=== PATIENT | male | born 1950 | race American Indian/Alaskan Native ===

== ENCOUNTER 2017-05-11 19:46 | Inpatient (IN) | payer MEDICARE ==
[2017-05-11 20:40] LABS: Basophils % (Auto) 0.5 % (0.0-1.8); Eosinophils % (Auto) 6.1 % (0.0-4.3); Hematocrit 29.5 % (35.5-45.6); Hemoglobin 9.5 gm/dl (11.8-15.2); Mean Corpuscular HGB Conc 32 % (32-34); Mean Corpuscular Volume 71 fl (84-94); Platelet Count 335 K/mm3 (140-440); Red Blood Count 4.18 M/mm3 (3.65-5.03); White Blood Count 10.4 K/mm3 (4.5-11.0)
--- NOTE | 2017-05-11 20:40 | Emergency Department Report ---
ED Shortness of Breath HPI - General Chief Complaint: Dyspnea/Respdistress Stated Complaint: NEEL Time Seen by Provider: 05/11/17 20:22 Source: family, EMS Mode of arrival: Stretcher Limitations: No Limitations - History of Present Illness Initial Comments: 66-year-old male with a history of idiopathic pulmonary fibrosis here with complaint of shortness of breath. Patient states around 5 PM in the anymore short of breath and was having this difficulty exhaling. No chest pain or fever. -: Gradual, Sudden Radiation: back Severity: moderate Improves With: oxygen, bronchodilators, medication Worsens With: exertion Known History Of: other (IPF) Associated Symptoms: denies other symptoms, cough - Related Data Allergies Allergy/AdvReac Type Severity Reaction Status Date / Time No Known Allergies Allergy Unverified 05/11/17 20:08 ED Review of Systems ROS: Stated complaint: NEEL Other details as noted in HPI Comment: All other systems reviewed and negative Constitutional: denies: chills, fever Eyes: denies: eye pain, eye discharge, vision change ENT: denies: ear pain, throat pain Respiratory: shortness of breath. denies: cough, wheezing Cardiovascular: denies: chest pain, palpitations Endocrine: no symptoms reported Gastrointestinal: denies: abdominal pain, nausea, diarrhea Genitourinary: denies: urgency, dysuria Musculoskeletal: denies: back pain, joint swelling, arthralgia Skin: denies: rash, lesions Neurological: denies: headache, weakness, paresthesias Psychiatric: denies: anxiety, depression Hematological/Lymphatic: denies: easy bleeding, easy bruising ED Past Medical Hx - Past Medical History Hx Hypertension: Yes Hx COPD: Yes Additional medical history: IPF, elevated cholesterol,afib - Surgical History Past Surgical History?: No - Family History Family history: no significant - Social History Smoking Status: Unknown if ever smoked Substance Use Type: None ED Physical Exam - General Limitations: No Limitations General appearance: alert, in no apparent distress - Head Head exam: Present: atraumatic, normocephalic - Eye Eye exam: Present: normal appearance - ENT ENT exam: Present: mucous membranes moist - Neck Neck exam: Present: normal inspection - Respiratory Respiratory exam: Present: normal lung sounds bilaterally, respiratory distress , rhonchi, prolonged expiratory, other (dry crackles) - Cardiovascular Cardiovascular Exam: Present: regular rate, normal rhythm, tachycardia. Absent : systolic murmur, diastolic murmur, rubs, gallop - GI/Abdominal GI/Abdominal exam: Present: soft, normal bowel sounds - Rectal Rectal exam: Present: deferred - Extremities Exam Extremities exam: Present: normal inspection - Back Exam Back exam: Present: normal inspection - Neurological Exam Neurological exam: Present: alert, oriented X3 - Psychiatric Psychiatric exam: Present: normal affect, normal mood - Skin Skin exam: Present: warm, dry, intact, normal color. Absent: rash ED Course Vital Signs 05/11/17 05/11/17 05/11/17 19:59 20:25 20:39 Temperature 99.2 F Pulse Rate 116 H 116 H Pulse Rate [ Anterior Throughout] Respiratory 20 20 20 Rate Respiratory Rate [Anterior Throughout] Blood Pressure 136/71 Blood Pressure 136/71 [Left] O2 Sat by Pulse 94 94 94 Oximetry 05/11/17 05/11/17 21:26 21:36 Temperature Pulse Rate Pulse Rate [ 104 H 105 H Anterior Throughout] Respiratory Rate Respiratory 37 H 30 H Rate [Anterior Throughout] Blood Pressure Blood Pressure [Left] O2 Sat by Pulse Oximetry ED Medical Decision Making - Lab Data Result diagrams: 05/11/17 20:15 05/11/17 20:15 Laboratory Results - last 24 hr 05/11/17 05/11/17 20:15 20:15 WBC 10.4 RBC 4.18 Hgb 9.5 L Hct 29.5 L MCV 71 L MCH 23 L MCHC 32 RDW 20.9 H Plt Count 335 Lymph % (Auto) 11.6 L [place] % (Auto) 8.0 H Eos % (Auto) 6.1 H Baso % (Auto) 0.5 Lymph # 1.2 [place] # 0.8 Eos # 0.6 H Baso # 0.0 Seg Neutrophils % 73.8 H Seg Neutrophils # 7.7 Sodium 138 Potassium 3.9 Chloride 101.1 Carbon Dioxide 23 Anion Gap 18 BUN 10 Creatinine 0.7 L Estimated GFR > 60 BUN/Creatinine Ratio 14.28 Glucose 153 H Calcium 8.9 Troponin T 0.033 H Triglycerides 90 Cholesterol 106 LDL Cholesterol Direct 49 L HDL Cholesterol 39 L Cholesterol/HDL Ratio 2.71 - EKG Data -: EKG Interpreted by Me - Medical Decision Making 66-year-old male with a history of IPF here with shortness of breath. Patient states he feels significantly better. Was given 2 breathing treatments and 125 mg of Solu-Medrol by EMS. On arrival he is feeling significantly better by time of my evaluation. Plan chest x-ray EKG labs and will observe. Plan to repeat treat with an additional breathing treatment and reassessed. Time 9:26 PM patient returned from the bathroom extremely tachypneic and short of breath. His oxygen saturations were in the 80s. He had some increased crackles at his bases. I suspect that he might have some mild flash pulmonary edema. This could also be related to his IPF. Plan to give him an additional breathing treatment increase his oxygen and a single dose of IV Lasix 20 mg. Given that the patient had this increasing episode of hypoxia I decided to admit the patient to the hospital. Discussed case with the hospitalist and will admit. Patient is stable in the emergency department. Portions of this chart were dictated with dictation software. There may be dictation errors contained within this note. Critical care attestation.: If time is entered above; I have spent that time in minutes in the direct care of this critically ill patient, excluding procedure time. ED Disposition Clinical Impression: Hypoxia, Pulmonary edema Disposition: OP ADMIT IP TO THIS HOSP Is pt being admited?: Yes Condition: Stable Instructions: Pulmonary Edema (ED) Referrals: PRIMARY CARE, [Primary Care Provider] - 3-5 Days
[2017-05-11 20:42] LABS: Mean Corpuscular Hemoglobin 23 pg (28-32); Red Cell Distribution Width 20.9 % (13.2-15.2)
[2017-05-11 20:53] LABS: Anion Gap 18 mmol/L; BUN/Creatinine Ratio 14.28; Blood Urea Nitrogen 10 mg/dL (9-20); Calcium 8.9 mg/dL (8.4-10.2); Carbon Dioxide 23 mmol/L (22-30); Chloride 101.1 mmol/L (98-107); Glucose 153 mg/dL (75-100); Potassium 3.9 mmol/L (3.6-5.0); Sodium 138 mmol/L (137-145)
[2017-05-11 21:21] LABS: Cholesterol 106 mg/dL (50-199); HDL Cholesterol 39 mg/dL (40-59); LDL Cholesterol,Direct 49 mg/dL (50-130); Triglycerides 90 mg/dL (2-149)
[2017-05-11] MEDS ORDERED: DUONEB *Not for PRN Use IH ONE (21:22)
[2017-05-11] MEDS ORDERED: LASIX IV ONE (21:26)
[2017-05-12] MEDS ORDERED: DUONEB *Not for PRN Use IH ONE ×2 (00:04→00:10)
--- NOTE | 2017-05-12 00:05 | History and Physical Report ---
History of Present Illness Date of examination: 05/12/17 Date of admission: 05/11/17 23:18 Chief complaint: Shortness of breath History of present illness: Patient is 66-year-old with history of COPD, idiopathic pulmonary fibrosis, on home oxygen At 2 L/m. He presents with worsening shortness of breath for 1 day. She denies shortness of breath. No fever. He is diagnosed with COPD and idiopathic pulmonary fibrosis exacerbation. We'll admit to telemetry for further management. Past History Past Medical History: atrial fib, COPD, hypertension, hyperlipidemia, other ( idiopathic pulmonary fibrosis) Past Surgical History: No surgical history Social history: , lives with family, smoking (quit smoking) Family history: no significant family history Medications and Allergies Allergies Allergy/AdvReac Type Severity Reaction Status Date / Time No Known Allergies Allergy Verified 05/12/17 00:14 Home Medications Medication Instructions Recorded Confirmed Last Taken Type ALBUTEROL NEB's 2.5 vial Q4HR PRN 05/12/17 05/12/17 Unknown History Acetaminophen [Shake That Ache] 500 mg PO Q8HR PRN 05/12/17 05/12/17 Unknown History AtorvaSTATin 20 mg PO DAILY 05/12/17 05/12/17 Unknown History Esbriet 270 mg PO TID 05/12/17 05/12/17 05/11/17 History 270mg Fluticasone [Flonase] 2 sprays NS QDAY 05/12/17 05/12/17 Unknown History Ipratropium [place] 0.02 vial INHALATION Q4HR PRN 05/12/17 05/12/17 Unknown History Losartan [Cozaar] 25 mg PO QDAY 05/12/17 05/12/17 Unknown History Metoprolol 37.5 mg PO BID 05/12/17 05/12/17 Unknown History Omeprazole 20 mg PO DAILY 05/12/17 05/12/17 Unknown History Omeprazole 20 mg PO QDAY 05/12/17 05/12/17 Unknown History Ventolin HFA 90 mcg INHALATION QDAY PRN MDD 2 05/12/17 05/12/17 Unknown History puffs Warfarin [Coumadin] 2.5 mg PO QDAY 05/12/17 05/12/17 Unknown History amLODIPine [Norvasc] 5 mg PO DAILY 05/12/17 05/12/17 Unknown History metFORMIN 05/12/17 Unknown History metFORMIN 500 mg PO BID 05/12/17 05/12/17 Unknown History Review of Systems All systems: negative (no fever, no headache, no abdominal pain, no urinary symptoms. All other systems reviewed and are negative) Exam - Physical Exam Narrative exam: Gen appearance: Not in acute distress HEENT: normocephalic, atraumatic Neck:supple, no JVD, LEONEL Lungs: Bilateral diffuse rhonchi, rales, wheezes Heart :S1 and S2 regular, no murmurs, rubs or gallop Abdomen: Soft, non-tender, non-distended, normal bowel sounds. Extremities : No edema no clubbing or cyanosis Neuro: Awake, alert oriented 3, normal speech, no focal neurological signs - Constitutional Vitals: Temp Pulse Resp BP Pulse Ox 99.2 F 102 H 37 H 132/78 95 05/11/17 19:59 05/11/17 23:00 05/11/17 23:00 05/11/17 23:00 05/11/17 23:00 Results - Labs CBC & Chem 7: 05/11/17 20:15 05/11/17 20:15 Assessment and Plan Acute on chronic respiratory failure secondary to COPD and pulmonary fibrosis exacerbation. Admit to telemetry. Start Solu-Medrol 80 mg IV every 8 hours. 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 steroids Idiopathic pulmonary fibrosis exacerbation Hypertension. Resume home meds Chronic atrial fibrillation. On Coumadin. Continue Coumadin to target INR 2- 3. INR therapeutic at 2.01 DVT prophylaxis. On Coumadin Full CODE STATUS
[2017-05-12] MEDS ORDERED: MILK OF MAGNESIA PO PRN (00:36)
[2017-05-12] MEDS ORDERED: MORPHINE IV PRN (00:36)
[2017-05-12] MEDS ORDERED: DULCOLAX PR PRN (00:36)
[2017-05-12] MEDS ORDERED: TYLENOL PO PRN (00:36)
[2017-05-12] MEDS ORDERED: ZOFRAN IV PRN (00:36)
[2017-05-12 01:16] LABS: INR 2.01 (0.87-1.13)
[2017-05-12 01:17] LABS: Partial Thromboplastin Time 40.5 Sec. (24.2-36.6)
[2017-05-12] MEDS: DUONEB *Not for PRN Use IH SCH ×4 (01:36→19:47)
[2017-05-12 01:45] LABS: ISTAT Base Excess 1; ISTAT PCO2 37.6 (35-45); ISTAT PO2 84 (80-105); ISTAT SO2 97; ISTAT TCO2 26
[2017-05-12] MEDS ORDERED: PIRFENIDONE PO SCH ×2 (08:00→20:00)
--- NOTE | 2017-05-12 09:33 | Admit Criteria Form ---
Admission Criteria Documentation: COPD Clinical Indications for Admission to Inpatient Care ([place]/ check or initial the applicable condition/criteria) Admission is indicated for ANY ONE of the following (1)(2)(3): [ ]I. Acute exacerbation by high-risk comorbidity(e.g., pneumonia, dysrhythmia, heart failure, pleural effusion, pneumothorax) or severe underlying COPD (eg, baseline FEV1 less than 50% predicted) [X ]II. Inpatient admission required[A] rather than observation care (see Chronic Obstructive Pulmonary Disease: Observation Care) because of ANY ONE of the following: [X ]a) New or pre-existing signs or symptoms of COPD (eg, dyspnea or Tachypnea at rest or with minimal activity) that persist despite outpatient and observation care treatment [ ]b) New-onset hypoxemia (room air SaO2 less than 90%, PO2 less than 60 mm Hg (8.0 kPa)) that persists despite outpatient and observation care treatment [X]c) Worsening of pre-existing hypoxemia (eg, new or increased requirement for supplemental oxygen to maintain oxygenation at baseline level) that persists despite outpatient and observation care treatment, with oxygen treatment needs performable only in acute inpatient setting [ ]d) Hypercarbia (PCO2 greater than 40 mm Hg (5.3 kPa))-induced respiratory acidosis (pH less than 7.35) that persists despite outpatient and observation care treatment [ ]e) Supplemental oxygen or respiratory treatments for over 24 hours that are performable only in acute inpatient setting [ ]f) Chest tube placement with active evacuation (e.g., suction, drainage) (6) [ ]g) Other condition, treatment or monitoring requiring inpatient admission [ ]III. Planned invasive surgical or diagnostic procedures requiring acute- care hospitalization [ ]IV. Acute respiratory failure (e.g., uncompensated hypercarbia, severe hypoxemia) [ ]V. Severe comorbid condition (e.g., severe steroid myopathy, acute vertebral fracture) that has acutely worsened pulmonary function [ ]. Altered mental status that is severe or persistent Extended stay beyond goal length of stay may be needed for (29)(30)(31)(32)(33) : [ ]a ) Respiratory Failure. [ ]b) Severe or persisting hypoxemia or hypercarbia [ ]c) Severe or persistent dyspnea [ ]d) Clinically significant Comorbidities (e.g. chronic heart failure, atrial fibrillation with rapid response, pneumonia)(36) [ ]e) Malnutrition (33) The [facility] content created by [facility] has been revised. The portions of the content which have been revised are identified through the use of italic text or in bold, and [facility] has neither reviewed nor approved the modified material. All other unmodified content is copyright [facility]. Please see references footnoted in the original [facility] edition 2017 Admission Criteria Met: Yes
[2017-05-12] MEDS ORDERED: NON-FORMULARY (Omeprazole 20 MG) PO SCH ×2 (10:00)
[2017-05-12] MEDS ORDERED: NON-FORMULARY (Atorvastatin 20 MG) PO SCH (10:00)
[2017-05-12] MEDS ORDERED: METOPROLOL PO SCH (10:00)
[2017-05-12] MEDS ORDERED: NON-FORMULARY (Metformin 500 MG) PO SCH (10:00)
[2017-05-12] MEDS: LOPRESSOR PO SCH ×2 (10:35→23:39)
[2017-05-12] MEDS: GLUCOPHAGE PO SCH ×2 (10:36→17:51)
[2017-05-12] MEDS: NORVASC PO SCH (10:37)
[2017-05-12] MEDS: COZAAR PO SCH (10:37)
[2017-05-12] MEDS: PROTONIX PO SCH (10:38)
--- NOTE | 2017-05-12 11:18 | Progress Note ---
Assessment and Plan Assessment and plan: Acute on chronic respiratory failure secondary to COPD and pulmonary fibrosis exacerbation. Cont. Solu-Medrol 80 mg IV every 8 hours. DuoNeb every 6 hours scheduled. Await pulmonary consultation. COPD exacerbation. Cont. steroids Idiopathic pulmonary fibrosis exacerbation. Pt. currently on Esbieta Hypertension. Resume home meds Chronic atrial fibrillation. On Coumadin. Continue Coumadin to target INR 2- 3. DVT prophylaxis. On Coumadin Full CODE STATUS History Interval history: no new issues overnight Hospitalist Physical - Constitutional Vitals: Temp Pulse Resp BP Pulse Ox 97.7 F 103 H 20 150/73 98 05/12/17 08:00 05/12/17 10:37 05/12/17 08:00 05/12/17 10:37 05/12/17 08:00 General appearance: Present: no acute distress, well-nourished - EENT Eyes: Present: PERRL, EOM intact ENT: hearing intact, clear oral mucosa, dentition normal - Neck Neck: Present: supple, normal ROM - Respiratory Respiratory effort: normal Respiratory: bilateral: CTA - Cardiovascular Rhythm: regular Heart Sounds: Present: S1 & S2. Absent: gallop, rub - Extremities Extremities: no ischemia, No edema, Full ROM - Abdominal General gastrointestinal: soft, non-tender, non-distended, normal bowel sounds - Integumentary Integumentary: Present: clear, warm, dry - Neurologic Neurologic: CNII-XII intact, moves all extremities Results - Labs CBC & Chem 7: 05/11/17 20:15 05/11/17 20:15 Labs: Laboratory Last Values WBC 10.4 K/mm3 (4.5-11.0) 05/11/17 20:15 RBC 4.18 M/mm3 (3.65-5.03) 05/11/17 20:15 Hgb 9.5 gm/dl (11.8-15.2) L 05/11/17 20:15 Hct 29.5 % (35.5-45.6) L 05/11/17 20:15 MCV 71 fl (84-94) L 05/11/17 20:15 MCH 23 pg (28-32) L 05/11/17 20:15 MCHC 32 % (32-34) 05/11/17 20:15 RDW 20.9 % (13.2-15.2) H 05/11/17 20:15 Plt Count 335 K/mm3 (140-440) 05/11/17 20:15 Lymph % (Auto) 11.6 % (13.4-35.0) L 05/11/17 20:15 [place] % (Auto) 8.0 % (0.0-7.3) H 05/11/17 20:15 Eos % (Auto) 6.1 % (0.0-4.3) H 05/11/17 20:15 Baso % (Auto) 0.5 % (0.0-1.8) 05/11/17 20:15 Lymph # 1.2 K/mm3 (1.2-5.4) 05/11/17 20:15 [place] # 0.8 K/mm3 (0.0-0.8) 05/11/17 20:15 Eos # 0.6 K/mm3 (0.0-0.4) H 05/11/17 20:15 Baso # 0.0 K/mm3 (0.0-0.1) 05/11/17 20:15 Seg Neutrophils % 73.8 % (40.0-70.0) H 05/11/17 20:15 Seg Neutrophils # 7.7 K/mm3 (1.8-7.7) 05/11/17 20:15 PT 22.8 Sec. (12.2-14.9) H 05/12/17 00:53 INR 2.01 (0.87-1.13) H 05/12/17 00:53 APTT 40.5 Sec. (24.2-36.6) H 05/12/17 00:53 POC ABG pH 7.430 (7.35-7.45) 05/12/17 01:35 POC ABG pCO2 37.6 (35-45) 05/12/17 01:35 POC ABG pO2 84 (80-105) 05/12/17 01:35 POC ABG HCO3 25.0 05/12/17 01:35 POC ABG Total CO2 26 05/12/17 01:35 POC ABG O2 Sat 97 05/12/17 01:35 POC ABG Base Excess 1 05/12/17 01:35 FiO2 32 % 05/12/17 01:35 Sodium 138 mmol/L (137-145) 05/11/17 20:15 Potassium 3.9 mmol/L (3.6-5.0) 05/11/17 20:15 Chloride 101.1 mmol/L (98-107) 05/11/17 20:15 Carbon Dioxide 23 mmol/L (22-30) 05/11/17 20:15 Anion Gap 18 mmol/L 05/11/17 20:15 BUN 10 mg/dL (9-20) 05/11/17 20:15 Creatinine 0.7 mg/dL (0.8-1.5) L 05/11/17 20:15 Estimated GFR > 60 ml/min 05/11/17 20:15 BUN/Creatinine Ratio 14.28 % 05/11/17 20:15 Glucose 153 mg/dL (75-100) H 05/11/17 20:15 POC Glucose 277 (70-105) H 05/12/17 11:05 Calcium 8.9 mg/dL (8.4-10.2) 05/11/17 20:15 Troponin T 0.028 ng/mL (0.00-0.029) 05/12/17 00:53 NT-Pro-B Natriuret Pep 427.1 pg/mL (0-900) 05/12/17 00:53 Triglycerides 90 mg/dL (2-149) 05/11/17 20:15 Cholesterol 106 mg/dL (50-199) 05/11/17 20:15 LDL Cholesterol Direct 49 mg/dL (50-130) L 05/11/17 20:15 HDL Cholesterol 39 mg/dL (40-59) L 05/11/17 20:15 Cholesterol/HDL Ratio 2.71 % 05/11/17 20:15
--- NOTE | 2017-05-12 12:42 | Consultation ---
History of Present Illness Consult date: 05/12/17 Requesting physician: TRIPP LONDON Reason for consult: other (Pulmonary Fibrosis) History of present illness: PULMONARY / CCM CONSULT NOTE (Full dictation # [id number]) Please see dictated notes full details Past History Past Medical History: atrial fib, COPD, hypertension, hyperlipidemia, other ( idiopathic pulmonary fibrosis) Past Surgical History: No surgical history Social history: , lives with family, smoking (quit smoking) Family history: no significant family history Medications and Allergies Allergies Allergy/AdvReac Type Severity Reaction Status Date / Time No Known Allergies Allergy Verified 05/12/17 00:14 Home Medications Medication Instructions Recorded Confirmed Last Taken Type ALBUTEROL NEB's 2.5 vial Q4HR PRN 05/12/17 05/12/17 Unknown History Acetaminophen [Shake That Ache] 500 mg PO Q8HR PRN 05/12/17 05/12/17 Unknown History AtorvaSTATin 20 mg PO DAILY 05/12/17 05/12/17 Unknown History Esbriet 270 mg PO TID 05/12/17 05/12/17 05/11/17 History 270mg Fluticasone [Flonase] 2 sprays NS QDAY 05/12/17 05/12/17 Unknown History Ipratropium [place] 0.02 vial INHALATION Q4HR PRN 05/12/17 05/12/17 Unknown History Losartan [Cozaar] 25 mg PO QDAY 05/12/17 05/12/17 Unknown History Metoprolol 37.5 mg PO BID 05/12/17 05/12/17 Unknown History Omeprazole 20 mg PO DAILY 05/12/17 05/12/17 Unknown History Omeprazole 20 mg PO QDAY 05/12/17 05/12/17 Unknown History Ventolin HFA 90 mcg INHALATION QDAY PRN MDD 2 05/12/17 05/12/17 Unknown History puffs Warfarin [Coumadin] 2.5 mg PO QDAY 05/12/17 05/12/17 Unknown History amLODIPine [Norvasc] 5 mg PO DAILY 05/12/17 05/12/17 Unknown History metFORMIN 05/12/17 Unknown History metFORMIN 500 mg PO BID 05/12/17 05/12/17 Unknown History Active Meds: Active Medications Acetaminophen (Tylenol) 650 mg PO Q4H PRN PRN Reason: Pain MILD(1-3)/Fever >100.5/[place] Albuterol (Proventil) 2.5 mg IH Q4HRT PRN PRN Reason: Shortness Of Breath Albuterol/Ipratropium (Duoneb *Not For Prn Use*) 1 ampul IH Q6HRT [facility] Last Admin: 05/12/17 07:05 Dose: 1 ampul Amlodipine Besylate (Norvasc) 5 mg PO DAILY [facility] Last Admin: 05/12/17 10:37 Dose: 5 mg Atorvastatin Calcium (Lipitor) 20 mg PO QHS [facility] Bisacodyl (Dulcolax) 10 mg RI QDAY PRN PRN Reason: Constipation unrelieved by MOM Fluticasone Propionate (Flonase) 100 mcg NS QDAY [facility] Insulin Human Regular (Novolin R) 0 units SUB-Q ACHS [facility] PRN Reason: Protocol Losartan Potassium (Cozaar) 25 mg PO QDAY [facility] Last Admin: 05/12/17 10:37 Dose: 25 mg Magnesium Hydroxide (Milk Of Magnesia) 30 ml PO Q4H PRN PRN Reason: Constipation Metformin HCl (Glucophage) 500 mg PO BIDDIAB [facility] Last Admin: 05/12/17 10:36 Dose: 500 mg Methylprednisolone Sodium Succinate (Solu-Medrol) 80 mg IV Q8H [facility] Last Admin: 05/12/17 10:38 Dose: 80 mg Metoprolol Tartrate (Lopressor) 37.5 mg PO BID [facility] Last Admin: 05/12/17 10:35 Dose: 37.5 mg Miscellaneous Medication (Esbriet) 270 mg PO TID [facility] Morphine Sulfate (Morphine) 2 mg IV Q4H PRN PRN Reason: Pain, Moderate (4-6) Ondansetron HCl (Zofran) 4 mg IV Q6H PRN PRN Reason: nausea or vomiting Pantoprazole Sodium (Protonix) 20 mg PO QDAY [facility] Last Admin: 05/12/17 10:38 Dose: 20 mg Warfarin Sodium (Coumadin) 2.5 mg PO QDAY@1700 [facility] PRN Reason: Protocol Physical Examination Vital signs: Vital Signs Pulse Resp Pulse Ox 116 H 33 H 99 05/11/17 19:44 05/11/17 19:44 05/11/17 19:44 Results - Laboratory Findings CBC and BMP: 05/11/17 20:15 05/11/17 20:15 ABG POC ABG pH 7.430 (7.35-7.45) 05/12/17 01:35 POC ABG pCO2 37.6 (35-45) 05/12/17 01:35 POC ABG pO2 84 (80-105) 05/12/17 01:35 POC ABG HCO3 25.0 05/12/17 01:35 POC ABG Total CO2 26 05/12/17 01:35 POC ABG O2 Sat 97 05/12/17 01:35 PT/INR, D-dimer PT 22.8 Sec. (12.2-14.9) H 05/12/17 00:53 INR 2.01 (0.87-1.13) H 05/12/17 00:53 Abnormal lab findings: Abnormal Labs 05/12/17 05/12/17 05/12/17 00:53 06:50 11:05 PT 22.8 H INR 2.01 H APTT 40.5 H POC Glucose 213 H 277 H
[2017-05-12] MEDS: FLONASE NS SCH (12:55)
--- NOTE | 2017-05-12 15:32 | XRay Report ---
Chest 2 views: History: Shortness of breath. Findings: Cardiomegaly. Trachea is midline. Pulmonary venous congestion bilaterally with bilateral pleural thickening and minimal pleural effusion. Interstitial infiltrates lower lobes bilaterally probably related to congestive failure and less likely chronic interstitial lung changes or interstitial pneumonia. Impression: Probable CHF. Less likely bilateral lower lobe pneumonia.
[2017-05-12] MEDS: LEVAQUIN PO SCH (17:51)
[2017-05-12] MEDS: COUMADIN PO SCH (17:51)
[2017-05-12] MEDS: ESBRIET 267 MG PO SCH (18:24)
[2017-05-12] MEDS: PROVENTIL IH PRN ×2 (18:33→23:03)
--- NOTE | 2017-05-13 00:49 | Consultation ---
CONSULTING PHYSICIAN: Chepe Mcdaniel M.D. REASON FOR CONSULTATION: COPD/fibrosis exacerbation. CHIEF COMPLAINT AND HISTORY OF PRESENT ILLNESS: The patient is a 66-year-old -[place] male with past medical history indeed significant for a diagnosis of idiopathic pulmonary fibrosis. He states in about 2007 he had been diagnosed with COPD. He never really saw a bolt labeler up until about a couple of months ago. He is on 2 liters nasal cannula at home. He was diagnosed with idiopathic pulmonary fibrosis and started essentially on Esbriet or pirfenidone. He stated that he had been doing about the same at home yesterday complaining of about increasing shortness of breath. On the day of presentation, according to his caregiver, I think his in the room, he walked outside to try and get more air and as soon as he opened the door, he got even more short of breath. He came to the Emergency Room. After evaluation, he was admitted for an exacerbation of his COPD with IPF. When I stopped by to see him, he was resting in bed, feeling a little bit better. He had oxygen about 2-1/2 liters per minute. He denied any fevers or chills. He denied any change in his chronic cough or expectoration. He denied any gross or streaky hemoptysis. He currently stated that this has happened once or twice in the past couple of months. With regards to tobacco use, he has a 10 plus pack year tobacco smoking history, but quit smoking when he could no longer inhale according to I think his in the room. This really is as much of the history of presentation. He denies any new onset acute leg pain or swelling either unilaterally or bilaterally. Denies any prior history of venous thromboembolic phenomenon. PAST MEDICAL HISTORY: History of atrial fibrillation, history of COPD, hypertension, hyperlipidemia, and idiopathic pulmonary fibrosis. PAST SURGICAL HISTORY: Denies. MEDICATIONS: He was on at the time I stopped by to see him, according to the medication administration record included the following: Tylenol 650 mg p.o. q.4h. p.r.n. mild pain, DuoNeb treatments nebulized q.6h., Norvasc 5 mg p.o. daily, Lipitor 20 mg p.o. at bedtime, Flonase 100 mcg each nostril daily, insulin via sliding scale, Cozaar 25 mg p.o. daily, milk of magnesia 30 mL p.o. q.4h. p.r.n. constipation, metformin 500 mg p.o. b.i.d., Solu-Medrol 80 mg IV q.8h., and Lopressor 37.5 mg p.o. b.i.d. He is taking the Esbriet 267 mg p.o. t.i.d., Zofran 4 mg IV q.6h. p.r.n. nausea and vomiting, morphine sulfate 2 mg IV q.4h. p.r.n. moderate pain, Protonix 20 mg p.o. daily and Coumadin 2.5 mg p.o. daily. ALLERGIES: No known drug allergies. DIET: Well-built gentleman. Denies significant weight loss or gain in the preceding few weeks to months. FAMILY AND SOCIAL HISTORY: Lives in the community, I believe he is . His was in the room. He has a 10 plus pack year tobacco smoking history. No current alcohol, tobacco, or illicit drug use or abuse. REVIEW OF SYSTEMS: No loss of consciousness. No new onset seizures. No new onset focal weakness. No gross hematochezia or melena. No gross hematuria or dysuria. No hematemesis. No hemoptysis. He has had some streaky hemoptysis in the preceding few weeks. Complete 13-system review of systems obtained. Pertinent positives and/or negatives are as in the body of the history above. Otherwise, they are noncontributory. PHYSICAL EXAMINATION: VITAL SIGNS: At presentation, he had low-grade fever of 99.2 degrees Fahrenheit with a pulse of 116, respiratory rate of 33, blood pressure 136/71, oxygen sats were 99%, inspired oxygen concentration at that time was not recorded. HEAD, EYES, EARS, NOSE, AND THROAT: Pupils are equal, round, about 3-4 mm, reactive to light. Extraocular muscle movements are intact. Grossly, there are no palpable lymph nodes in the supraclavicular or submandibular lymph node chains. No submandibular tenderness. LUNGS: Auscultation of both lung davey consistent with inspiratory rales in the bases in particular. No active wheezing. HEART: Heart sounds 1 and 2 are heard, regular rate and rhythm at time of my evaluation. ABDOMEN: Soft, full, bowel sounds are positive, nontender. EXTREMITIES: Without overt digital clubbing, cyanosis, or pedal edema. NEUROLOGIC: The exam was grossly nonfocal. LABORATORY DATA: From my review are as follows: White cell count 10,400; hemoglobin 9.5; hematocrit 29.5; and platelets 335. No manual differential. No band forms. INR 2.01. ABG showed a pH of 7.43, pCO2 of 38, and pO2 of 84, that was on 3 liters nasal cannula. Serum sodium 138, potassium 3.9, chloride 101, bicarbonate 23, BUN 10, creatinine 0.7, and glucose 153. BNP was within normal limits. Troponin slightly elevated at 0.033. LDL cholesterol 49. Microbiology studies none. RADIOLOGIC STUDIES: Radiographic studies have been reviewed. I have reviewed the radiologist's interpretation and pulling up the films now. He describes probable CHF, essentially interstitial changes, particularly in the lower lobes consistent with IPF. ASSESSMENT AND PLAN: We have an elderly gentleman in with the idiopathic pulmonary fibrosis type symptoms and he brings a diagnosis from the outside. He never got an open lung biopsy or perhaps procedure, but that is not necessary for the diagnosis of this day and probably based on the history he tells me, I do feel like he has been evaluated to the point where I doubt that diagnosis is really in doubt. However, I should mention he denies any history consistent with connective tissue disorders. He denies any history of skin changes. He denies any history of arthritis. He denies any history of Raynaud's type phenomena. He denies any history consistent with features, he has none of those. I think that acutely he needs to be placed on antibiotic therapy. I will treat him with 5 days of Levaquin monotherapy for possible community-acquired pneumonia in the setting of idiopathic pulmonary fibrosis. I should mention that medication he is on Esbriet does have some immunosuppressive properties and high adverse reaction case. Adverse reaction reportedly related with upper respiratory tract type infections. Whatever the case, we will need to cover him with antibiotics. I will begin to taper his systemic steroids. I doubt that that is going to have much effect. In terms of improving his disease processes, he does have the history of chronic obstructive pulmonary disease, but I do not know if he has obstructive or restrictive defects at this time. Sputum will be sent for Gram stain cultures and sensitivities. I will get his CRP level to help guide antibiotic therapy. Oxygen should be supplemented to keep sats greater than or equal to about 92-94% and aspiration precautions will be maintained. I have candidly discussed with him that he might want to get some evaluation in [facility] set up and dedicated pulmonary fibrosis clinic. I am not sure if that is what is currently attending, but that would certainly be of benefit certainly. The prognosis is guarded in his case, especially if the diagnosis is correct, but we certainly can improve quality of life. It might seem that lung transplantation is probably his best chance of significant cure or to say and again in a teaching center particularly one with lung transplant capabilities may ultimately serve him down the line. Certainly early listing on the lung transplant list will improve his chances of him receiving one if he gets to that point. I would just go ahead and do an LINDA test to screen for connective tissue disorder. I also do an CECILIA level as a kind of evaluation for sarcoidosis. We will treat him with antibiotics. We will continue supplemental oxygen. We will taper the systemic steroids. A trial of diuretics may be in order. The BUN and creatinine suggest that he will definitely benefit from, he will be able to tolerate diuresis. I will do gentle diuresis. I am just going to give him 2 doses of Lasix 20 mg IV q.12h. and see if there is any significant clinical response. He is fully anticoagulated and he is appropriately on gastrointestinal prophylaxis. Thank you very much for the consult Dr. Mcdaniel. We will follow along. We will make further recommendations as picture progresses/becomes clearer. JOB# [id number] AMY/HARRISON
[2017-05-13] MEDS: DUONEB *Not for PRN Use IH SCH ×4 (02:47→20:01)
[2017-05-13] MEDS ORDERED: ALUM-MAG HYDROX-SIMETH 200-200-20MG/5ML PO PRN (04:57)
[2017-05-13] MEDS: ROBITUSSIN AC PO PRN ×2 (05:08→21:18)
[2017-05-13 06:58] LABS: INR 1.98 (0.87-1.13)
[2017-05-13 07:12] LABS: Anion Gap 16 mmol/L; BUN/Creatinine Ratio 21.66; Blood Urea Nitrogen 13 mg/dL (9-20); Calcium 9.3 mg/dL (8.4-10.2); Carbon Dioxide 26 mmol/L (22-30); Chloride 102.5 mmol/L (98-107); Glucose 127 mg/dL (75-100); Potassium 5.1 mmol/L (3.6-5.0); Sodium 139 mmol/L (137-145)
[2017-05-13] MEDS: ESBRIET 267 MG PO SCH ×3 (08:00→20:35)
[2017-05-13 08:03] LABS: Basophils % (Auto) 0.1 % (0.0-1.8); Eosinophils % (Auto) 0.1 % (0.0-4.3); Hematocrit 29.1 % (35.5-45.6); Hemoglobin 9.2 gm/dl (11.8-15.2); Mean Corpuscular HGB Conc 32 % (32-34); Mean Corpuscular Volume 71 fl (84-94); Platelet Count 350 K/mm3 (140-440); Red Blood Count 4.08 M/mm3 (3.65-5.03); White Blood Count 10.9 K/mm3 (4.5-11.0)
[2017-05-13 08:09] LABS: Mean Corpuscular Hemoglobin 23 pg (28-32); Red Cell Distribution Width 21.1 % (13.2-15.2)
[2017-05-13] MEDS: GLUCOPHAGE PO SCH ×2 (08:14→17:26)
[2017-05-13] MEDS: PROTONIX PO SCH (09:04)
[2017-05-13] MEDS: NORVASC PO SCH (09:43)
[2017-05-13] MEDS: LOPRESSOR PO SCH ×2 (09:43→21:17)
[2017-05-13] MEDS: FLONASE NS SCH (09:44)
[2017-05-13] MEDS: COZAAR PO SCH (09:44)
[2017-05-13] MEDS: PROVENTIL IH PRN (10:43)
--- NOTE | 2017-05-13 11:17 | Discharge Summary ---
Providers - Providers Date of Admission: 05/11/17 23:18 Date of discharge: 05/14/17 Attending physician: SHUN LEON 05/12/17 00:36 Consult to Physician [CONS] Routine Consulting Provider: MARY ROLDAN Reason For Exam: COPD /fibrosis [facility] Place consult to:: dr. roldan Notified:: answering service Phone number called:: [phone] Was contact made?: Yes If yes, spoke with:: darren Time called:: 08:41 Primary care physician: [facility] Hospitalization Reason for admission: sob Condition: Stable Hospital course: Patient is 66-year-old with history of COPD, idiopathic pulmonary fibrosis, on home oxygen At 2 L/m. He presented with worsening shortness of breath for 1 day prior to admission. No fever. The patient was admitted with diagnosis of COPD and idiopathic pulmonary fibrosis exacerbation. The patient received treatment with IV steroids and breathing treatments. Patient reports that he is back to his baseline respiratory status. Patient denies any chest pain or shortness of breath. Patient is felt to have received maximal hospital benefit. Therefore, patient will be discharged home. Dedicated discharge time 32 minutes. Disposition: DC-01 TO HOME OR SELFCARE Time spent for discharge: 32 - Discharge Diagnoses (1) IPF (idiopathic pulmonary fibrosis) Status: Acute (2) COPD (chronic obstructive pulmonary disease) Status: Acute Qualifiers: COPD type: C Chronic bronchitis type: C Emphysema type: E (3) Hypoxia Status: Acute Core Measure Documentation - Palliative Care Palliative Care/ Comfort Measures: Not Applicable - Core Measures Any of the following diagnoses?: none Exam - Constitutional Vitals: Temp Pulse Resp BP Pulse Ox 98.0 F 84 18 130/80 96 05/13/17 09:43 05/13/17 10:45 05/13/17 10:45 05/13/17 09:43 05/13/17 10:00 General appearance: Present: no acute distress, well-nourished - EENT Eyes: Present: PERRL ENT: hearing intact, clear oral mucosa - Neck Neck: Present: supple, normal ROM - Respiratory Respiratory effort: normal Respiratory: bilateral: CTA - Cardiovascular Heart Sounds: Present: S1 & S2. Absent: rub, click - Extremities Extremities: pulses symmetrical, No edema Peripheral Pulses: within normal limits - Abdominal General gastrointestinal: Present: soft, non-tender, non-distended, normal bowel sounds Male genitourinary: Present: normal - Integumentary Integumentary: Present: clear, warm, dry - Musculoskeletal Musculoskeletal: gait normal, strength equal bilaterally - Psychiatric Psychiatric: appropriate mood/affect, intact judgment & insight - Neurologic Neurologic: CNII-XII intact, moves all extremities Plan Activity: no restrictions Weight Bearing Status: Full Weight Bearing Diet: regular Follow up with: PRIMARY CARE, [Primary Care Provider] - 3-5 Days MARY ROLDAN MD [Staff Physician] - 7 Days Forms: Warfarin Discharge Instruction Prescriptions: methylPREDNISolone [Medrol Dose [place]] 4 mg PO QAM #1 pack
[2017-05-13] MEDS: LEVAQUIN PO SCH (17:26)
[2017-05-13] MEDS: COUMADIN PO SCH (17:27)
--- NOTE | 2017-05-13 20:54 | Progress Note ---
Assessment and Plan Patient still complaining severe shortness of breath. Patient is on 3 litres O2. O2 saturation 98%.Still complaining cough. - Patient Problems (1) COPD (chronic obstructive pulmonary disease) Current Visit: Yes Status: Acute Qualifiers: COPD type: C Chronic bronchitis type: C Emphysema type: E Plan to address problem: O2 2 litres via nasal canula. Albuterol/atrovent aerosol treatments q 6 hours. Continue I/V solumedral Continue Levaquine. Continue warfarin. (2) Hypoxia Current Visit: Yes Status: Acute Plan to address problem: Recommend continuous O2 2 litres via nasal canula. (3) IPF (idiopathic pulmonary fibrosis) Current Visit: Yes Status: Acute Plan to address problem: Recommend LINDA, rheumatoid factor, CECILIA level, CAnca. Recommend CAT scan of chest PFTs as out patient. (4) Pulmonary edema Current Visit: Yes Status: Acute Qualifiers: Chronicity: C Plan to address problem: Recommend lasix. Recommend to consult cardiology. Subjective Date of service: 05/13/17 Interval history: Patient still complaining severe shortness of breath. Patient is on 3 litres O2. O2 saturation 98%.Still complaining cough. Objective Vital Signs - 12hr 05/13/17 05/13/17 05/13/17 09:43 09:44 10:00 Temperature 98.0 F Pulse Rate 82 82 Pulse Rate [ Anterior Bilateral Throughout] Respiratory 20 Rate Respiratory Rate [Anterior Bilateral Throughout] Blood Pressure 130/80 O2 Sat by Pulse 96 96 Oximetry 05/13/17 05/13/17 05/13/17 10:35 10:45 12:00 Temperature 98.0 F Pulse Rate 79 Pulse Rate [ 85 84 Anterior Bilateral Throughout] Respiratory 20 Rate Respiratory 18 18 Rate [Anterior Bilateral Throughout] Blood Pressure 137/69 O2 Sat by Pulse 96 Oximetry 05/13/17 05/13/17 05/13/17 14:00 14:10 15:00 Temperature 98 F Pulse Rate 89 Pulse Rate [ 84 85 Anterior Bilateral Throughout] Respiratory 18 Rate Respiratory 18 18 Rate [Anterior Bilateral Throughout] Blood Pressure 141/75 O2 Sat by Pulse Oximetry 05/13/17 05/13/17 05/13/17 19:51 19:55 20:02 Temperature Pulse Rate Pulse Rate [ 85 87 Anterior Bilateral Throughout] Respiratory Rate Respiratory 20 20 Rate [Anterior Bilateral Throughout] Blood Pressure O2 Sat by Pulse 100 Oximetry Constitutional: alert, appears uncomfortable (Mild to moderate shortness of breath.) Eyes: non-icteric ENT: oropharynx moist Neck: supple, no lymphadenopathy Ascultation: Bilateral: diminished breath sounds Cardiovascular: irregular rhythm Gastrointestinal: normoactive bowel sounds, soft, non-tender Integumentary: normal Extremities: no cyanosis, no edema Neurologic: normal mental status, non-focal exam, pupils equal and round, CN II- XII normal Psychiatric: anxious CBC and BMP: 05/13/17 06:13 05/13/17 06:13 ABG, PT/INR, D-dimer: ABG POC ABG pH 7.430 (7.35-7.45) 05/12/17 01:35 POC ABG pCO2 37.6 (35-45) 05/12/17 01:35 POC ABG pO2 84 (80-105) 05/12/17 01:35 POC ABG HCO3 25.0 05/12/17 01:35 POC ABG Total CO2 26 05/12/17 01:35 POC ABG O2 Sat 97 05/12/17 01:35 PT/INR, D-dimer PT 22.5 Sec. (12.2-14.9) H 05/13/17 06:13 INR 1.98 (0.87-1.13) H 05/13/17 06:13 Abnormal lab findings: Abnormal Labs 05/12/17 05/12/17 05/12/17 00:53 06:50 11:05 Hgb Hct MCV MCH RDW Lymph % (Auto) [place] % (Auto) [place] # Seg Neutrophils % Seg Neutrophils # PT 22.8 H INR 2.01 H APTT 40.5 H Potassium Creatinine Glucose POC Glucose 213 H 277 H C-Reactive Protein 05/12/17 05/12/17 05/12/17 16:43 17:09 22:04 Hgb Hct MCV MCH RDW Lymph % (Auto) [place] % (Auto) [place] # Seg Neutrophils % Seg Neutrophils # PT INR APTT Potassium Creatinine Glucose POC Glucose 150 H 199 H C-Reactive Protein 7.50 H 05/13/17 05/13/17 05/13/17 06:13 06:13 06:13 Hgb 9.2 L Hct 29.1 L MCV 71 L MCH 23 L RDW 21.1 H Lymph % (Auto) 12.3 L [place] % (Auto) 8.2 H [place] # 0.9 H Seg Neutrophils % 79.3 H Seg Neutrophils # 8.7 H PT 22.5 H INR 1.98 H APTT Potassium 5.1 H D Creatinine 0.6 L Glucose 127 H POC Glucose C-Reactive Protein 05/13/17 05/13/17 12:10 16:15 Hgb Hct MCV MCH RDW Lymph % (Auto) [place] % (Auto) [place] # Seg Neutrophils % Seg Neutrophils # PT INR APTT Potassium Creatinine Glucose POC Glucose 123 H 147 H C-Reactive Protein Chest x-ray: report reviewed (Cardiomegaly, pulmonary vascular congestion.)
[2017-05-14] MEDS: DUONEB *Not for PRN Use IH SCH ×3 (01:51→13:00)
--- NOTE | 2017-05-14 07:25 | Progress Note ---
Assessment and Plan Acute on chronic respiratory failure secondary to COPD and pulmonary fibrosis exacerbation. Cont. Solu-Medrol 80 mg IV every 8 hours. Taper solumedrol. DuoNeb every 6 hours scheduled. Pulmonary following. Check CT chest. COPD exacerbation. Cont. steroids Idiopathic pulmonary fibrosis exacerbation. Pt. currently on Esbieta Hypertension. Resume home meds Chronic atrial fibrillation. On Coumadin. Continue Coumadin to target INR 2- 3. DVT prophylaxis. On Coumadin Full CODE STATUS - Patient Problems (1) IPF (idiopathic pulmonary fibrosis) Current Visit: Yes Status: Acute (2) COPD (chronic obstructive pulmonary disease) Current Visit: Yes Status: Acute Qualifiers: COPD type: C Chronic bronchitis type: C Emphysema type: E (3) Hypoxia Current Visit: Yes Status: Acute Subjective Date of service: 05/13/17 Interval history: no new issues overnight Objective - Constitutional Vitals: Vital Signs - 12hr 05/13/17 05/13/17 05/13/17 19:51 19:55 20:00 Temperature 98.6 F Pulse Rate 95 H Pulse Rate [ 85 Anterior Bilateral Throughout] Respiratory 20 Rate Respiratory 20 Rate [Anterior Bilateral Throughout] Blood Pressure 138/70 O2 Sat by Pulse 100 100 Oximetry 05/13/17 05/13/17 05/14/17 20:02 21:17 00:00 Temperature 98.4 F Pulse Rate 94 H 90 Pulse Rate [ 87 Anterior Bilateral Throughout] Respiratory 20 Rate Respiratory 20 Rate [Anterior Bilateral Throughout] Blood Pressure 144/74 142/74 O2 Sat by Pulse 100 Oximetry 05/14/17 05/14/17 05/14/17 01:45 01:56 03:48 Temperature 97.9 F Pulse Rate 74 Pulse Rate [ 69 70 Anterior Bilateral Throughout] Respiratory 20 Rate Respiratory 16 18 Rate [Anterior Bilateral Throughout] Blood Pressure 150/70 O2 Sat by Pulse 100 Oximetry General appearance: Present: no acute distress, well-nourished - EENT Eyes: PERRL, EOM intact ENT: hearing intact, clear oral mucosa Ears: bilateral: normal - Neck Neck: supple, normal ROM - Respiratory Respiratory effort: normal Respiratory: bilateral: diminished, wheezing - Breasts Breasts: normal - Cardiovascular Rhythm: regular Heart Sounds: Present: S1 & S2. Absent: gallop, rub Extremities: pulses intact, No edema, normal color, Full ROM - Gastrointestinal General gastrointestinal: Present: soft, non-tender, non-distended, normal bowel sounds - Genitourinary Male genitourinary: normal - Integumentary Integumentary: clear, warm, dry - Musculoskeletal Musculoskeletal: 1, strength equal bilaterally - Neurologic Neurologic: moves all extremities - Psychiatric Psychiatric: memory intact, appropriate mood/affect, intact judgment & insight - Labs CBC & Chem 7: 05/13/17 06:13 05/13/17 06:13 Labs: Abnormal lab results 05/13/17 05/13/17 05/13/17 Range/Units 06:13 12:10 16:15 Hgb 9.2 L (11.8-15.2) gm/dl Hct 29.1 L (35.5-45.6) % MCV 71 L (84-94) fl MCH 23 L (28-32) pg RDW 21.1 H (13.2-15.2) % Lymph % (Auto) 12.3 L (13.4-35.0) % Kay % (Auto) 8.2 H (0.0-7.3) % Kay # 0.9 H (0.0-0.8) K/mm3 Seg Neutrophils % 79.3 H (40.0-70.0) % Seg Neutrophils # 8.7 H (1.8-7.7) K/mm3 POC Glucose 123 H 147 H (70-105) 05/13/17 05/14/17 Range/Units 22:03 05:45 Hgb (11.8-15.2) gm/dl Hct (35.5-45.6) % MCV (84-94) fl MCH (28-32) pg RDW (13.2-15.2) % Lymph % (Auto) (13.4-35.0) % Kay % (Auto) (0.0-7.3) % Kay # (0.0-0.8) K/mm3 Seg Neutrophils % (40.0-70.0) % Seg Neutrophils # (1.8-7.7) K/mm3 POC Glucose 150 H 112 H (70-105)
[2017-05-14 07:31] LABS: INR 2.02 (0.87-1.13)
[2017-05-14] MEDS: ESBRIET 267 MG PO SCH ×2 (08:14→13:49)
[2017-05-14] MEDS: GLUCOPHAGE PO SCH (08:15)
[2017-05-14 08:28] VITALS: BP 135/63
[2017-05-14] MEDS: PROVENTIL IH PRN (09:49)
[2017-05-14] MEDS: NORVASC PO SCH (10:51)
[2017-05-14] MEDS: COZAAR PO SCH (10:52)
[2017-05-14] MEDS: PROTONIX PO SCH (10:52)
[2017-05-14] MEDS: LOPRESSOR PO SCH (10:52)
[2017-05-14] MEDS: FLONASE NS SCH (10:53)
[2017-05-14] MEDS ORDERED: NACL ONE (11:02)
--- NOTE | 2017-05-14 12:00 | Cat Scan Report ---
CT scan of chest and without and with IV contrast: Findings: No endobronchial lesion. Mediastinal adenopathy. No pericardial effusion. No evidence of aneurysm. Enlarged pulmonary arteries suggestive of pulmonary arterial hypertension. Extensive pulmonary fibrosis bilaterally predominantly lower lobes. Scattered centrilobular emphysematous changes with scattered subpleural bulla. No definite acute consolidation or mass. Bilateral pleural thickening lower lobes. Impression: Extensive pulmonary fibrosis with pleural thickening and pulmonary arterial hypertension. No acute consolidation. Additional findings as detailed above.
== END 2017-05-14 16:35 | disposition home or self-care (01) | DRG 189 ==
LOC: ED 19:46 → 3A 23:18
PROVIDERS: ADMIT Internal Medicine; ATTEND Hospitalist
PROC: 4A033R1 Measurement of Arterial Saturation, Peripheral, Percutaneous Approach (ICD-10-PCS; principal; 2017-05-12)
DX: J96.21 Acute and chronic respiratory failure with hypoxia (principal); J44.1 Chronic obstructive pulmonary disease with (acute) exacerbation; J84.112 Idiopathic pulmonary fibrosis; I10 Essential (primary) hypertension; E78.00 Pure hypercholesterolemia, unspecified; E78.5 Hyperlipidemia, unspecified; I48.2 Chronic atrial fibrillation; Z99.81 Dependence on supplemental oxygen; Z79.899 Other long term (current) drug therapy
CPT/HCPCS: 36415; 36600; 71020; 71270; 80048; 80061; 82164; 82803; 82962; 83880; 84484; 85025; 85610; 85730; 86021; 86038; 86140; 86618; 87205; 93005; 93010; 94640; 94760; 96374; A9270-GY; J1815; J1940; J2930; Q9967

== ENCOUNTER 2017-06-18 11:26 | Emergency (ER) | payer MEDICARE ==
[2017-06-18] MEDS ORDERED: PROVENTIL IH ONE (11:28)
[2017-06-18] MEDS ORDERED: ATROVENT IH ONE (11:28)
--- NOTE | 2017-06-18 11:45 | Emergency Department Report ---
HPI - General Time Seen by Provider: 06/18/17 11:27 - HPI HPI: This is a 66 year-old male presents to the emergency department by EMS from home with complaint of shortness of breath and some respiratory distress. The patient was found using a face mask at 10 L oxygen and still had a pulse ox of about 60%. He was also starting albuterol treatment at that time. He then went into EMS and was given Solu-Medrol and magnesium and his pulse ox came up into the mid to high 90s. He denies any chest pain but does say that it feels like there is a "lump in my chest." He has a history of atrial fibrillation, pulmonary fibrosis and non-insulin- dependent diabetes. He has a primary care physician through [facility] and a authorization specialist in [place]. He is a former smoker. No recent travel or sick contacts at home. He denies any history of CT, CVA, PE/DVT. ED Past Medical Hx - Past Medical History Hx Hypertension: Yes Hx Diabetes: Yes Hx COPD: Yes Hx HIV: No Additional medical history: IPF, elevated cholesterol,afib - Social History Smoking Status: Former Smoker - Medications Home Medications: Home Medications Medication Instructions Recorded Confirmed Last Taken Type ALBUTEROL NEB's 2.5 vial Q4HR PRN 05/12/17 05/12/17 Unknown History Acetaminophen [Shake That Ache] 500 mg PO Q8HR PRN 05/12/17 05/12/17 Unknown History AtorvaSTATin 20 mg PO DAILY 05/12/17 05/12/17 Unknown History Esbriet 270 mg PO TID 05/12/17 05/12/17 05/11/17 History 270mg Fluticasone [Flonase] 2 sprays NS QDAY 05/12/17 05/12/17 Unknown History Ipratropium [place] 0.02 vial INHALATION Q4HR PRN 05/12/17 05/12/17 Unknown History Losartan [Cozaar] 25 mg PO QDAY 05/12/17 05/12/17 Unknown History Metoprolol 37.5 mg PO BID 05/12/17 05/12/17 Unknown History Omeprazole 20 mg PO DAILY 05/12/17 05/12/17 Unknown History Omeprazole 20 mg PO QDAY 05/12/17 05/12/17 Unknown History Ventolin HFA 90 mcg INHALATION QDAY PRN MDD 2 05/12/17 05/12/17 Unknown History puffs Warfarin [Coumadin] 2.5 mg PO QDAY 05/12/17 05/12/17 Unknown History amLODIPine [Norvasc] 5 mg PO DAILY 05/12/17 05/12/17 Unknown History metFORMIN 05/12/17 Unknown History metFORMIN 500 mg PO BID 05/12/17 05/12/17 Unknown History Esbriet 267 mg PO TID 05/13/17 Unknown Rx Insulin Regular, Human [HumuLIN R] 0 units SUB-Q ACHS units 05/13/17 Unknown Rx Ipratropium/Albuterol Sulfate 1 ampul IH Q6HRT ampul.neb 05/13/17 Unknown Rx [DUONEB *Not for PRN Use*] Levofloxacin [Levaquin TAB] 750 mg PO Q24H tablet 05/13/17 Unknown Rx methylPREDNISolone Sod Suc 60 mg IV Q12H vial 05/13/17 Unknown Rx [Solu-MEDROL] methylPREDNISolone [Medrol Dose 4 mg PO QAM #1 pack 05/13/17 Unknown Rx [place]] ED Review of Systems ROS: Stated complaint: respiratory distress Other details as noted in HPI Comment: All other systems reviewed and negative Constitutional: denies: chills, fever Eyes: denies: eye pain, eye discharge, vision change ENT: denies: ear pain, throat pain Respiratory: cough, shortness of breath Cardiovascular: denies: chest pain, palpitations Gastrointestinal: denies: abdominal pain, nausea, diarrhea Genitourinary: denies: urgency, dysuria Musculoskeletal: denies: back pain, joint swelling, arthralgia Skin: denies: rash, lesions Neurological: denies: headache, weakness, paresthesias Physical Exam - Physical Exam Physical Exam: GENERAL: The patient is well-developed well-nourished. HENT: Normocephalic. Atraumatic. Patient has moist mucous membranes. EYES: Extraocular motions are intact. Pupils equal reactive to light bilaterally. NECK: Supple. Trachea is midline. CHEST/LUNGS: Mild expiratory wheezing but the chest. There is some tachypnea and a small amount of conversational dyspnea. There is a dry sounding cough heard during examination.. There is some respiratory distress noted. HEART/CARDIOVASCULAR: Regular. There is no tachycardia. There is no gallop rub or murmur. ABDOMEN: Abdomen is soft, nontender. Patient has normal bowel sounds. There is no abdominal distention. SKIN: Skin is warm and dry. NEURO: The patient is awake, alert, and oriented. The patient is cooperative. The patient has no focal neurologic deficits. The patient has normal speech. MUSCULOSKELETAL: There is no tenderness or deformity. There is no limitation range of motion. There is no evidence of acute injury. ED Medical Decision Making - Lab Data Result diagrams: 06/18/17 11:57 06/18/17 11:54 - EKG Data -: EKG Interpreted by Me EKG shows normal: sinus rhythm, axis (Left [place] Deviation), intervals, QRS complexes (Q waves to the septal leads), ST-T waves Rate: normal - EKG Data When compared to previous EKG there are: no significant change Interpretation: unchanged when compared t (05/19/17) - Radiology Data Radiology results: image reviewed interpreted by me: Chest x-ray does not show any acute process. There are no pleural effusions, obvious pneumonia and there is no pneumothorax. Chest x-ray appears consistent with interstitial lung disease - Medical Decision Making 66-year-old male with a history of pulmonary fibrosis presents with some shortness of breath. He was in some mild respiratory distress at first with some tachypnea, conversational dyspnea and some accessory muscle use. He was placed on a nonrebreather and given albuterol, Atrovent, Solu-Medrol. Chest x- ray does not show any pneumonia or CHF or any other acute process. Labs are mostly unremarkable except for a supratherapeutic INR of 4.4. For this reason there is low suspicion of a pulmonary embolism as the source of his dyspnea. The rest of labs are mostly unremarkable. EKG does not show any signs of ST elevation CT. The patient was reevaluated multiple times for multiple hours and says he is feeling much better. He certainly appears improved. There is no further signs of any respiratory distress. Wheezing has resolved. The patient is resting comfortably, talking to family and ate some food. There is a mild amount of tachypnea prior to discharge but the patient denies any complaints of shortness of breath. He has 2 L oxygen dependent at home. He did not need any refill of any medications. He has been encouraged to follow up with his primary care physician and authorization specialist in the next 2 days and return to the ER with any worsening of symptoms or any acute distress. - Differential Diagnosis pulmonary fibrosis, PE, CHF, pneumonia Critical Care Time: No Critical care attestation.: If time is entered above; I have spent that time in minutes in the direct care of this critically ill patient, excluding procedure time. ED Disposition Clinical Impression: IPF (idiopathic pulmonary fibrosis) COPD (chronic obstructive pulmonary disease) Qualifiers: COPD type: unspecified COPD Qualified Code(s): J44.9 - Chronic obstructive pulmonary disease, unspecified Disposition: DC-01 TO HOME OR SELFCARE Is pt being admited?: No Condition: Stable Instructions: Chronic Obstructive Pulmonary Disease (ED) Additional Instructions: Please follow-up with your primary care physician and/or authorization specialist. Return to the emergency Department with any worsening of your symptoms or any acute distress. Referrals: PRIMARY CARE, [Primary Care Provider] - [facility] Time of Disposition: 14:16
--- NOTE | 2017-06-18 12:12 | XRay Report ---
AP CHEST: HISTORY: chest pain Decreased pulmonary venous congestion and small right pleural effusion since 05/11/17. Moderate fibrotic changes in the lung bases are identified which appear stable. No consolidation or pneumothorax. The heart size is within normal limits. IMPRESSION: Underlying pulmonary fibrosis is suspected. Improvement in volume overload since 05/11/17.
[2017-06-18 12:13] LABS: Basophils % (Auto) 0.3 % (0.0-1.8); Eosinophils % (Auto) 1.1 % (0.0-4.3); Hematocrit 34.5 % (35.5-45.6); Mean Corpuscular HGB Conc 32 % (32-34); Mean Corpuscular Volume 73 fl (84-94); Platelet Count 278 K/mm3 (140-440); Red Blood Count 4.74 M/mm3 (3.65-5.03); White Blood Count 8.6 K/mm3 (4.5-11.0)
[2017-06-18 12:14] LABS: Mean Corpuscular Hemoglobin 23 pg (28-32); Red Cell Distribution Width 22.8 % (13.2-15.2)
[2017-06-18 12:24] LABS: INR 4.2 (0.87-1.13)
[2017-06-18 12:29] LABS: Partial Thromboplastin Time 61.5 Sec. (24.2-36.6)
[2017-06-18 12:30] LABS: Alanine Aminotransferase 12 units/L (7-56); Albumin 2.9 g/dL (3.9-5); Albumin/Globulin Ratio 0.8 %; Alkaline Phosphatase 68 units/L (35-129); Anion Gap 17 mmol/L; BUN/Creatinine Ratio 14.28; Blood Urea Nitrogen 10 mg/dL (9-20); Calcium 8.4 mg/dL (8.4-10.2); Carbon Dioxide 25 mmol/L (22-30); Chloride 99.1 mmol/L (98-107); Glucose 187 mg/dL (75-100); Potassium 3.6 mmol/L (3.6-5.0); Sodium 137 mmol/L (137-145); Total Protein 6.7 g/dL (6.3-8.2)
[2017-06-18 15:06] VITALS: BP 130/74
== END 2017-06-18 14:55 | disposition home or self-care (01) ==
LOC: ED 11:26
DX: J84.112 Idiopathic pulmonary fibrosis (principal); J44.9 Chronic obstructive pulmonary disease, unspecified; I10 Essential (primary) hypertension; E11.9 Type 2 diabetes mellitus without complications; Z87.891 Personal history of nicotine dependence
CPT/HCPCS: 36415; 71010; 80053; 83880; 84484; 85025; 85610; 85730; 93005; 93010; 94644

== ENCOUNTER 2017-06-24 11:10 | Inpatient (IN) | payer MEDICARE ==
[2017-06-24] MEDS ORDERED: NACL 0.9% 500 ML 500 ML IV ONE (11:16)
[2017-06-24] MEDS ORDERED: DUONEB *Not for PRN Use IH ONE (11:27)
[2017-06-24] MEDS ORDERED: NACL 0.9% 1000 ML 1,000 ML IV ONE ×2 (11:27→12:42)
[2017-06-24] MEDS ORDERED: MAGNESIUM SULFATE 2GM/50ML 2 GM/50 ML BAG IV ONE (11:27)
[2017-06-24] MEDS ORDERED: ATROVENT IH ONE ×2 (11:28→11:40)
[2017-06-24] MEDS ORDERED: PROVENTIL IH ONE ×2 (11:29→11:40)
--- NOTE | 2017-06-24 11:58 | XRay Report ---
Single view chest: Compared to 06/18/17. History: Possible sepsis. Findings: One Cardiomegaly. Trachea is midline. Evidence of diffuse pulmonary fibrosis predominantly lower lobes. Associated interstitial active infiltrates, if present, cannot be excluded. No definite consolidation or pleural effusion. Pleural thickening bilaterally. No significant interval change. Impression: No significant interval change.
[2017-06-24 12:00] LABS: Basophils % (Auto) 0.4 % (0.0-1.8); Hematocrit 34.7 % (35.5-45.6); Mean Corpuscular HGB Conc 32 % (32-34); Mean Corpuscular Volume 73 fl (84-94); Platelet Count 355 K/mm3 (140-440); Red Blood Count 4.77 M/mm3 (3.65-5.03); White Blood Count 12.7 K/mm3 (4.5-11.0)
[2017-06-24 12:12] LABS: INR 4.06 (0.87-1.13)
[2017-06-24 12:13] LABS: Partial Thromboplastin Time 53.3 Sec. (24.2-36.6)
[2017-06-24 12:15] LABS: Creatine Kinase MB 9.3 ng/mL (0.0-4.0)
[2017-06-24 12:16] LABS: Alanine Aminotransferase 13 units/L (7-56); Albumin/Globulin Ratio 0.8 %; Alkaline Phosphatase 67 units/L (35-129); Anion Gap 17 mmol/L; BUN/Creatinine Ratio 16.25; Blood Urea Nitrogen 13 mg/dL (9-20); Calcium 8.9 mg/dL (8.4-10.2); Carbon Dioxide 26 mmol/L (22-30); Chloride 98.5 mmol/L (98-107); Glucose 103 mg/dL (75-100); Potassium 3.6 mmol/L (3.6-5.0); Sodium 138 mmol/L (137-145)
[2017-06-24 12:29] LABS: Mean Corpuscular Hemoglobin 23 pg (28-32); Red Cell Distribution Width 22.5 % (13.2-15.2)
--- NOTE | 2017-06-24 12:39 | Emergency Department Report ---
ED Shortness of Breath HPI - General Chief Complaint: Dyspnea/Respdistress Stated Complaint: DIFFICULTY BREATHING Time Seen by Provider: 06/24/17 11:20 Source: patient Mode of arrival: Wheelchair Limitations: No Limitations - History of Present Illness Initial Comments: Patient has history of idiopathic pulmonary fibrosis. He is on home O2 at 2 L. Last night he was short of breath. He increased his oxygen flow O2 3 L. Despite that his pulse oximetry was rated the 70s. He did not complain of chest pain. He is short of breath. There is placed on a Ventimask and that resulted in sats in the mid 90s on 50%. He was wheezing on arrival. He was given DuoNeb and magnesium as well as Solu-Medrol. Arterial blood gas showed no evidence of hypercapnia. MD Complaint: shortness of breath, cough (nonproductive cough) Improves With: oxygen Worsens With: lying flat Known History Of: COPD (pulmonary fibrosis) Associated Symptoms: denies other symptoms, cough Treatments Prior to Arrival: oxygen, bronchodilator - Related Data Home Medications Medication Instructions Recorded Confirmed Last Taken ALBUTEROL NEB's 2.5 vial Q4HR PRN 05/12/17 05/12/17 Unknown Acetaminophen [Shake That Ache] 500 mg PO Q8HR PRN 05/12/17 05/12/17 Unknown AtorvaSTATin 20 mg PO DAILY 05/12/17 05/12/17 Unknown Esbriet 270 mg PO TID 05/12/17 05/12/17 05/11/17 270mg Fluticasone [Flonase] 2 sprays NS QDAY 05/12/17 05/12/17 Unknown Ipratropium [place] 0.02 vial INHALATION Q4HR PRN 05/12/17 05/12/17 Unknown Losartan [Cozaar] 25 mg PO QDAY 05/12/17 05/12/17 Unknown Metoprolol 37.5 mg PO BID 05/12/17 05/12/17 Unknown Omeprazole 20 mg PO DAILY 05/12/17 05/12/17 Unknown Omeprazole 20 mg PO QDAY 05/12/17 05/12/17 Unknown Ventolin HFA 90 mcg INHALATION QDAY PRN MDD 2 05/12/17 05/12/17 Unknown puffs Warfarin [Coumadin] 2.5 mg PO QDAY 05/12/17 05/12/17 Unknown amLODIPine [Norvasc] 5 mg PO DAILY 05/12/17 05/12/17 Unknown metFORMIN 05/12/17 Unknown metFORMIN 500 mg PO BID 05/12/17 05/12/17 Unknown Previous Rx's Medication Instructions Recorded Last Taken Type Esbriet 267 mg PO TID 05/13/17 Unknown Rx Insulin Regular, Human [HumuLIN R] 0 units SUB-Q ACHS units 05/13/17 Unknown Rx Ipratropium/Albuterol Sulfate 1 ampul IH Q6HRT ampul.neb 05/13/17 Unknown Rx [DUONEB *Not for PRN Use*] Levofloxacin [Levaquin TAB] 750 mg PO Q24H tablet 05/13/17 Unknown Rx methylPREDNISolone Sod Suc 60 mg IV Q12H vial 05/13/17 Unknown Rx [Solu-MEDROL] methylPREDNISolone [Medrol Dose 4 mg PO QAM #1 pack 05/13/17 Unknown Rx [place]] Allergies Allergy/AdvReac Type Severity Reaction Status Date / Time No Known Allergies Allergy Verified 06/24/17 11:13 ED Review of Systems ROS: Stated complaint: DIFFICULTY BREATHING Other details as noted in HPI Constitutional: denies: chills, fever Eyes: denies: eye pain, eye discharge, vision change ENT: denies: ear pain, throat pain Respiratory: cough, shortness of breath, wheezing Cardiovascular: denies: chest pain, palpitations Endocrine: no symptoms reported Gastrointestinal: denies: abdominal pain, nausea, diarrhea Genitourinary: denies: urgency, dysuria Musculoskeletal: denies: back pain, joint swelling, arthralgia Skin: denies: rash, lesions Neurological: denies: headache, weakness, paresthesias Psychiatric: denies: anxiety, depression Hematological/Lymphatic: denies: easy bleeding, easy bruising ED Past Medical Hx - Past Medical History Hx Hypertension: Yes Hx Diabetes: Yes Hx COPD: Yes Hx HIV: No Additional medical history: IPF, elevated cholesterol,afib - Surgical History Additional Surgical History: hand - Social History Smoking Status: Former Smoker Substance Use Type: None - Medications Home Medications: Home Medications Medication Instructions Recorded Confirmed Last Taken Type ALBUTEROL NEB's 2.5 vial Q4HR PRN 05/12/17 05/12/17 Unknown History Acetaminophen [Shake That Ache] 500 mg PO Q8HR PRN 05/12/17 05/12/17 Unknown History AtorvaSTATin 20 mg PO DAILY 05/12/17 05/12/17 Unknown History Esbriet 270 mg PO TID 05/12/17 05/12/17 05/11/17 History 270mg Fluticasone [Flonase] 2 sprays NS QDAY 05/12/17 05/12/17 Unknown History Ipratropium [place] 0.02 vial INHALATION Q4HR PRN 05/12/17 05/12/17 Unknown History Losartan [Cozaar] 25 mg PO QDAY 05/12/17 05/12/17 Unknown History Metoprolol 37.5 mg PO BID 05/12/17 05/12/17 Unknown History Omeprazole 20 mg PO DAILY 05/12/17 05/12/17 Unknown History Omeprazole 20 mg PO QDAY 05/12/17 05/12/17 Unknown History Ventolin HFA 90 mcg INHALATION QDAY PRN MDD 2 05/12/17 05/12/17 Unknown History puffs Warfarin [Coumadin] 2.5 mg PO QDAY 05/12/17 05/12/17 Unknown History amLODIPine [Norvasc] 5 mg PO DAILY 05/12/17 05/12/17 Unknown History metFORMIN 05/12/17 Unknown History metFORMIN 500 mg PO BID 05/12/17 05/12/17 Unknown History Esbriet 267 mg PO TID 05/13/17 Unknown Rx Insulin Regular, Human [HumuLIN R] 0 units SUB-Q ACHS units 05/13/17 Unknown Rx Ipratropium/Albuterol Sulfate 1 ampul IH Q6HRT ampul.neb 05/13/17 Unknown Rx [DUONEB *Not for PRN Use*] Levofloxacin [Levaquin TAB] 750 mg PO Q24H tablet 05/13/17 Unknown Rx methylPREDNISolone Sod Suc 60 mg IV Q12H vial 05/13/17 Unknown Rx [Solu-MEDROL] methylPREDNISolone [Medrol Dose 4 mg PO QAM #1 pack 05/13/17 Unknown Rx [place]] ED Physical Exam - General Limitations: No Limitations General appearance: alert, in no apparent distress - Head Head exam: Present: atraumatic, normocephalic - Eye Eye exam: Present: normal appearance. Absent: scleral icterus - ENT ENT exam: Present: mucous membranes moist - Neck Neck exam: Present: normal inspection - Respiratory Respiratory exam: Present: wheezes, accessory muscle use, decreased breath sounds. Absent: respiratory distress - Cardiovascular Cardiovascular Exam: Present: regular rate, normal rhythm. Absent: systolic murmur, diastolic murmur, rubs, gallop - GI/Abdominal GI/Abdominal exam: Present: soft, normal bowel sounds. Absent: distended, tenderness, guarding, rebound, rigid - Rectal Rectal exam: Present: deferred - Extremities Exam Extremities exam: Present: normal inspection - Back Exam Back exam: Present: normal inspection - Neurological Exam Neurological exam: Present: alert, oriented X3, CN II-XII intact. Absent: motor sensory deficit - Psychiatric Psychiatric exam: Present: normal affect, normal mood - Skin Skin exam: Present: warm, dry, intact, normal color. Absent: rash ED Course Vital Signs 06/24/17 06/24/17 11:13 11:44 Temperature 100.3 F H Pulse Rate 124 H Pulse Rate [ 109 H Anterior Bilateral Throughout] Respiratory 24 Rate Respiratory 40 H Rate [Anterior Bilateral Throughout] Blood Pressure 124/72 O2 Sat by Pulse 78 L Oximetry - Reevaluation(s) Reevaluation #1: Filomena with above interventions. Arterial blood gas with significant AA gradient but PO2 in the 70s. Decreased work of breathing. Patient referred to Dr. Ismael Calvo, hospitalist further care and evaluation. He was placed on triple antibiotic therapy due to her recent hospitalization. I believe pneumonia is likely. To further delineate his process a CT angiogram of the chest was ordered. His d-dimer was greater than 10,000. Dr. Calvo is aware. 06/24/17 13:07 ED Medical Decision Making - Lab Data Result diagrams: 06/24/17 11:21 06/24/17 11:21 Laboratory Results - last 24 hr 06/24/17 06/24/17 06/24/17 11:21 11:21 11:21 WBC 12.7 H RBC 4.77 Hgb 11.0 L Hct 34.7 L MCV 73 L MCH 23 L MCHC 32 RDW 22.5 H Plt Count 355 Lymph % (Auto) 9.1 L [place] % (Auto) 10.2 H Eos % (Auto) 1.0 Baso % (Auto) 0.4 Lymph # 1.2 [place] # 1.3 H Eos # 0.1 Baso # 0.1 Seg Neutrophils % 79.3 H Seg Neutrophils # 10.1 H PT 39.8 H INR 4.06 H APTT 53.3 H D-Dimer > 40389 H VBG pH Sodium 138 Potassium 3.6 Chloride 98.5 Carbon Dioxide 26 Anion Gap 17 BUN 13 Creatinine 0.8 Estimated GFR > 60 BUN/Creatinine Ratio 16.25 Glucose 103 H Lactic Acid Calcium 8.9 Total Bilirubin 0.30 AST 12 ALT 13 Alkaline Phosphatase 67 Total Creatine Kinase CK-MB (CK-2) CK-MB (CK-2) Rel Index Troponin T NT-Pro-B Natriuret Pep Total Protein 7.0 Albumin 3.0 L Albumin/Globulin Ratio 0.8 06/24/17 06/24/17 06/24/17 11:21 11:21 11:21 WBC RBC Hgb Hct MCV MCH MCHC RDW Plt Count Lymph % (Auto) [place] % (Auto) Eos % (Auto) Baso % (Auto) Lymph # [place] # Eos # Baso # Seg Neutrophils % Seg Neutrophils # PT INR APTT D-Dimer VBG pH 7.435 H Sodium Potassium Chloride Carbon Dioxide Anion Gap BUN Creatinine Estimated GFR BUN/Creatinine Ratio Glucose Lactic Acid 2.70 H* Calcium Total Bilirubin AST ALT Alkaline Phosphatase Total Creatine Kinase 178 H CK-MB (CK-2) 9.3 H CK-MB (CK-2) Rel Index 5.2 H Troponin T 0.028 NT-Pro-B Natriuret Pep 305.1 Total Protein Albumin Albumin/Globulin Ratio Critical Care Time: Yes Critical care time in (mins) excluding proc time.: 60 Critical care attestation.: If time is entered above; I have spent that time in minutes in the direct care of this critically ill patient, excluding procedure time. ED Disposition Clinical Impression: Respiratory distress, Hypoxia, Pulmonary interstitial fibrosis Bilateral pneumonia Qualifiers: Pneumonia type: due to unspecified organism Lung location: lower lobe of lung Qualified Code(s): J18.9 - Pneumonia, unspecified organism Disposition: OP ADMIT IP TO THIS HOSP Is pt being admited?: Yes Does the pt Need Aspirin: Yes Condition: Stable Instructions: Bacterial Pneumonia (ED) Time of Disposition: 13:09
[2017-06-24] MEDS ORDERED: ZOSYN/NS 4.5GM/100ML 4.5 GM/100 ML VIAL IV ONE (12:41)
[2017-06-24] MEDS ORDERED: ROCEPHIN/NS 1 GM/50 ML 1 GM/50 ML BAG IV ONE (12:41)
[2017-06-24] MEDS ORDERED: NACL ONE (12:50)
[2017-06-24] MEDS ORDERED: VANCOMYCIN PHARMACY TO DOSE IV SCH (13:00)
[2017-06-24] MEDS ORDERED: BABY ASPIRIN PO ONE (13:10)
--- NOTE | 2017-06-24 14:29 | History and Physical Report ---
History of Present Illness Date of examination: 06/24/17 Date of admission: 06/24/17 Chief complaint: sob History of present illness: Patient is 66-year-old with history of atrial fibrillation, hypertension, hyperlipidemia, COPD and idiopathic pulmonary fibrosis, on home oxygen At 2 L/m who presents with worsening shortness of breath for 1 day prior to admission. Patient was recently hospitalized May of this year for similar complaints. Patient states that his symptoms began last evening. Therefore, he increase his oxygen to 3 L. Upon arrival to the emergency room, patient was noted to have O2 saturations at 78%. Patient denies any fever chills. Patient does report cough but no real sputum production. No headache or visual disturbances. No abdominal pain or diarrhea. Past History Past Medical History: atrial fib, COPD, hypertension, hyperlipidemia, other ( pulmonary fibrosis) Past Surgical History: No surgical history Social history: no significant social history Family history: no significant family history Medications and Allergies Allergies Allergy/AdvReac Type Severity Reaction Status Date / Time No Known Allergies Allergy Verified 06/24/17 11:13 Home Medications Medication Instructions Recorded Confirmed Last Taken Type ALBUTEROL NEB's 2.5 vial Q4HR PRN 05/12/17 05/12/17 Unknown History Acetaminophen [Shake That Ache] 500 mg PO Q8HR PRN 05/12/17 05/12/17 Unknown History AtorvaSTATin 20 mg PO DAILY 05/12/17 05/12/17 Unknown History Esbriet 270 mg PO TID 05/12/17 05/12/17 05/11/17 History 270mg Fluticasone [Flonase] 2 sprays NS QDAY 05/12/17 05/12/17 Unknown History Ipratropium [place] 0.02 vial INHALATION Q4HR PRN 05/12/17 05/12/17 Unknown History Losartan [Cozaar] 25 mg PO QDAY 05/12/17 05/12/17 Unknown History Metoprolol 37.5 mg PO BID 05/12/17 05/12/17 Unknown History Omeprazole 20 mg PO DAILY 05/12/17 05/12/17 Unknown History Omeprazole 20 mg PO QDAY 05/12/17 05/12/17 Unknown History Ventolin HFA 90 mcg INHALATION QDAY PRN MDD 2 05/12/17 05/12/17 Unknown History puffs Warfarin [Coumadin] 2.5 mg PO QDAY 05/12/17 05/12/17 Unknown History amLODIPine [Norvasc] 5 mg PO DAILY 05/12/17 05/12/17 Unknown History metFORMIN 05/12/17 Unknown History metFORMIN 500 mg PO BID 05/12/17 05/12/17 Unknown History Esbriet 267 mg PO TID 05/13/17 Unknown Rx Insulin Regular, Human [HumuLIN R] 0 units SUB-Q ACHS units 05/13/17 Unknown Rx Ipratropium/Albuterol Sulfate 1 ampul IH Q6HRT ampul.neb 05/13/17 Unknown Rx [DUONEB *Not for PRN Use*] Levofloxacin [Levaquin TAB] 750 mg PO Q24H tablet 05/13/17 Unknown Rx methylPREDNISolone Sod Suc 60 mg IV Q12H vial 05/13/17 Unknown Rx [Solu-MEDROL] methylPREDNISolone [Medrol Dose 4 mg PO QAM #1 pack 05/13/17 Unknown Rx [place]] Active Meds: Active Medications Sodium Chloride (Nacl 0.9% 1000 Ml) 1,000 mls @ 250 mls/hr IV ONCE ONE Stop: 06/24/17 16:41 Vancomycin HCl (Vancomycin/Ns 1 Gm/250 Ml) 1 gm in 250 mls @ 166.667 mls/hr IV Q8H FABIOLA Vancomycin HCl (Vancomycin Pharmacy To Dose) 1 each IV PKCONSULT FABIOLA PRN Reason: Protocol Review of Systems All systems: negative Exam - Constitutional Vitals: Temp Pulse Resp BP Pulse Ox 100.3 F H 100 H 22 124/72 78 L 06/24/17 11:13 06/24/17 13:13 06/24/17 13:13 06/24/17 11:13 06/24/17 11:13 General appearance: Present: no acute distress, well-nourished - EENT Eyes: Present: PERRL ENT: hearing intact, clear oral mucosa - Neck Neck: Present: supple, normal ROM - Respiratory Respiratory effort: normal Respiratory: bilateral: diminished, rhonchi, wheezing - Cardiovascular Heart Sounds: Present: S1 & S2. Absent: rub, click - Extremities Extremities: pulses symmetrical, No edema Peripheral Pulses: within normal limits - Abdominal General gastrointestinal: Present: soft, non-tender, non-distended, normal bowel sounds Male genitourinary: Present: normal - Integumentary Integumentary: Present: clear, warm, dry - Musculoskeletal Musculoskeletal: gait normal, strength equal bilaterally - Psychiatric Psychiatric: appropriate mood/affect, intact judgment & insight - Neurologic Neurologic: CNII-XII intact, moves all extremities Results - Labs CBC & Chem 7: 06/24/17 11:21 06/24/17 11:21 Labs: Laboratory Last Values WBC 12.7 K/mm3 (4.5-11.0) H 06/24/17 11:21 RBC 4.77 M/mm3 (3.65-5.03) 06/24/17 11:21 Hgb 11.0 gm/dl (11.8-15.2) L 06/24/17 11:21 Hct 34.7 % (35.5-45.6) L 06/24/17 11:21 MCV 73 fl (84-94) L 06/24/17 11:21 MCH 23 pg (28-32) L 06/24/17 11:21 MCHC 32 % (32-34) 06/24/17 11:21 RDW 22.5 % (13.2-15.2) H 06/24/17 11:21 Plt Count 355 K/mm3 (140-440) 06/24/17 11:21 Lymph % (Auto) 9.1 % (13.4-35.0) L 06/24/17 11:21 [place] % (Auto) 10.2 % (0.0-7.3) H 06/24/17 11:21 Eos % (Auto) 1.0 % (0.0-4.3) 06/24/17 11:21 Baso % (Auto) 0.4 % (0.0-1.8) 06/24/17 11:21 Lymph # 1.2 K/mm3 (1.2-5.4) 06/24/17 11:21 [place] # 1.3 K/mm3 (0.0-0.8) H 06/24/17 11:21 Eos # 0.1 K/mm3 (0.0-0.4) 06/24/17 11:21 Baso # 0.1 K/mm3 (0.0-0.1) 06/24/17 11:21 Seg Neutrophils % 79.3 % (40.0-70.0) H 06/24/17 11:21 Seg Neutrophils # 10.1 K/mm3 (1.8-7.7) H 06/24/17 11:21 PT 39.8 Sec. (12.2-14.9) H 06/24/17 11:21 INR 4.06 (0.87-1.13) H 06/24/17 11:21 APTT 53.3 Sec. (24.2-36.6) H 06/24/17 11:21 D-Dimer > 89710 ng/mlDDU (0-234) H 06/24/17 11:21 VBG pH 7.435 (7.320-7.420) H 06/24/17 11:21 Sodium 138 mmol/L (137-145) 06/24/17 11:21 Potassium 3.6 mmol/L (3.6-5.0) 06/24/17 11:21 Chloride 98.5 mmol/L (98-107) 06/24/17 11:21 Carbon Dioxide 26 mmol/L (22-30) 06/24/17 11:21 Anion Gap 17 mmol/L 06/24/17 11:21 BUN 13 mg/dL (9-20) 06/24/17 11:21 Creatinine 0.8 mg/dL (0.8-1.5) 06/24/17 11:21 Estimated GFR > 60 ml/min 06/24/17 11:21 BUN/Creatinine Ratio 16.25 % 06/24/17 11:21 Glucose 103 mg/dL (75-100) H 06/24/17 11:21 Lactic Acid 2.70 mmol/L (0.7-2.0) H* 06/24/17 11:21 Calcium 8.9 mg/dL (8.4-10.2) 06/24/17 11:21 Total Bilirubin 0.30 mg/dL (0.1-1.2) 06/24/17 11:21 AST 12 units/L (5-40) 06/24/17 11:21 ALT 13 units/L (7-56) 06/24/17 11:21 Alkaline Phosphatase 67 units/L (35-129) 06/24/17 11:21 Total Creatine Kinase 178 units/L (55-170) H 06/24/17 11:21 CK-MB (CK-2) 9.3 ng/mL (0.0-4.0) H 06/24/17 11:21 CK-MB (CK-2) Rel Index 5.2 (0-4) H 06/24/17 11:21 Troponin T 0.028 ng/mL (0.00-0.029) 06/24/17 11:21 NT-Pro-B Natriuret Pep 305.1 pg/mL (0-900) 06/24/17 11:21 Total Protein 7.0 g/dL (6.3-8.2) 06/24/17 11:21 Albumin 3.0 g/dL (3.9-5) L 06/24/17 11:21 Albumin/Globulin Ratio 0.8 % 06/24/17 11:21 Assessment and Plan Assessment and plan: Sepsis. Patient meets criteria given the leukocytosis, tachycardia and fever and diagnosis of acute bronchitis. Patient will be placed on a sepsis pathway. Follow-up blood cultures and lactic acid levels. Acute bronchitis. IV antibiotics. Acute on chronic respiratory failure secondary to COPD and pulmonary fibrosis exacerbation. Admit to telemetry. Start Solu-Medrol 80 mg IV every 8 hours. DuoNeb every 6 hours scheduled. Acute COPD exacerbation. Continue IV steroids, bronchodilators and nebulizer treatments. Idiopathic pulmonary fibrosis exacerbation Hypertension. Resume home meds Chronic atrial fibrillation. On Coumadin. Hold Coumadin to target INR 2-3. INR supratherapeutic at 4.06 Coagulopathy. Hold Coumadin as noted above. DVT prophylaxis. On Coumadin
[2017-06-24] MEDS ORDERED: ZOFRAN IV PRN (14:34)
[2017-06-24] MEDS ORDERED: TYLENOL PO PRN (14:34)
[2017-06-24] MEDS ORDERED: DULCOLAX PR PRN (14:34)
[2017-06-24] MEDS ORDERED: MILK OF MAGNESIA PO PRN (14:34)
[2017-06-24] MEDS ORDERED: IPRATROPIUM BROMIDE INHALATION PRN (14:41)
[2017-06-24] MEDS ORDERED: ATROVENT IH PRN (15:00)
--- NOTE | 2017-06-24 15:14 | Cat Scan Report ---
FINAL REPORT PROCEDURE: CT ANGIO CHEST TECHNIQUE: Computerized tomographic angiography of the chest was performed during the IV injection of iodinated nonionic contrast including image processing. The image data was postprocessed using 2-dimensional multiplanar reformatted (MPR) and 3-dimensional (MIP and/or volume rendered) techniques. HISTORY: pneumonia vs PE COMPARISON: No prior studies are available for comparison. FINDINGS: Pulmonary outflow tract, right and left main pulmonary arteries and their proximal branches: Clear, no filling defects seen to suggest pulmonary embolus. Pericardium: No evidence of pericardial effusion. Thoracic aorta: Atherosclerotic changes are visualized. 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 No leakage is visualized. Coronary arteries: Are unremarkable. Mediastinum and hilar regions: There is a mildly enlarged lymph node in the right hilum measuring 1.6 x 2.3 centimeter. Several nonspecific subcentimeter lymph nodes are seen in the right paratracheal space and extending superiorly towards the great vessels. There also multiple subsegmental lymph nodes lateral to the aortic arch. There are 2 mildly enlarged lymph nodes lateral to the aortic arch, 1 measures 1.8 x 2.1 centimeter, the other measures 2.6 x 1.1 centimeter. There is a mildly enlarged lymph node in the infra carinal space measuring 1.8 x 1.6 centimeters. Lung [place]: Severe emphysematous changes and fibrosis visualized bilaterally. No discrete masses are identified. There are some patchy density seen in the lower half of both lungs without dense consolidation. This may represent additional fibrosis or scarring. I cannot exclude scattered areas of atelectasis or subsegmental infiltrates. No dense focal consolidations are seen. Minimal right pleural effusion is present. Upper abdomen: Nodular density is seen in the left adrenal gland measuring 1.4 x 1.2 centimeter. This is only partially included on this study. The entire renal gland is not included. Other: None IMPRESSION: No evidence of pulmonary embolus. Severe emphysematous changes and fibrosis visualized. Patchy densities are present bilaterally as described which may represent additional fibrosis versus some superimposed atelectasis or subsegmental infiltrates. No dense consolidations or masses are identified. Small right pleural effusion is present. There is mild nonspecific mediastinal and hilar adenopathy as described. Consider follow-up exam in 3-4 months to ensure the adenopathy is stable. Indeterminate nodular density left adrenal gland. This could represent an adrenal adenoma although not confirmed. Other masses of the adrenal gland are not excluded. If clinically indicated follow-up dynamic contrast-enhanced CT scan or MRI could be performed for further evaluation. Small saccular aneurysm visualized proximal descending colon at the distal end of the aortic arch. No leakage is visualized..
[2017-06-24] MEDS ORDERED: NACL 0.9% 1000 ML 1,000 ML ONE (16:32)
[2017-06-24] MEDS ORDERED: VANCOMYCIN/NS 1 GM/250 ML 1 GM/250 ML BAG IV ONE (16:32)
[2017-06-24] MEDS: VANCOMYCIN/NS 1 GM/250 ML 1 GM/250 ML BAG IV SCH ×2 (17:05→20:58)
[2017-06-24 19:25] LABS: Bilirubin,Urine NEG (Negative); Blood,Urine NEG (Negative); Ketones,Urine NEG (Negative); Leukocyte Esterase,Urine NEG (Negative); Mucus,Urine FEW /HPF; Nitrite,Urine NEG (Negative); Protein,Urine <15 mg/dL mg/dL (Negative); Urobilinogen,Urine < 2.0 mg/dL (<2.0)
[2017-06-24] MEDS ORDERED: PIRFENIDONE PO SCH (20:00)
[2017-06-24] MEDS: DUONEB *Not for PRN Use IH SCH (20:50)
[2017-06-24] MEDS: LOPRESSOR PO SCH (21:08)
[2017-06-24] MEDS: ZOSYN/NS 4.5GM/100ML 4.5 GM/100 ML VIAL IV SCH (21:54)
[2017-06-24] MEDS ORDERED: METOPROLOL PO SCH (22:00)
[2017-06-25] MEDS: DUONEB *Not for PRN Use IH SCH ×5 (02:17→20:37)
[2017-06-25] MEDS: VANCOMYCIN/NS 1 GM/250 ML 1 GM/250 ML BAG IV SCH ×3 (04:13→20:56)
[2017-06-25] MEDS: ZOSYN/NS 4.5GM/100ML 4.5 GM/100 ML VIAL IV SCH ×3 (05:45→21:40)
[2017-06-25 08:21] LABS: ISTAT Base Excess -2; ISTAT HCO3 23.5; ISTAT PCO2 38.9 (35-45); ISTAT PH 7.388 (7.35-7.45); ISTAT PO2 59 (80-105); ISTAT SO2 90; ISTAT TCO2 25
[2017-06-25] MEDS: PROVENTIL IH PRN ×2 (09:06→20:33)
[2017-06-25] MEDS: NORVASC PO SCH (09:20)
[2017-06-25] MEDS: LOVENOX SUB-Q SCH (09:20)
[2017-06-25] MEDS: COZAAR PO SCH (09:21)
[2017-06-25] MEDS: LOPRESSOR PO SCH ×2 (09:22→21:25)
[2017-06-25] MEDS ORDERED: ROCEPHIN/NS 2 GM/100 ML 2 GM/100 ML BAG IV SCH (10:00)
[2017-06-25] MEDS ORDERED: NON-FORMULARY (Atorvastatin 20 MG) PO SCH (10:00)
--- NOTE | 2017-06-25 11:39 | Progress Note ---
Assessment and Plan Assessment and plan: Patient is 66-year-old with history of atrial fibrillation, hypertension, hyperlipidemia, COPD and idiopathic pulmonary fibrosis, on home oxygen At 2 L/m who presents with worsening shortness of breath for 1 day prior to admission. Patient was recently hospitalized May of this year for similar complaints. Patient states that his symptoms began last evening. Therefore, he increase his oxygen to 3 L. Upon arrival to the emergency room, patient was noted to have O2 saturations at 78%. Patient denies any fever chills. Patient does report cough but no real sputum production. No headache or visual disturbances. No abdominal pain or diarrhea. Sepsis. Patient meets criteria given the leukocytosis, tachycardia and fever and diagnosis of acute bronchitis. Patient will be placed on a sepsis pathway. Follow-up blood cultures. lactic acid levels improving. Acute bronchitis. IV antibiotics. Acute on chronic respiratory failure secondary to COPD and pulmonary fibrosis exacerbation. Pulmonary consult. Start Solu-Medrol 80 mg IV every 8 hours. DuoNeb every 6 hours scheduled. Acute COPD exacerbation. Continue IV steroids, bronchodilators and nebulizer treatments. Idiopathic pulmonary fibrosis exacerbation Hypertension. Resume home meds Chronic atrial fibrillation. On Coumadin. Hold Coumadin to target INR 2-3. INR supratherapeutic at 4.06 Coagulopathy. Hold Coumadin as noted above. DVT prophylaxis. On Coumadin History Interval history: Patient seen and examined reports some improvement in symptoms but not quite at baseline. still with cough. He reports shortness of breath exacerbation with change in weather. Hospitalist Physical - Physical exam Narrative exam: General appearance: Present: no acute distress, well-nourished - EENT Eyes: Present: PERRL ENT: hearing intact, clear oral mucosa - Neck Neck: Present: supple, normal ROM - Respiratory Respiratory effort: normal Respiratory: bilateral, rhonchi, wheezing - Cardiovascular Heart Sounds: Present: S1 & S2. Absent: rub, click - Extremities Extremities: pulses symmetrical, No edema Peripheral Pulses: within normal limits - Abdominal General gastrointestinal: Present: soft, non-tender, non-distended, normal bowel sounds Male genitourinary: Present: normal - Integumentary Integumentary: Present: clear, warm, dry - Musculoskeletal Musculoskeletal: gait normal, strength equal bilaterally - Psychiatric Psychiatric: appropriate mood/affect, intact judgment & insight - Neurologic Neurologic: CNII-XII intact, moves all extremities - Constitutional Vitals: Temp Pulse Resp BP Pulse Ox 97.8 F 99 H 17 154/76 64 L 06/25/17 07:50 06/25/17 09:07 06/25/17 09:07 06/25/17 07:50 06/25/17 07:50 General appearance: Present: no acute distress, well-nourished Results - Labs CBC & Chem 7: 06/24/17 11:21 06/24/17 11:21 Labs: Laboratory Last Values WBC 12.7 K/mm3 (4.5-11.0) H 06/24/17 11:21 RBC 4.77 M/mm3 (3.65-5.03) 06/24/17 11:21 Hgb 11.0 gm/dl (11.8-15.2) L 06/24/17 11:21 Hct 34.7 % (35.5-45.6) L 06/24/17 11:21 MCV 73 fl (84-94) L 06/24/17 11:21 MCH 23 pg (28-32) L 06/24/17 11:21 MCHC 32 % (32-34) 06/24/17 11:21 RDW 22.5 % (13.2-15.2) H 06/24/17 11:21 Plt Count 355 K/mm3 (140-440) 06/24/17 11:21 Lymph % (Auto) 9.1 % (13.4-35.0) L 06/24/17 11:21 [place] % (Auto) 10.2 % (0.0-7.3) H 06/24/17 11:21 Eos % (Auto) 1.0 % (0.0-4.3) 06/24/17 11:21 Baso % (Auto) 0.4 % (0.0-1.8) 06/24/17 11:21 Lymph # 1.2 K/mm3 (1.2-5.4) 06/24/17 11:21 [place] # 1.3 K/mm3 (0.0-0.8) H 06/24/17 11:21 Eos # 0.1 K/mm3 (0.0-0.4) 06/24/17 11:21 Baso # 0.1 K/mm3 (0.0-0.1) 06/24/17 11:21 Seg Neutrophils % 79.3 % (40.0-70.0) H 06/24/17 11:21 Seg Neutrophils # 10.1 K/mm3 (1.8-7.7) H 06/24/17 11:21 PT 39.8 Sec. (12.2-14.9) H 06/24/17 11:21 INR 4.06 (0.87-1.13) H 06/24/17 11:21 APTT 53.3 Sec. (24.2-36.6) H 06/24/17 11:21 D-Dimer > 52439 ng/mlDDU (0-234) H 06/24/17 11:21 POC ABG pH 7.388 (7.35-7.45) 06/24/17 15:31 POC ABG pCO2 38.9 (35-45) 06/24/17 15:31 POC ABG pO2 59 (80-105) L 06/24/17 15:31 POC ABG HCO3 23.5 06/24/17 15:31 POC ABG Total CO2 25 06/24/17 15:31 POC ABG O2 Sat 90 06/24/17 15:31 POC ABG Base Excess -2 06/24/17 15:31 VBG pH 7.435 (7.320-7.420) H 06/24/17 11:21 FiO2 28 % 06/24/17 15:31 Sodium 138 mmol/L (137-145) 06/24/17 11:21 Potassium 3.6 mmol/L (3.6-5.0) 06/24/17 11:21 Chloride 98.5 mmol/L (98-107) 06/24/17 11:21 Carbon Dioxide 26 mmol/L (22-30) 06/24/17 11:21 Anion Gap 17 mmol/L 06/24/17 11:21 BUN 13 mg/dL (9-20) 06/24/17 11:21 Creatinine 0.8 mg/dL (0.8-1.5) 06/24/17 11:21 Estimated GFR > 60 ml/min 06/24/17 11:21 BUN/Creatinine Ratio 16.25 % 06/24/17 11:21 Glucose 103 mg/dL (75-100) H 06/24/17 11:21 Lactic Acid 2.00 mmol/L (0.7-2.0) 06/25/17 04:40 Calcium 8.9 mg/dL (8.4-10.2) 06/24/17 11:21 Total Bilirubin 0.30 mg/dL (0.1-1.2) 06/24/17 11:21 AST 12 units/L (5-40) 06/24/17 11:21 ALT 13 units/L (7-56) 06/24/17 11:21 Alkaline Phosphatase 67 units/L (35-129) 06/24/17 11:21 Total Creatine Kinase 178 units/L (55-170) H 06/24/17 11:21 CK-MB (CK-2) 9.3 ng/mL (0.0-4.0) H 06/24/17 11:21 CK-MB (CK-2) Rel Index 5.2 (0-4) H 06/24/17 11:21 Troponin T 0.028 ng/mL (0.00-0.029) 06/24/17 11:21 NT-Pro-B Natriuret Pep 305.1 pg/mL (0-900) 06/24/17 11:21 Total Protein 7.0 g/dL (6.3-8.2) 06/24/17 11:21 Albumin 3.0 g/dL (3.9-5) L 06/24/17 11:21 Albumin/Globulin Ratio 0.8 % 06/24/17 11:21 Urine Color Straw (Yellow) 06/24/17 19:04 Urine Turbidity Clear (Clear) 06/24/17 19:04 Urine pH 5.0 (5.0-7.0) 06/24/17 19:04 Ur Specific [place] 1.029 (1.003-1.030) 06/24/17 19:04 Urine Protein <15 mg/dl mg/dL (Negative) 06/24/17 19:04 Urine Glucose (UA) Neg mg/dL (Negative) 06/24/17 19:04 Urine Ketones Neg mg/dL (Negative) 06/24/17 19:04 Urine Blood Neg (Negative) 06/24/17 19:04 Urine Nitrite Neg (Negative) 06/24/17 19:04 Urine Bilirubin Neg (Negative) 06/24/17 19:04 Urine Urobilinogen < 2.0 mg/dL (<2.0) 06/24/17 19:04 Ur Leukocyte Esterase Neg (Negative) 06/24/17 19:04 Urine WBC (Auto) 1.0 /HPF (0.0-6.0) 06/24/17 19:04 Urine RBC (Auto) 1.0 /HPF (0.0-6.0) 06/24/17 19:04 U Epithel Cells (Auto) < 1.0 /HPF (0-13.0) 06/24/17 19:04 Urine Mucus Few /HPF 06/24/17 19:04 Blood Type O POSITIVE 06/24/17 15:00 Antibody Screen Negative 06/24/17 15:00
[2017-06-25] MEDS: FLONASE NS SCH (13:20)
--- NOTE | 2017-06-25 16:14 | Event Note ---
Date: 06/25/17 Dr. Smith Thank you for asking us to participate in the care of this patient. Full consultation Dictated. Dictation consultation number:[id number] IMPRESSION: 1. COPD EXACERBATION. 2. IDIOPATHIC PULMONARY FIBROSIS. 3. ATRIAL FIBRILLATION 4. HYPERTENSION 5. HYPERLIPIDEMIA 6. POSSIBLE UNDERLYING BILATERAL PULMONARY INFILTRATES. 7. HISTORY OF ASBESTOSIS EXPOSURE. PLAN; 1. O2 SUPPLEMENTATION. 2. ALBUTEROL/ATROVENT AEROSOL TREATMENTS Q 6 HOURS 3. CONTINUE SOLUMEDRAL. 4. CONTINUE S/C LOVENOX. 5. CONTINUE ANTIBIOTICS ZOSYN AND VANCOMYCIN.
[2017-06-25] MEDS: ROBITUSSIN AC PO PRN (21:03)
[2017-06-26] MEDS: DUONEB *Not for PRN Use IH SCH ×4 (02:39→20:11)
[2017-06-26] MEDS: ZOSYN/NS 4.5GM/100ML 4.5 GM/100 ML VIAL IV SCH ×3 (05:20→21:36)
[2017-06-26] MEDS: VANCOMYCIN/NS 1 GM/250 ML 1 GM/250 ML BAG IV SCH ×3 (05:20→21:35)
[2017-06-26] MEDS: PROVENTIL IH PRN (06:04)
[2017-06-26] MEDS: ROBITUSSIN AC PO PRN ×5 (06:24→22:42)
[2017-06-26 06:57] LABS: Hemoglobin 10.3 gm/dl (11.8-15.2); Mean Corpuscular HGB Conc 31 % (32-34); Mean Corpuscular Volume 73 fl (84-94); Platelet Count 411 K/mm3 (140-440); Red Blood Count 4.51 M/mm3 (3.65-5.03)
[2017-06-26 07:13] LABS: INR 4.16 (0.87-1.13)
[2017-06-26 07:18] LABS: Mean Corpuscular Hemoglobin 23 pg (28-32); Red Cell Distribution Width 22.5 % (13.2-15.2)
[2017-06-26 07:19] LABS: Anion Gap 21 mmol/L; Blood Urea Nitrogen 21 mg/dL (9-20); Calcium 9.1 mg/dL (8.4-10.2); Carbon Dioxide 22 mmol/L (22-30); Glucose 172 mg/dL (75-100); Potassium 4.5 mmol/L (3.6-5.0); Sodium 144 mmol/L (137-145)
--- NOTE | 2017-06-26 08:30 | Progress Note ---
Assessment and Plan Assessment and plan: Patient is 66-year-old with history of atrial fibrillation, hypertension, hyperlipidemia, COPD and idiopathic pulmonary fibrosis, on home oxygen At 2 L/m who presents with worsening shortness of breath for 1 day prior to admission. Patient was recently hospitalized May of this year for similar complaints. Patient states that his symptoms began last evening. Therefore, he increase his oxygen to 3 L. Upon arrival to the emergency room, patient was noted to have O2 saturations at 78%. Patient denies any fever chills. Patient does report cough but no real sputum production. No headache or visual disturbances. No abdominal pain or diarrhea. Sepsis. Patient meets criteria given the leukocytosis, tachycardia and fever and diagnosis of acute bronchitis. continue sepsis pathway. lactic acid levels resolved. cultures remain negative. Acute bronchitis. IV antibiotics. Acute on chronic respiratory failure secondary to COPD and pulmonary fibrosis exacerbation. Pulmonary consult. Taper Solu-Medrol 40 mg IV every 8 hours. DuoNeb every 6 hours scheduled. Acute COPD exacerbation. Continue IV steroids, bronchodilators and nebulizer treatments. Idiopathic pulmonary fibrosis exacerbation- Pulmonary Following Hypertension. Resume home meds Chronic atrial fibrillation. On Coumadin. Hold Coumadin to target INR 2-3. INR supratherapeutic at 4.16 Coagulopathy. Hold Coumadin as noted above. DVT prophylaxis. On Coumadin Discussed with family Anticipate discharge in AM. History Interval history: Patient seen and examined reports some improvement in symptoms but not quite at baseline. still with cough. reports that patient is anxious Hospitalist Physical - Physical exam Narrative exam: General appearance: Present: no acute distress, well-nourished - EENT Eyes: Present: PERRL ENT: hearing intact, clear oral mucosa - Neck Neck: Present: supple, normal ROM - Respiratory Respiratory effort: normal Respiratory: bilateral, rhonchi, wheezing - Cardiovascular Heart Sounds: Present: S1 & S2. Absent: rub, click - Extremities Extremities: pulses symmetrical, No edema Peripheral Pulses: within normal limits - Abdominal General gastrointestinal: Present: soft, non-tender, non-distended, normal bowel sounds Male genitourinary: Present: normal - Integumentary Integumentary: Present: clear, warm, dry - Musculoskeletal Musculoskeletal: gait normal, strength equal bilaterally - Psychiatric Psychiatric: appropriate mood/affect, intact judgment & insight - Neurologic Neurologic: CNII-XII intact, moves all extremities - Constitutional Vitals: Temp Pulse Resp BP Pulse Ox 98.0 F 98 H 20 136/97 98 06/26/17 04:41 06/26/17 06:15 06/26/17 06:15 06/26/17 04:41 06/26/17 04:41 General appearance: Present: no acute distress, well-nourished Results - Labs CBC & Chem 7: 06/26/17 06:18 06/26/17 06:18 Labs: Laboratory Last Values WBC 15.0 K/mm3 (4.5-11.0) H 06/26/17 06:18 RBC 4.51 M/mm3 (3.65-5.03) 06/26/17 06:18 Hgb 10.3 gm/dl (11.8-15.2) L 06/26/17 06:18 Hct 33.0 % (35.5-45.6) L 06/26/17 06:18 MCV 73 fl (84-94) L 06/26/17 06:18 MCH 23 pg (28-32) L 06/26/17 06:18 MCHC 31 % (32-34) L 06/26/17 06:18 RDW 22.5 % (13.2-15.2) H 06/26/17 06:18 Plt Count 411 K/mm3 (140-440) 06/26/17 06:18 Lymph % (Auto) 9.1 % (13.4-35.0) L 06/24/17 11:21 [place] % (Auto) 10.2 % (0.0-7.3) H 06/24/17 11:21 Eos % (Auto) 1.0 % (0.0-4.3) 06/24/17 11:21 Baso % (Auto) 0.4 % (0.0-1.8) 06/24/17 11:21 Lymph # 1.2 K/mm3 (1.2-5.4) 06/24/17 11:21 [place] # 1.3 K/mm3 (0.0-0.8) H 06/24/17 11:21 Eos # 0.1 K/mm3 (0.0-0.4) 06/24/17 11:21 Baso # 0.1 K/mm3 (0.0-0.1) 06/24/17 11:21 Seg Neutrophils % 79.3 % (40.0-70.0) H 06/24/17 11:21 Seg Neutrophils # 10.1 K/mm3 (1.8-7.7) H 06/24/17 11:21 PT 40.6 Sec. (12.2-14.9) H 06/26/17 06:18 INR 4.16 (0.87-1.13) H 06/26/17 06:18 APTT 53.3 Sec. (24.2-36.6) H 06/24/17 11:21 D-Dimer > 28971 ng/mlDDU (0-234) H 06/24/17 11:21 POC ABG pH 7.388 (7.35-7.45) 06/24/17 15:31 POC ABG pCO2 38.9 (35-45) 06/24/17 15:31 POC ABG pO2 59 (80-105) L 06/24/17 15:31 POC ABG HCO3 23.5 06/24/17 15:31 POC ABG Total CO2 25 06/24/17 15:31 POC ABG O2 Sat 90 06/24/17 15:31 POC ABG Base Excess -2 06/24/17 15:31 VBG pH 7.435 (7.320-7.420) H 06/24/17 11:21 FiO2 28 % 06/24/17 15:31 Sodium 144 mmol/L (137-145) 06/26/17 06:18 Potassium 4.5 mmol/L (3.6-5.0) D 06/26/17 06:18 Chloride 106.0 mmol/L (98-107) 06/26/17 06:18 Carbon Dioxide 22 mmol/L (22-30) 06/26/17 06:18 Anion Gap 21 mmol/L 06/26/17 06:18 BUN 21 mg/dL (9-20) H 06/26/17 06:18 Creatinine 1.0 mg/dL (0.8-1.5) 06/26/17 06:18 Estimated GFR > 60 ml/min 06/26/17 06:18 BUN/Creatinine Ratio 21.00 % 06/26/17 06:18 Glucose 172 mg/dL (75-100) H 06/26/17 06:18 Lactic Acid 2.00 mmol/L (0.7-2.0) 06/25/17 04:40 Calcium 9.1 mg/dL (8.4-10.2) 06/26/17 06:18 Total Bilirubin 0.30 mg/dL (0.1-1.2) 06/24/17 11:21 AST 12 units/L (5-40) 06/24/17 11:21 ALT 13 units/L (7-56) 06/24/17 11:21 Alkaline Phosphatase 67 units/L (35-129) 06/24/17 11:21 Total Creatine Kinase 178 units/L (55-170) H 06/24/17 11:21 CK-MB (CK-2) 9.3 ng/mL (0.0-4.0) H 06/24/17 11:21 CK-MB (CK-2) Rel Index 5.2 (0-4) H 06/24/17 11:21 Troponin T 0.028 ng/mL (0.00-0.029) 06/24/17 11:21 NT-Pro-B Natriuret Pep 305.1 pg/mL (0-900) 06/24/17 11:21 Total Protein 7.0 g/dL (6.3-8.2) 06/24/17 11:21 Albumin 3.0 g/dL (3.9-5) L 06/24/17 11:21 Albumin/Globulin Ratio 0.8 % 06/24/17 11:21 Urine Color Straw (Yellow) 06/24/17 19:04 Urine Turbidity Clear (Clear) 06/24/17 19:04 Urine pH 5.0 (5.0-7.0) 06/24/17 19:04 Ur Specific [place] 1.029 (1.003-1.030) 06/24/17 19:04 Urine Protein <15 mg/dl mg/dL (Negative) 06/24/17 19:04 Urine Glucose (UA) Neg mg/dL (Negative) 06/24/17 19:04 Urine Ketones Neg mg/dL (Negative) 06/24/17 19:04 Urine Blood Neg (Negative) 06/24/17 19:04 Urine Nitrite Neg (Negative) 06/24/17 19:04 Urine Bilirubin Neg (Negative) 06/24/17 19:04 Urine Urobilinogen < 2.0 mg/dL (<2.0) 06/24/17 19:04 Ur Leukocyte Esterase Neg (Negative) 06/24/17 19:04 Urine WBC (Auto) 1.0 /HPF (0.0-6.0) 06/24/17 19:04 Urine RBC (Auto) 1.0 /HPF (0.0-6.0) 06/24/17 19:04 U Epithel Cells (Auto) < 1.0 /HPF (0-13.0) 06/24/17 19:04 Urine Mucus Few /HPF 06/24/17 19:04 Blood Type O POSITIVE 06/24/17 15:00 Antibody Screen Negative 06/24/17 15:00
[2017-06-26] MEDS: LOVENOX SUB-Q SCH (10:03)
[2017-06-26] MEDS: FLONASE NS SCH (10:03)
[2017-06-26] MEDS: COZAAR PO SCH (10:04)
[2017-06-26] MEDS: NORVASC PO SCH (10:04)
[2017-06-26] MEDS: LOPRESSOR PO SCH ×2 (10:04→21:36)
[2017-06-26 11:21] LABS: ISTAT Base Excess 1; ISTAT HCO3 25.3; ISTAT PCO2 39.2 (35-45); ISTAT PH 7.417 (7.35-7.45); ISTAT PO2 72 (80-105); ISTAT SO2 95; ISTAT TCO2 26
--- NOTE | 2017-06-26 19:19 | Progress Note ---
Assessment and Plan Patient still complaining shortness of breath and cough.Patient is on high flow O2. O2 saturation 92% on 5 litres O2. - Patient Problems (1) Pulmonary interstitial fibrosis Current Visit: Yes Status: Acute Plan to address problem: Patient has history of asbestosis exposure. Obtaining, LINDA,Rhematoid factor,CANCA and CECILIA levels. Patient currently on I/V solumedral. Continue high flow O2. Patient is on zosyn and vancomycin. (2) COPD (chronic obstructive pulmonary disease) Current Visit: No Status: Acute Qualifiers: COPD type: unspecified COPD Chronic bronchitis type: C Emphysema type: E Qualified Code(s): J44.9 - Chronic obstructive pulmonary disease, unspecified Plan to address problem: Continue O2 supplementation. albuterol/atrovent aerosol treatments q 6 hours. continue I/V solumedral Continue s/c lovenox. (3) Hypoxia Current Visit: Yes Status: Acute Plan to address problem: Continue High flow O2. (4) Coumadin toxicity Current Visit: Yes Status: Acute Qualifiers: Encounter type: E Injury intent: I Plan to address problem: Hold coumadin and Monitor INR (5) Atrial fibrillation Current Visit: Yes Status: Acute Qualifiers: Atrial fibrillation type: A Plan to address problem: Patients INR supra therapeutic. Hold coumadin and monitor INR. management as per cardiology. Subjective Date of service: 06/26/17 Interval history: Patient still complaining shortness of breath and cough.Patient is on high flow O2. O2 saturation 92% on 5 litres O2. Objective Vital Signs - 12hr 06/26/17 06/26/17 06/26/17 08:00 08:25 09:39 Temperature 98.2 F Pulse Rate 103 H 103 H Pulse Rate [ 108 H Anterior Bilateral Throughout] Respiratory 18 Rate Respiratory 20 Rate [Anterior Bilateral Throughout] Blood Pressure 125/79 O2 Sat by Pulse 98 97 Oximetry 06/26/17 06/26/17 06/26/17 09:50 10:04 12:31 Temperature 98.5 F Pulse Rate 103 H 92 H Pulse Rate [ 72 Anterior Bilateral Throughout] Respiratory 18 Rate Respiratory 20 Rate [Anterior Bilateral Throughout] Blood Pressure 125/79 124/88 O2 Sat by Pulse 97 Oximetry 06/26/17 06/26/17 06/26/17 14:32 14:42 17:00 Temperature 97.8 F Pulse Rate 100 H Pulse Rate [ 95 H 116 H Anterior Bilateral Throughout] Respiratory 20 Rate Respiratory 20 20 Rate [Anterior Bilateral Throughout] Blood Pressure 125/82 O2 Sat by Pulse 96 Oximetry Constitutional: no acute distress, alert, other (Mild shortness of breath.) Eyes: non-icteric Neck: supple, no lymphadenopathy Ascultation: Bilateral: diminished breath sounds, rales (few rales at the bases. ) Cardiovascular: regular rate and rhythm Gastrointestinal: normoactive bowel sounds, soft, non-tender Integumentary: normal Extremities: no cyanosis, no edema Neurologic: normal mental status, non-focal exam, pupils equal and round, CN II- XII normal Psychiatric: mood appropriate CBC and BMP: 06/26/17 06:18 06/26/17 06:18 ABG, PT/INR, D-dimer: ABG POC ABG pH 7.388 (7.35-7.45) 06/24/17 15:31 POC ABG pCO2 38.9 (35-45) 06/24/17 15:31 POC ABG pO2 59 (80-105) L 06/24/17 15:31 POC ABG HCO3 23.5 06/24/17 15:31 POC ABG Total CO2 25 06/24/17 15:31 POC ABG O2 Sat 90 06/24/17 15:31 PT/INR, D-dimer PT 40.6 Sec. (12.2-14.9) H 06/26/17 06:18 INR 4.16 (0.87-1.13) H 06/26/17 06:18 D-Dimer > 88459 ng/mlDDU (0-234) H 06/24/17 11:21 Abnormal lab findings: Abnormal Labs 06/24/17 06/26/17 06/26/17 15:31 06:18 06:18 WBC 15.0 H Hgb 10.3 L Hct 33.0 L MCV 73 L MCH 23 L MCHC 31 L RDW 22.5 H PT INR POC ABG pO2 59 L BUN 21 H Glucose 172 H 06/26/17 06:18 WBC Hgb Hct MCV MCH MCHC RDW PT 40.6 H INR 4.16 H POC ABG pO2 BUN Glucose Chest x-ray: report reviewed (Diffuse interstitial fibrosis, on top acute interstitial infiltrates.), image reviewed CT scan - chest: report reviewed (Severe emphysematous changes and pulmonary fibrosis.No evidence of PE.), image reviewed
[2017-06-27] MEDS: DUONEB *Not for PRN Use IH SCH ×4 (03:05→20:19)
[2017-06-27] MEDS: VANCOMYCIN/NS 1 GM/250 ML 1 GM/250 ML BAG IV SCH (05:34)
[2017-06-27] MEDS: ZOSYN/NS 4.5GM/100ML 4.5 GM/100 ML VIAL IV SCH (05:41)
[2017-06-27] MEDS: LOPRESSOR PO SCH ×2 (10:17→21:49)
[2017-06-27] MEDS: COZAAR PO SCH (10:18)
[2017-06-27] MEDS: NORVASC PO SCH (10:18)
[2017-06-27] MEDS: LOVENOX SUB-Q SCH (10:18)
[2017-06-27] MEDS: FLONASE NS SCH (10:19)
--- NOTE | 2017-06-27 10:19 | Progress Note ---
Assessment and Plan Assessment and plan: Patient is 66-year-old with history of atrial fibrillation, hypertension, hyperlipidemia, COPD and idiopathic pulmonary fibrosis, on home oxygen At 2 L/m who presents with worsening shortness of breath for 1 day prior to admission. Patient was recently hospitalized May of this year for similar complaints. Patient states that his symptoms began last evening. Therefore, he increase his oxygen to 3 L. Upon arrival to the emergency room, patient was noted to have O2 saturations at 78%. Patient denies any fever chills. Patient does report cough but no real sputum production. No headache or visual disturbances. No abdominal pain or diarrhea. Sepsis. * Patient meets criteria given the leukocytosis, tachycardia and fever and diagnosis of acute bronchitis. continue sepsis pathway. lactic acid levels resolved. cultures remain negative. * Continue Abx. IV zosyn. Acute bronchitis. * IV antibiotics. can switch to PO in am if no recurrent fever. Acute on chronic respiratory failure secondary to COPD and pulmonary fibrosis exacerbation. With Hypoxia * Pulmonary consult. * CPAP at night * Taper Solu-Medrol 40 mg IV every 8 hours. DuoNeb every 6 hours scheduled. FOLLOW immunology work up Idiopathic pulmonary fibrosis exacerbation- Pulmonary Following Hypertension. Resume home meds Chronic atrial fibrillation. On Coumadin. Hold Coumadin to target INR 2-3. INR supratherapeutic at 4.16 Coagulopathy. Hold Coumadin as noted above. DVT prophylaxis. On Coumadin Discussed with family Anticipate discharge in AM. History Interval history: Patient seen and examined reports some improvement in symptoms but not quite at baseline. still with cough. Reports a rough night yesterday. Will monitor. Hospitalist Physical - Physical exam Narrative exam: General appearance: Present: no acute distress, well-nourished - EENT Eyes: Present: PERRL ENT: hearing intact, clear oral mucosa - Neck Neck: Present: supple, normal ROM - Respiratory Respiratory effort: normal Respiratory: bilateral, rhonchi, wheezing - Cardiovascular Heart Sounds: Present: S1 & S2. Absent: rub, click - Extremities Extremities: pulses symmetrical, No edema Peripheral Pulses: within normal limits - Abdominal General gastrointestinal: Present: soft, non-tender, non-distended, normal bowel sounds Male genitourinary: Present: normal - Integumentary Integumentary: Present: clear, warm, dry - Musculoskeletal Musculoskeletal: gait normal, strength equal bilaterally - Psychiatric Psychiatric: appropriate mood/affect, intact judgment & insight - Neurologic Neurologic: CNII-XII intact, moves all extremities - Constitutional Vitals: Temp Pulse Resp BP Pulse Ox 97.8 F 62 20 159/97 96 06/27/17 07:57 06/27/17 09:00 06/27/17 09:00 06/27/17 07:57 06/27/17 08:54 General appearance: Present: no acute distress, well-nourished Results - Labs CBC & Chem 7: 06/26/17 06:18 06/26/17 06:18 Labs: Laboratory Last Values WBC 15.0 K/mm3 (4.5-11.0) H 06/26/17 06:18 RBC 4.51 M/mm3 (3.65-5.03) 06/26/17 06:18 Hgb 10.3 gm/dl (11.8-15.2) L 06/26/17 06:18 Hct 33.0 % (35.5-45.6) L 06/26/17 06:18 MCV 73 fl (84-94) L 06/26/17 06:18 MCH 23 pg (28-32) L 06/26/17 06:18 MCHC 31 % (32-34) L 06/26/17 06:18 RDW 22.5 % (13.2-15.2) H 06/26/17 06:18 Plt Count 411 K/mm3 (140-440) 06/26/17 06:18 Lymph % (Auto) 9.1 % (13.4-35.0) L 06/24/17 11:21 [place] % (Auto) 10.2 % (0.0-7.3) H 06/24/17 11:21 Eos % (Auto) 1.0 % (0.0-4.3) 06/24/17 11:21 Baso % (Auto) 0.4 % (0.0-1.8) 06/24/17 11:21 Lymph # 1.2 K/mm3 (1.2-5.4) 06/24/17 11:21 [place] # 1.3 K/mm3 (0.0-0.8) H 06/24/17 11:21 Eos # 0.1 K/mm3 (0.0-0.4) 06/24/17 11:21 Baso # 0.1 K/mm3 (0.0-0.1) 06/24/17 11:21 Seg Neutrophils % 79.3 % (40.0-70.0) H 06/24/17 11:21 Seg Neutrophils # 10.1 K/mm3 (1.8-7.7) H 06/24/17 11:21 PT 40.6 Sec. (12.2-14.9) H 06/26/17 06:18 INR 4.16 (0.87-1.13) H 06/26/17 06:18 APTT 53.3 Sec. (24.2-36.6) H 06/24/17 11:21 D-Dimer > 89200 ng/mlDDU (0-234) H 06/24/17 11:21 POC ABG pH 7.388 (7.35-7.45) 06/24/17 15:31 POC ABG pCO2 38.9 (35-45) 06/24/17 15:31 POC ABG pO2 59 (80-105) L 06/24/17 15:31 POC ABG HCO3 23.5 06/24/17 15:31 POC ABG Total CO2 25 06/24/17 15:31 POC ABG O2 Sat 90 06/24/17 15:31 POC ABG Base Excess -2 06/24/17 15:31 VBG pH 7.435 (7.320-7.420) H 06/24/17 11:21 FiO2 28 % 06/24/17 15:31 Sodium 144 mmol/L (137-145) 06/26/17 06:18 Potassium 4.5 mmol/L (3.6-5.0) D 06/26/17 06:18 Chloride 106.0 mmol/L (98-107) 06/26/17 06:18 Carbon Dioxide 22 mmol/L (22-30) 06/26/17 06:18 Anion Gap 21 mmol/L 06/26/17 06:18 BUN 21 mg/dL (9-20) H 06/26/17 06:18 Creatinine 1.0 mg/dL (0.8-1.5) 06/26/17 06:18 Estimated GFR > 60 ml/min 06/26/17 06:18 BUN/Creatinine Ratio 21.00 % 06/26/17 06:18 Glucose 172 mg/dL (75-100) H 06/26/17 06:18 Lactic Acid 2.00 mmol/L (0.7-2.0) 06/25/17 04:40 Calcium 9.1 mg/dL (8.4-10.2) 06/26/17 06:18 Total Bilirubin 0.30 mg/dL (0.1-1.2) 06/24/17 11:21 AST 12 units/L (5-40) 06/24/17 11:21 ALT 13 units/L (7-56) 06/24/17 11:21 Alkaline Phosphatase 67 units/L (35-129) 06/24/17 11:21 Total Creatine Kinase 178 units/L (55-170) H 06/24/17 11:21 CK-MB (CK-2) 9.3 ng/mL (0.0-4.0) H 06/24/17 11:21 CK-MB (CK-2) Rel Index 5.2 (0-4) H 06/24/17 11:21 Troponin T 0.028 ng/mL (0.00-0.029) 06/24/17 11:21 NT-Pro-B Natriuret Pep 305.1 pg/mL (0-900) 06/24/17 11:21 Total Protein 7.0 g/dL (6.3-8.2) 06/24/17 11:21 Albumin 3.0 g/dL (3.9-5) L 06/24/17 11:21 Albumin/Globulin Ratio 0.8 % 06/24/17 11:21 Urine Color Straw (Yellow) 06/24/17 19:04 Urine Turbidity Clear (Clear) 06/24/17 19:04 Urine pH 5.0 (5.0-7.0) 06/24/17 19:04 Ur Specific [place] 1.029 (1.003-1.030) 06/24/17 19:04 Urine Protein <15 mg/dl mg/dL (Negative) 06/24/17 19:04 Urine Glucose (UA) Neg mg/dL (Negative) 06/24/17 19:04 Urine Ketones Neg mg/dL (Negative) 06/24/17 19:04 Urine Blood Neg (Negative) 06/24/17 19:04 Urine Nitrite Neg (Negative) 06/24/17 19:04 Urine Bilirubin Neg (Negative) 06/24/17 19:04 Urine Urobilinogen < 2.0 mg/dL (<2.0) 06/24/17 19:04 Ur Leukocyte Esterase Neg (Negative) 06/24/17 19:04 Urine WBC (Auto) 1.0 /HPF (0.0-6.0) 06/24/17 19:04 Urine RBC (Auto) 1.0 /HPF (0.0-6.0) 06/24/17 19:04 U Epithel Cells (Auto) < 1.0 /HPF (0-13.0) 06/24/17 19:04 Urine Mucus Few /HPF 06/24/17 19:04 Rheumatoid Factor 191 IU/ml (0-13) H 06/27/17 05:34 Blood Type O POSITIVE 06/24/17 15:00 Antibody Screen Negative 06/24/17 15:00
[2017-06-27 10:58] LABS: INR 3.13 (0.87-1.13)
[2017-06-27] MEDS: LEVAQUIN PO SCH (13:26)
--- NOTE | 2017-06-27 19:37 | Progress Note ---
Assessment and Plan Patient says breathing somewhat better today..Patient is still on high flow O2. O2 saturation 97% on 5 litres O2. - Patient Problems (1) Pulmonary interstitial fibrosis Current Visit: Yes Status: Acute Plan to address problem: Patient has history of asbestosis exposure. Obtaining, LINDA,Rhematoid factor,CANCA and CECILIA levels. Results still pending. Patient currently on I/V solumedral. Continue high flow O2. Patient is on zosyn and vancomycin. (2) COPD (chronic obstructive pulmonary disease) Current Visit: No Status: Acute Qualifiers: COPD type: unspecified COPD Chronic bronchitis type: C Emphysema type: E Qualified Code(s): J44.9 - Chronic obstructive pulmonary disease, unspecified Plan to address problem: Continue O2 supplementation. albuterol/atrovent aerosol treatments q 6 hours. continue I/V solumedral Continue s/c lovenox. (3) Hypoxia Current Visit: Yes Status: Acute Plan to address problem: Continue High flow O2. (4) Coumadin toxicity Current Visit: Yes Status: Acute Qualifiers: Encounter type: E Injury intent: I Plan to address problem: Hold coumadin and Monitor INR (5) Atrial fibrillation Current Visit: Yes Status: Acute Qualifiers: Atrial fibrillation type: A Plan to address problem: Patients INR supra therapeutic. Hold coumadin and monitor INR. management as per cardiology. Subjective Date of service: 06/27/17 Interval history: Patient says breathing somewhat better today..Patient is still on high flow O2. O2 saturation 97% on 5 litres O2. Objective Vital Signs - 12hr 06/27/17 06/27/17 06/27/17 07:57 08:40 08:54 Temperature 97.8 F Pulse Rate 89 Pulse Rate [ 78 Anterior Bilateral Throughout] Respiratory 24 Rate Respiratory 20 Rate [Anterior Bilateral Throughout] Blood Pressure 159/97 O2 Sat by Pulse 99 96 Oximetry 06/27/17 06/27/17 06/27/17 09:00 11:19 14:54 Temperature 98.9 F Pulse Rate 82 Pulse Rate [ 62 108 H Anterior Bilateral Throughout] Respiratory 28 H Rate Respiratory 20 20 Rate [Anterior Bilateral Throughout] Blood Pressure 121/81 O2 Sat by Pulse 98 Oximetry 06/27/17 06/27/17 15:03 16:35 Temperature 97.9 F Pulse Rate 85 Pulse Rate [ 99 H Anterior Bilateral Throughout] Respiratory 26 H Rate Respiratory 20 Rate [Anterior Bilateral Throughout] Blood Pressure 134/81 O2 Sat by Pulse 97 Oximetry Constitutional: no acute distress, alert Eyes: non-icteric Neck: supple, no lymphadenopathy Ascultation: Bilateral: diminished breath sounds, rales (few rales at the bases. ) Cardiovascular: regular rate and rhythm Gastrointestinal: normoactive bowel sounds, soft, non-tender Integumentary: normal Extremities: no cyanosis, no edema Neurologic: normal mental status, non-focal exam, pupils equal and round, CN II- XII normal Psychiatric: mood appropriate CBC and BMP: 06/26/17 06:18 06/26/17 06:18 ABG, PT/INR, D-dimer: ABG POC ABG pH 7.388 (7.35-7.45) 06/24/17 15:31 POC ABG pCO2 38.9 (35-45) 06/24/17 15:31 POC ABG pO2 59 (80-105) L 06/24/17 15:31 POC ABG HCO3 23.5 06/24/17 15:31 POC ABG Total CO2 25 06/24/17 15:31 POC ABG O2 Sat 90 06/24/17 15:31 PT/INR, D-dimer PT 32.4 Sec. (12.2-14.9) H 06/27/17 10:18 INR 3.13 (0.87-1.13) H 06/27/17 10:18 D-Dimer > 69502 ng/mlDDU (0-234) H 06/24/17 11:21 Abnormal lab findings: Abnormal Labs 06/24/17 06/26/17 06/26/17 15:31 06:18 06:18 WBC 15.0 H Hgb 10.3 L Hct 33.0 L MCV 73 L MCH 23 L MCHC 31 L RDW 22.5 H PT INR POC ABG pO2 59 L BUN 21 H Glucose 172 H Rheumatoid Factor 06/26/17 06/27/17 06/27/17 06:18 05:34 10:18 WBC Hgb Hct MCV MCH MCHC RDW PT 40.6 H 32.4 H INR 4.16 H 3.13 H POC ABG pO2 BUN Glucose Rheumatoid Factor 191 H
[2017-06-27] MEDS: ROBITUSSIN AC PO PRN (21:53)
--- NOTE | 2017-06-28 00:46 | Consultation ---
CONSULTED BY: Dr. Calvo. ENGINE ASSEMBLER: Dr. Gonzales Alcaraz. REASON FOR CONSULTATION: Exacerbation of chronic obstructive pulmonary disease and idiopathic pulmonary fibrosis. Dr. Calvo, thank you for asking me to participate in the care of this patient. HISTORY OF PRESENT ILLNESS: This is a 66-year-old -[place] male. He is admitted with shortness of breath and cough and productive sputum. The patient has a history of COPD and idiopathic pulmonary fibrosis. He is on home O2 and so he came in with worsening shortness of breath. PAST MEDICAL HISTORY: The patient also has a history of atrial fibrillation, hypertension, and hyperlipidemia. SOCIAL HISTORY: The patient said he was exposed to asbestosis and he worked in [employer] and [employer] before he retired and disabled. He is and has three children. ALLERGIES: He denies any allergies to the medications. REVIEW OF SYSTEMS: He denies any loss of weight or loss of appetite. The patient's O2 saturation has dropped to 78% and he came to the Emergency Room. He denies any fever or chills. He has a history of smoking 1 pack a day for 52 years. He said he is not smoking now. Denies alcohol or drug abuse. PHYSICAL EXAMINATION: GENERAL: The patient is in mild to moderate respiratory distress. VITAL SIGNS: Temperature is 97.2, pulse 71, respirations 22, blood pressure 131/76. EYES: Pupils are equal and reactive. Extraocular muscles are intact. Throat, slight inflammation. HEART: Irregularly irregular, rate of 70. LUNGS: Bilateral fine rales and rhonchi. ABDOMEN: Soft, bowel sounds present. No CVA tenderness. MUSCULOSKELETAL: No edema, no clubbing, no cyanosis. NEUROLOGIC: DTR equal and reactive. Babinski negative. No focal neurological deficits. IMAGING DATA: The patient's chest x-ray reported evidence of diffuse pulmonary fibrosis and cardiomegaly and associated interstitial active infiltrates cannot be ruled out. No definite consolidation or pleural effusion noted and pleural thickening bilaterally. The patient also had an angio CT of the chest, which has reported severe emphysematous changes and fibrosis, visualized bilaterally, no discrete masses were identified. There are some patchy densities seen in the lower half of both lungs. LABORATORY DATA: Blood work showed CBC: WBC 12.7, hemoglobin 11, hematocrit 34.7, and platelet count is 355,000. The patient's PT is 39.8, INR is 4.06. D-dimer is greater than 10,000. PTT is 53. The patient's ABGs: pH 7.41, pCO2 of 39, pO2 of 72, bicarbonate 25 and O2 saturation is 95% on 50% FiO2. The patient's CMP showed sodium 138, potassium 3.6, chloride 98.5, BUN 13, creatinine 0.8. CPK is 178 and albumin is 3. IMPRESSION: 1. Chronic obstructive pulmonary disease exacerbation. 2. Idiopathic pulmonary fibrosis. 3. Atrial fibrillation. 4. Hypertension. 5. Hyperlipidemia. 6. Interstitial infiltrates cannot be ruled out. PLAN: 1. O2 supplementation high flow and 50% FiO2. 2. Albuterol and Atrovent aerosol treatments q.6 hours. 3. Continue Solu-Medrol. 4. Continue subcutaneous Lovenox. 5. Continue antibiotics, Zosyn and vancomycin. I want to thank Dr. Calvo for this consultation. I will follow the patient with him. JOB# [id number] RSM/NTS
[2017-06-28] MEDS: DUONEB *Not for PRN Use IH SCH ×4 (02:00→20:05)
[2017-06-28 06:47] LABS: Mean Corpuscular HGB Conc 30 % (32-34); Mean Corpuscular Volume 74 fl (84-94); Platelet Count 448 K/mm3 (140-440); Red Blood Count 5.09 M/mm3 (3.65-5.03); White Blood Count 16.5 K/mm3 (4.5-11.0)
[2017-06-28 06:50] LABS: Hematocrit 37.7 % (35.5-45.6); Hemoglobin 11.2 gm/dl (11.8-15.2); Mean Corpuscular Hemoglobin 22 pg (28-32); Red Cell Distribution Width 22.8 % (13.2-15.2)
[2017-06-28 07:00] LABS: INR 2.57 (0.87-1.13)
[2017-06-28 07:07] LABS: Anion Gap 17 mmol/L; BUN/Creatinine Ratio 26.25; Blood Urea Nitrogen 21 mg/dL (9-20); Calcium 8.8 mg/dL (8.4-10.2); Carbon Dioxide 27 mmol/L (22-30); Chloride 102.6 mmol/L (98-107); Glucose 156 mg/dL (75-100); Potassium 4.5 mmol/L (3.6-5.0); Sodium 142 mmol/L (137-145)
[2017-06-28] MEDS: NORVASC PO SCH (10:59)
[2017-06-28] MEDS: LEVAQUIN PO SCH (10:59)
[2017-06-28] MEDS: LOPRESSOR PO SCH ×2 (11:00→22:04)
[2017-06-28] MEDS: FLONASE NS SCH (11:00)
[2017-06-28] MEDS: LOVENOX SUB-Q SCH (11:00)
[2017-06-28] MEDS: COZAAR PO SCH (11:00)
--- NOTE | 2017-06-28 18:00 | Progress Note ---
Assessment and Plan Assessment and plan: Patient is a 66-year-old man with a history of IPF with chronic hypoxic respiratory failure on 2 L oxygen during the day and 3 L oxygen at night, followed up by Dr. Nolan Meier, cryolite recovery operator at [place], on max dose of Esbriet. His pcp is Dr. Kumar from [facility] [place], whom I spoke with who was admitted for worsening respiratory failure, Upon arrival to the emergency room, patient was noted to have O2 saturations at 78%. Patient denies any fever chills. Sepsis bronchitis, poa. * Patient meets criteria given the leukocytosis, tachycardia and fever and diagnosis of acute bronchitis. continue sepsis pathway. lactic acid levels resolved. cultures remain negative. * Continue Abx. IV zosyn. Acute bronchitis. * IV antibiotics. can switch to PO in am if no recurrent fever. Acute on chronic respiratory failure secondary to COPD and pulmonary fibrosis exacerbation. With Hypoxia * Pulmonary consult. * CPAP at night * Taper Solu-Medrol 40 mg IV every 8 hours. DuoNeb every 6 hours scheduled. FOLLOW immunology work up Idiopathic pulmonary fibrosis exacerbation- Pulmonary Following Hypertension. Resume home meds Chronic atrial fibrillation. On Coumadin. Resume Coagulopathy. Hold Coumadin as noted above. DVT prophylaxis. On Coumadin Discussed with family/ Discussed code status and inquired Advance directive. I also asked if Hospice was ever discuss due to the worsening IPF, and max dose of Esbriet. He became anxious, will give prn Valium Anticipate discharge, higher need oxygen need another DME form. Will consult He has appt with Dr. Meier on He needs chronic steroid above 20mg/day per pcp, because recurrent increased frequency exacerbation of IPF with steroid weaning Patient can walk in to pcp in 4 days after discharge. History Interval history: Patient was seen and examined. Follow-up on current diagnosis/shortness of breath improved he still on 5 L oxygen. Overnight uneventful. Patient denies any chest pain, shortness breath, nausea/vomiting or severe headaches. Imaging , nursing note, chart, labs and old chart reviewed. Discussed with patient. Hospitalist Physical - Physical exam Narrative exam: GEN: WDWN, NAD, AWAKE, ALERT, ORIENTATED x 3 HEENT: NCAT, EOMI, PERRL, OP Clear NECK: supple, no adenopathy, no thyromegaly, no JVD CVS/HEART: irr RR, NORMAL S1S2, NO JVD, pulses present bilaterally CHEST/LUNGS: Inspiratory crackles, Symmetrical chest expansion, adequately reduced air entry bilaterally GI/Abdomen: soft, NTND, good bowel sounds, no guarding or rebound /Bladder: no suprapubic tenderness, no CVA or paraspinal tenderness EXT/Skin: no c/c/e, no significant edema or obvious rash MSK: FROM x 4 Neuro: CN 2-12 grossly intact, no new focal deficits Psych: anxious - Constitutional Vitals: Temp Pulse Resp BP Pulse Ox 97.2 F L 76 16 159/90 97 06/28/17 08:10 06/28/17 14:21 06/28/17 14:21 06/28/17 11:00 06/28/17 09:10 General appearance: Present: no acute distress, well-nourished Results - Labs CBC & Chem 7: 06/28/17 05:57 06/28/17 05:57 Labs: Laboratory Last Values WBC 16.5 K/mm3 (4.5-11.0) H 06/28/17 05:57 RBC 5.09 M/mm3 (3.65-5.03) H 06/28/17 05:57 Hgb 11.2 gm/dl (11.8-15.2) L 06/28/17 05:57 Hct 37.7 % (35.5-45.6) 06/28/17 05:57 MCV 74 fl (84-94) L 06/28/17 05:57 MCH 22 pg (28-32) L 06/28/17 05:57 MCHC 30 % (32-34) L 06/28/17 05:57 RDW 22.8 % (13.2-15.2) H 06/28/17 05:57 Plt Count 448 K/mm3 (140-440) H 06/28/17 05:57 Lymph % (Auto) 9.1 % (13.4-35.0) L 06/24/17 11:21 [place] % (Auto) 10.2 % (0.0-7.3) H 06/24/17 11:21 Eos % (Auto) 1.0 % (0.0-4.3) 06/24/17 11:21 Baso % (Auto) 0.4 % (0.0-1.8) 06/24/17 11:21 Lymph # 1.2 K/mm3 (1.2-5.4) 06/24/17 11:21 [place] # 1.3 K/mm3 (0.0-0.8) H 06/24/17 11:21 Eos # 0.1 K/mm3 (0.0-0.4) 06/24/17 11:21 Baso # 0.1 K/mm3 (0.0-0.1) 06/24/17 11:21 Seg Neutrophils % 79.3 % (40.0-70.0) H 06/24/17 11:21 Seg Neutrophils # 10.1 K/mm3 (1.8-7.7) H 06/24/17 11:21 PT 27.7 Sec. (12.2-14.9) H 06/28/17 05:57 INR 2.57 (0.87-1.13) H 06/28/17 05:57 APTT 53.3 Sec. (24.2-36.6) H 06/24/17 11:21 D-Dimer > 33002 ng/mlDDU (0-234) H 06/24/17 11:21 POC ABG pH 7.388 (7.35-7.45) 06/24/17 15:31 POC ABG pCO2 38.9 (35-45) 06/24/17 15:31 POC ABG pO2 59 (80-105) L 06/24/17 15:31 POC ABG HCO3 23.5 06/24/17 15:31 POC ABG Total CO2 25 06/24/17 15:31 POC ABG O2 Sat 90 06/24/17 15:31 POC ABG Base Excess -2 06/24/17 15:31 VBG pH 7.435 (7.320-7.420) H 06/24/17 11:21 FiO2 28 % 06/24/17 15:31 Sodium 142 mmol/L (137-145) 06/28/17 05:57 Potassium 4.5 mmol/L (3.6-5.0) 06/28/17 05:57 Chloride 102.6 mmol/L (98-107) 06/28/17 05:57 Carbon Dioxide 27 mmol/L (22-30) 06/28/17 05:57 Anion Gap 17 mmol/L 06/28/17 05:57 BUN 21 mg/dL (9-20) H 06/28/17 05:57 Creatinine 0.8 mg/dL (0.8-1.5) 06/28/17 05:57 Estimated GFR > 60 ml/min 06/28/17 05:57 BUN/Creatinine Ratio 26.25 % 06/28/17 05:57 Glucose 156 mg/dL (75-100) H 06/28/17 05:57 Lactic Acid 2.00 mmol/L (0.7-2.0) 06/25/17 04:40 Calcium 8.8 mg/dL (8.4-10.2) 06/28/17 05:57 Total Bilirubin 0.30 mg/dL (0.1-1.2) 06/24/17 11:21 AST 12 units/L (5-40) 06/24/17 11:21 ALT 13 units/L (7-56) 06/24/17 11:21 Alkaline Phosphatase 67 units/L (35-129) 06/24/17 11:21 Total Creatine Kinase 178 units/L (55-170) H 06/24/17 11:21 CK-MB (CK-2) 9.3 ng/mL (0.0-4.0) H 06/24/17 11:21 CK-MB (CK-2) Rel Index 5.2 (0-4) H 06/24/17 11:21 Troponin T 0.028 ng/mL (0.00-0.029) 06/24/17 11:21 NT-Pro-B Natriuret Pep 305.1 pg/mL (0-900) 06/24/17 11:21 Total Protein 7.0 g/dL (6.3-8.2) 06/24/17 11:21 Albumin 3.0 g/dL (3.9-5) L 06/24/17 11:21 Albumin/Globulin Ratio 0.8 % 06/24/17 11:21 Urine Color Straw (Yellow) 06/24/17 19:04 Urine Turbidity Clear (Clear) 06/24/17 19:04 Urine pH 5.0 (5.0-7.0) 06/24/17 19:04 Ur Specific [place] 1.029 (1.003-1.030) 06/24/17 19:04 Urine Protein <15 mg/dl mg/dL (Negative) 06/24/17 19:04 Urine Glucose (UA) Neg mg/dL (Negative) 06/24/17 19:04 Urine Ketones Neg mg/dL (Negative) 06/24/17 19:04 Urine Blood Neg (Negative) 06/24/17 19:04 Urine Nitrite Neg (Negative) 06/24/17 19:04 Urine Bilirubin Neg (Negative) 06/24/17 19:04 Urine Urobilinogen < 2.0 mg/dL (<2.0) 06/24/17 19:04 Ur Leukocyte Esterase Neg (Negative) 06/24/17 19:04 Urine WBC (Auto) 1.0 /HPF (0.0-6.0) 06/24/17 19:04 Urine RBC (Auto) 1.0 /HPF (0.0-6.0) 06/24/17 19:04 U Epithel Cells (Auto) < 1.0 /HPF (0-13.0) 06/24/17 19:04 Urine Mucus Few /HPF 06/24/17 19:04 Rheumatoid Factor 191 IU/ml (0-13) H 06/27/17 05:34 Blood Type O POSITIVE 06/24/17 15:00 Antibody Screen Negative 06/24/17 15:00
--- NOTE | 2017-06-28 18:47 | Progress Note ---
Assessment and Plan Patient is alert, awake.Patient says breathing somewhat better today..Patient is still on high flow O2. O2 saturation 97% on 4 litres O2. - Patient Problems (1) Pulmonary interstitial fibrosis Current Visit: Yes Status: Acute Plan to address problem: Patient has history of asbestosis exposure. Results still pending. Patient currently on I/V solumedral. Continue high flow O2. Patient is on zosyn and vancomycin. LINDA negative. Rheumatoid factor 191 elevated. CECILIA level and CANCA pending. (2) COPD (chronic obstructive pulmonary disease) Current Visit: No Status: Acute Qualifiers: COPD type: unspecified COPD Chronic bronchitis type: C Emphysema type: E Qualified Code(s): J44.9 - Chronic obstructive pulmonary disease, unspecified Plan to address problem: Continue O2 supplementation. albuterol/atrovent aerosol treatments q 6 hours. continue I/V solumedral Continue s/c lovenox. (3) Hypoxia Current Visit: Yes Status: Acute Plan to address problem: Continue High flow O2. (4) Coumadin toxicity Current Visit: Yes Status: Acute Qualifiers: Encounter type: E Injury intent: I Plan to address problem: Hold coumadin and Monitor INR (5) Atrial fibrillation Current Visit: Yes Status: Acute Qualifiers: Atrial fibrillation type: A Plan to address problem: Patients INR supra therapeutic. Hold coumadin and monitor INR. management as per cardiology. Subjective Date of service: 06/28/17 Interval history: Patient alert, awake.Patient says breathing somewhat better today..Patient is still on high flow O2. O2 saturation 97% on 4 litres O2. Objective Vital Signs - 12hr 06/28/17 06/28/17 06/28/17 08:00 08:10 09:09 Temperature 97.2 F L Pulse Rate 60 Pulse Rate [ 72 Anterior Bilateral Throughout] Respiratory 20 Rate Respiratory 18 Rate [Anterior Bilateral Throughout] Blood Pressure 159/90 O2 Sat by Pulse Oximetry 06/28/17 06/28/17 06/28/17 09:10 09:25 10:59 Temperature Pulse Rate 78 Pulse Rate [ 78 Anterior Bilateral Throughout] Respiratory Rate Respiratory 18 Rate [Anterior Bilateral Throughout] Blood Pressure 159/90 O2 Sat by Pulse 97 Oximetry 06/28/17 06/28/17 06/28/17 11:00 14:06 14:21 Temperature Pulse Rate 78 Pulse Rate [ 82 76 Anterior Bilateral Throughout] Respiratory Rate Respiratory 16 16 Rate [Anterior Bilateral Throughout] Blood Pressure 159/90 O2 Sat by Pulse Oximetry Constitutional: no acute distress, alert Eyes: non-icteric Neck: supple, no lymphadenopathy Ascultation: Bilateral: diminished breath sounds, rales (few rales at the bases. ) Cardiovascular: regular rate and rhythm Gastrointestinal: normoactive bowel sounds, soft, non-tender Integumentary: normal Extremities: no cyanosis, no edema Neurologic: normal mental status, non-focal exam, pupils equal and round, CN II- XII normal Psychiatric: mood appropriate CBC and BMP: 06/28/17 05:57 06/28/17 05:57 ABG, PT/INR, D-dimer: ABG POC ABG pH 7.388 (7.35-7.45) 06/24/17 15:31 POC ABG pCO2 38.9 (35-45) 06/24/17 15:31 POC ABG pO2 59 (80-105) L 06/24/17 15:31 POC ABG HCO3 23.5 06/24/17 15:31 POC ABG Total CO2 25 06/24/17 15:31 POC ABG O2 Sat 90 06/24/17 15:31 PT/INR, D-dimer PT 27.7 Sec. (12.2-14.9) H 06/28/17 05:57 INR 2.57 (0.87-1.13) H 06/28/17 05:57 D-Dimer > 71193 ng/mlDDU (0-234) H 06/24/17 11:21 Abnormal lab findings: Abnormal Labs 06/24/17 06/26/17 06/26/17 15:31 06:18 06:18 WBC 15.0 H RBC Hgb 10.3 L Hct 33.0 L MCV 73 L MCH 23 L MCHC 31 L RDW 22.5 H Plt Count PT INR POC ABG pO2 59 L BUN 21 H Glucose 172 H Rheumatoid Factor 06/26/17 06/27/17 06/27/17 06:18 05:34 10:18 WBC RBC Hgb Hct MCV MCH MCHC RDW Plt Count PT 40.6 H 32.4 H INR 4.16 H 3.13 H POC ABG pO2 BUN Glucose Rheumatoid Factor 191 H 06/28/17 06/28/17 06/28/17 05:57 05:57 05:57 WBC 16.5 H RBC 5.09 H Hgb 11.2 L Hct MCV 74 L MCH 22 L MCHC 30 L RDW 22.8 H Plt Count 448 H PT 27.7 H INR 2.57 H POC ABG pO2 BUN 21 H Glucose 156 H Rheumatoid Factor
[2017-06-28] MEDS: ROBITUSSIN AC PO PRN (22:03)
[2017-06-29] MEDS: DUONEB *Not for PRN Use IH SCH ×4 (02:05→20:33)
[2017-06-29 06:20] LABS: Hematocrit 35.8 % (35.5-45.6); Hemoglobin 11.3 gm/dl (11.8-15.2); Mean Corpuscular HGB Conc 32 % (32-34); Mean Corpuscular Volume 73 fl (84-94); Platelet Count 382 K/mm3 (140-440); Red Blood Count 4.93 M/mm3 (3.65-5.03); White Blood Count 13.1 K/mm3 (4.5-11.0)
[2017-06-29 06:29] LABS: Mean Corpuscular Hemoglobin 23 pg (28-32)
[2017-06-29 06:30] LABS: Red Cell Distribution Width 23.2 % (13.2-15.2)
[2017-06-29 06:31] LABS: INR 1.9 (0.87-1.13)
[2017-06-29 06:50] LABS: Anion Gap 15 mmol/L; BUN/Creatinine Ratio 24.28; Blood Urea Nitrogen 17 mg/dL (9-20); Calcium 8.9 mg/dL (8.4-10.2); Carbon Dioxide 28 mmol/L (22-30); Chloride 95.8 mmol/L (98-107); Glucose 167 mg/dL (75-100); Potassium 4.7 mmol/L (3.6-5.0); Sodium 134 mmol/L (137-145)
[2017-06-29] MEDS: VALIUM PO PRN ×2 (10:21→21:36)
[2017-06-29] MEDS: FLONASE NS SCH (10:21)
[2017-06-29] MEDS: LEVAQUIN PO SCH (10:21)
[2017-06-29] MEDS: NORVASC PO SCH (10:21)
[2017-06-29] MEDS: LOPRESSOR PO SCH ×2 (10:22→21:36)
[2017-06-29] MEDS: COZAAR PO SCH (10:23)
--- NOTE | 2017-06-29 12:24 | Progress Note ---
Assessment and Plan (1) Pulmonary interstitial fibrosis Current Visit: Yes Status: Acute Plan to address problem: - Patient has history of asbestosis exposure. - continue systemic steroids re: COPD also - continue supplemental oxygen - LINDA negative. - follow CECILIA level and ANCA serologies (2) COPD (chronic obstructive pulmonary disease) Current Visit: No Status: Acute Qualifiers: COPD type: unspecified COPD Chronic bronchitis type: C Emphysema type: E Qualified Code(s): J44.9 - Chronic obstructive pulmonary disease, unspecified Plan to address problem: - Continue O2 supplementation (baseline 2.5L/min) - continue albuterol/atrovent aerosol treatments q 6 hours. - continue systemic steroids (4) Coumadin toxicity Current Visit: Yes Status: Acute Qualifiers: Encounter type: E Injury intent: I Plan to address problem: - INR now subtherapeutic - resume coumadin and Monitor INR (5) Atrial fibrillation Current Visit: Yes Status: Acute Qualifiers: Atrial fibrillation type: A Plan to address problem: - resume coumadin - management as per cardiology otherwise Subjective Date of service: 06/29/17 Principal diagnosis: Acute on Chronic hypoxemic Respiratory Failure; Pulmonary Fibrosis Interval history: Seen and examined at bedside; 24 hour events reviewed; nursing and respiratory care staff consulted; no adverse overnight events reported to me; resting in bed ; in good spirits; remains on 3L NC oxygen; denies acute chest pains or increased SOB; No N/V/F/C Objective Vital Signs - 12hr 06/29/17 06/29/17 06/29/17 00:57 02:03 02:12 Temperature 97.7 F Pulse Rate 66 Pulse Rate [ 63 62 Anterior Bilateral Throughout] Respiratory 21 Rate Respiratory 18 16 Rate [Anterior Bilateral Throughout] Blood Pressure 140/83 O2 Sat by Pulse 98 Oximetry 06/29/17 06/29/17 06/29/17 04:22 08:07 08:17 Temperature 97.3 F L Pulse Rate 67 Pulse Rate [ 77 68 Anterior Bilateral Throughout] Respiratory 18 Rate Respiratory 20 20 Rate [Anterior Bilateral Throughout] Blood Pressure 143/81 O2 Sat by Pulse 97 100 Oximetry 06/29/17 06/29/17 06/29/17 10:21 10:22 10:23 Temperature Pulse Rate 93 H 93 H 93 H Pulse Rate [ Anterior Bilateral Throughout] Respiratory Rate Respiratory Rate [Anterior Bilateral Throughout] Blood Pressure 138/83 138/83 138/83 O2 Sat by Pulse Oximetry Constitutional: no acute distress, alert Eyes: non-icteric Neck: supple, no lymphadenopathy Effort: mildly labored Ascultation: Bilateral: diminished breath sounds, rales (few inspiratory rales at the bases.) Cardiovascular: regular rate and rhythm Gastrointestinal: normoactive bowel sounds, soft, non-tender, non-distended Integumentary: normal Extremities: no cyanosis, no edema, pulses normal, no ischemia or petechiae Neurologic: normal mental status, non-focal exam, pupils equal and round, motor strength normal and Psychiatric: mood appropriate, affect normal CBC and BMP: 06/29/17 06:05 06/29/17 06:05 ABG, PT/INR, D-dimer: ABG POC ABG pH 7.388 (7.35-7.45) 06/24/17 15:31 POC ABG pCO2 38.9 (35-45) 06/24/17 15:31 POC ABG pO2 59 (80-105) L 06/24/17 15:31 POC ABG HCO3 23.5 06/24/17 15:31 POC ABG Total CO2 25 06/24/17 15:31 POC ABG O2 Sat 90 06/24/17 15:31 PT/INR, D-dimer PT 21.8 Sec. (12.2-14.9) H 06/29/17 06:05 INR 1.90 (0.87-1.13) H 06/29/17 06:05 D-Dimer > 74385 ng/mlDDU (0-234) H 06/24/17 11:21 Abnormal lab findings: Abnormal Labs 06/24/17 06/26/17 06/26/17 15:31 06:18 06:18 WBC 15.0 H RBC Hgb 10.3 L Hct 33.0 L MCV 73 L MCH 23 L MCHC 31 L RDW 22.5 H Plt Count PT INR POC ABG pO2 59 L Sodium Chloride BUN 21 H Creatinine Glucose 172 H Rheumatoid Factor 06/26/17 06/27/17 06/27/17 06:18 05:34 10:18 WBC RBC Hgb Hct MCV MCH MCHC RDW Plt Count PT 40.6 H 32.4 H INR 4.16 H 3.13 H POC ABG pO2 Sodium Chloride BUN Creatinine Glucose Rheumatoid Factor 191 H 06/28/17 06/28/17 06/28/17 05:57 05:57 05:57 WBC 16.5 H RBC 5.09 H Hgb 11.2 L Hct MCV 74 L MCH 22 L MCHC 30 L RDW 22.8 H Plt Count 448 H PT 27.7 H INR 2.57 H POC ABG pO2 Sodium Chloride BUN 21 H Creatinine Glucose 156 H Rheumatoid Factor 06/29/17 06/29/17 06/29/17 06:05 06:05 06:05 WBC 13.1 H RBC Hgb 11.3 L Hct MCV 73 L MCH 23 L MCHC RDW 23.2 H Plt Count PT 21.8 H INR 1.90 H POC ABG pO2 Sodium 134 L D Chloride 95.8 L BUN Creatinine 0.7 L Glucose 167 H Rheumatoid Factor Chest x-ray: image reviewed
--- NOTE | 2017-06-29 15:46 | Progress Note ---
Assessment and Plan Assessment and plan: Patient is a 66-year-old man with a history of IPF with chronic hypoxic respiratory failure on 2 L oxygen during the day and 3 L oxygen at night, followed up by Dr. 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 His pcp is Dr. Kumar from [facility], whom I spoke with who was admitted for worsening respiratory failure, Upon arrival to the emergency room, patient was noted to have O2 saturations at 78%. Patient denies any fever chills. Sepsis bronchitis, poa. * Patient meets criteria given the leukocytosis, tachycardia and fever and diagnosis of acute bronchitis. continue sepsis pathway. lactic acid levels resolved. cultures remain negative. * Continue Abx. IV zosyn. Acute bronchitis. * IV antibiotics. can switch to PO in am if no recurrent fever. Acute on chronic respiratory failure secondary to COPD and pulmonary fibrosis exacerbation. With Hypoxia * Pulmonary consult. * CPAP at night * Taper Solu-Medrol 40 mg IV every 8 hours. DuoNeb every 6 hours scheduled. FOLLOW immunology work up Idiopathic pulmonary fibrosis exacerbation- Pulmonary Following Hypertension. Resume home meds Chronic atrial fibrillation. On Coumadin. Resume Coagulopathy. Hold Coumadin as noted above. DVT prophylaxis. On Coumadin Discussed with family/ Discussed code status and inquired Advance directive. I also asked if Hospice was ever discuss due to the worsening IPF, and max dose of Esbriet. He became anxious, will give prn Valium Anticipate discharge, higher need oxygen need another DME form. Will consult He has appt with Dr. Meier on He needs chronic steroid above 20mg/day per pcp, because recurrent increased frequency exacerbation of IPF with steroid weaning. pt was taking 40mg/d of prednisone, needs 60mg/d at discharge Patient can walk in to pcp after discharge. New issue, +FOBT, acute on chronic blood loss anemia suspected, will consult GI and hold discharge. History Interval history: Patient was seen and examined. Follow-up on current diagnosis/shortness of breath improved he still on 5 L oxygen. Overnight uneventful. Patient denies any chest pain, shortness breath, nausea/vomiting or severe headaches. Imaging , nursing note, chart, labs and old chart reviewed. Discussed with patient. at bedside Hospitalist Physical - Physical exam Narrative exam: GEN: WDWN, NAD, AWAKE, ALERT, ORIENTATED x 3 HEENT: NCAT, EOMI, PERRL, OP Clear NECK: supple, no adenopathy, no thyromegaly, no JVD CVS/HEART: irr RR, NORMAL S1S2, NO JVD, pulses present bilaterally CHEST/LUNGS: Inspiratory crackles, Symmetrical chest expansion, adequately reduced air entry bilaterally GI/Abdomen: soft, NTND, good bowel sounds, no guarding or rebound /Bladder: no suprapubic tenderness, no CVA or paraspinal tenderness EXT/Skin: no c/c/e, no significant edema or obvious rash MSK: FROM x 4 Neuro: CN 2-12 grossly intact, no new focal deficits Psych: anxious - Constitutional Vitals: Temp Pulse Resp BP Pulse Ox 97.3 F L 93 H 20 138/83 100 06/29/17 04:22 06/29/17 10:23 06/29/17 08:17 06/29/17 10:23 06/29/17 08:07 General appearance: Present: no acute distress, well-nourished Results - Labs CBC & Chem 7: 06/29/17 06:05 06/29/17 06:05 Labs: Laboratory Last Values WBC 13.1 K/mm3 (4.5-11.0) H 06/29/17 06:05 RBC 4.93 M/mm3 (3.65-5.03) 06/29/17 06:05 Hgb 11.3 gm/dl (11.8-15.2) L 06/29/17 06:05 Hct 35.8 % (35.5-45.6) 06/29/17 06:05 MCV 73 fl (84-94) L 06/29/17 06:05 MCH 23 pg (28-32) L 06/29/17 06:05 MCHC 32 % (32-34) 06/29/17 06:05 RDW 23.2 % (13.2-15.2) H 06/29/17 06:05 Plt Count 382 K/mm3 (140-440) 06/29/17 06:05 Lymph % (Auto) 9.1 % (13.4-35.0) L 06/24/17 11:21 [place] % (Auto) 10.2 % (0.0-7.3) H 06/24/17 11:21 Eos % (Auto) 1.0 % (0.0-4.3) 06/24/17 11:21 Baso % (Auto) 0.4 % (0.0-1.8) 06/24/17 11:21 Lymph # 1.2 K/mm3 (1.2-5.4) 06/24/17 11:21 [place] # 1.3 K/mm3 (0.0-0.8) H 06/24/17 11:21 Eos # 0.1 K/mm3 (0.0-0.4) 06/24/17 11:21 Baso # 0.1 K/mm3 (0.0-0.1) 06/24/17 11:21 Seg Neutrophils % 79.3 % (40.0-70.0) H 06/24/17 11:21 Seg Neutrophils # 10.1 K/mm3 (1.8-7.7) H 06/24/17 11:21 PT 21.8 Sec. (12.2-14.9) H 06/29/17 06:05 INR 1.90 (0.87-1.13) H 06/29/17 06:05 APTT 53.3 Sec. (24.2-36.6) H 06/24/17 11:21 D-Dimer > 95009 ng/mlDDU (0-234) H 06/24/17 11:21 POC ABG pH 7.388 (7.35-7.45) 06/24/17 15:31 POC ABG pCO2 38.9 (35-45) 06/24/17 15:31 POC ABG pO2 59 (80-105) L 06/24/17 15:31 POC ABG HCO3 23.5 06/24/17 15:31 POC ABG Total CO2 25 06/24/17 15:31 POC ABG O2 Sat 90 06/24/17 15:31 POC ABG Base Excess -2 06/24/17 15:31 VBG pH 7.435 (7.320-7.420) H 06/24/17 11:21 FiO2 28 % 06/24/17 15:31 Sodium 134 mmol/L (137-145) L D 06/29/17 06:05 Potassium 4.7 mmol/L (3.6-5.0) 06/29/17 06:05 Chloride 95.8 mmol/L (98-107) L 06/29/17 06:05 Carbon Dioxide 28 mmol/L (22-30) 06/29/17 06:05 Anion Gap 15 mmol/L 06/29/17 06:05 BUN 17 mg/dL (9-20) 06/29/17 06:05 Creatinine 0.7 mg/dL (0.8-1.5) L 06/29/17 06:05 Estimated GFR > 60 ml/min 06/29/17 06:05 BUN/Creatinine Ratio 24.28 % 06/29/17 06:05 Glucose 167 mg/dL (75-100) H 06/29/17 06:05 Lactic Acid 2.00 mmol/L (0.7-2.0) 06/25/17 04:40 Calcium 8.9 mg/dL (8.4-10.2) 06/29/17 06:05 Total Bilirubin 0.30 mg/dL (0.1-1.2) 06/24/17 11:21 AST 12 units/L (5-40) 06/24/17 11:21 ALT 13 units/L (7-56) 06/24/17 11:21 Alkaline Phosphatase 67 units/L (35-129) 06/24/17 11:21 Total Creatine Kinase 178 units/L (55-170) H 06/24/17 11:21 CK-MB (CK-2) 9.3 ng/mL (0.0-4.0) H 06/24/17 11:21 CK-MB (CK-2) Rel Index 5.2 (0-4) H 06/24/17 11:21 Troponin T 0.028 ng/mL (0.00-0.029) 06/24/17 11:21 NT-Pro-B Natriuret Pep 305.1 pg/mL (0-900) 06/24/17 11:21 Total Protein 7.0 g/dL (6.3-8.2) 06/24/17 11:21 Albumin 3.0 g/dL (3.9-5) L 06/24/17 11:21 Albumin/Globulin Ratio 0.8 % 06/24/17 11:21 Urine Color Straw (Yellow) 06/24/17 19:04 Urine Turbidity Clear (Clear) 06/24/17 19:04 Urine pH 5.0 (5.0-7.0) 06/24/17 19:04 Ur Specific [place] 1.029 (1.003-1.030) 06/24/17 19:04 Urine Protein <15 mg/dl mg/dL (Negative) 06/24/17 19:04 Urine Glucose (UA) Neg mg/dL (Negative) 06/24/17 19:04 Urine Ketones Neg mg/dL (Negative) 06/24/17 19:04 Urine Blood Neg (Negative) 06/24/17 19:04 Urine Nitrite Neg (Negative) 06/24/17 19:04 Urine Bilirubin Neg (Negative) 06/24/17 19:04 Urine Urobilinogen < 2.0 mg/dL (<2.0) 06/24/17 19:04 Ur Leukocyte Esterase Neg (Negative) 06/24/17 19:04 Urine WBC (Auto) 1.0 /HPF (0.0-6.0) 06/24/17 19:04 Urine RBC (Auto) 1.0 /HPF (0.0-6.0) 06/24/17 19:04 U Epithel Cells (Auto) < 1.0 /HPF (0-13.0) 06/24/17 19:04 Urine Mucus Few /HPF 06/24/17 19:04 Rheumatoid Factor 191 IU/ml (0-13) H 06/27/17 05:34 Blood Type O POSITIVE 06/24/17 15:00 Antibody Screen Negative 06/24/17 15:00
[2017-06-29] MEDS ORDERED: COUMADIN PO SCH (17:00)
[2017-06-29] MEDS: ROBITUSSIN AC PO PRN (21:35)
[2017-06-29] MEDS ORDERED: NORCO 5/325 PO PRN (22:53)
[2017-06-30] MEDS: DUONEB *Not for PRN Use IH SCH ×3 (02:40→17:04)
[2017-06-30 06:37] LABS: Hematocrit 36.4 % (35.5-45.6); Hemoglobin 11.6 gm/dl (11.8-15.2); Mean Corpuscular HGB Conc 32 % (32-34); Mean Corpuscular Volume 73 fl (84-94); Platelet Count 371 K/mm3 (140-440); Red Blood Count 4.99 M/mm3 (3.65-5.03); White Blood Count 13.2 K/mm3 (4.5-11.0)
[2017-06-30 06:56] LABS: Mean Corpuscular Hemoglobin 23 pg (28-32)
[2017-06-30 07:00] LABS: Anion Gap 14 mmol/L; BUN/Creatinine Ratio 23.75; Blood Urea Nitrogen 19 mg/dL (9-20); Calcium 8.6 mg/dL (8.4-10.2); Carbon Dioxide 29 mmol/L (22-30); Chloride 100.1 mmol/L (98-107); Glucose 176 mg/dL (75-100); Potassium 4.8 mmol/L (3.6-5.0); Sodium 138 mmol/L (137-145)
[2017-06-30 07:29] LABS: INR 1.36 (0.87-1.13)
[2017-06-30] MEDS: FLONASE NS SCH (10:15)
[2017-06-30] MEDS: LEVAQUIN PO SCH (10:16)
[2017-06-30] MEDS: NORVASC PO SCH (10:16)
[2017-06-30] MEDS: LOPRESSOR PO SCH (10:16)
--- NOTE | 2017-06-30 10:16 | Gastroenterology Consultation ---
History of Present Illness - Reason for Consult Consult date: 06/30/17 anemia, +FOBT Requesting physician: LEORA BENOIT - History of Present Illness Patient is a 66 y/o male with a h/o chronic A-fib (on Coumadin), HTN, HLD, COPD , and idiopathic pulmonary fibrosis (on home O2) who was admitted for acute on chronic respiratory failure. GI has been consulted for anemia and +FOBT. INR on admission was noted to be supratherapeutic at 4.16. Today INR is 1.36. Pt resting in bed this morning on O2 with no acute distress and family at bedside. He reports dark black stools x 2 days. Denies CP, dizziness, fever, wt loss, abd pain, N/V, hematemesis, diarrhea, constipation, or hematochezia. No active signs of bleeding today. No hx of liver disease. No NSAID use. No previous EGD. Last colonoscopy was within the last 5 years at [facility] with normal results. No Fhx of GI cancers. Past History Past Medical History: atrial fib, COPD, hypertension, hyperlipidemia, other ( pulmonary fibrosis) Past Surgical History: No surgical history Social history: no significant social history Family history: no significant family history Medications and Allergies Allergies Allergy/AdvReac Type Severity Reaction Status Date / Time No Known Allergies Allergy Verified 06/24/17 11:13 Home Medications Medication Instructions Recorded Confirmed Last Taken Type ALBUTEROL NEB's [Proventil] 2.5 mg IH TID PRN #0 05/12/17 06/26/17 1 Day Ago History Acetaminophen [Shake That Ache] 500 mg PO Q8HR PRN 05/12/17 06/26/17 1 Day Ago History Albuterol Sulfate [Ventolin HFA] 2 puff IH Q4H PRN #0 MDD 2 puffs 05/12/17 2 Days Ago History AtorvaSTATin [Lipitor] 20 mg PO QHS #0 05/12/17 06/26/17 1 Day Ago History Fluticasone [Flonase] 2 sprays NS QDAY 05/12/17 06/26/17 1 Day Ago History Losartan [Cozaar] 25 mg PO QDAY 05/12/17 06/26/17 1 Day Ago History Metoprolol Tartrate 37.5 mg PO DAILY #0 05/12/17 06/26/17 1 Day Ago History Omeprazole 10 mg PO DAILY #0 05/12/17 06/26/17 1 Day Ago History Warfarin [Coumadin] 2.5 mg PO QDAY 05/12/17 06/26/17 1 Day Ago History amLODIPine [Norvasc] 5 mg PO DAILY 05/12/17 06/26/17 2 Days Ago History metFORMIN [Glucophage] 500 mg PO BID #0 05/12/17 06/26/17 1 Day Ago History Insulin Regular, Human [HumuLIN R] 0 units SUB-Q ACHS units 05/13/17 06/26/17 1 Day Ago Rx Ipratropium/Albuterol Sulfate 1 ampul IH Q6HRT ampul.neb 05/13/17 06/26/17 1 Day Ago Rx [DUONEB *Not for PRN Use*] Active Meds: Active Medications Acetaminophen (Tylenol) 650 mg PO Q4H PRN PRN Reason: Pain MILD(1-3)/Fever >100.5/[place] Acetaminophen/Hydrocodone Bitart ([place] 5/325) 1 each PO Q6H PRN PRN Reason: Pain, Moderate (4-6) Albuterol (Proventil) 2.5 mg IH Q6HRT PRN PRN Reason: Shortness Of Breath Last Admin: 06/26/17 06:04 Dose: 2.5 mg Albuterol/Ipratropium (Duoneb *Not For Prn Use*) 1 ampul IH Q6HRT [facility] Last Admin: 06/30/17 07:45 Dose: 1 ampul Amlodipine Besylate (Norvasc) 5 mg PO DAILY [facility] Last Admin: 06/29/17 10:21 Dose: 5 mg Atorvastatin Calcium (Lipitor) 20 mg PO QHS [facility] Last Admin: 06/29/17 21:36 Dose: 20 mg Bisacodyl (Dulcolax) 10 mg CO QDAY PRN PRN Reason: Constipation unrelieved by MOM Diazepam (Valium) 5 mg PO Q12H PRN PRN Reason: Anxiety Last Admin: 06/29/17 21:36 Dose: 5 mg Fluticasone Propionate (Flonase) 100 mcg NS QDAY [facility] Last Admin: 06/29/17 10:21 Dose: 100 mcg Levofloxacin (Levaquin) 750 mg PO Q24HR [facility] Last Admin: 06/29/17 10:21 Dose: 750 mg Losartan Potassium (Cozaar) 25 mg PO QDAY [facility] Last Admin: 06/29/17 10:23 Dose: 25 mg Magnesium Hydroxide (Milk Of Magnesia) 30 ml PO Q4H PRN PRN Reason: Constipation Methylprednisolone Sodium Succinate (Solu-Medrol) 40 mg IV Q8H [facility] Last Admin: 06/30/17 05:14 Dose: 40 mg Metoprolol Tartrate (Lopressor) 37.5 mg PO BID [facility] Last Admin: 06/29/17 21:36 Dose: 37.5 mg Miscellaneous Medication (Esbriet) 270 mg PO TID [facility] Ondansetron HCl (Zofran) 4 mg IV Q8H PRN PRN Reason: N/V unrelieved by Bonnie Last Admin: 06/29/17 19:28 Dose: 4 mg Pseudoephedrine/Acetam/Chlorphenir (Robitussin Ac) 10 ml PO Q4H PRN PRN Reason: Cough Last Admin: 06/29/17 21:35 Dose: 10 ml Warfarin Sodium (Coumadin Pharmacy [facility] Dose) [facility] PR[facility] Reason: Protocol Warfarin Sodium (Coumadin) 1 mg PO DAILY@1700 [facility] Last Admin: 06/29/17 18:53 Dose: Not Given Review of Systems - Review of Systems All systems: negative Gastrointestinal: melena Exam - Constitutional Vital Signs: Temp Pulse Resp BP Pulse Ox 98.3 F 60 22 126/83 97 06/30/17 04:45 06/30/17 06:00 06/30/17 04:45 06/30/17 04:45 06/30/17 04:45 General appearance: no acute distress, well-nourished - EENT Eyes: PERRL, EOM intact ENT: hearing intact - Neck Neck: supple, normal ROM - Respiratory Respiratory: bilateral: diminished - Cardiovascular Rhythm: other (irregular) Heart Sounds: Present: S1 & S2 Extremities: No edema - Gastrointestinal General gastrointestinal: Present: soft, non-tender, non-distended, normal bowel sounds - Integumentary Integumentary: Present: warm, dry - Neurologic Neurological: alert and oriented x3 - Labs CBC & Chem 7: 06/30/17 06:11 06/30/17 06:11 Lab Results: Laboratory Results - last 24 hr 06/30/17 06/30/17 06/30/17 06:11 06:11 06:11 WBC 13.2 H RBC 4.99 Hgb 11.6 L Hct 36.4 MCV 73 L MCH 23 L MCHC 32 RDW 23.0 H Plt Count 371 PT 17.5 H INR 1.36 H Sodium 138 Potassium 4.8 Chloride 100.1 Carbon Dioxide 29 Anion Gap 14 BUN 19 Creatinine 0.8 Estimated GFR > 60 BUN/Creatinine Ratio 23.75 Glucose 176 H Calcium 8.6 Assessment and Plan 1.anemia 2.+FOBT 3.melena 4.sepsis/bronchitis 5.acute on chronic respiratory failure 6.IPF 7.chronic A-fib 8.coagulopathy -HGB 11.6-stable -continue to monitor H/H and transfuse as needed -hold blood thinning medications -no active signs of bleeding today-hemodynamically stable -will start on PPI -Keep NPO -will schedule for EGD today -will follow
[2017-06-30] MEDS: COZAAR PO SCH (10:17)
[2017-06-30 10:33] LABS: Myeloperoxidase Antibody <1.0 AI (<1.0)
[2017-06-30] MEDS ORDERED: PROTONIX PO SCH (11:00)
--- NOTE | 2017-06-30 11:16 | Progress Note ---
Subjective Date of service: 06/30/17 Principal diagnosis: Acute on Chronic hypoxemic Respiratory Failure; Pulmonary Fibrosis Interval history: Seen and examined at bedside; 24 hour events reviewed; nursing and respiratory care staff consulted; no adverse overnight events reported to me; Objective Vital Signs - 12hr 06/30/17 06/30/17 06/30/17 00:21 02:38 02:48 Temperature Pulse Rate 98 H Pulse Rate [ 89 93 H Anterior Bilateral Throughout] Respiratory 29 H Rate Respiratory 16 18 Rate [Anterior Bilateral Throughout] Blood Pressure [Right] O2 Sat by Pulse 95 Oximetry 06/30/17 06/30/17 06/30/17 04:45 06:00 07:45 Temperature 98.3 F Pulse Rate 69 60 Pulse Rate [ 62 Anterior Bilateral Throughout] Respiratory 22 Rate Respiratory 20 Rate [Anterior Bilateral Throughout] Blood Pressure 126/83 [Right] O2 Sat by Pulse 97 98 Oximetry 06/30/17 07:55 Temperature Pulse Rate Pulse Rate [ 80 Anterior Bilateral Throughout] Respiratory Rate Respiratory 20 Rate [Anterior Bilateral Throughout] Blood Pressure [Right] O2 Sat by Pulse Oximetry Constitutional: no acute distress, alert Eyes: non-icteric Neck: supple, no lymphadenopathy Effort: mildly labored Ascultation: Bilateral: diminished breath sounds, rales (few inspiratory rales at the bases.) Cardiovascular: regular rate and rhythm Gastrointestinal: normoactive bowel sounds, soft, non-tender, non-distended Integumentary: normal Extremities: no cyanosis, no edema, pulses normal, no ischemia or petechiae Neurologic: normal mental status, non-focal exam, pupils equal and round, motor strength normal and Psychiatric: mood appropriate, affect normal CBC and BMP: 06/30/17 06:11 06/30/17 06:11 ABG, PT/INR, D-dimer: ABG POC ABG pH 7.388 (7.35-7.45) 06/24/17 15:31 POC ABG pCO2 38.9 (35-45) 06/24/17 15:31 POC ABG pO2 59 (80-105) L 06/24/17 15:31 POC ABG HCO3 23.5 06/24/17 15:31 POC ABG Total CO2 25 06/24/17 15:31 POC ABG O2 Sat 90 06/24/17 15:31 PT/INR, D-dimer PT 17.5 Sec. (12.2-14.9) H 06/30/17 06:11 INR 1.36 (0.87-1.13) H 06/30/17 06:11 D-Dimer > 36476 ng/mlDDU (0-234) H 06/24/17 11:21 Abnormal lab findings: Abnormal Labs 06/24/17 06/26/17 06/26/17 15:31 06:18 06:18 WBC 15.0 H RBC Hgb 10.3 L Hct 33.0 L MCV 73 L MCH 23 L MCHC 31 L RDW 22.5 H Plt Count PT INR POC ABG pO2 59 L Sodium Chloride BUN 21 H Creatinine Glucose 172 H Rheumatoid Factor 06/26/17 06/27/17 06/27/17 06:18 05:34 10:18 WBC RBC Hgb Hct MCV MCH MCHC RDW Plt Count PT 40.6 H 32.4 H INR 4.16 H 3.13 H POC ABG pO2 Sodium Chloride BUN Creatinine Glucose Rheumatoid Factor 191 H 06/28/17 06/28/17 06/28/17 05:57 05:57 05:57 WBC 16.5 H RBC 5.09 H Hgb 11.2 L Hct MCV 74 L MCH 22 L MCHC 30 L RDW 22.8 H Plt Count 448 H PT 27.7 H INR 2.57 H POC ABG pO2 Sodium Chloride BUN 21 H Creatinine Glucose 156 H Rheumatoid Factor 06/29/17 06/29/17 06/29/17 06:05 06:05 06:05 WBC 13.1 H RBC Hgb 11.3 L Hct MCV 73 L MCH 23 L MCHC RDW 23.2 H Plt Count PT 21.8 H INR 1.90 H POC ABG pO2 Sodium 134 L D Chloride 95.8 L BUN Creatinine 0.7 L Glucose 167 H Rheumatoid Factor 06/30/17 06/30/17 06/30/17 06:11 06:11 06:11 WBC 13.2 H RBC Hgb 11.6 L Hct MCV 73 L MCH 23 L MCHC RDW 23.0 H Plt Count PT 17.5 H INR 1.36 H POC ABG pO2 Sodium Chloride BUN Creatinine Glucose 176 H Rheumatoid Factor
[2017-06-30] MEDS: VALIUM PO PRN (11:23)
[2017-06-30] MEDS ORDERED: NACL 0.9% 1000 ML 1,000 ML IV SCH (13:00)
--- NOTE | 2017-06-30 14:22 | Anesthesia Day of Surgery ---
Anesthesia Day of Surgery - Day of Surgery Patient Examined: Yes Patient H&P Reviewed: Yes Patient is NPO: Yes Beta Blockers: Yes Pulmonary Clearance: Yes
--- NOTE | 2017-06-30 14:24 | Anesthesia Consultation ---
Anesthesia Consult and Med Hx Date of service: 06/30/17 - Airway Anesthetic Teeth Evaluation: Caps, Crowns ROM Head & Neck: Adequate Mental/Hyoid Distance: Adequate Mallampati Class: Class II Intubation Access Assessment: Probably Good - Pulmonary Exam CTA: Yes - Cardiac Exam Cardiac Exam: RRR - Pre-Operative Health Status ASA Pre-Surgery Classification: ASA4 - Pulmonary Hx Smoking: Yes Hx Respiratory Symptoms: Yes (Pulmonary Fibrosis) COPD: Yes Home Oxygen Therapy: Yes Hx Sleep Apnea: Yes - Cardiovascular System Hx Hypertension: Yes Hx Cardia Arrhythmia: Yes (Chronic AFib) - Central Nervous System Hx Psychiatric Problems: No - Other Systems Hx Cancer: No
--- NOTE | 2017-06-30 15:28 | Progress Note ---
Assessment and Plan Assessment and plan: Patient is a 66-year-old man with a history of IPF with chronic hypoxic respiratory failure on 2 L oxygen during the day and 3 L oxygen at night, followed up by Dr. Nolan Meier, labor contract analyst at [facility], on max dose of Esbriet. His pcp is Dr. Kumar from [facility], whom I spoke with who was admitted for worsening respiratory failure, Upon arrival to the emergency room, patient was noted to have O2 saturations at 78%. Patient denies any fever chills. Sepsis bronchitis, poa. * Patient meets criteria given the leukocytosis, tachycardia and fever and diagnosis of acute bronchitis. continue sepsis pathway. lactic acid levels resolved. cultures remain negative. * Continue Abx. IV zosyn. Acute bronchitis. * IV antibiotics. can switch to PO in am if no recurrent fever. Acute on chronic respiratory failure secondary to COPD and pulmonary fibrosis exacerbation. With Hypoxia * Pulmonary consult. * CPAP at night * Taper Solu-Medrol 40 mg IV every 8 hours. DuoNeb every 6 hours scheduled. FOLLOW immunology work up Idiopathic pulmonary fibrosis exacerbation- Pulmonary Following Hypertension. Resume home meds Chronic atrial fibrillation. On Coumadin. Resume Coagulopathy. Hold Coumadin as noted above. DVT prophylaxis. On Coumadin Discussed with family/ Discussed code status and inquired Advance directive. I also asked if Hospice was ever discuss due to the worsening IPF, and max dose of Esbriet. He became anxious, will give prn Valium Anticipate discharge, higher need oxygen need another DME form. Will consult He has appt with Dr. Meier on He needs chronic steroid above 20mg/day per pcp, because recurrent increased frequency exacerbation of IPF with steroid weaning. pt was taking 40mg/d of prednisone, needs 60mg/d at discharge Patient can walk in to pcp after discharge. New issue, +FOBT, acute on chronic blood loss anemia suspected, will consult GI and hold discharge. Going for EGD, will d/c home if ok with GI History Interval history: Patient was seen and examined. Follow-up on current diagnosis/shortness of breath improved he still on 5 L oxygen. Overnight uneventful. Patient denies any chest pain, shortness breath, nausea/vomiting or severe headaches. Imaging , nursing note, chart, labs and old chart reviewed. Discussed with patient. at bedside Hospitalist Physical - Physical exam Narrative exam: GEN: WDWN, NAD, AWAKE, ALERT, ORIENTATED x 3 HEENT: NCAT, EOMI, PERRL, OP Clear NECK: supple, no adenopathy, no thyromegaly, no JVD CVS/HEART: irr RR, NORMAL S1S2, NO JVD, pulses present bilaterally CHEST/LUNGS: Inspiratory crackles, Symmetrical chest expansion, adequately reduced air entry bilaterally GI/Abdomen: soft, NTND, good bowel sounds, no guarding or rebound /Bladder: no suprapubic tenderness, no CVA or paraspinal tenderness EXT/Skin: no c/c/e, no significant edema or obvious rash MSK: FROM x 4 Neuro: CN 2-12 grossly intact, no new focal deficits Psych: anxious - Constitutional Vitals: Temp Pulse Resp BP Pulse Ox 98.4 F 54 L 19 128/72 99 06/30/17 14:34 06/30/17 14:34 06/30/17 14:34 06/30/17 14:34 06/30/17 14:34 General appearance: Present: no acute distress, well-nourished Results - Labs CBC & Chem 7: 06/30/17 06:11 06/30/17 06:11 Labs: Laboratory Last Values WBC 13.2 K/mm3 (4.5-11.0) H 06/30/17 06:11 RBC 4.99 M/mm3 (3.65-5.03) 06/30/17 06:11 Hgb 11.6 gm/dl (11.8-15.2) L 06/30/17 06:11 Hct 36.4 % (35.5-45.6) 06/30/17 06:11 MCV 73 fl (84-94) L 06/30/17 06:11 MCH 23 pg (28-32) L 06/30/17 06:11 MCHC 32 % (32-34) 06/30/17 06:11 RDW 23.0 % (13.2-15.2) H 06/30/17 06:11 Plt Count 371 K/mm3 (140-440) 06/30/17 06:11 Lymph % (Auto) 9.1 % (13.4-35.0) L 06/24/17 11:21 Lanier % (Auto) 10.2 % (0.0-7.3) H 06/24/17 11:21 Eos % (Auto) 1.0 % (0.0-4.3) 06/24/17 11:21 Baso % (Auto) 0.4 % (0.0-1.8) 06/24/17 11:21 Lymph # 1.2 K/mm3 (1.2-5.4) 06/24/17 11:21 Lanier # 1.3 K/mm3 (0.0-0.8) H 06/24/17 11:21 Eos # 0.1 K/mm3 (0.0-0.4) 06/24/17 11:21 Baso # 0.1 K/mm3 (0.0-0.1) 06/24/17 11:21 Seg Neutrophils % 79.3 % (40.0-70.0) H 06/24/17 11:21 Seg Neutrophils # 10.1 K/mm3 (1.8-7.7) H 06/24/17 11:21 PT 17.5 Sec. (12.2-14.9) H 06/30/17 06:11 INR 1.36 (0.87-1.13) H 06/30/17 06:11 APTT 53.3 Sec. (24.2-36.6) H 06/24/17 11:21 D-Dimer > 13158 ng/mlDDU (0-234) H 06/24/17 11:21 POC ABG pH 7.388 (7.35-7.45) 06/24/17 15:31 POC ABG pCO2 38.9 (35-45) 06/24/17 15:31 POC ABG pO2 59 (80-105) L 06/24/17 15:31 POC ABG HCO3 23.5 06/24/17 15:31 POC ABG Total CO2 25 06/24/17 15:31 POC ABG O2 Sat 90 06/24/17 15:31 POC ABG Base Excess -2 06/24/17 15:31 VBG pH 7.435 (7.320-7.420) H 06/24/17 11:21 FiO2 28 % 06/24/17 15:31 Sodium 138 mmol/L (137-145) 06/30/17 06:11 Potassium 4.8 mmol/L (3.6-5.0) 06/30/17 06:11 Chloride 100.1 mmol/L (98-107) 06/30/17 06:11 Carbon Dioxide 29 mmol/L (22-30) 06/30/17 06:11 Anion Gap 14 mmol/L 06/30/17 06:11 BUN 19 mg/dL (9-20) 06/30/17 06:11 Creatinine 0.8 mg/dL (0.8-1.5) 06/30/17 06:11 Estimated GFR > 60 ml/min 06/30/17 06:11 BUN/Creatinine Ratio 23.75 % 06/30/17 06:11 Glucose 176 mg/dL (75-100) H 06/30/17 06:11 Lactic Acid 2.00 mmol/L (0.7-2.0) 06/25/17 04:40 Calcium 8.6 mg/dL (8.4-10.2) 06/30/17 06:11 Total Bilirubin 0.30 mg/dL (0.1-1.2) 06/24/17 11:21 AST 12 units/L (5-40) 06/24/17 11:21 ALT 13 units/L (7-56) 06/24/17 11:21 Alkaline Phosphatase 67 units/L (35-129) 06/24/17 11:21 Total Creatine Kinase 178 units/L (55-170) H 06/24/17 11:21 CK-MB (CK-2) 9.3 ng/mL (0.0-4.0) H 06/24/17 11:21 CK-MB (CK-2) Rel Index 5.2 (0-4) H 06/24/17 11:21 Troponin T 0.028 ng/mL (0.00-0.029) 06/24/17 11:21 NT-Pro-B Natriuret Pep 305.1 pg/mL (0-900) 06/24/17 11:21 Total Protein 7.0 g/dL (6.3-8.2) 06/24/17 11:21 Albumin 3.0 g/dL (3.9-5) L 06/24/17 11:21 Albumin/Globulin Ratio 0.8 % 06/24/17 11:21 Urine Color Straw (Yellow) 06/24/17 19:04 Urine Turbidity Clear (Clear) 06/24/17 19:04 Urine pH 5.0 (5.0-7.0) 06/24/17 19:04 Ur Specific Nichols 1.029 (1.003-1.030) 06/24/17 19:04 Urine Protein <15 mg/dl mg/dL (Negative) 06/24/17 19:04 Urine Glucose (UA) Neg mg/dL (Negative) 06/24/17 19:04 Urine Ketones Neg mg/dL (Negative) 06/24/17 19:04 Urine Blood Neg (Negative) 06/24/17 19:04 Urine Nitrite Neg (Negative) 06/24/17 19:04 Urine Bilirubin Neg (Negative) 06/24/17 19:04 Urine Urobilinogen < 2.0 mg/dL (<2.0) 06/24/17 19:04 Ur Leukocyte Esterase Neg (Negative) 06/24/17 19:04 Urine WBC (Auto) 1.0 /HPF (0.0-6.0) 06/24/17 19:04 Urine RBC (Auto) 1.0 /HPF (0.0-6.0) 06/24/17 19:04 U Epithel Cells (Auto) < 1.0 /HPF (0-13.0) 06/24/17 19:04 Urine Mucus Few /HPF 06/24/17 19:04 Rheumatoid Factor 191 IU/ml (0-13) H 06/27/17 05:34 Proteinase 3 (PR3) Ab <1.0 AI (<1.0) 06/27/17 05:34 Myeloperoxidase Ab <1.0 AI (<1.0) 06/27/17 05:34 Blood Type O POSITIVE 06/24/17 15:00 Antibody Screen Negative 06/24/17 15:00
[2017-06-30] MEDS ORDERED: WATER FOR IRRIG STERILE IR ONE (15:33)
--- NOTE | 2017-06-30 15:37 | Discharge Summary ---
Providers - Providers Date of Admission: 06/24/17 13:59 Date of discharge: 06/30/17 Attending physician: LEORA BENOIT 06/25/17 11:25 Consult to Physician [CONS] Routine Consulting Provider: MARY BELLE Reason For Exam: HYPOXIC RESPIRATORY FAILURE Place consult to:: Dr. 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 Nolan Meier, emergency dispatch operator at [facility], on max dose of Esbriet. His pcp is Dr. Kumar from [facility], whom I spoke with. Patient was admitted for worsening respiratory failure, Upon arrival to the emergency room, patient was noted to have O2 saturations at 78%. Patient denies any fever chills. Sepsis bronchitis with aspiration pneumonitis, poa. * Patient meets criteria given the leukocytosis, tachycardia and fever and diagnosis of acute bronchitis. continue sepsis pathway. lactic acid levels resolved. cultures remain negative. * Continue Abx. IV zosyn. Acute bronchitis. * IV antibiotics. can switch to PO in am if no recurrent fever. Acute on chronic respiratory failure secondary to COPD and pulmonary fibrosis exacerbation. With Hypoxia * Pulmonary consult. * CPAP at night * Taper Solu-Medrol 40 mg IV every 8 hours. DuoNeb every 6 hours scheduled. FOLLOW immunology work up Idiopathic pulmonary fibrosis exacerbation- Pulmonary Following Hypertension. Resume home meds Chronic atrial fibrillation. On Coumadin. Coagulopathy. Hold Coumadin as noted above. DVT prophylaxis. On Coumadin Discussed with family/ Discussed code status and inquired Advance directive. I also asked if Hospice was ever discuss due to the worsening IPF, and max dose of Esbriet. He became anxious, will give prn Valium Anticipate discharge, higher need oxygen need another DME form. Will consult He has appt with Dr. Meier on Jul. He needs chronic steroid above 20mg/day per pcp, because recurrent increased frequency exacerbation of IPF with steroid weaning. pt was taking 40mg/d of prednisone, needs 60mg/d at discharge Patient can walk in to pcp after discharge. New issue, +FOBT, acute on chronic blood loss anemia suspected, will consult GI and hold discharge. Going for EGD, will d/c home if ok with GI Disposition: DC-01 TO HOME OR SELFCARE Time spent for discharge: 36 minutes Core Measure Documentation - Palliative Care Palliative Care/ Comfort Measures: Not Applicable - Core Measures Any of the following diagnoses?: none - VTE Discharge Requirements Deep Vein Thrombosis/Pulmonary Embolism Present on Admission: No Has pt received <5 days of overlap therapy or INR<2.0: No Anticoagulant overlap therapy prescribed at discharge: No Contraindication No Overlap Therapy order at DC: Not Indicated Exam - Physical Exam Narrative exam: GEN: WDWN, NAD, AWAKE, ALERT, ORIENTATED x 3 HEENT: NCAT, EOMI, PERRL, OP Clear NECK: supple, no adenopathy, no thyromegaly, no JVD CVS/HEART: irr RR, NORMAL S1S2, NO JVD, pulses present bilaterally CHEST/LUNGS: Inspiratory crackles, Symmetrical chest expansion, adequately reduced air entry bilaterally GI/Abdomen: soft, NTND, good bowel sounds, no guarding or rebound /Bladder: no suprapubic tenderness, no CVA or paraspinal tenderness EXT/Skin: no c/c/e, no significant edema or obvious rash MSK: FROM x 4 Neuro: CN 2-12 grossly intact, no new focal deficits Psych: anxious - Constitutional Vitals: Temp Pulse Resp BP Pulse Ox 98.4 F 54 L 19 128/72 99 06/30/17 14:34 06/30/17 14:34 06/30/17 14:34 06/30/17 14:34 06/30/17 14:34 Plan Activity: other (no strenous activity until cleared by pcp) Diet: low salt Durable Medical Equipment Needed Upon Discharge: Oxygen Follow up with: PRIMARY CARE, [Primary Care Provider] - 7 Days Forms: Warfarin Discharge Instruction Prescriptions: AtorvaSTATin [Lipitor] 20 mg PO QHS #30 day ALBUTEROL NEB's [Proventil 0.083% NEBS] 2.5 mg IH Q6HRT PRN #30 day PRN Reason: Shortness Of Breath amLODIPine [Norvasc] 5 mg PO DAILY #30 day Diazepam Tab [Valium] 5 mg PO Q12H PRN #15 tablet PRN Reason: Anxiety Fluticasone [Flonase] 2 sprays NS QDAY PRN #1 bottle PRN Reason: Allergy Symptoms guaiFENesin/CODEINE [Robitussin AC] 10 ml PO Q4H PRN #7 day PRN Reason: Cough Ipratropium/Albuterol Sulfate [DUONEB *Not for PRN Use*] 1 ampul IH Q6HRT #30 day Levofloxacin [Levaquin TAB] 750 mg PO Q24HR #5 day Pantoprazole [Protonix TAB] 40 mg PO QDAY #30 tablet predniSONE [Deltasone] 60 mg PO QDAY #30 day
[2017-06-30] MEDS ORDERED: AMIDATE IV ONE (15:47)
--- NOTE | 2017-06-30 16:08 | Post Operative Note ---
Pre-op diagnosis: Melena Post-op diagnosis: other (Hiatal Hernia, no acute bleeding) Findings: 1. Small Hiatal Hernia 2. No blood/signs of active bleeding Procedure: EGD Anesthesia: MAC Surgeon: JET RAMACHANDRAN Estimated blood loss: none Pathology: none Specimen disposition: other (N/A) Condition: stable Disposition: floor (Recs: 1. OK to d/c home and resume coumadin. 2. Suspect dark stools from elevated INR (beyond usual baseline) and not clinically significant. 3. Will sign off; please call if needed.)
[2017-06-30 16:34] VITALS: BP 141/83
--- NOTE | 2017-06-30 22:28 | Operative Report ---
PROCEDURE PERFORMED: Esophagogastroduodenoscopy. PREOPERATIVE DIAGNOSIS: Melena. POSTOPERATIVE DIAGNOSES: Hiatal hernia, but no evidence of active bleeding. ENDOSCOPIST: Noah Kapoor MD INSTRUMENT: LayerBoom video endoscope. MEDICATIONS: MAC anesthesia by [facility]. COMPLICATIONS: No apparent complications. ESTIMATED BLOOD LOSS: Minimal. SPECIMENS: None. IMPLANTS: None. ASSISTANTS: None. CONDITION AT COMPLETION: Stable. TECHNIQUE: The patient was informed of the risks and benefits of the procedure. He signed the informed consent to proceed. He was placed in left lateral decubitus position. The above sedative medications were given. His vital signs remained stable throughout the procedure. The instrument was advanced from the mouth to the second portion of the duodenum under direct visualization. At that point, the bowel was insufflated and the endoscope was slowly withdrawn. FINDINGS: 1. No evidence of blood, blood clots or active bleeding. 2. Small hiatal hernia. RECOMMENDATIONS: 1. I suspect the bleeding was due to the patient's recent elevated INR level and he should follow with his primary care doctor and/or grading supervisor for routine Coumadin monitoring. 2. Okay to discharge the patient home and resume Coumadin. 3. We will sign off. Please call if needed. JOB# [id number] TED/HARRISON
== END 2017-06-30 18:05 | disposition home health service (06) | DRG 871 ==
LOC: ED 11:10 → 4A 13:59
PROVIDERS: ADMIT Hospitalist; ATTEND Internal Medicine
PROC: 4A033R1 Measurement of Arterial Saturation, Peripheral, Percutaneous Approach (ICD-10-PCS; principal; 2017-06-24)
PROC: 0DJ08ZZ Inspection of Upper Intestinal Tract, Via Natural or Artificial Opening Endoscopic (ICD-10-PCS; 2017-06-24)
PROC: 5A09457 Assistance with Respiratory Ventilation, 24-96 Consecutive Hours, Continuous Positive Airway Pressure (ICD-10-PCS; 2017-06-24)
DX: A41.9 Sepsis, unspecified organism (principal); J96.21 Acute and chronic respiratory failure with hypoxia; J69.0 Pneumonitis due to inhalation of food and vomit; J44.1 Chronic obstructive pulmonary disease with (acute) exacerbation; D68.9 Coagulation defect, unspecified; J44.0 Chronic obstructive pulmonary disease with (acute) lower respiratory infection; J20.9 Acute bronchitis, unspecified; J84.112 Idiopathic pulmonary fibrosis; I10 Essential (primary) hypertension; I48.2 Chronic atrial fibrillation; K44.9 Diaphragmatic hernia without obstruction or gangrene; E11.9 Type 2 diabetes mellitus without complications; E78.00 Pure hypercholesterolemia, unspecified; T45.515A Adverse effect of anticoagulants, initial encounter; Z79.01 Long term (current) use of anticoagulants; Z79.4 Long term (current) use of insulin; Z87.891 Personal history of nicotine dependence; Y92.89 Other specified places as the place of occurrence of the external cause; Z79.899 Other long term (current) drug therapy
CPT/HCPCS: 36415; 36600; 71010; 71275; 80048; 80053; 81001; 82140; 82164; 82270; 82550; 82553; 82803; 82805; 82962; 83880; 84484; 85025; 85027; 85379; 85610; 85730; 86021; 86038; 86618; 86850; 86900; 86901; 87040; 87086; 93005; 93010; 94640; 94660; 94760; 96361; 96365; 96367; 96375; 99291; A9270-GY; J0696; J1650; J2405; J2543; J2920; J2930; J3370; J3475; J7030; J7040; Q9967

== ENCOUNTER 2018-10-25 09:44 | Inpatient (IN) | payer MEDICARE ==
[2018-10-25] MEDS ORDERED: SOLU-Medrol IV ONE (10:34)
[2018-10-25] MEDS ORDERED: DUONEB *Not for PRN Use IH ONE ×2 (10:34→11:42)
[2018-10-25 10:42] LABS: Basophils # (Auto) 0.1 K/mm3 (0.0-0.1); Basophils % (Auto) 0.7 % (0.0-1.8); Eosinophils # (Auto) 0.1 K/mm3 (0.0-0.4); Eosinophils % (Auto) 1.5 % (0.0-4.3); Hematocrit 40.1 % (35.5-45.6); Hemoglobin 12.5 gm/dl (11.8-15.2); Lymphocytes # (Auto) 0.8 K/mm3 (1.2-5.4); Lymphocytes % (Auto) 9.3 % (13.4-35.0); Mean Corpuscular HGB Conc 31 % (32-34); Mean Corpuscular Volume 76 fl (84-94); Monocytes # (Auto) 0.5 K/mm3 (0.0-0.8); Monocytes % (Auto) 5.9 % (0.0-7.3); Platelet Count 238 K/mm3 (140-440); Red Blood Count 5.25 M/mm3 (3.65-5.03); Red Cell Distribution Width 19.9 % (13.2-15.2)
[2018-10-25 10:53] LABS: INR 3.13 (0.87-1.13)
[2018-10-25 10:54] LABS: Partial Thromboplastin Time 52.5 Sec. (24.2-36.6)
--- NOTE | 2018-10-25 11:02 | XRay Report ---
AP CHEST: HISTORY: Short of breath Compared to 05/14/18. There is good inspiration on today's exam. The interstitium is prominent throughout both lungs consistent with moderate to severe fibrotic changes. There is no evidence for consolidation, mass, pleural effusion or pneumothorax. Heart size is at the upper limits of normal. The bony structures are grossly intact. IMPRESSION: Moderate to severe pulmonary fibrosis. No acute process identified.
[2018-10-25 11:04] LABS: BUN/Creatinine Ratio 14; Blood Urea Nitrogen 11 mg/dL (9-20); Calcium 8.7 mg/dL (8.4-10.2); Hemolysis Index 11
--- NOTE | 2018-10-25 11:14 | Emergency Department Report ---
ED Shortness of Breath HPI - General Chief Complaint: Dyspnea/Respdistress Stated Complaint: SOB Time Seen by Provider: 10/25/18 10:21 Source: patient, family, old records reviewed (echo 05/2018) Mode of arrival: Stretcher Limitations: No Limitations - History of Present Illness Initial Comments: 68-year-old male with a past medical history idiopathic pulmonary fibrosis, diastolic heart failure, COPD with 4-5 L oxygen dependent, diabetes, elevated cholesterol, and atrial fibrillation presents to the hospital complaining shortness of breath worsening this a.m. Patient's oxygen saturation dropped to 47-50% despite being on 4-5 L of home oxygen via nasal cannula. Patient tried his inhaler and nebulizer treatments without improvement. EMS noted his sats 50% upon their arrival. He received Solu-Medrol and additional supplemental oxygen in route. He is currently in the mid to low 90s on nonrebreather. For the past week patient has had a cough and cold symptoms. He states he's been coughing up blood tinged sputum with "scabs". He denies fever, night sweats, or pain. Patient does take Coumadin for A. fib. His drafter castings is Dr. Meier ([place]) Affiliated with [place] and [facility] not affiliated - Related Data Home Medications Medication Instructions Recorded Confirmed Last Taken RX: Ergocalciferol [Vitamin D2] 50,000 units PO 1XW 05/15/18 10/25/18 Unknown RX: FLUoxetine [PROzac] 40 mg PO QDAY 05/15/18 10/25/18 Unknown RX: Losartan [Cozaar] 25 mg PO DAILY 05/15/18 10/25/18 05/14/18 RX: Omeprazole 40 mg PO DAILY 05/15/18 10/25/18 Unknown Acetaminophen [Tylenol] 500 mg PO Q8H PRN 10/25/18 10/25/18 Unknown Albuterol Sulfate [Ventolin Hfa] 2 puff IH Q4-6H 10/25/18 10/25/18 Unknown Furosemide [Lasix] 20 mg PO BID 10/25/18 10/25/18 Unknown Ipratropium [Atrovent] 0.5 mg IH Q6H 10/25/18 10/25/18 Unknown Pirfenidone [Esbriet] 801 mg PO TIDWM 10/25/18 10/25/18 Unknown RX: ALBUTEROL NEB's [Proventil 2.5 mg IH Q6H PRN 10/25/18 10/25/18 Unknown 0.083% NEBS] RX: predniSONE [Deltasone] 10 mg PO QDAY 10/25/18 10/25/18 Unknown Previous Rx's Medication Instructions Recorded Last Taken Type RX: AtorvaSTATin [Lipitor] 20 mg PO QHS #30 day 06/30/17 Unknown Rx RX: Metoprolol [Lopressor TAB] 37.5 mg PO BID #30 tablet 06/30/17 Unknown Rx RX: Warfarin [Coumadin] 2.5 mg PO QDAY #30 day 06/30/17 1 Day Ago Rx ~06/25/17 RX: amLODIPine [Norvasc] 5 mg PO DAILY #30 day 06/30/17 Unknown Rx Allergies Allergy/AdvReac Type Severity Reaction Status Date / Time No Known Allergies Allergy Verified 06/24/17 11:13 ED Review of Systems ROS: Stated complaint: SOB Other details as noted in HPI Comment: All other systems reviewed and negative ED Past Medical Hx - Past Medical History Hx Hypertension: Yes Hx Congestive Heart Failure: Yes Hx Diabetes: Yes Hx COPD: Yes Hx HIV: No Additional medical history: Idiopathic pulmonary fibrosis, elevated choles terol,afib - Surgical History Past Surgical History?: Yes Additional Surgical History: hand - Social History Smoking Status: Former Smoker Substance Use Type: None - Medications Home Medications: Home Medications Medication Instructions Recorded Confirmed Last Taken Type RX: AtorvaSTATin [Lipitor] 20 mg PO QHS #30 day 06/30/17 10/25/18 Unknown Rx RX: Metoprolol [Lopressor TAB] 37.5 mg PO BID #30 tablet 06/30/17 10/25/18 Unknown Rx RX: Warfarin [Coumadin] 2.5 mg PO QDAY #30 day 06/30/17 10/25/18 1 Day Ago Rx ~06/25/17 RX: amLODIPine [Norvasc] 5 mg PO DAILY #30 day 06/30/17 10/25/18 Unknown Rx RX: Ergocalciferol [Vitamin D2] 50,000 units PO 1XW 05/15/18 10/25/18 Unknown History RX: FLUoxetine [PROzac] 40 mg PO QDAY 05/15/18 10/25/18 Unknown History RX: Losartan [Cozaar] 25 mg PO DAILY 05/15/18 10/25/18 05/14/18 History RX: Omeprazole 40 mg PO DAILY 05/15/18 10/25/18 Unknown History Acetaminophen [Tylenol] 500 mg PO Q8H PRN 10/25/18 10/25/18 Unknown History Albuterol Sulfate [Ventolin Hfa] 2 puff IH Q4-6H 10/25/18 10/25/18 Unknown History Furosemide [Lasix] 20 mg PO BID 10/25/18 10/25/18 Unknown History Ipratropium [Atrovent] 0.5 mg IH Q6H 10/25/18 10/25/18 Unknown History Pirfenidone [Esbriet] 801 mg PO TIDWM 10/25/18 10/25/18 Unknown History RX: ALBUTEROL NEB's [Proventil 2.5 mg IH Q6H PRN 10/25/18 10/25/18 Unknown History 0.083% NEBS] RX: predniSONE [Deltasone] 10 mg PO QDAY 10/25/18 10/25/18 Unknown History ED Physical Exam - General Limitations: No Limitations - Other Other exam information: General: No limitations, patient is alert in no acute distress Head exam: Atraumatic, normocephalic Eyes exam: Normal appearance, pupils equal reactive to light, extraocular movements intact ENT: Moist mucous membrane, normal oropharynx Neck exam: Normal inspection, full range of motion, no meningismus nontender Respiratory exam: Bilateral coarse breath sounds and crackles, mild tachypnea Cardiovascular: Normal rate and rhythm, normal heart sounds Abdomen: Soft, nondistended, and nontender, with normal bowel sounds, no rebound, or guarding Extremity: Full range of motion normal inspection no deformity tenderness or edema Back: Normal Inspection, full range of motion, no tenderness Neurologic: Alert, oriented x3, cranial nerves intact, no motor or sensory deficit Psychiatric: normal affect, normal mood Skin: Warm, dry, intact ED Course Vital Signs 10/25/18 10/25/18 10/25/18 10:01 10:04 10:12 Temperature 98.4 F Pulse Rate 84 83 Respiratory 30 H 24 Rate Blood Pressure 114/82 Blood Pressure [Left] O2 Sat by Pulse 96 96 Oximetry 10/25/18 10/25/18 10/25/18 10:16 10:30 10:38 Temperature Pulse Rate 82 84 Respiratory 21 26 H Rate Blood Pressure 141/82 141/82 Blood Pressure [Left] O2 Sat by Pulse 95 Oximetry 10/25/18 10/25/18 10/25/18 12:00 13:16 13:58 Temperature Pulse Rate 80 85 91 H Respiratory 22 25 H Rate Blood Pressure Blood Pressure 152/98 158/95 [Left] O2 Sat by Pulse 96 99 95 Oximetry ED Medical Decision Making - Lab Data Result diagrams: 10/25/18 10:35 10/25/18 10:35 Lab Results 10/25/18 10/25/18 10/25/18 Range/Units 10:35 10:35 10:35 WBC 8.8 (4.5-11.0) K/mm3 RBC 5.25 H (3.65-5.03) M/mm3 Hgb 12.5 (11.8-15.2) gm/dl Hct 40.1 (35.5-45.6) % MCV 76 L (84-94) fl MCH 24 L (28-32) pg MCHC 31 L (32-34) % RDW 19.9 H (13.2-15.2) % Plt Count 238 (140-440) K/mm3 Lymph % (Auto) 9.3 L (13.4-35.0) % Island % (Auto) 5.9 (0.0-7.3) % Eos % (Auto) 1.5 (0.0-4.3) % Baso % (Auto) 0.7 (0.0-1.8) % Lymph # 0.8 L (1.2-5.4) K/mm3 Island # 0.5 (0.0-0.8) K/mm3 Eos # 0.1 (0.0-0.4) K/mm3 Baso # 0.1 (0.0-0.1) K/mm3 Seg Neutrophils % 82.6 H (40.0-70.0) % Seg Neutrophils # 7.3 (1.8-7.7) K/mm3 PT 32.5 H (12.2-14.9) Sec. INR 3.13 H (0.87-1.13) APTT 52.5 H (24.2-36.6) Sec. POC ABG pH (7.35-7.45) POC ABG pCO2 (35-45) POC ABG pO2 (80-105) POC ABG HCO3 POC ABG Total CO2 POC ABG O2 Sat POC ABG Base Excess FiO2 % Sodium 139 (137-145) mmol/L Potassium 4.1 (3.6-5.0) mmol/L Chloride 101.2 (98-107) mmol/L Carbon Dioxide 26 (22-30) mmol/L Anion Gap 16 mmol/L BUN 11 (9-20) mg/dL Creatinine 0.8 (0.8-1.5) mg/dL Estimated GFR > 60 ml/min BUN/Creatinine Ratio 14 % Glucose 128 H (75-100) mg/dL Calcium 8.7 (8.4-10.2) mg/dL NT-Pro-B Natriuret Pep 4003 H (0-900) pg/mL 10/25/18 Range/Units 11:00 WBC (4.5-11.0) K/mm3 RBC (3.65-5.03) M/mm3 Hgb (11.8-15.2) gm/dl Hct (35.5-45.6) % MCV (84-94) fl MCH (28-32) pg MCHC (32-34) % RDW (13.2-15.2) % Plt Count (140-440) K/mm3 Lymph % (Auto) (13.4-35.0) % Island % (Auto) (0.0-7.3) % Eos % (Auto) (0.0-4.3) % Baso % (Auto) (0.0-1.8) % Lymph # (1.2-5.4) K/mm3 Island # (0.0-0.8) K/mm3 Eos # (0.0-0.4) K/mm3 Baso # (0.0-0.1) K/mm3 Seg Neutrophils % (40.0-70.0) % Seg Neutrophils # (1.8-7.7) K/mm3 PT (12.2-14.9) Sec. INR (0.87-1.13) APTT (24.2-36.6) Sec. POC ABG pH 7.413 (7.35-7.45) POC ABG pCO2 36.7 (35-45) POC ABG pO2 72 L (80-105) POC ABG HCO3 23.4 POC ABG Total CO2 24 POC ABG O2 Sat 95 POC ABG Base Excess -1 FiO2 50 % Sodium (137-145) mmol/L Potassium (3.6-5.0) mmol/L Chloride (98-107) mmol/L Carbon Dioxide (22-30) mmol/L Anion Gap mmol/L BUN (9-20) mg/dL Creatinine (0.8-1.5) mg/dL Estimated GFR ml/min BUN/Creatinine Ratio % Glucose (75-100) mg/dL Calcium (8.4-10.2) mg/dL NT-Pro-B Natriuret Pep (0-900) pg/mL - EKG Data -: EKG Interpreted by Me EKG shows normal: sinus rhythm, axis (qrs -72), QRS complexes (qrsd 103), ST-T waves (no stemi) Rate: normal (78) - EKG Data When compared to previous EKG there are: no significant change - Radiology Data Radiology results: report reviewed AP CHEST: HISTORY: Short of breath Compared to 05/14/18. There is good inspiration on today's exam. The interstitium is prominent throughout both lungs consistent with moderate to severe fibrotic changes. There is no evidence for consolidation, mass, pleural effusion or pneumothorax. Heart size is at the upper limits of normal. The bony structures are grossly intact. IMPRESSION: Moderate to severe pulmonary fibrosis. No acute process identified - Medical Decision Making Patient be admitted to the hospitalist service for worsening hypoxia. Chest x- ray suggestive of pulmonary fibrosis. Patient treated with steroids prior to arrival and additional nebs and supplemental oxygen in the ED. - Differential Diagnosis pneumonia, COPD, pulmonary fibrosis, bronchitis Critical Care Time: No Critical care attestation.: If time is entered above; I have spent that time in minutes in the direct care of this critically ill patient, excluding procedure time. ED Disposition Clinical Impression: Pulmonary interstitial fibrosis, History of atrial fibrillation, Coumadin toxicity, Shortness of breath, Hypoxia, COPD exacerbation Disposition: OP ADMIT IP TO THIS HOSP Is pt being admited?: Yes Condition: Stable Time of Disposition: 11:42 (Dr yo/hosp)
[2018-10-25] MEDS ORDERED: TYLENOL PO PRN (12:14)
[2018-10-25] MEDS ORDERED: ZOFRAN IV PRN (12:14)
[2018-10-25] MEDS ORDERED: SODIUM CHLORIDE FLUSH SYRINGE 10 ML IV PRN ×2 (12:14)
[2018-10-25] MEDS ORDERED: MORPHINE IV PRN ×2 (12:14→19:00)
--- NOTE | 2018-10-25 12:17 | History and Physical Report ---
History of Present Illness Chief complaint: I cant breathe History of present illness: 68 YO Male with Atrial Fib, COPD, DM, HTN, HLD, Pulmonary Fibrosis, Chronic Respiratory Failure on 4L Home oxygen presents to ED for evaluation. Pt states that he has experienced shortness ob breath over the past 2 days with worsening symptoms over the past 10 hours. Pt reports a pulse oximetry of 50% this morning. EMS notified, and upon arrival the patient was found to be in distress with a pulse oximetry in the 50's. Pt transported to [facility] for further care and evaluation. Pt seen and evaluated in ED and found to have Acute Respiratory Failure as well as CHF Decompensation. Cardiology consulted in ED. Pt denies fever, chills, CP, Palpitation, NVD, Trauma, BRBPR, unintentional weight loss, night sweats, or recent ill contacts. Past History Past Medical History: atrial fib, COPD, diabetes, hypertension Past Surgical History: No surgical history (reviewed) Social history: Family history: hypertension Medications and Allergies Allergies Allergy/AdvReac Type Severity Reaction Status Date / Time No Known Allergies Allergy Verified 06/24/17 11:13 Home Medications Medication Instructions Recorded Confirmed Last Taken Type AtorvaSTATin [Lipitor] 20 mg PO QHS #30 day 06/30/17 10/25/18 Unknown Rx Metoprolol [Lopressor TAB] 37.5 mg PO BID #30 tablet 06/30/17 10/25/18 Unknown Rx Warfarin [Coumadin] 2.5 mg PO QDAY #30 day 06/30/17 10/25/18 1 Day Ago Rx ~06/25/17 amLODIPine [Norvasc] 5 mg PO DAILY #30 day 06/30/17 10/25/18 Unknown Rx Ergocalciferol [Vitamin D2] 50,000 units PO 1XW 05/15/18 10/25/18 Unknown History FLUoxetine [PROzac] 40 mg PO QDAY 05/15/18 10/25/18 Unknown History Losartan [Cozaar] 25 mg PO DAILY 05/15/18 10/25/18 05/14/18 History Omeprazole 40 mg PO DAILY 05/15/18 10/25/18 Unknown History ALBUTEROL NEB's [Proventil 0.083% 2.5 mg IH Q6H PRN 10/25/18 10/25/18 Unknown History NEBS] Acetaminophen [Tylenol] 500 mg PO Q8H PRN 10/25/18 10/25/18 Unknown History Albuterol Sulfate [Ventolin Hfa] 2 puff IH Q4-6H 10/25/18 10/25/18 Unknown History Furosemide [Lasix] 20 mg PO BID 10/25/18 10/25/18 Unknown History Ipratropium [Atrovent] 0.5 mg IH Q6H 10/25/18 10/25/18 Unknown History Pirfenidone [Esbriet] 801 mg PO TIDWM 10/25/18 10/25/18 Unknown History predniSONE [Deltasone] 10 mg PO QDAY 10/25/18 10/25/18 Unknown History Review of Systems Constitutional: no weight loss, no weight gain, no fever, no chills Ears, nose, mouth and throat: no ear pain, no ear discharge, no tinnitis, no decreased hearing, no nose pain, no nasal congestion Cardiovascular: shortness of breath, no chest pain, no orthopnea, no palpitations Respiratory: no cough, no cough with sputum, no excessive sputum Gastrointestinal: no nausea, no vomiting, no diarrhea, no constipation, no change in bowel habits Genitourinary Male: no flank pain, no discharge, no urinary frequency, no urinary hesitancy Rectal: no pain, no incontinence, no bleeding Musculoskeletal: no neck stiffness, no neck pain, no shooting arm pain, no arm numbness/tingling, no low back pain, no shooting leg pain Integumentary: no rash, no pruritis, no redness, no sores, no wounds Neurological: no paralysis, no weakness, no parathesias, no numbness, no tingling Psychiatric: no memory loss, no change in sleep habits, no sleep disturbances, no insomnia, no hypersomnia, no change in appetite Endocrine: no cold intolerance, no heat intolerance, no polyphagia, no excessive thirst, no polydipsia Hematologic/Lymphatic: no easy bruising, no easy bleeding, no lymphadenopathy, no lymphedema Allergic/Immunologic: no urticaria Exam - Constitutional Vitals: Temp Pulse Resp BP Pulse Ox 98.4 F 80 22 152/98 96 10/25/18 10:04 10/25/18 12:00 10/25/18 12:00 10/25/18 12:00 10/25/18 12:00 General appearance: Present: mild distress - EENT Eyes: Present: PERRL ENT: hearing intact, clear oral mucosa - Neck Neck: Present: supple, normal ROM - Respiratory Respiratory effort: labored Respiratory: bilateral: diminished, rhonchi - Cardiovascular Heart Sounds: Present: S1 & S2. Absent: rub, click - Extremities Extremities: pulses symmetrical, No edema Peripheral Pulses: within normal limits - Abdominal General gastrointestinal: Present: soft, non-tender, non-distended, normal bowel sounds Male genitourinary: Present: normal - Integumentary Integumentary: Present: clear, warm, dry - Musculoskeletal Musculoskeletal: gait normal, strength equal bilaterally - Psychiatric Psychiatric: appropriate mood/affect, intact judgment & insight - Neurologic Neurologic: CNII-XII intact, moves all extremities Results - Labs CBC & Chem 7: 10/25/18 10:35 10/25/18 10:35 Labs: Abnormal lab results 10/25/18 10/25/18 10/25/18 Range/Units 10:35 10:35 10:35 RBC 5.25 H (3.65-5.03) M/mm3 MCV 76 L (84-94) fl MCH 24 L (28-32) pg MCHC 31 L (32-34) % RDW 19.9 H (13.2-15.2) % Lymph % (Auto) 9.3 L (13.4-35.0) % Lymph # 0.8 L (1.2-5.4) K/mm3 Seg Neutrophils % 82.6 H (40.0-70.0) % PT 32.5 H (12.2-14.9) Sec. INR 3.13 H (0.87-1.13) APTT 52.5 H (24.2-36.6) Sec. POC ABG pO2 (80-105) Glucose 128 H (75-100) mg/dL NT-Pro-B Natriuret Pep 4003 H (0-900) pg/mL 10/25/18 Range/Units 11:00 RBC (3.65-5.03) M/mm3 MCV (84-94) fl MCH (28-32) pg MCHC (32-34) % RDW (13.2-15.2) % Lymph % (Auto) (13.4-35.0) % Lymph # (1.2-5.4) K/mm3 Seg Neutrophils % (40.0-70.0) % PT (12.2-14.9) Sec. INR (0.87-1.13) APTT (24.2-36.6) Sec. POC ABG pO2 72 L (80-105) Glucose (75-100) mg/dL NT-Pro-B Natriuret Pep (0-900) pg/mL Assessment and Plan - Patient Problems (1) Acute and chronic respiratory failure Current Visit: Yes Status: Acute Qualifiers: Respiratory failure complication: hypoxia Qualified Code(s): J96.21 - Acute and chronic respiratory failure with hypoxia Plan to address problem: Supplemental oxygen, nebulizer therapy, chest x ray, bnp, pulse oximetry, IV steroid therapy. (2) Diabetes Current Visit: Yes Status: Chronic Plan to address problem: ADA diet, Insulin, Accu check (3) HTN (hypertension) Current Visit: Yes Status: Chronic Qualifiers: Hypertension type: essential hypertension Qualified Code(s): I10 - Essential (primary) hypertension Plan to address problem: Monitor BP q shift, continue medical management (4) CHF exacerbation Current Visit: No Status: Chronic Qualifiers: Heart failure type: diastolic Qualified Code(s): I50.33 - Acute on chronic diastolic (congestive) heart failure Plan to address problem: Admit to telemetry, Echo, cardiology consulted in ED, BNP, strict I/O, daily weight, monitor uop q shift, (5) DVT prophylaxis Current Visit: Yes Status: Acute Plan to address problem: SCD to BLE while bed
--- NOTE | 2018-10-25 14:08 | Consultation ---
History of Present Illness Consult date: 10/25/18 Requesting physician: BRI PALMER Consult reason: congestive heart failure History of present illness: The pt is a 68-year-old male with a past medical history idiopathic pulmonary fibrosis, chronic respiratory failure, TERESA, COPD with 4-5 L oxygen dependent, diabetes, elevated cholesterol, HTN, atrial fibrillation anticoagulated with coumadin. Pt is regularly followed by [facility] cardiology. He presented with c/o shortness of breath worsening this a.m. Patient's oxygen saturation dropped to 47-50% despite being on 4-5 L of home oxygen via nasal cannula. Patient tried his inhaler and nebulizer treatments without improvement. EMS noted his sats 50% upon their arrival. He received Solu-Medrol and additional supplemental oxygen in route. He is currently in the mid to low 90s on nonrebreather. For the past week patient has had a cough and cold symptoms. He states he's been coughing up yellow and blood tinged sputum with "scabs". He also c/o subjective fever and chills. He denies any chest pain, palpitations, n/v, diaphoresis, dizziness or syncope. He denies any prior CAD, AMI or HF. His dental service chief is Dr. Meier ([place]) affiliated with [place]. Echo done 05/2018 showed EF 50-55%, RA mildly dilated, mild to mod posterior wall hypertrophy, impaired relaxation. Past History Past Medical History: atrial fib, COPD, diabetes, hypertension, hyperlipidemia, other (pulmonary fibrosis; TERESA) Past Surgical History: No surgical history Social history: , lives with family Medications and Allergies Allergies Allergy/AdvReac Type Severity Reaction Status Date / Time No Known Allergies Allergy Verified 06/24/17 11:13 Home Medications Medication Instructions Recorded Confirmed Last Taken Type AtorvaSTATin [Lipitor] 20 mg PO QHS #30 day 06/30/17 10/25/18 Unknown Rx Metoprolol [Lopressor TAB] 37.5 mg PO BID #30 tablet 06/30/17 10/25/18 Unknown Rx Warfarin [Coumadin] 2.5 mg PO QDAY #30 day 06/30/17 10/25/18 1 Day Ago Rx ~06/25/17 amLODIPine [Norvasc] 5 mg PO DAILY #30 day 06/30/17 10/25/18 Unknown Rx Ergocalciferol [Vitamin D2] 50,000 units PO 1XW 05/15/18 10/25/18 Unknown History FLUoxetine [PROzac] 40 mg PO QDAY 05/15/18 10/25/18 Unknown History Losartan [Cozaar] 25 mg PO DAILY 05/15/18 10/25/18 05/14/18 History Omeprazole 40 mg PO DAILY 05/15/18 10/25/18 Unknown History ALBUTEROL NEB's [Proventil 0.083% 2.5 mg IH Q6H PRN 10/25/18 10/25/18 Unknown History NEBS] Acetaminophen [Tylenol] 500 mg PO Q8H PRN 10/25/18 10/25/18 Unknown History Albuterol Sulfate [Ventolin Hfa] 2 puff IH Q4-6H 10/25/18 10/25/18 Unknown History Furosemide [Lasix] 20 mg PO BID 10/25/18 10/25/18 Unknown History Ipratropium [Atrovent] 0.5 mg IH Q6H 10/25/18 10/25/18 Unknown History Pirfenidone [Esbriet] 801 mg PO TIDWM 10/25/18 10/25/18 Unknown History predniSONE [Deltasone] 10 mg PO QDAY 10/25/18 10/25/18 Unknown History Active Meds: Active Medications Acetaminophen (Tylenol) 650 mg PO Q4H PRN PRN Reason: Pain MILD(1-3)/Fever >100.5/[place] Morphine Sulfate (Morphine) 2 mg IV Q4H PRN PRN Reason: Pain, Moderate (4-6) Ondansetron HCl (Zofran) 4 mg IV Q8H PRN PRN Reason: Nausea And Vomiting Sodium Chloride (Sodium Chloride Flush Syringe 10 Ml) 10 ml IV BID FABIOLA Sodium Chloride (Sodium Chloride Flush Syringe 10 Ml) 10 ml IV PRN PRN PRN Reason: LINE FLUSH Sodium Chloride (Sodium Chloride Flush Syringe 10 Ml) 10 ml IV PRN PRN PRN Reason: LINE FLUSH Review of Systems Constitutional: fever, chills, no weight loss, no weight gain Ears, nose, mouth and throat: no ear pain, no nose pain, no sinus pressure, no sinus pain Cardiovascular: shortness of breath, no chest pain, no orthopnea, no palpitations, no rapid/irregular heart beat, no edema, no syncope, no l ightheadedness, no paroxysmal nocturnal dyspnea, no leg edema Respiratory: cough, cough with sputum, shortness of breath, congestion Gastrointestinal: no abdominal pain, no nausea, no vomiting, no diarrhea, no constipation, no change in bowel habits Genitourinary Male: no dysuria, no hematuria, no flank pain, no discharge, no urinary frequency, no urinary hesitancy Musculoskeletal: no neck stiffness, no neck pain, no shooting arm pain, no arm numbness/tingling, no low back pain, no shooting leg pain, no leg numbness/tingling Integumentary: no rash, no pruritis, no redness, no sores, no wounds Neurological: no head injury, no paralysis, no weakness, no parathesias, no numbness, no tingling, no seizures, no syncope Psychiatric: no anxiety Endocrine: no cold intolerance, no heat intolerance Hematologic/Lymphatic: no easy bruising, no easy bleeding Allergic/Immunologic: no urticaria, no wheezing Physical Examination Vital Signs Pulse Resp 84 30 H 10/25/18 10:01 10/25/18 10:01 General appearance: no acute distress HEENT: Positive: PERRL, Normocephaly, Mucus Membranes Moist Neck: Positive: neck supple, trachea midline Cardiac: Positive: Reg Rate and Rhythm, S1/S2 Lungs: Positive: Decreased Breath Sounds, Rales (fibrotic), Oxygen Neuro: Positive: Grossly Intact Abdomen: Positive: Soft. Negative: Tender Skin: Positive: Clear. Negative: Rash, Wound Musculoskeletal: No Pain Extremities: Absent: edema Results 10/25/18 10:35 10/25/18 10:35 Coagulation 10/25/18 Range/Units 10:35 PT 32.5 H (12.2-14.9) Sec. INR 3.13 H (0.87-1.13) APTT 52.5 H (24.2-36.6) Sec. CBC 10/25/18 Range/Units 10:35 WBC 8.8 (4.5-11.0) K/mm3 RBC 5.25 H (3.65-5.03) M/mm3 Hgb 12.5 (11.8-15.2) gm/dl Hct 40.1 (35.5-45.6) % Plt Count 238 (140-440) K/mm3 Lymph # 0.8 L (1.2-5.4) K/mm3 [place] # 0.5 (0.0-0.8) K/mm3 Eos # 0.1 (0.0-0.4) K/mm3 Baso # 0.1 (0.0-0.1) K/mm3 Comprehensive Metabolic Panel 10/25/18 Range/Units 10:35 Sodium 139 (137-145) mmol/L Potassium 4.1 (3.6-5.0) mmol/L Chloride 101.2 (98-107) mmol/L Carbon Dioxide 26 (22-30) mmol/L BUN 11 (9-20) mg/dL Creatinine 0.8 (0.8-1.5) mg/dL Glucose 128 H (75-100) mg/dL Calcium 8.7 (8.4-10.2) mg/dL - Imaging and Cardiology Echo: report reviewed ( 05/2018 showed EF 50-55%, RA mildly dilated, mild to mod posterior wall hypertrophy, impaired relaxation. ) EKG: report reviewed, image reviewed EKG interpretations - Telemetry EKG Rhythm: Sinus Rhythm - EKG Sinus rhythms and dysrhythmias: sinus rhythm Assessment and Plan Pt has known idiopathic pulmonary fibrosis and presents with apparent COPD exacerbation, bronchitis, acute on chronic respiratory failure. Echo done 05/2018 showed EF 50-55%, RA mildly dilated, mild to mod posterior wall hypertrophy, impaired relaxation. Per pt, no history of HF and no current clinical evidence of acute HF. Recommend pulmonary consultation per primary. Resume home cardiac regimen. INR 3.13 on admission, coumadin currently held. The patient has been seen in conjunction with Dr. Yuly Cardenas who agrees with the assessment and plan of care. - Patient Problems (1) Dyspnea Current Visit: Yes Status: Acute (2) Acute and chronic respiratory failure Current Visit: Yes Status: Acute (3) COPD exacerbation Current Visit: Yes Status: Acute (4) Bronchitis Current Visit: Yes Status: Suspected (5) Paroxysmal atrial fibrillation Current Visit: Yes Status: Chronic (6) HTN (hypertension) Current Visit: Yes Status: Chronic (7) Hyperlipidemia Current Visit: Yes Status: Chronic (8) Diabetes Current Visit: Yes Status: Chronic (9) Sleep apnea Current Visit: Yes Status: Chronic
[2018-10-25] MEDS ORDERED: PROVENTIL IH PRN (16:00)
[2018-10-25] MEDS: DUONEB *Not for PRN Use IH SCH (19:32)
[2018-10-25] MEDS: SOLU-Medrol IV SCH (21:20)
[2018-10-25] MEDS: SODIUM CHLORIDE FLUSH SYRINGE 10 ML IV SCH (21:20)
[2018-10-26 05:00] LABS: Basophils % (Auto) 0.3 % (0.0-1.8); Eosinophils % (Auto) 0.4 % (0.0-4.3); Hemoglobin 13.7 gm/dl (11.8-15.2); Lymphocytes % (Auto) 14.4 % (13.4-35.0); Mean Corpuscular HGB Conc 31 % (32-34); Mean Corpuscular Volume 76 fl (84-94); Monocytes # (Auto) 0.4 K/mm3 (0.0-0.8); Monocytes % (Auto) 5.7 % (0.0-7.3); Platelet Count 237 K/mm3 (140-440); Red Blood Count 5.75 M/mm3 (3.65-5.03)
[2018-10-26 05:01] LABS: Red Cell Distribution Width 20.3 % (13.2-15.2)
[2018-10-26 05:22] LABS: BUN/Creatinine Ratio 17; Blood Urea Nitrogen 12 mg/dL (9-20); Calcium 9.1 mg/dL (8.4-10.2); Hemolysis Index 46
[2018-10-26] MEDS: DUONEB *Not for PRN Use IH SCH ×3 (08:52→20:16)
[2018-10-26] MEDS: SOLU-Medrol IV SCH ×2 (09:31→21:51)
[2018-10-26] MEDS: SODIUM CHLORIDE FLUSH SYRINGE 10 ML IV SCH ×2 (09:33→21:49)
--- NOTE | 2018-10-26 10:44 | Progress Note ---
Assessment and Plan Assessment and plan: --History of idiopathic pulmonary fibrosis; moderate to severe Continue currentt treatment, nebs and steroids, pulmonary following --Acute on chronic hypoxic respiratory failure; Oxygen titrate to O2 sats more than 90%, nebulizers, IV steroids, IV antibiotics Supportive care --Possible congestive heart failure; BNP >4000 However LV function ejection fraction normal 55 -60%, no evidence of congestive heart failure Symptoms secondary to pulmonary fibrosis --History of atrial fibrillation; rate controlled, continue current beta blockers Chronic anticoagulation with Coumadin, therapeutic INR[3.13] --History of COPD; oxygen nebulizers and IV steroids and IV antibiotics inhalation steroids,Pulmonary consult. --DVT prophylaxis; patient on Coumadin Closely monitor the patient and adjust the management as needed Consults and recommendations noted and appreciated. History Interval history: Patient feels better no new complaints No new events reported by nursing staff Denies shortness of breath or chest pain Alert awake oriented 3 not in acute distress Vital signs noted Hospitalist Physical - Constitutional Vitals: Temp Pulse Resp BP Pulse Ox 97.6 F 96 H 20 152/93 95 10/26/18 09:35 10/26/18 09:34 10/26/18 09:34 10/26/18 09:34 10/26/18 09:34 General appearance: Present: no acute distress, well-nourished, obese - EENT Eyes: Present: PERRL, EOM intact - Neck Neck: Present: supple, normal ROM - Respiratory Respiratory effort: normal Respiratory: bilateral: diminished, negative: rales, rhonchi, wheezing - Cardiovascular Rhythm: regular Heart Sounds: Present: S1 & S2 - Extremities Extremities: no ischemia, No edema - Abdominal General gastrointestinal: soft, non-tender, non-distended, normal bowel sounds - Integumentary Integumentary: Present: clear, warm - Psychiatric Psychiatric: appropriate mood/affect, cooperative - Neurologic Neurologic: CNII-XII intact, moves all extremities Results - Labs CBC & Chem 7: 10/28/18 05:06 10/28/18 05:06 Labs: Laboratory Last Values WBC 6.7 K/mm3 (4.5-11.0) 10/26/18 04:29 RBC 5.75 M/mm3 (3.65-5.03) H 10/26/18 04:29 Hgb 13.7 gm/dl (11.8-15.2) 10/26/18 04:29 Hct 44.0 % (35.5-45.6) 10/26/18 04:29 MCV 76 fl (84-94) L 10/26/18 04:29 MCH 24 pg (28-32) L 10/26/18 04:29 MCHC 31 % (32-34) L 10/26/18 04:29 RDW 20.3 % (13.2-15.2) H 10/26/18 04:29 Plt Count 237 K/mm3 (140-440) 10/26/18 04:29 Lymph % (Auto) 14.4 % (13.4-35.0) 10/26/18 04:29 [place] % (Auto) 5.7 % (0.0-7.3) 10/26/18 04:29 Eos % (Auto) 0.4 % (0.0-4.3) 10/26/18 04:29 Baso % (Auto) 0.3 % (0.0-1.8) 10/26/18 04:29 Lymph # 1.0 K/mm3 (1.2-5.4) L 10/26/18 04:29 [place] # 0.4 K/mm3 (0.0-0.8) 10/26/18 04:29 Eos # 0.0 K/mm3 (0.0-0.4) 10/26/18 04:29 Baso # 0.0 K/mm3 (0.0-0.1) 10/26/18 04:29 Seg Neutrophils % 79.2 % (40.0-70.0) H 10/26/18 04:29 Seg Neutrophils # 5.3 K/mm3 (1.8-7.7) 10/26/18 04:29 PT 32.5 Sec. (12.2-14.9) H 10/25/18 10:35 INR 3.13 (0.87-1.13) H 10/25/18 10:35 APTT 52.5 Sec. (24.2-36.6) H 10/25/18 10:35 POC ABG pH 7.413 (7.35-7.45) 10/25/18 11:00 POC ABG pCO2 36.7 (35-45) 10/25/18 11:00 POC ABG pO2 72 (80-105) L 10/25/18 11:00 POC ABG HCO3 23.4 10/25/18 11:00 POC ABG Total CO2 24 10/25/18 11:00 POC ABG O2 Sat 95 10/25/18 11:00 POC ABG Base Excess -1 10/25/18 11:00 FiO2 50 % 10/25/18 11:00 Sodium 137 mmol/L (137-145) 10/26/18 04:29 Potassium 5.0 mmol/L (3.6-5.0) D 10/26/18 04:29 Chloride 101.8 mmol/L (98-107) 10/26/18 04:29 Carbon Dioxide 22 mmol/L (22-30) 10/26/18 04:29 Anion Gap 18 mmol/L 10/26/18 04:29 BUN 12 mg/dL (9-20) 10/26/18 04:29 Creatinine 0.7 mg/dL (0.8-1.5) L 10/26/18 04:29 Estimated GFR > 60 ml/min 10/26/18 04:29 BUN/Creatinine Ratio 17 % 10/26/18 04:29 Glucose 187 mg/dL (75-100) H 10/26/18 04:29 Calcium 9.1 mg/dL (8.4-10.2) 10/26/18 04:29 Troponin T < 0.010 ng/mL (0.00-0.029) 10/25/18 20:49 NT-Pro-B Natriuret Pep 4003 pg/mL (0-900) H 10/25/18 10:35
--- NOTE | 2018-10-26 11:31 | Progress Note ---
Assessment and Plan Pt has known idiopathic pulmonary fibrosis and presents with apparent COPD exacerbation, bronchitis, acute on chronic respiratory failure. Echo done 05/2018 showed EF 50-55%, RA mildly dilated, mild to mod posterior wall hypertrophy, impaired relaxation. Per pt, no history of HF and no current clinical evidence of acute HF. Await pulmonary consultation. Resume home cardiac regimen. INR 3.13 on admission, coumadin currently held. The patient has been seen in conjunction with Dr. Yuly Cardenas who agrees with the assessment and plan of care. - Patient Problems (1) Dyspnea Current Visit: Yes Status: Acute (2) Acute and chronic respiratory failure Current Visit: Yes Status: Acute Qualifiers: Respiratory failure complication: hypoxia Qualified Code(s): J96.21 - Acute and chronic respiratory failure with hypoxia (3) COPD exacerbation Current Visit: Yes Status: Acute (4) Bronchitis Current Visit: Yes Status: Suspected (5) Paroxysmal atrial fibrillation Current Visit: Yes Status: Chronic (6) HTN (hypertension) Current Visit: Yes Status: Chronic Qualifiers: Hypertension type: essential hypertension Qualified Code(s): I10 - Essential (primary) hypertension (7) Hyperlipidemia Current Visit: Yes Status: Chronic (8) Diabetes Current Visit: Yes Status: Chronic (9) Sleep apnea Current Visit: Yes Status: Chronic Subjective Date of service: 10/26/18 Principal diagnosis: dyspnea Interval history: pt resting in bed, states SOB improved a little. Objective Last Vital Signs Temp 97.6 F 10/26/18 09:35 Pulse 96 H 10/26/18 09:34 Resp 20 10/26/18 09:34 BP 152/93 10/26/18 09:34 Pulse Ox 95 10/26/18 09:34 - Physical Examination General: No Apparent Distress HEENT: Positive: PERRL, Normocephaly, Mucus Membranes Moist Neck: Positive: neck supple, trachea midline Cardiac: Positive: Reg Rate and Rhythm, S1/S2 Lungs: Positive: Rales (fibrotic) Neuro: Positive: Grossly Intact Abdomen: Positive: Soft. Negative: Tender Skin: Positive: Clear. Negative: Rash, Wound Musculoskeletal: No Pain Extremities: Absent: edema - Labs and Meds CBC 10/26/18 Range/Units 04:29 WBC 6.7 (4.5-11.0) K/mm3 RBC 5.75 H (3.65-5.03) M/mm3 Hgb 13.7 (11.8-15.2) gm/dl Hct 44.0 (35.5-45.6) % Plt Count 237 (140-440) K/mm3 Lymph # 1.0 L (1.2-5.4) K/mm3 [place] # 0.4 (0.0-0.8) K/mm3 Eos # 0.0 (0.0-0.4) K/mm3 Baso # 0.0 (0.0-0.1) K/mm3 Comprehensive Metabolic Panel 10/26/18 Range/Units 04:29 Sodium 137 (137-145) mmol/L Potassium 5.0 D (3.6-5.0) mmol/L Chloride 101.8 (98-107) mmol/L Carbon Dioxide 22 (22-30) mmol/L BUN 12 (9-20) mg/dL Creatinine 0.7 L (0.8-1.5) mg/dL Glucose 187 H (75-100) mg/dL Calcium 9.1 (8.4-10.2) mg/dL - Imaging and Cardiology EKG: report reviewed, image reviewed Echo: report reviewed ( 05/2018 showed EF 50-55%, RA mildly dilated, mild to mod posterior wall hypertrophy, impaired relaxation. ) - EKG Sinus rhythms and dysrhythmias: sinus rhythm
[2018-10-26 12:21] LABS: INR 3.45 (0.87-1.13)
--- NOTE | 2018-10-26 12:34 | Consultation ---
History of Present Illness Consult date: 10/26/18 Requesting physician: RONI CHI Reason for consult: pulmonary fibrosis, other (Shortness of brearth) History of present illness: PULMONARY/CCM CONSULT NOTE (Full dictation # [id number]) Please see dictated notes for full details Past History Past Medical History: atrial fib, COPD, diabetes, hypertension Past Surgical History: No surgical history (reviewed) Social history: Family history: hypertension Medications and Allergies Allergies Allergy/AdvReac Type Severity Reaction Status Date / Time No Known Allergies Allergy Verified 06/24/17 11:13 Home Medications Medication Instructions Recorded Confirmed Last Taken Type AtorvaSTATin [Lipitor] 20 mg PO QHS #30 day 06/30/17 10/25/18 Unknown Rx Metoprolol [Lopressor TAB] 37.5 mg PO BID #30 tablet 06/30/17 10/25/18 Unknown Rx Warfarin [Coumadin] 2.5 mg PO QDAY #30 day 06/30/17 10/25/18 1 Day Ago Rx ~06/25/17 amLODIPine [Norvasc] 5 mg PO DAILY #30 day 06/30/17 10/25/18 Unknown Rx Ergocalciferol [Vitamin D2] 50,000 units PO 1XW 05/15/18 10/25/18 Unknown History FLUoxetine [PROzac] 40 mg PO QDAY 05/15/18 10/25/18 Unknown History Losartan [Cozaar] 25 mg PO DAILY 05/15/18 10/25/18 05/14/18 History Omeprazole 40 mg PO DAILY 05/15/18 10/25/18 Unknown History ALBUTEROL NEB's [Proventil 0.083% 2.5 mg IH Q6H PRN 10/25/18 10/25/18 Unknown History NEBS] Acetaminophen [Tylenol] 500 mg PO Q8H PRN 10/25/18 10/25/18 Unknown History Albuterol Sulfate [Ventolin Hfa] 2 puff IH Q4-6H 10/25/18 10/25/18 Unknown History Furosemide [Lasix] 20 mg PO BID 10/25/18 10/25/18 Unknown History Ipratropium [Atrovent] 0.5 mg IH Q6H 10/25/18 10/25/18 Unknown History Pirfenidone [Esbriet] 801 mg PO TIDWM 10/25/18 10/25/18 Unknown History predniSONE [Deltasone] 10 mg PO QDAY 10/25/18 10/25/18 Unknown History Active Meds: Active Medications Acetaminophen (Tylenol) 650 mg PO Q4H PRN PRN Reason: Pain MILD(1-3)/Fever >100.5/[place] Albuterol (Proventil) 2.5 mg IH Q4HRT PRN PRN Reason: Shortness Of Breath Albuterol/Ipratropium (Duoneb *Not For Prn Use*) 1 ampul IH TIDRT [facility] Last Admin: 10/26/18 08:52 Dose: 1 ampul Documented by: Amlodipine Besylate (Norvasc) 5 mg PO DAILY [facility] Atorvastatin Calcium (Lipitor) 20 mg PO QHS [facility] Furosemide (Lasix) 20 mg PO 0600,1800 [facility] Losartan Potassium (Cozaar) 25 mg PO DAILY [facility] Methylprednisolone Sodium Succinate (Solu-Medrol) 40 mg IV Q12HR [facility] Last Admin: 10/26/18 09:31 Dose: 40 mg Documented by: Metoprolol Tartrate (Lopressor) 37.5 mg PO BID [facility] Morphine Sulfate (Morphine) 2 mg IV Q4H PRN PRN Reason: Pain, Moderate (4-6) Ondansetron HCl (Zofran) 4 mg IV Q8H PRN PRN Reason: Nausea And Vomiting Sodium Chloride (Sodium Chloride Flush Syringe 10 Ml) 10 ml IV BID [facility] Last Admin: 10/26/18 09:33 Dose: 10 ml Documented by: Sodium Chloride (Sodium Chloride Flush Syringe 10 Ml) 10 ml IV PRN PRN PRN Reason: LINE FLUSH Sodium Chloride (Sodium Chloride Flush Syringe 10 Ml) 10 ml IV PRN PRN PRN Reason: LINE FLUSH Physical Examination Vital signs: Vital Signs Pulse Resp 84 30 H 10/25/18 10:01 10/25/18 10:01 Results - Laboratory Findings CBC and BMP: 10/26/18 04:29 10/26/18 04:29 ABG POC ABG pH 7.413 (7.35-7.45) 10/25/18 11:00 POC ABG pCO2 36.7 (35-45) 10/25/18 11:00 POC ABG pO2 72 (80-105) L 10/25/18 11:00 POC ABG HCO3 23.4 10/25/18 11:00 POC ABG Total CO2 24 10/25/18 11:00 POC ABG O2 Sat 95 10/25/18 11:00 PT/INR, D-dimer PT 35.0 Sec. (12.2-14.9) H 10/26/18 11:49 INR 3.45 (0.87-1.13) H 10/26/18 11:49 Abnormal lab findings: Abnormal Labs 10/25/18 10/25/18 10/25/18 10:35 10:35 10:35 RBC 5.25 H MCV 76 L MCH 24 L MCHC 31 L RDW 19.9 H Lymph % (Auto) 9.3 L Lymph # 0.8 L Seg Neutrophils % 82.6 H PT 32.5 H INR 3.13 H APTT 52.5 H POC ABG pO2 Creatinine Glucose 128 H NT-Pro-B Natriuret Pep 4003 H 10/25/18 10/26/18 10/26/18 11:00 04:29 04:29 RBC 5.75 H MCV 76 L MCH 24 L MCHC 31 L RDW 20.3 H Lymph % (Auto) Lymph # 1.0 L Seg Neutrophils % 79.2 H PT INR APTT POC ABG pO2 72 L Creatinine 0.7 L Glucose 187 H NT-Pro-B Natriuret Pep 10/26/18 11:49 RBC MCV MCH MCHC RDW Lymph % (Auto) Lymph # Seg Neutrophils % PT 35.0 H INR 3.45 H APTT POC ABG pO2 Creatinine Glucose NT-Pro-B Natriuret Pep
[2018-10-26] MEDS ORDERED: COUMADIN NO DOSE TODAY PO ONE (17:00)
[2018-10-26] MEDS: LASIX PO SCH (17:34)
--- NOTE | 2018-10-26 17:50 | Consultation ---
CONSULTING PHYSICIAN: Stephenie Paz MD REASON FOR CONSULTATION: Shortness of breath, history of pulmonary fibrosis. CHIEF COMPLAINT AND HISTORY OF PRESENT ILLNESS: As follows: The patient is a 68-year-old -Dominican male, past medical history significant amongst other things for a diagnoses of home oxygen dependent COPD as well as pulmonary fibrosis with fall in the home oxygen baseline, came into the Emergency Room yesterday complaining of shortness of breath, had been going on for a couple of days and had progressively worsened. He had a cough productive of clear phlegm. He denies any fevers or chills. He denied nausea, vomiting or overt aspiration. In the emergency room, he was found to be hypoxemic, O2 sats in the 50s. As part of the evaluation, it was felt he was also in the middle of acute CHF exacerbation. Hence the consult. When I stopped by to see him in the room he had just come out of the bathroom and was in severe respiratory distress. He had oxygen on, but apparently he just put that back on after coming back into the room. He denied any chest pain. He denied palpitations. He denied new onset leg pain or swelling either unilaterally or bilaterally. He stated he had been compliant with his medications. He denied any sick contacts. This really is as much of the history of presentation as I have. 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 PAST MEDICAL HISTORY: Again; pulmonary fibrosis, chronic obstructive lung disease, chronic hypoxemic respiratory failure, atrial fibrillation, diabetes, cardiomyopathy, hypertension, hyperlipidemia. PAST SURGICAL HISTORY: Denied. MEDICATIONS: He was on at the time I stopped by to see him were reviewed. Pertinent medications include the following: Tylenol 650 mg p.o. q.4 hours p.r.n. mild pain or fevers, Albuterol 2.5 mg nebulized q.4 hours p.r.n. shortness of breath, DuoNeb treatments nebulized t.i.d. scheduled, Norvasc 5 mg p.o. daily, Lipitor 20 mg p.o. at bedtime, Lasix 20 mg p.o. b.i.d., Cozaar 25 mg p.o. daily, Solu-Medrol 40 mg IV q.12 hours, metoprolol 37.5 mg p.o. b.i.d. He is on another nonformulary medication 267 mg p.o. t.i.d. He is on the morphine 2 mg IV q.4 hours p.r.n. moderate pain, Zofran 4 mg IV q. 8 hours p.r.n. nausea and vomiting. ALLERGIES: No known drug allergies. DIET: Thin gentleman. Denies acute weight loss or gain in the preceding few weeks to months. FAMILY AND SOCIAL HISTORY: Lives in the community. He is . There is a family history of hypertension. He does have a 10+ pack year now remote tobacco smoking history. REVIEW OF SYSTEMS: No loss of consciousness. No new onset focal weakness. Denies gross hematochezia or melena. Denies gross hematuria or dysuria. Denies hematemesis. He denies hemoptysis. He denies heat or cold intolerance. Denies polydipsia or polyuria. Denies any new rash on his body. He denies any new lumps, bumps, or swellings on his body. Complete 13-system review of systems obtained. Pertinent positives and/or negatives as in body of history above, otherwise they are noncontributory. PHYSICAL EXAMINATION: VITAL SIGNS: At presentation in the emergency room; he was afebrile, temperature 98.4 degrees Fahrenheit, pulse of 84, respiratory rate of 30, blood pressure 114/82, oxygen sats were 96%, inspired oxygen concentration at that time was not recorded. When I stopped by to see him, O2 sats were 94%, that was on a 50% Venturi mask. GENERAL: He is an elderly looking -Dominican male. Normocephalic, atraumatic, talking to me in interrupted sentences, in moderately severe respiratory distress at rest. HEAD, EYES, EARS, NOSE AND THROAT: He is anicteric. No conjunctival erythema. Oropharynx is moist, is a Mallampati #2 oropharynx. No gross jugular venous distention. Grossly, no palpable lymph nodes in the supraclavicular or submandibular lymph node chains. LUNGS: Auscultation of both lung davey significant for diminished bilateral breath sounds, prolonged expiratory phase, inspiratory rales in both bases. No active wheezing. HEART: Heart sounds 1 and 2 are heard. They were regular in rate and rhythm at the time of my evaluation without rubs or murmurs. ABDOMEN: Soft. Bowel sounds are positive, nontender, nondistended, no palpable hepatosplenomegaly. EXTREMITIES: Without overt digital clubbing, no cyanosis, no pedal edema. Dorsalis pedis pulses are palpable bilaterally. NEUROLOGIC: Pupils are equal, round, about 3 mm, reactive to light. Extraocular muscle movements are intact. He moves all 4 extremities spontaneously. The skin is of normal turgor without cellulitis or rash. LABORATORY DATA: From my review are as follows: White cell count 8800, hemoglobin 12.5, hematocrit 40.1, platelet count 238. No band forms. No manual differential. INR was 3.13 at presentation. Arterial blood gas showed a pH of 7.41, pCO2 of 37, pO2 of 72 that was on a 50% Venturi mask. Serum sodium 139, potassium 4.1, chloride 101, bicarbonate 26, BUN 11, creatinine 0.8, glucose 128. BNP was elevated at 4003. No microbiology studies. I have reviewed chest x-ray that was done at presentation and I am able to compare it with another x-ray from May of this year, really no significant change. He is chronically look an increased interstitial markings bilaterally. No pleural effusions of significance that I can see and really no focal consolidative changes that I can see. ASSESSMENT AND PLAN: 1. Acute on chronic hypoxemic respiratory failure. 2. Acute chronic obstructive pulmonary disease exacerbation. 3. Severe pulmonary fibrosis, moderately severe, I should say full. 4. Possible occult pneumonia, community acquired. 5. Elevated serum BNP. 6. History of cardiomyopathy. 7. History of diabetes. 8. Hypertension. 9. Hyperlipidemia. 10. History of atrial fibrillation. PLAN: We will continue supplemental oxygen, titrate to keep O2 sats greater than or equal to about 90-92%. I will deploy bilevel positive air pressure ventilation therapy right now to reduce his work of breathing and help recruit alveoli. I do note the Cardiology records that mention a normal systolic ejection fraction; however, no mention of diastolic function and no mention of right ventricular systolic pressures. I will try and get that information. In the meantime, he is therapeutic on his anticoagulation and I doubt venous thromboembolic phenomena are at play here. I will add long-acting bronchodilators as well as inhaled corticosteroids. Sputum will be sent for Gram stain, cultures and sensitivities. He will be put on empiric antibiotic therapy, Levaquin for severe COPD exacerbation. He will be placed on GI prophylaxis. Flu and pneumonia vaccination will be addressed per protocol. Thank you very much for the consult Dr. Sharpe. We will follow along. We will make Dr. Paz. We will make further recommendations as picture progresses/becomes clearer. We will keep a close eye on him and with a plan to transfer him to the step-down all Intensive Care Unit if he deteriorates any further. JOB# [id number] AMY/HARRISON MTDD
--- NOTE | 2018-10-26 19:11 | Progress Note ---
Assessment and Plan Assessment and plan: --Acute on chronic hypoxic respiratory failure; Oxygen titrate to O2 sats more than 90%, nebulizers, IV steroids, IV antibiotics --History of pulmonary fibrosis; moderate to severe pulmonary evaluation noted and appreciated Continue current management --History of COPD; oxygen nebulizers and IV steroids and IV antibiotics inhalation steroids,Pulmonary consult. --No evidence of congestive heart failure; BNP >4000 M pathology cardiology following, EF 50-55% --History of atrial fibrillation; rate controlled, continue current beta blockers Chronic anticoagulation with Coumadin, therapeutic INR[3.49] --DVT prophylaxis; patient on Coumadin Closely monitor the patient and adjust the management as needed Consults and recommendations noted and appreciated. History Interval history: Patient seen and examined medical records reviewed Patient feels better wants to go home, Mild shortness of breath, pulmonary evaluation and recommendations noted and appreciated Vital signs reviewed Hospitalist Physical - Constitutional Vitals: Temp Pulse Resp BP Pulse Ox 98.1 F 101 H 27 H 177/110 94 10/26/18 11:44 10/26/18 17:25 10/26/18 17:25 10/26/18 11:45 10/26/18 17:25 General appearance: Present: no acute distress, mild distress, well-nourished, malodorous - EENT Eyes: Present: PERRL, EOM intact - Neck Neck: Present: supple, normal ROM - Respiratory Respiratory effort: normal Respiratory: bilateral: diminished, rales, negative: rhonchi, wheezing - Cardiovascular Rhythm: regular Heart Sounds: Present: S1 & S2 - Extremities Extremities: no ischemia, No edema - Abdominal General gastrointestinal: soft, non-tender, non-distended, normal bowel sounds - Integumentary Integumentary: Present: clear, warm - Psychiatric Psychiatric: appropriate mood/affect, cooperative - Neurologic Neurologic: CNII-XII intact, moves all extremities Results - Labs CBC & Chem 7: 10/28/18 05:06 10/28/18 05:06 Labs: Laboratory Last Values WBC 6.7 K/mm3 (4.5-11.0) 10/26/18 04:29 RBC 5.75 M/mm3 (3.65-5.03) H 10/26/18 04:29 Hgb 13.7 gm/dl (11.8-15.2) 10/26/18 04:29 Hct 44.0 % (35.5-45.6) 10/26/18 04:29 MCV 76 fl (84-94) L 10/26/18 04:29 MCH 24 pg (28-32) L 10/26/18 04:29 MCHC 31 % (32-34) L 10/26/18 04:29 RDW 20.3 % (13.2-15.2) H 10/26/18 04:29 Plt Count 237 K/mm3 (140-440) 10/26/18 04:29 Lymph % (Auto) 14.4 % (13.4-35.0) 10/26/18 04:29 [place] % (Auto) 5.7 % (0.0-7.3) 10/26/18 04: Eos % (Auto) 0.4 % (0.0-4.3) 10/26/18 04: Baso % (Auto) 0.3 % (0.0-1.8) 10/26/18 04:29 Lymph # 1.0 K/mm3 (1.2-5.4) L 10/26/18 04:29 [place] # 0.4 K/mm3 (0.0-0.8) 10/26/18 04:29 Eos # 0.0 K/mm3 (0.0-0.4) 10/26/18 04:29 Baso # 0.0 K/mm3 (0.0-0.1) 10/26/18 04:29 Seg Neutrophils % 79.2 % (40.0-70.0) H 10/26/18 04:29 Seg Neutrophils # 5.3 K/mm3 (1.8-7.7) 10/26/18 04:29 PT 35.0 Sec. (12.2-14.9) H 10/26/18 11:49 INR 3.45 (0.87-1.13) H 10/26/18 11:49 APTT 52.5 Sec. (24.2-36.6) H 10/25/18 10:35 POC ABG pH 7.413 (7.35-7.45) 10/25/18 11:00 POC ABG pCO2 36.7 (35-45) 10/25/18 11:00 POC ABG pO2 72 (80-105) L 10/25/18 11:00 POC ABG HCO3 23.4 10/25/18 11:00 POC ABG Total CO2 24 10/25/18 11:00 POC ABG O2 Sat 95 10/25/18 11:00 POC ABG Base Excess -1 10/25/18 11:00 FiO2 50 % 10/25/18 11:00 Sodium 137 mmol/L (137-145) 10/26/18 04:29 Potassium 5.0 mmol/L (3.6-5.0) D 10/26/18 04:29 Chloride 101.8 mmol/L (98-107) 10/26/18 04:29 Carbon Dioxide 22 mmol/L (22-30) 10/26/18 04:29 Anion Gap 18 mmol/L 10/26/18 04:29 BUN 12 mg/dL (9-20) 10/26/18 04:29 Creatinine 0.7 mg/dL (0.8-1.5) L 10/26/18 04:29 Estimated GFR > 60 ml/min 10/26/18 04:29 BUN/Creatinine Ratio 17 % 10/26/18 04:29 Glucose 187 mg/dL (75-100) H 10/26/18 04:29 Calcium 9.1 mg/dL (8.4-10.2) 10/26/18 04:29 Troponin T < 0.010 ng/mL (0.00-0.029) 10/25/18 20:49 C-Reactive Protein 3.40 mg/dL (0.00-1.30) H 10/26/18 14:43 NT-Pro-B Natriuret Pep 4003 pg/mL (0-900) H 10/25/18 10:35
[2018-10-26] MEDS: BROVANA NEBU IH SCH (20:16)
[2018-10-26] MEDS: PULMICORT IH SCH (20:16)
[2018-10-26] MEDS: LOPRESSOR PO SCH (21:49)
[2018-10-27 05:42] LABS: INR 3.49 (0.87-1.13)
[2018-10-27] MEDS: LASIX PO SCH ×2 (06:04→17:11)
--- NOTE | 2018-10-27 07:42 | Progress Note ---
Assessment and Plan Pt has known idiopathic pulmonary fibrosis and presents with apparent COPD exacerbation, bronchitis, acute on chronic respiratory failure. Echo done 05/2018 showed EF 50-55%, RA mildly dilated, mild to mod posterior wall hypertrophy, impaired relaxation. Per pt, no history of HF and no current clinical evidence of acute HF. Resume home cardiac regimen. INR 3.13 on admission, coumadin currently held. I believe that most of his sxs are pulmonary in etiology and less so DHF. Cont low dose lasix. Subjective Date of service: 10/27/18 Principal diagnosis: dyspnea Interval history: less sob Objective Vital Signs Temp Pulse Pulse Pulse Resp Resp Resp 10/27/18 04:00 73 10/27/18 03:49 97.0 F L 80 18 10/26/18 23:36 97.0 F L 79 18 10/26/18 23:25 98.0 F 85 17 10/26/18 21:49 96 H 10/26/18 21:18 10/26/18 20:24 92 H 20 10/26/18 20:23 90 20 10/26/18 20:15 18 10/26/18 20:00 90 10/26/18 19:52 97.0 F L 89 18 10/26/18 19:13 96.5 F L 96 H 17 10/26/18 17:25 101 H 27 H 10/26/18 14:56 101 H 37 H 10/26/18 14:35 100 H 33 H 10/26/18 11:45 86 20 10/26/18 11:44 98.1 F 10/26/18 09:35 97.6 F 10/26/18 09:34 96 H 20 10/26/18 09:05 93 H 18 10/26/18 08:58 87 20 10/26/18 08:52 BP Pulse Ox 10/27/18 04:00 10/27/18 03:49 151/113 98 10/26/18 23:36 165/104 98 10/26/18 23:25 151/90 99 10/26/18 21:49 166/96 10/26/18 21:18 96 10/26/18 20:24 10/26/18 20:23 10/26/18 20:15 10/26/18 20:00 10/26/18 19:52 166/96 100 10/26/18 19:13 150/86 100 10/26/18 17:25 94 10/26/18 14:56 10/26/18 14:35 10/26/18 11:45 177/110 96 10/26/18 11:44 10/26/18 09:35 10/26/18 09:34 152/93 95 10/26/18 09:05 10/26/18 08:58 10/26/18 08:52 97 - Physical Examination General: No Apparent Distress HEENT: Positive: PERRL, Normocephaly, Mucus Membranes Moist Neck: Positive: neck supple, trachea midline Neuro: Positive: Grossly Intact Abdomen: Positive: Soft. Negative: Tender Skin: Positive: Clear. Negative: Rash, Wound Musculoskeletal: No Pain Extremities: Absent: edema - Labs and Meds Coagulation 10/26/18 10/27/18 Range/Units 11:49 05:08 PT 35.0 H 35.3 H (12.2-14.9) Sec. INR 3.45 H 3.49 H (0.87-1.13) - Imaging and Cardiology EKG: report reviewed, image reviewed Echo: report reviewed ( 05/2018 showed EF 50-55%, RA mildly dilated, mild to mod posterior wall hypertrophy, impaired relaxation. ) - EKG Sinus rhythms and dysrhythmias: sinus rhythm
[2018-10-27] MEDS: DUONEB *Not for PRN Use IH SCH ×3 (08:39→20:32)
[2018-10-27] MEDS: PULMICORT IH SCH ×2 (08:39→20:32)
[2018-10-27] MEDS: BROVANA NEBU IH SCH ×2 (08:39→20:31)
[2018-10-27] MEDS: LOPRESSOR PO SCH ×2 (09:43→21:33)
[2018-10-27] MEDS: PEPCID PO SCH (09:44)
[2018-10-27] MEDS: COZAAR PO SCH (09:44)
[2018-10-27] MEDS: NORVASC PO SCH (09:44)
[2018-10-27] MEDS: SOLU-Medrol IV SCH ×2 (09:45→21:33)
[2018-10-27] MEDS: SODIUM CHLORIDE FLUSH SYRINGE 10 ML IV SCH ×2 (09:45→21:35)
--- NOTE | 2018-10-27 11:47 | Progress Note ---
Assessment and Plan Acute on chronic hypoxemic respiratory failure. Acute chronic obstructive pulmonary disease exacerbation. Severe pulmonary fibrosis, moderately severe, I should say full. Possible occult pneumonia, community acquired. Elevated serum BNP. History of cardiomyopathy. History of diabetes. Hypertension. Hyperlipidemia. History of paroxysmal atrial fibrillation - continue systemic steroids - continue supplemental oxygen and wean to keep O2 sats > 90% - continue empiric AB's - continue qhs BIPAP - continue GI prophylaxis - continue anticoagulation - continue other care per attending / other consultants - PT/OT as tolerated ... re-evaluate in am & prn Subjective Date of service: 10/27/18 Principal diagnosis: Ac on Ch Hypoxemic Resp failure; AE-COPD; Advanced pulmonary fibrosis; CAP Interval history: Patient is seen today for: Acute on chronic hypoxemic respiratory failure; Acute chronic obstructive pulmonary disease exacerbation; Advanced pulmonary fibrosis; Possible occult pneumonia (CAP); Elevated serum BNP. Seen and examined at bedside; 24hour events reviewed; nursing and respiratory care staff consulted; no adverse overnight events reported to me; looks and feels much better; No N/V/F/C; no chest pains or palpitations; tolerated BIPAP well Objective Vital Signs - 12hr 10/27/18 10/27/18 10/27/18 03:49 04:00 08:40 Temperature 97.0 F L Pulse Rate 80 73 Pulse Rate [ 54 L Anterior Bilateral Throughout] Respiratory 18 Rate Respiratory 24 Rate [Anterior Bilateral Throughout] Blood Pressure 151/113 O2 Sat by Pulse 98 Oximetry 10/27/18 10/27/18 10/27/18 08:43 08:53 09:33 Temperature Pulse Rate Pulse Rate [ 83 Anterior Bilateral Throughout] Respiratory Rate Respiratory 20 Rate [Anterior Bilateral Throughout] Blood Pressure O2 Sat by Pulse 100 95 Oximetry 10/27/18 10/27/18 10/27/18 09:43 09:44 11:33 Temperature Pulse Rate 78 78 90 Pulse Rate [ Anterior Bilateral Throughout] Respiratory 20 Rate Respiratory Rate [Anterior Bilateral Throughout] Blood Pressure 153/95 153/95 125/91 O2 Sat by Pulse 94 Oximetry 10/27/18 11:35 Temperature 97.8 F Pulse Rate Pulse Rate [ Anterior Bilateral Throughout] Respiratory Rate Respiratory Rate [Anterior Bilateral Throughout] Blood Pressure O2 Sat by Pulse Oximetry Constitutional: no acute distress, other (elderly looking AAM withmildly increased resp effort at rest; normocephalic and atraumatic) Eyes: non-icteric ENT: oropharynx moist Neck: supple, no lymphadenopathy, no JVD Ascultation: Bilateral: diminished breath sounds, rales (inspiratory) Percussion: Bilateral: not dull Cardiovascular: regular rate and rhythm Gastrointestinal: normoactive bowel sounds, soft, non-tender, non-distended Integumentary: normal Extremities: no cyanosis, no edema, pulses normal, no ischemia or petechiae Neurologic: normal mental status, non-focal exam, pupils equal and round, motor strength normal and Psychiatric: mood appropriate, affect normal CBC and BMP: 10/28/18 05:06 10/28/18 05:06 ABG, PT/INR, D-dimer: ABG POC ABG pH 7.413 (7.35-7.45) 10/25/18 11:00 POC ABG pCO2 36.7 (35-45) 10/25/18 11:00 POC ABG pO2 72 (80-105) L 10/25/18 11:00 POC ABG HCO3 23.4 10/25/18 11:00 POC ABG Total CO2 24 10/25/18 11:00 POC ABG O2 Sat 95 10/25/18 11:00 PT/INR, D-dimer PT 35.3 Sec. (12.2-14.9) H 10/27/18 05:08 INR 3.49 (0.87-1.13) H 10/27/18 05:08 Abnormal lab findings: Abnormal Labs 10/25/18 10/25/18 10/25/18 10:35 10:35 10:35 RBC 5.25 H MCV 76 L MCH 24 L MCHC 31 L RDW 19.9 H Lymph % (Auto) 9.3 L Lymph # 0.8 L Seg Neutrophils % 82.6 H PT 32.5 H INR 3.13 H APTT 52.5 H POC ABG pO2 Creatinine Glucose 128 H C-Reactive Protein NT-Pro-B Natriuret Pep 4003 H 10/25/18 10/26/18 10/26/18 11:00 04:29 04:29 RBC 5.75 H MCV 76 L MCH 24 L MCHC 31 L RDW 20.3 H Lymph % (Auto) Lymph # 1.0 L Seg Neutrophils % 79.2 H PT INR APTT POC ABG pO2 72 L Creatinine 0.7 L Glucose 187 H C-Reactive Protein NT-Pro-B Natriuret Pep 10/26/18 10/26/18 10/27/18 11:49 14:43 05:08 RBC MCV MCH MCHC RDW Lymph % (Auto) Lymph # Seg Neutrophils % PT 35.0 H 35.3 H INR 3.45 H 3.49 H APTT POC ABG pO2 Creatinine Glucose C-Reactive Protein 3.40 H NT-Pro-B Natriuret Pep Chest x-ray: image reviewed Allied health notes reviewed: nursing
[2018-10-27] MEDS: TESSALON PERLES PO SCH (16:07)
[2018-10-28] MEDS: TESSALON PERLES PO SCH ×3 (00:05→19:17)
[2018-10-28 06:05] LABS: Basophils % (Auto) 0.1 % (0.0-1.8); Eosinophils % (Auto) 0.1 % (0.0-4.3); Hematocrit 40.3 % (35.5-45.6); Hemoglobin 12.8 gm/dl (11.8-15.2); Lymphocytes # (Auto) 1.5 K/mm3 (1.2-5.4); Lymphocytes % (Auto) 15.1 % (13.4-35.0); Mean Corpuscular HGB Conc 32 % (32-34); Mean Corpuscular Volume 76 fl (84-94); Monocytes # (Auto) 0.7 K/mm3 (0.0-0.8); Monocytes % (Auto) 7.4 % (0.0-7.3); Platelet Count 272 K/mm3 (140-440); Red Blood Count 5.33 M/mm3 (3.65-5.03)
[2018-10-28] MEDS: LASIX PO SCH ×2 (06:15→19:17)
[2018-10-28 06:18] LABS: BUN/Creatinine Ratio 23; Blood Urea Nitrogen 18 mg/dL (9-20); Calcium 9.1 mg/dL (8.4-10.2); Hemolysis Index 4
[2018-10-28 06:19] LABS: Red Cell Distribution Width 20.2 % (13.2-15.2)
[2018-10-28 06:23] LABS: INR 3.09 (0.87-1.13)
[2018-10-28] MEDS: PULMICORT IH SCH ×2 (08:26→20:28)
[2018-10-28] MEDS: BROVANA NEBU IH SCH ×2 (08:26→20:28)
[2018-10-28] MEDS: DUONEB *Not for PRN Use IH SCH ×4 (08:28→20:28)
--- NOTE | 2018-10-28 09:10 | Progress Note ---
Assessment and Plan Assessment and plan: --Acute on chronic hypoxic respiratory failure; Oxygen titrate to O2 sats more than 90%, nebulizers, IV steroids, IV antibiotics --History of pulmonary fibrosis; moderate to severe pulmonary evaluation noted and appreciated Continue current management --History of COPD; oxygen nebulizers and IV steroids and IV antibiotics inhalation steroids,Pulmonary consult. --No evidence of congestive heart failure, EF 50-55% BNP >4000, shortness of breath symptoms probably secondary to pulmonary fibrosis Continue management, cardiology following --History of atrial fibrillation; rate controlled, continue current beta blockers Chronic anticoagulation with Coumadin, therapeutic INR[3.49] --DVT prophylaxis; patient on Coumadin Closely monitor the patient and adjust the management as needed Consults and recommendations noted and appreciated. History Interval history: Patient seen and examined medical records reviewed No new events reported by the nursing staff Patient feels slightly particularly denies any chest pain or shortness of breath Alert awake oriented 3 not in acute distress Vital signs noted Hospitalist Physical - Constitutional Vitals: Temp Pulse Resp BP Pulse Ox 97.9 F 64 15 147/95 98 10/28/18 07:35 10/28/18 08:27 10/28/18 08:27 10/28/18 07:35 10/28/18 08:27 General appearance: Present: no acute distress, mild distress, well-nourished, malodorous - EENT Eyes: Present: PERRL, EOM intact - Neck Neck: Present: supple, normal ROM - Respiratory Respiratory effort: normal Respiratory: bilateral: diminished, rales, negative: rhonchi, wheezing - Cardiovascular Rhythm: regular Heart Sounds: Present: S1 & S2 - Extremities Extremities: no ischemia, No edema - Abdominal General gastrointestinal: soft, non-tender, non-distended, normal bowel sounds - Integumentary Integumentary: Present: clear, warm - Psychiatric Psychiatric: appropriate mood/affect, cooperative - Neurologic Neurologic: CNII-XII intact, moves all extremities Results - Labs CBC & Chem 7: 10/28/18 05:06 10/28/18 05:06 Labs: Laboratory Last Values WBC 9.7 K/mm3 (4.5-11.0) 10/28/18 05:06 RBC 5.33 M/mm3 (3.65-5.03) H 10/28/18 05:06 Hgb 12.8 gm/dl (11.8-15.2) 10/28/18 05:06 Hct 40.3 % (35.5-45.6) 10/28/18 05:06 MCV 76 fl (84-94) L 10/28/18 05:06 MCH 24 pg (28-32) L 10/28/18 05:06 MCHC 32 % (32-34) 10/28/18 05:06 RDW 20.2 % (13.2-15.2) H 10/28/18 05:06 Plt Count 272 K/mm3 (140-440) 10/28/18 05:06 Lymph % (Auto) 15.1 % (13.4-35.0) 10/28/18 05:06 [place] % (Auto) 7.4 % (0.0-7.3) H 10/28/18 05:06 Eos % (Auto) 0.1 % (0.0-4.3) 10/28/18 05:06 Baso % (Auto) 0.1 % (0.0-1.8) 10/28/18 05:06 Lymph # 1.5 K/mm3 (1.2-5.4) 10/28/18 05:06 [place] # 0.7 K/mm3 (0.0-0.8) 10/28/18 05:06 Eos # 0.0 K/mm3 (0.0-0.4) 10/28/18 05:06 Baso # 0.0 K/mm3 (0.0-0.1) 10/28/18 05:06 Seg Neutrophils % 77.3 % (40.0-70.0) H 10/28/18 05:06 Seg Neutrophils # 7.5 K/mm3 (1.8-7.7) 10/28/18 05:06 PT 32.2 Sec. (12.2-14.9) H 10/28/18 05:06 INR 3.09 (0.87-1.13) H 10/28/18 05:06 APTT 52.5 Sec. (24.2-36.6) H 10/25/18 10:35 POC ABG pH 7.413 (7.35-7.45) 10/25/18 11:00 POC ABG pCO2 36.7 (35-45) 10/25/18 11:00 POC ABG pO2 72 (80-105) L 10/25/18 11:00 POC ABG HCO3 23.4 10/25/18 11:00 POC ABG Total CO2 24 10/25/18 11:00 POC ABG O2 Sat 95 10/25/18 11:00 POC ABG Base Excess -1 10/25/18 11:00 FiO2 50 % 10/25/18 11:00 Sodium 135 mmol/L (137-145) L 10/28/18 05:06 Potassium 4.5 mmol/L (3.6-5.0) 10/28/18 05:06 Chloride 97.7 mmol/L (98-107) L 10/28/18 05:06 Carbon Dioxide 29 mmol/L (22-30) D 10/28/18 05:06 Anion Gap 13 mmol/L 10/28/18 05:06 BUN 18 mg/dL (9-20) 10/28/18 05:06 Creatinine 0.8 mg/dL (0.8-1.5) 10/28/18 05:06 Estimated GFR > 60 ml/min 10/28/18 05:06 BUN/Creatinine Ratio 23 % 10/28/18 05:06 Glucose 146 mg/dL (75-100) H 10/28/18 05:06 Calcium 9.1 mg/dL (8.4-10.2) 10/28/18 05:06 Troponin T < 0.010 ng/mL (0.00-0.029) 10/25/18 20:49 C-Reactive Protein 3.40 mg/dL (0.00-1.30) H 10/26/18 14:43 NT-Pro-B Natriuret Pep 4003 pg/mL (0-900) H 10/25/18 10:35
[2018-10-28] MEDS: COZAAR PO SCH (11:21)
[2018-10-28] MEDS: PEPCID PO SCH (11:23)
[2018-10-28] MEDS: LOPRESSOR PO SCH ×2 (11:23→22:06)
[2018-10-28] MEDS: SOLU-Medrol IV SCH ×2 (11:34→22:07)
[2018-10-28] MEDS: SODIUM CHLORIDE FLUSH SYRINGE 10 ML IV SCH ×2 (11:35→22:07)
[2018-10-28] MEDS: NORVASC PO SCH (11:35)
--- NOTE | 2018-10-28 12:25 | Progress Note ---
Assessment and Plan Pt has known idiopathic pulmonary fibrosis and presents with apparent COPD exacerbation, bronchitis, acute on chronic respiratory failure. Echo done 05/2018 showed EF 50-55%, RA mildly dilated, mild to mod posterior wall hypertrophy, impaired relaxation. Per pt, no history of HF and no current clinical evidence of acute HF. Resume home cardiac regimen. INR 3.13 on admission, coumadin currently held. I believe that most of his sxs are pulmonary in etiology and less so DHF. Cont low dose lasix. Subjective Date of service: 10/28/18 Principal diagnosis: Ac on Ch Hypoxemic Resp failure; AE-COPD; Advanced pulmonary fibrosis; CAP Interval history: feeling better Objective Vital Signs Temp Pulse Pulse Resp Resp BP Pulse Ox 10/28/18 11:35 89 10/28/18 11:23 93 H 10/28/18 11:21 93 H 10/28/18 08:27 64 15 98 10/28/18 08:00 65 14 10/28/18 07:35 97.9 F 66 18 147/95 99 10/28/18 05:27 98.6 F 48 L 17 157/90 99 10/28/18 05:00 47 L 10/28/18 02:44 53 L 24 100 10/27/18 23:53 98.4 F 68 17 142/81 99 10/27/18 21:33 71 131/85 10/27/18 20:51 81 28 H 10/27/18 20:34 76 34 H 99 10/27/18 20:15 87 38 H 100 10/27/18 19:35 86 10/27/18 19:16 98.5 F 85 17 131/85 89 10/27/18 16:35 97.6 F 10/27/18 16:34 88 18 126/81 89 10/27/18 15:00 80 20 10/27/18 14:47 84 20 92 - Physical Examination General: No Apparent Distress HEENT: Positive: PERRL, Normocephaly, Mucus Membranes Moist Neck: Positive: neck supple, trachea midline Neuro: Positive: Grossly Intact Abdomen: Positive: Soft. Negative: Tender Skin: Positive: Clear. Negative: Rash, Wound Musculoskeletal: No Pain Extremities: Absent: edema - Labs and Meds Coagulation 10/28/18 Range/Units 05:06 PT 32.2 H (12.2-14.9) Sec. INR 3.09 H (0.87-1.13) CBC 10/28/18 Range/Units 05:06 WBC 9.7 (4.5-11.0) K/mm3 RBC 5.33 H (3.65-5.03) M/mm3 Hgb 12.8 (11.8-15.2) gm/dl Hct 40.3 (35.5-45.6) % Plt Count 272 (140-440) K/mm3 Lymph # 1.5 (1.2-5.4) K/mm3 [place] # 0.7 (0.0-0.8) K/mm3 Eos # 0.0 (0.0-0.4) K/mm3 Baso # 0.0 (0.0-0.1) K/mm3 Comprehensive Metabolic Panel 10/28/18 Range/Units 05:06 Sodium 135 L (137-145) mmol/L Potassium 4.5 (3.6-5.0) mmol/L Chloride 97.7 L (98-107) mmol/L Carbon Dioxide 29 D (22-30) mmol/L BUN 18 (9-20) mg/dL Creatinine 0.8 (0.8-1.5) mg/dL Glucose 146 H (75-100) mg/dL Calcium 9.1 (8.4-10.2) mg/dL - Imaging and Cardiology EKG: report reviewed, image reviewed Echo: report reviewed ( 05/2018 showed EF 50-55%, RA mildly dilated, mild to mod posterior wall hypertrophy, impaired relaxation. ) - EKG Sinus rhythms and dysrhythmias: sinus rhythm
--- NOTE | 2018-10-28 12:38 | Progress Note ---
Assessment and Plan Acute on chronic hypoxemic respiratory failure. Acute chronic obstructive pulmonary disease exacerbation. Severe pulmonary fibrosis, moderately severe, I should say full. Possible occult pneumonia, community acquired. Elevated serum BNP. History of cardiomyopathy. History of diabetes. Hypertension. Hyperlipidemia. History of paroxysmal atrial fibrillation - continue systemic steroids - continue supplemental oxygen and wean to keep O2 sats > 90% - continue empiric AB's - continue qhs BIPAP - continue GI prophylaxis - continue anticoagulation - continue other care per attending / other consultants - PT/OT as tolerated ... re-evaluate in am & prn Subjective Date of service: 10/28/18 Principal diagnosis: Ac on Ch Hypoxemic Resp failure; AE-COPD; Advanced pulmonary fibrosis; CAP Interval history: Patient is seen today for: Acute on chronic hypoxemic respiratory failure; Acute chronic obstructive pulmonary disease exacerbation; Advanced pulmonary fibrosis; Possible occult pneumonia (CAP); Elevated serum BNP. Seen and examined at bedside; 24hour events reviewed; nursing and respiratory care staff consulted; no adverse overnight events reported to me; looks and feels much better; no N/V/F/C Objective Vital Signs - 12hr 10/28/18 10/28/18 10/28/18 02:44 05:00 05:27 Temperature 98.6 F Pulse Rate 53 L 47 L 48 L Pulse Rate [ Anterior Bilateral Throughout] Respiratory 24 17 Rate Respiratory Rate [Anterior Bilateral Throughout] Blood Pressure 157/90 O2 Sat by Pulse 100 99 Oximetry 10/28/18 10/28/18 10/28/18 07:35 08:00 08:27 Temperature 97.9 F Pulse Rate 66 Pulse Rate [ 65 64 Anterior Bilateral Throughout] Respiratory 18 Rate Respiratory 14 15 Rate [Anterior Bilateral Throughout] Blood Pressure 147/95 O2 Sat by Pulse 99 98 Oximetry 10/28/18 10/28/18 10/28/18 11:21 11:23 11:35 Temperature Pulse Rate 93 H 93 H 89 Pulse Rate [ Anterior Bilateral Throughout] Respiratory Rate Respiratory Rate [Anterior Bilateral Throughout] Blood Pressure O2 Sat by Pulse Oximetry Constitutional: no acute distress, other (elderly looking AAM withmildly increased resp effort at rest; normocephalic and atraumatic) Eyes: non-icteric ENT: oropharynx moist Neck: supple, no lymphadenopathy, no JVD Ascultation: Bilateral: diminished breath sounds, rales (inspiratory) Percussion: Bilateral: not dull Cardiovascular: regular rate and rhythm Gastrointestinal: normoactive bowel sounds, soft, non-tender, non-distended Integumentary: normal Extremities: no cyanosis, no edema, pulses normal, no ischemia or petechiae Neurologic: normal mental status, non-focal exam, pupils equal and round, motor strength normal and Psychiatric: mood appropriate, affect normal CBC and BMP: 10/28/18 05:06 10/28/18 05:06 ABG, PT/INR, D-dimer: ABG POC ABG pH 7.413 (7.35-7.45) 10/25/18 11:00 POC ABG pCO2 36.7 (35-45) 10/25/18 11:00 POC ABG pO2 72 (80-105) L 10/25/18 11:00 POC ABG HCO3 23.4 10/25/18 11:00 POC ABG Total CO2 24 10/25/18 11:00 POC ABG O2 Sat 95 10/25/18 11:00 PT/INR, D-dimer PT 32.2 Sec. (12.2-14.9) H 10/28/18 05:06 INR 3.09 (0.87-1.13) H 10/28/18 05:06 Abnormal lab findings: Abnormal Labs 10/25/18 10/25/18 10/25/18 10:35 10:35 10:35 RBC 5.25 H MCV 76 L MCH 24 L MCHC 31 L RDW 19.9 H Lymph % (Auto) 9.3 L [place] % (Auto) Lymph # 0.8 L Seg Neutrophils % 82.6 H PT 32.5 H INR 3.13 H APTT 52.5 H POC ABG pO2 Sodium Chloride Creatinine Glucose 128 H C-Reactive Protein NT-Pro-B Natriuret Pep 4003 H 10/25/18 10/26/18 10/26/18 11:00 04:29 04:29 RBC 5.75 H MCV 76 L MCH 24 L MCHC 31 L RDW 20.3 H Lymph % (Auto) [place] % (Auto) Lymph # 1.0 L Seg Neutrophils % 79.2 H PT INR APTT POC ABG pO2 72 L Sodium Chloride Creatinine 0.7 L Glucose 187 H C-Reactive Protein NT-Pro-B Natriuret Pep 10/26/18 10/26/18 10/27/18 11:49 14:43 05:08 RBC MCV MCH MCHC RDW Lymph % (Auto) [place] % (Auto) Lymph # Seg Neutrophils % PT 35.0 H 35.3 H INR 3.45 H 3.49 H APTT POC ABG pO2 Sodium Chloride Creatinine Glucose C-Reactive Protein 3.40 H NT-Pro-B Natriuret Pep 10/28/18 10/28/18 10/28/18 05:06 05:06 05:06 RBC 5.33 H MCV 76 L MCH 24 L MCHC RDW 20.2 H Lymph % (Auto) [place] % (Auto) 7.4 H Lymph # Seg Neutrophils % 77.3 H PT 32.2 H INR 3.09 H APTT POC ABG pO2 Sodium 135 L Chloride 97.7 L Creatinine Glucose 146 H C-Reactive Protein NT-Pro-B Natriuret Pep Allied health notes reviewed: nursing
[2018-10-28] MEDS: ESBRIET 267 MG PO SCH ×3 (16:55→20:31)
[2018-10-28] MEDS: LEVAQUIN PO SCH (17:03)
[2018-10-29] MEDS: TESSALON PERLES PO SCH ×3 (00:40→18:45)
[2018-10-29] MEDS: LASIX PO SCH ×2 (06:33→18:45)
[2018-10-29 07:29] LABS: INR 2.1 (0.87-1.13)
[2018-10-29] MEDS: BROVANA NEBU IH SCH ×2 (08:15→19:56)
[2018-10-29] MEDS: DUONEB *Not for PRN Use IH SCH ×3 (08:15→19:56)
[2018-10-29] MEDS: PULMICORT IH SCH ×2 (08:15→19:55)
[2018-10-29] MEDS: ESBRIET 267 MG PO SCH ×5 (08:57→20:39)
[2018-10-29] MEDS: PEPCID PO SCH (08:59)
[2018-10-29] MEDS: NORVASC PO SCH (08:59)
[2018-10-29] MEDS: LOPRESSOR PO SCH ×2 (08:59→22:49)
[2018-10-29] MEDS: SOLU-Medrol IV SCH ×2 (08:59→22:49)
[2018-10-29] MEDS: COZAAR PO SCH (08:59)
--- NOTE | 2018-10-29 10:57 | Progress Note ---
Assessment and Plan Currently stable cardiac status. Cont present cardiac management. Follow pulmonary recs. Nothing further to add from cardiac perspective at this time. Will sign off. Recommend pt follow up with his primary carport erector at [facility] within 1-2 weeks of hospital discharge. Pt verbalizes understanding. The patient has been seen in conjunction with Dr. Davila who agrees with the assessment and plan of care. - Patient Problems (1) Dyspnea Current Visit: Yes Status: Acute (2) Acute and chronic respiratory failure Current Visit: Yes Status: Acute Qualifiers: Respiratory failure complication: hypoxia Qualified Code(s): J96.21 - Acute and chronic respiratory failure with hypoxia (3) COPD exacerbation Current Visit: Yes Status: Acute (4) Bronchitis Current Visit: Yes Status: Suspected (5) Paroxysmal atrial fibrillation Current Visit: Yes Status: Chronic (6) HTN (hypertension) Current Visit: Yes Status: Chronic Qualifiers: Hypertension type: essential hypertension Qualified Code(s): I10 - Essential (primary) hypertension (7) Hyperlipidemia Current Visit: Yes Status: Chronic (8) Diabetes Current Visit: Yes Status: Chronic (9) Sleep apnea Current Visit: Yes Status: Chronic Subjective Date of service: 10/29/18 Principal diagnosis: Ac on Ch Hypoxemic Resp failure; AE-COPD; Advanced pulmonary fibrosis; CAP Interval history: pt resting in bed, states SOB improved a little. Objective Last Vital Signs Temp 97.9 F 10/29/18 07:33 Pulse 64 10/29/18 08:33 Resp 20 10/29/18 08:33 BP 160/89 10/29/18 07:33 Pulse Ox 99 10/29/18 09:07 - Physical Examination General: No Apparent Distress HEENT: Positive: PERRL, Normocephaly, Mucus Membranes Moist Neck: Positive: neck supple, trachea midline Cardiac: Positive: Reg Rate and Rhythm, S1/S2 Lungs: Positive: Rales (fibrotic) Neuro: Positive: Grossly Intact Abdomen: Positive: Soft. Negative: Tender Skin: Positive: Clear. Negative: Rash, Wound Musculoskeletal: No Pain Extremities: Absent: edema - Labs and Meds Coagulation 10/29/18 Range/Units 06:21 PT 24.0 H (12.2-14.9) Sec. INR 2.10 H (0.87-1.13) - Imaging and Cardiology EKG: report reviewed, image reviewed Echo: report reviewed ( 05/2018 showed EF 50-55%, RA mildly dilated, mild to mod posterior wall hypertrophy, impaired relaxation. ) - EKG Sinus rhythms and dysrhythmias: sinus rhythm - Allied health notes Allied health notes reviewed: nursing
--- NOTE | 2018-10-29 13:58 | Progress Note ---
Assessment and Plan Patient resting on 4 litres O2.O2 saturation 94%Still complaining shortness of breath.BIPAP stand by in the room.17/05, rate 16, FIO2 45%. - Patient Problems (1) Acute and chronic respiratory failure Current Visit: Yes Status: Acute Qualifiers: Respiratory failure complication: hypoxia Qualified Code(s): J96.21 - Acute and chronic respiratory failure with hypoxia Plan to address problem: O2 4 litres via nasal canula. BIPAP standby. 17/05, rate 16, FIO2 45%, Albuterol/atrovent aerosol treatments q 6 hours Continue I/V solumedrol. Continue warfarin, Monitor INR. Continue famotidine Continue Levaquin. (2) Pulmonary interstitial fibrosis Current Visit: Yes Status: Chronic Plan to address problem: Patient is on I/V solumedrol. Continue O2 supplementation. Recommend to get LINDA,Rhematoid factor, CANCA and CECILIA level (3) COPD exacerbation Current Visit: Yes Status: Acute Plan to address problem: O2 4 litres via nasal canula. BIPAP standby.17/05, rate 16, FIO2 45% Albuterol/atrovent aerosol treatments q 6 hours Continue I/V solumedrol. Continue warfarin, Monitor INR. Continue famotidine Continue Levaquin (4) Coumadin toxicity Current Visit: Yes Status: Acute Plan to address problem: Monitor INR. To days INR 2.10 (5) Diabetes Current Visit: Yes Status: Chronic Plan to address problem: Management as per primary care. (6) HTN (hypertension) Current Visit: Yes Status: Chronic Qualifiers: Hypertension type: essential hypertension Qualified Code(s): I10 - Essential (primary) hypertension (7) Paroxysmal atrial fibrillation Current Visit: Yes Status: Chronic Plan to address problem: Patient is on coumadin (8) Sleep apnea Current Visit: Yes Status: Chronic Plan to address problem: BIPAP stand by in the room. 17/05, rate 16, FIO2 45%. Patient going on BIPAP during night time. Subjective Date of service: 10/29/18 Principal diagnosis: Ac on Ch Hypoxemic Resp failure; AE-COPD; Advanced pulmonary fibrosis; CAP Interval history: Patient resting on 4 litres O2.O2 saturation 94%.Still complaining shortness of breath.BIPAP stand by in the room.17/05, rate 16, FIO2 45%. Objective Vital Signs - 12hr 01/28/19 01/28/19 01/28/19 04:14 07:33 08:15 Temperature 97.2 F L 97.9 F Pulse Rate 48 L 51 L Pulse Rate [ 56 L Anterior Bilateral Throughout] Respiratory 18 20 Rate Respiratory 20 Rate [Anterior Bilateral Throughout] Blood Pressure 146/79 160/89 O2 Sat by Pulse 100 99 Oximetry 10/29/18 10/29/18 10/29/18 08:18 08:33 09:07 Temperature Pulse Rate Pulse Rate [ 64 Anterior Bilateral Throughout] Respiratory Rate Respiratory 20 Rate [Anterior Bilateral Throughout] Blood Pressure O2 Sat by Pulse 99 99 Oximetry 10/29/18 10:56 Temperature 97.9 F Pulse Rate 60 Pulse Rate [ Anterior Bilateral Throughout] Respiratory 20 Rate Respiratory Rate [Anterior Bilateral Throughout] Blood Pressure 154/99 O2 Sat by Pulse 94 Oximetry Constitutional: no acute distress, alert, other (elderly looking AAM withmildly increased resp effort at rest; normocephalic and atraumatic) Eyes: non-icteric ENT: oropharynx moist Neck: supple, no lymphadenopathy, no JVD Ascultation: Bilateral: diminished breath sounds, rales (inspiratory) Percussion: Bilateral: not dull Cardiovascular: regular rate and rhythm Gastrointestinal: normoactive bowel sounds, soft, non-tender, non-distended Integumentary: normal Extremities: no cyanosis, no edema, pulses normal, no ischemia or petechiae Neurologic: normal mental status, non-focal exam, pupils equal and round, motor strength normal and Psychiatric: mood appropriate, affect normal CBC and BMP: 10/28/18 05:06 10/28/18 05:06 ABG, PT/INR, D-dimer: ABG POC ABG pH 7.413 (7.35-7.45) 10/25/18 11:00 POC ABG pCO2 36.7 (35-45) 10/25/18 11:00 POC ABG pO2 72 (80-105) L 10/25/18 11:00 POC ABG HCO3 23.4 10/25/18 11:00 POC ABG Total CO2 24 10/25/18 11:00 POC ABG O2 Sat 95 10/25/18 11:00 PT/INR, D-dimer PT 24.0 Sec. (12.2-14.9) H 10/29/18 06:21 INR 2.10 (0.87-1.13) H 10/29/18 06:21 Abnormal lab findings: Abnormal Labs 10/25/18 10/25/18 10/25/18 10:35 10:35 10:35 RBC 5.25 H MCV 76 L MCH 24 L MCHC 31 L RDW 19.9 H Lymph % (Auto) 9.3 L [place] % (Auto) Lymph # 0.8 L Seg Neutrophils % 82.6 H PT 32.5 H INR 3.13 H APTT 52.5 H POC ABG pO2 Sodium Chloride Creatinine Glucose 128 H C-Reactive Protein NT-Pro-B Natriuret Pep 4003 H 10/25/18 10/26/18 10/26/18 11:00 04:29 04:29 RBC 5.75 H MCV 76 L MCH 24 L MCHC 31 L RDW 20.3 H Lymph % (Auto) [place] % (Auto) Lymph # 1.0 L Seg Neutrophils % 79.2 H PT INR APTT POC ABG pO2 72 L Sodium Chloride Creatinine 0.7 L Glucose 187 H C-Reactive Protein NT-Pro-B Natriuret Pep 10/26/18 10/26/18 10/27/18 11:49 14:43 05:08 RBC MCV MCH MCHC RDW Lymph % (Auto) [place] % (Auto) Lymph # Seg Neutrophils % PT 35.0 H 35.3 H INR 3.45 H 3.49 H APTT POC ABG pO2 Sodium Chloride Creatinine Glucose C-Reactive Protein 3.40 H NT-Pro-B Natriuret Pep 10/28/18 10/28/18 10/28/18 05:06 05:06 05:06 RBC 5.33 H MCV 76 L MCH 24 L MCHC RDW 20.2 H Lymph % (Auto) [place] % (Auto) 7.4 H Lymph # Seg Neutrophils % 77.3 H PT 32.2 H INR 3.09 H APTT POC ABG pO2 Sodium 135 L Chloride 97.7 L Creatinine Glucose 146 H C-Reactive Protein NT-Pro-B Natriuret Pep 10/29/18 06:21 RBC MCV MCH MCHC RDW Lymph % (Auto) [place] % (Auto) Lymph # Seg Neutrophils % PT 24.0 H INR 2.10 H APTT POC ABG pO2 Sodium Chloride Creatinine Glucose C-Reactive Protein NT-Pro-B Natriuret Pep Chest x-ray: report reviewed (Moderate to severe pulmonary fibrosis.), image reviewed Allied health notes reviewed: nursing
[2018-10-29] MEDS: LEVAQUIN PO SCH (14:32)
[2018-10-29] MEDS: SODIUM CHLORIDE FLUSH SYRINGE 10 ML IV SCH ×2 (14:33→22:51)
[2018-10-29] MEDS ORDERED: COUMADIN PO SCH (17:00)
[2018-10-30] MEDS: TESSALON PERLES PO SCH ×4 (01:13→23:51)
[2018-10-30] MEDS: LASIX PO SCH ×2 (05:41→18:11)
[2018-10-30 07:05] LABS: INR 1.62 (0.87-1.13)
[2018-10-30] MEDS: ESBRIET 267 MG PO SCH ×4 (08:00→20:08)
[2018-10-30] MEDS: BROVANA NEBU IH SCH ×2 (08:15→20:45)
[2018-10-30] MEDS: PULMICORT IH SCH ×2 (08:15→20:45)
[2018-10-30] MEDS: DUONEB *Not for PRN Use IH SCH ×3 (08:15→20:45)
[2018-10-30] MEDS: NORVASC PO SCH (09:36)
[2018-10-30] MEDS: COZAAR PO SCH (09:36)
[2018-10-30] MEDS: LOPRESSOR PO SCH ×2 (09:36→21:37)
[2018-10-30] MEDS: PEPCID PO SCH (09:36)
[2018-10-30] MEDS: SOLU-Medrol IV SCH ×2 (09:37→21:36)
[2018-10-30] MEDS: SODIUM CHLORIDE FLUSH SYRINGE 10 ML IV SCH ×2 (09:37→21:37)
--- NOTE | 2018-10-30 13:50 | Progress Note ---
Assessment and Plan Patient resting on 4 litres O2.O2 saturation 91% . This .Still complaining shortness of breath.BIPAP stand by in the room.17/05, rate 16, FIO2 45%. - Patient Problems (1) Acute and chronic respiratory failure Current Visit: Yes Status: Acute Qualifiers: Respiratory failure complication: hypoxia Qualified Code(s): J96.21 - Acute and chronic respiratory failure with hypoxia Plan to address problem: O2 4 litres via nasal canula. BIPAP standby. 17/05, rate 16, FIO2 45%, Albuterol/atrovent aerosol treatments q 6 hours Continue I/V solumedrol. Continue warfarin, Monitor INR. Continue famotidine Continue Levaquin. She is the is a motor is not (2) Pulmonary interstitial fibrosis Current Visit: Yes Status: Chronic Plan to address problem: Patient is on I/V solumedrol. Continue O2 supplementation. Recommend to get LINDA,Rhematoid factor, CANCA and CECILIA level (3) COPD exacerbation Current Visit: Yes Status: Acute Plan to address problem: O2 4 litres via nasal canula. BIPAP standby.17/05, rate 16, FIO2 45% Albuterol/atrovent aerosol treatments q 6 hours Continue I/V solumedrol. Continue warfarin, Monitor INR. Continue famotidine Continue Levaquinhistory is (4) Coumadin toxicity Current Visit: Yes Status: Acute Plan to address problem: Monitor INR. To days INR 1.62 (5) Diabetes Current Visit: Yes Status: Chronic Plan to address problem: Management as per primary care. (6) HTN (hypertension) Current Visit: Yes Status: Chronic Qualifiers: Hypertension type: essential hypertension Qualified Code(s): I10 - Essential (primary) hypertension Plan to address problem: Management as per primary care. (7) Paroxysmal atrial fibrillation Current Visit: Yes Status: Chronic Plan to address problem: Patient is on coumadin (8) Sleep apnea Current Visit: Yes Status: Chronic Plan to address problem: BIPAP stand by in the room. 17/05, rate 16, FIO2 45%. Patient going on BIPAP during night time. Subjective Date of service: 10/30/18 Principal diagnosis: Ac on Ch Hypoxemic Resp failure; AE-COPD; Advanced pulmonary fibrosis; CAP Interval history: Patient resting on 4 litres O2.O2 saturation 91%.Still complaining shortness of breath.BIPAP stand by in the room.16/8, rate 16, FIO2 45%. Objective Vital Signs - 12hr 10/30/18 10/30/18 10/30/18 04:00 04:38 07:32 Temperature 97.8 F 97.3 F L Pulse Rate 46 L 57 L 50 L Pulse Rate [ Anterior Bilateral Throughout] Pulse Rate [ Anterior Bilateral Upper Lobe] Respiratory 22 20 Rate Respiratory Rate [Anterior Bilateral Throughout] Respiratory Rate [Anterior Bilateral Upper Lobe] Blood Pressure 149/88 157/95 O2 Sat by Pulse 99 100 Oximetry 10/30/18 10/30/18 10/30/18 08:21 08:23 11:56 Temperature 98.3 F Pulse Rate 85 Pulse Rate [ 68 Anterior Bilateral Throughout] Pulse Rate [ 69 Anterior Bilateral Upper Lobe] Respiratory 18 Rate Respiratory 20 Rate [Anterior Bilateral Throughout] Respiratory 18 Rate [Anterior Bilateral Upper Lobe] Blood Pressure 147/98 O2 Sat by Pulse 98 91 Oximetry Constitutional: no acute distress, alert, other (elderly looking AAM withmildly increased resp effort at rest; normocephalic and atraumatic) Eyes: non-icteric ENT: oropharynx moist Neck: supple, no lymphadenopathy, no JVD Ascultation: Bilateral: diminished breath sounds, rales (inspiratory) Percussion: Bilateral: not dull Cardiovascular: regular rate and rhythm Gastrointestinal: normoactive bowel sounds, soft, non-tender, non-distended Integumentary: normal Extremities: no cyanosis, no edema, pulses normal, no ischemia or petechiae Neurologic: normal mental status, non-focal exam, pupils equal and round, motor strength normal and Psychiatric: mood appropriate, affect normal CBC and BMP: 10/28/18 05:06 10/28/18 05:06 ABG, PT/INR, D-dimer: ABG POC ABG pH 7.413 (7.35-7.45) 10/25/18 11:00 POC ABG pCO2 36.7 (35-45) 10/25/18 11:00 POC ABG pO2 72 (80-105) L 10/25/18 11:00 POC ABG HCO3 23.4 10/25/18 11:00 POC ABG Total CO2 24 10/25/18 11:00 POC ABG O2 Sat 95 10/25/18 11:00 PT/INR, D-dimer PT 19.7 Sec. (12.2-14.9) H 10/30/18 06:21 INR 1.62 (0.87-1.13) H 10/30/18 06:21 Abnormal lab findings: Abnormal Labs 10/25/18 10/25/18 10/25/18 10:35 10:35 10:35 RBC 5.25 H MCV 76 L MCH 24 L MCHC 31 L RDW 19.9 H Lymph % (Auto) 9.3 L [place] % (Auto) Lymph # 0.8 L Seg Neutrophils % 82.6 H PT 32.5 H INR 3.13 H APTT 52.5 H POC ABG pO2 Sodium Chloride Creatinine Glucose 128 H C-Reactive Protein NT-Pro-B Natriuret Pep 4003 H 10/25/18 10/26/18 10/26/18 11:00 04:29 04:29 RBC 5.75 H MCV 76 L MCH 24 L MCHC 31 L RDW 20.3 H Lymph % (Auto) [place] % (Auto) Lymph # 1.0 L Seg Neutrophils % 79.2 H PT INR APTT POC ABG pO2 72 L Sodium Chloride Creatinine 0.7 L Glucose 187 H C-Reactive Protein NT-Pro-B Natriuret Pep 10/26/18 10/26/18 10/27/18 11:49 14:43 05:08 RBC MCV MCH MCHC RDW Lymph % (Auto) [place] % (Auto) Lymph # Seg Neutrophils % PT 35.0 H 35.3 H INR 3.45 H 3.49 H APTT POC ABG pO2 Sodium Chloride Creatinine Glucose C-Reactive Protein 3.40 H NT-Pro-B Natriuret Pep 10/28/18 10/28/18 10/28/18 05:06 05:06 05:06 RBC 5.33 H MCV 76 L MCH 24 L MCHC RDW 20.2 H Lymph % (Auto) [place] % (Auto) 7.4 H Lymph # Seg Neutrophils % 77.3 H PT 32.2 H INR 3.09 H APTT POC ABG pO2 Sodium 135 L Chloride 97.7 L Creatinine Glucose 146 H C-Reactive Protein NT-Pro-B Natriuret Pep 10/29/18 10/30/18 06:21 06:21 RBC MCV MCH MCHC RDW Lymph % (Auto) [place] % (Auto) Lymph # Seg Neutrophils % PT 24.0 H 19.7 H INR 2.10 H 1.62 H APTT POC ABG pO2 Sodium Chloride Creatinine Glucose C-Reactive Protein NT-Pro-B Natriuret Pep Allied health notes reviewed: nursing
[2018-10-30] MEDS: LEVAQUIN PO SCH (14:08)
--- NOTE | 2018-10-30 16:41 | Progress Note ---
Assessment and Plan Assessment and plan: Patient is a 66-year-old man with a history of IPF with chronic hypoxic respiratory failure on 2 L oxygen during the day and 3 L oxygen at night, followed up by Dr. Nolan Meier, parole officer at [place], on max dose of Esbriet. His pcp is Dr. Kumar from [facility], Patient was admitted for worsening respiratory failure, --Acute on chronic hypoxic respiratory failure; Oxygen titrate to O2 sats more than 90%, nebulizers, IV steroids, IV antibiotics --History of pulmonary fibrosis; moderate to severe pulmonary evaluation noted and appreciated Continue current management --History of COPD; oxygen nebulizers and IV steroids and IV antibiotics inhalation steroids,Pulmonary consult. --No evidence of congestive heart failure, EF 50-55% BNP >4000, shortness of breath symptoms probably secondary to pulmonary fibrosis Continue management, cardiology following --History of atrial fibrillation; rate controlled, continue current beta blockers Chronic anticoagulation with Coumadin, therapeutic INR[3.49] --DVT prophylaxis; patient on Coumadin Closely monitor the patient and adjust the management as needed Consults and recommendations noted and appreciated. History Interval history: Patient was seen and examined. Follow-up on current diagnosis of SOB. Overnight uneventful. Patient denies any chest pain, nausea/vomiting or severe headaches. Imaging, nursing note, chart, labs and old chart reviewed. Discussed with patient. Hospitalist Physical - Physical exam Narrative exam: Gen: WDWN, NAD, Awake, Alert, Orientated HEENT: NCAT, EOMI, PERRL, OP Clear Neck: supple, no adenopathy, no thyromegaly, no JVD CVS/Heart: RRR, normal S1S2, pulses present bilaterally Chest/Lungs: diminished bs bilaterally, Symmetrical chest expansion, good air entry bilaterally GI/Abdomen: soft, NTND, good bowel sounds, no guarding or rebound /Bladder: no suprapubic tenderness, no CVA or paraspinal tenderness Extermity/Skin: no c/c/e, no obvious rash MSK: FROM x 4 Neuro: CN 2-12 grossly intact, no new focal deficits Psych: calm - Constitutional Vitals: Temp Pulse Resp BP Pulse Ox 98.3 F 80 18 147/98 91 10/30/18 11:56 10/30/18 14:00 10/30/18 14:00 10/30/18 11:56 10/30/18 11:56 General appearance: Present: no acute distress, well-nourished, obese Results - Labs CBC & Chem 7: 10/28/18 05:06 10/28/18 05:06 Labs: Laboratory Last Values WBC 9.7 K/mm3 (4.5-11.0) 10/28/18 05:06 RBC 5.33 M/mm3 (3.65-5.03) H 10/28/18 05:06 Hgb 12.8 gm/dl (11.8-15.2) 10/28/18 05:06 Hct 40.3 % (35.5-45.6) 10/28/18 05:06 MCV 76 fl (84-94) L 10/28/18 05:06 MCH 24 pg (28-32) L 10/28/18 05:06 MCHC 32 % (32-34) 10/28/18 05:06 RDW 20.2 % (13.2-15.2) H 10/28/18 05:06 Plt Count 272 K/mm3 (140-440) 10/28/18 05:06 Lymph % (Auto) 15.1 % (13.4-35.0) 10/28/18 05:06 [place] % (Auto) 7.4 % (0.0-7.3) H 10/28/18 05:06 Eos % (Auto) 0.1 % (0.0-4.3) 10/28/18 05:06 Baso % (Auto) 0.1 % (0.0-1.8) 10/28/18 05:06 Lymph # 1.5 K/mm3 (1.2-5.4) 10/28/18 05:06 [place] # 0.7 K/mm3 (0.0-0.8) 10/28/18 05:06 Eos # 0.0 K/mm3 (0.0-0.4) 10/28/18 05:06 Baso # 0.0 K/mm3 (0.0-0.1) 10/28/18 05:06 Seg Neutrophils % 77.3 % (40.0-70.0) H 10/28/18 05:06 Seg Neutrophils # 7.5 K/mm3 (1.8-7.7) 10/28/18 05:06 PT 19.7 Sec. (12.2-14.9) H 10/30/18 06:21 INR 1.62 (0.87-1.13) H 10/30/18 06:21 APTT 52.5 Sec. (24.2-36.6) H 10/25/18 10:35 POC ABG pH 7.413 (7.35-7.45) 10/25/18 11:00 POC ABG pCO2 36.7 (35-45) 10/25/18 11:00 POC ABG pO2 72 (80-105) L 10/25/18 11:00 POC ABG HCO3 23.4 10/25/18 11:00 POC ABG Total CO2 24 10/25/18 11:00 POC ABG O2 Sat 95 10/25/18 11:00 POC ABG Base Excess -1 10/25/18 11:00 FiO2 50 % 10/25/18 11:00 Sodium 135 mmol/L (137-145) L 10/28/18 05:06 Potassium 4.5 mmol/L (3.6-5.0) 10/28/18 05:06 Chloride 97.7 mmol/L (98-107) L 10/28/18 05:06 Carbon Dioxide 29 mmol/L (22-30) D 10/28/18 05:06 Anion Gap 13 mmol/L 10/28/18 05:06 BUN 18 mg/dL (9-20) 10/28/18 05:06 Creatinine 0.8 mg/dL (0.8-1.5) 10/28/18 05:06 Estimated GFR > 60 ml/min 10/28/18 05:06 BUN/Creatinine Ratio 23 % 10/28/18 05:06 Glucose 146 mg/dL (75-100) H 10/28/18 05:06 Calcium 9.1 mg/dL (8.4-10.2) 10/28/18 05:06 Troponin T < 0.010 ng/mL (0.00-0.029) 10/25/18 20:49 C-Reactive Protein 3.40 mg/dL (0.00-1.30) H 10/26/18 14:43 NT-Pro-B Natriuret Pep 4003 pg/mL (0-900) H 10/25/18 10:35 Rheumatoid Factor 254 IU/ml (0-13) H 10/30/18 15:08 Nutrition/Malnutrition Assess - Dietary Evaluation Nutrition/Malnutrition Findings: Nutrition Notes Start: 10/30/18 16:15 Freq: Status: Active Protocol: Document 10/30/18 16:15 RM (Rec: 10/30/18 16:16 RM [id number]) Nutrition Notes Need for Assessment generated from: Education Initial or Follow up Brief Note Subjective/Other Information Pt screened for Coumadin/Vit K diet education. Pt already familiar with diet. Nutrition Intervention Revisit per MD consult or patient Sign Off request:
[2018-10-30] MEDS: COUMADIN PO SCH (18:12)
[2018-10-31] MEDS: LASIX PO SCH ×2 (05:31→18:02)
[2018-10-31 06:28] LABS: INR 1.77 (0.87-1.13)
[2018-10-31] MEDS: PULMICORT IH SCH ×2 (08:00→21:34)
[2018-10-31] MEDS: DUONEB *Not for PRN Use IH SCH ×3 (08:00→21:34)
[2018-10-31] MEDS: BROVANA NEBU IH SCH ×2 (08:00→21:34)
[2018-10-31] MEDS: ESBRIET 267 MG PO SCH ×3 (08:40→20:17)
[2018-10-31] MEDS: COZAAR PO SCH (09:50)
[2018-10-31] MEDS: SOLU-Medrol IV SCH ×2 (09:51→21:20)
[2018-10-31] MEDS: PEPCID PO SCH (09:51)
[2018-10-31] MEDS: NORVASC PO SCH (09:51)
[2018-10-31] MEDS: LOPRESSOR PO SCH ×2 (09:51→21:24)
[2018-10-31] MEDS: SODIUM CHLORIDE FLUSH SYRINGE 10 ML IV SCH ×2 (09:51→21:20)
[2018-10-31] MEDS: LEVAQUIN PO SCH (14:26)
[2018-10-31] MEDS: TESSALON PERLES PO SCH ×2 (14:26→18:01)
[2018-10-31] MEDS: COUMADIN PO SCH (18:01)
--- NOTE | 2018-10-31 18:18 | Progress Note ---
Assessment and Plan Assessment and plan: Patient is a 66-year-old man with a history of IPF with chronic hypoxic respiratory failure on 2 L oxygen during the day and 3 L oxygen at night, followed up by Dr. Nolan Meier, head usher at [place], on max dose of Esbriet. His pcp is Dr. Kumar from [facility], Patient was admitted for worsening respiratory failure, --Acute on chronic hypoxic respiratory failure; Oxygen titrate to O2 sats more than 90%, nebulizers, IV steroids, IV antibiotics --History of pulmonary fibrosis; moderate to severe pulmonary evaluation noted and appreciated Continue current management --History of COPD; oxygen nebulizers and IV steroids and IV antibiotics inhalation steroids,Pulmonary consult. --No evidence of congestive heart failure, EF 50-55% BNP >4000, shortness of breath symptoms probably secondary to pulmonary fibrosis Continue management, cardiology following --History of atrial fibrillation; rate controlled, continue current beta blockers Chronic anticoagulation with Coumadin, therapeutic INR[3.49] --DVT prophylaxis; patient on Coumadin Closely monitor the patient and adjust the management as needed Consults and recommendations noted and appreciated. History Interval history: Patient was seen and examined. Follow-up on current diagnosis of SOB. Overnight uneventful. Patient denies any chest pain, nausea/vomiting or severe headaches. Imaging, nursing note, chart, labs and old chart reviewed. Discussed with patient. Hospitalist Physical - Physical exam Narrative exam: Gen: WDWN, NAD, Awake, Alert, Orientated HEENT: NCAT, EOMI, PERRL, OP Clear Neck: supple, no adenopathy, no thyromegaly, no JVD CVS/Heart: RRR, normal S1S2, pulses present bilaterally Chest/Lungs: diminished bs bilaterally, Symmetrical chest expansion, good air entry bilaterally GI/Abdomen: soft, NTND, good bowel sounds, no guarding or rebound /Bladder: no suprapubic tenderness, no CVA or paraspinal tenderness Extermity/Skin: no c/c/e, no obvious rash MSK: FROM x 4 Neuro: CN 2-12 grossly intact, no new focal deficits Psych: calm - Constitutional Vitals: Temp Pulse Resp BP Pulse Ox 98.3 F 78 18 133/77 93 10/31/18 09:39 10/31/18 17:31 10/31/18 15:19 10/31/18 17:31 10/31/18 17:31 General appearance: Present: no acute distress, well-nourished, obese Results - Labs CBC & Chem 7: 10/28/18 05:06 10/28/18 05:06 Labs: Laboratory Last Values WBC 9.7 K/mm3 (4.5-11.0) 10/28/18 05:06 RBC 5.33 M/mm3 (3.65-5.03) H 10/28/18 05:06 Hgb 12.8 gm/dl (11.8-15.2) 10/28/18 05:06 Hct 40.3 % (35.5-45.6) 10/28/18 05:06 MCV 76 fl (84-94) L 10/28/18 05:06 MCH 24 pg (28-32) L 10/28/18 05:06 MCHC 32 % (32-34) 10/28/18 05:06 RDW 20.2 % (13.2-15.2) H 10/28/18 05:06 Plt Count 272 K/mm3 (140-440) 10/28/18 05:06 Lymph % (Auto) 15.1 % (13.4-35.0) 10/28/18 05:06 [place] % (Auto) 7.4 % (0.0-7.3) H 10/28/18 05:06 Eos % (Auto) 0.1 % (0.0-4.3) 10/28/18 05:06 Baso % (Auto) 0.1 % (0.0-1.8) 10/28/18 05:06 Lymph # 1.5 K/mm3 (1.2-5.4) 10/28/18 05:06 [place] # 0.7 K/mm3 (0.0-0.8) 10/28/18 05:06 Eos # 0.0 K/mm3 (0.0-0.4) 10/28/18 05:06 Baso # 0.0 K/mm3 (0.0-0.1) 10/28/18 05:06 Seg Neutrophils % 77.3 % (40.0-70.0) H 10/28/18 05:06 Seg Neutrophils # 7.5 K/mm3 (1.8-7.7) 10/28/18 05:06 PT 21.0 Sec. (12.2-14.9) H 10/31/18 05:42 INR 1.77 (0.87-1.13) H 10/31/18 05:42 APTT 52.5 Sec. (24.2-36.6) H 10/25/18 10:35 POC ABG pH 7.413 (7.35-7.45) 10/25/18 11:00 POC ABG pCO2 36.7 (35-45) 10/25/18 11:00 POC ABG pO2 72 (80-105) L 10/25/18 11:00 POC ABG HCO3 23.4 10/25/18 11:00 POC ABG Total CO2 24 10/25/18 11:00 POC ABG O2 Sat 95 10/25/18 11:00 POC ABG Base Excess -1 10/25/18 11:00 FiO2 50 % 10/25/18 11:00 Sodium 135 mmol/L (137-145) L 10/28/18 05:06 Potassium 4.5 mmol/L (3.6-5.0) 10/28/18 05:06 Chloride 97.7 mmol/L (98-107) L 10/28/18 05:06 Carbon Dioxide 29 mmol/L (22-30) D 10/28/18 05:06 Anion Gap 13 mmol/L 10/28/18 05:06 BUN 18 mg/dL (9-20) 10/28/18 05:06 Creatinine 0.8 mg/dL (0.8-1.5) 10/28/18 05:06 Estimated GFR > 60 ml/min 10/28/18 05:06 BUN/Creatinine Ratio 23 % 10/28/18 05:06 Glucose 146 mg/dL (75-100) H 10/28/18 05:06 Calcium 9.1 mg/dL (8.4-10.2) 10/28/18 05:06 Troponin T < 0.010 ng/mL (0.00-0.029) 10/25/18 20:49 C-Reactive Protein 3.40 mg/dL (0.00-1.30) H 10/26/18 14:43 NT-Pro-B Natriuret Pep 4003 pg/mL (0-900) H 10/25/18 10:35 Rheumatoid Factor 254 IU/ml (0-13) H 10/30/18 15:08 Nutrition/Malnutrition Assess - Dietary Evaluation Nutrition/Malnutrition Findings: Nutrition Notes Start: 10/30/18 16:15 Freq: Status: Active Protocol: Document 10/30/18 16:15 RM (Rec: 10/30/18 16:16 RM [id number]) Nutrition Notes Need for Assessment generated from: Education Initial or Follow up Brief Note Subjective/Other Information Pt screened for Coumadin/Vit K diet education. Pt already familiar with diet. Nutrition Intervention Revisit per MD consult or patient Sign Off request:
--- NOTE | 2018-10-31 19:22 | Progress Note ---
Assessment and Plan Patient resting on 4 litres O2.O2 saturation 96% . This .Still complaining some shortness of breath.BIPAP stand by in the room.17/05, rate 16, FIO2 45%. - Patient Problems (1) Acute and chronic respiratory failure Current Visit: Yes Status: Acute Qualifiers: Respiratory failure complication: hypoxia Qualified Code(s): J96.21 - Acute and chronic respiratory failure with hypoxia Plan to address problem: O2 4 litres via nasal canula. BIPAP standby. 17/05, rate 16, FIO2 45%, Albuterol/atrovent aerosol treatments q 6 hours Continue I/V solumedrol. Continue warfarin, Monitor INR. Continue famotidine Continue Levaquin. (2) Pulmonary interstitial fibrosis Current Visit: Yes Status: Chronic Plan to address problem: Patient is on I/V solumedrol. Continue O2 supplementation. Recommend to get LINDA,Rhematoid factor, CANCA and CECILIA level (3) COPD exacerbation Current Visit: Yes Status: Acute Plan to address problem: O2 4 litres via nasal canula. BIPAP standby.17/05, rate 16, FIO2 45% Albuterol/atrovent aerosol treatments q 6 hours Continue I/V solumedrol. Continue warfarin, Monitor INR. Continue famotidine Continue Levaquin. (4) Coumadin toxicity Current Visit: Yes Status: Acute Plan to address problem: Monitor INR. To days INR 1.62 (5) Diabetes Current Visit: Yes Status: Chronic Plan to address problem: Management as per primary care. (6) HTN (hypertension) Current Visit: Yes Status: Chronic Qualifiers: Hypertension type: essential hypertension Qualified Code(s): I10 - Essential (primary) hypertension Plan to address problem: Management as per primary care. (7) Paroxysmal atrial fibrillation Current Visit: Yes Status: Chronic Plan to address problem: Patient is on coumadin (8) Sleep apnea Current Visit: Yes Status: Chronic Plan to address problem: BIPAP stand by in the room. 17/05, rate 16, FIO2 45%. Patient going on BIPAP during night time. Subjective Date of service: 10/31/18 Principal diagnosis: Ac on Ch Hypoxemic Resp failure; AE-COPD; Advanced pulmonary fibrosis; CAP Interval history: Patient resting on 4 litres O2.O2 saturation 96%.Still complaining some shortness of breath.BIPAP stand by in the room.16/8, rate 16, FIO2 45%. Objective Vital Signs - 12hr 10/31/18 10/31/18 10/31/18 08:00 08:09 09:16 Temperature Pulse Rate Pulse Rate [ 78 74 Anterior Bilateral Throughout] Respiratory Rate Respiratory 18 18 Rate [Anterior Bilateral Throughout] Blood Pressure O2 Sat by Pulse 100 Oximetry 10/31/18 10/31/18 10/31/18 09:39 13:15 15:09 Temperature 98.3 F Pulse Rate 76 85 Pulse Rate [ 70 Anterior Bilateral Throughout] Respiratory 18 Rate Respiratory 18 Rate [Anterior Bilateral Throughout] Blood Pressure 123/68 125/71 O2 Sat by Pulse 94 79 L Oximetry 10/31/18 10/31/18 15:19 17:31 Temperature Pulse Rate 78 Pulse Rate [ 72 Anterior Bilateral Throughout] Respiratory Rate Respiratory 18 Rate [Anterior Bilateral Throughout] Blood Pressure 133/77 O2 Sat by Pulse 93 Oximetry Constitutional: no acute distress, alert, other (elderly looking AAM withmildly increased resp effort at rest; normocephalic and atraumatic) Eyes: non-icteric ENT: oropharynx moist Neck: supple, no lymphadenopathy, no JVD Ascultation: Bilateral: diminished breath sounds, rales (inspiratory) Percussion: Bilateral: not dull Cardiovascular: regular rate and rhythm Gastrointestinal: normoactive bowel sounds, soft, non-tender, non-distended Integumentary: normal Extremities: no cyanosis, no edema, pulses normal, no ischemia or petechiae Neurologic: normal mental status, non-focal exam, pupils equal and round, motor strength normal and Psychiatric: mood appropriate, affect normal CBC and BMP: 10/28/18 05:06 10/28/18 05:06 ABG, PT/INR, D-dimer: ABG POC ABG pH 7.413 (7.35-7.45) 10/25/18 11:00 POC ABG pCO2 36.7 (35-45) 10/25/18 11:00 POC ABG pO2 72 (80-105) L 10/25/18 11:00 POC ABG HCO3 23.4 10/25/18 11:00 POC ABG Total CO2 24 10/25/18 11:00 POC ABG O2 Sat 95 10/25/18 11:00 PT/INR, D-dimer PT 21.0 Sec. (12.2-14.9) H 10/31/18 05:42 INR 1.77 (0.87-1.13) H 10/31/18 05:42 Abnormal lab findings: Abnormal Labs 10/25/18 10/25/18 10/25/18 10:35 10:35 10:35 RBC 5.25 H MCV 76 L MCH 24 L MCHC 31 L RDW 19.9 H Lymph % (Auto) 9.3 L [place] % (Auto) Lymph # 0.8 L Seg Neutrophils % 82.6 H PT 32.5 H INR 3.13 H APTT 52.5 H POC ABG pO2 Sodium Chloride Creatinine Glucose 128 H C-Reactive Protein NT-Pro-B Natriuret Pep 4003 H Rheumatoid Factor 10/25/18 10/26/18 10/26/18 11:00 04:29 04:29 RBC 5.75 H MCV 76 L MCH 24 L MCHC 31 L RDW 20.3 H Lymph % (Auto) [place] % (Auto) Lymph # 1.0 L Seg Neutrophils % 79.2 H PT INR APTT POC ABG pO2 72 L Sodium Chloride Creatinine 0.7 L Glucose 187 H C-Reactive Protein NT-Pro-B Natriuret Pep Rheumatoid Factor 10/26/18 10/26/18 10/27/18 11:49 14:43 05:08 RBC MCV MCH MCHC RDW Lymph % (Auto) [place] % (Auto) Lymph # Seg Neutrophils % PT 35.0 H 35.3 H INR 3.45 H 3.49 H APTT POC ABG pO2 Sodium Chloride Creatinine Glucose C-Reactive Protein 3.40 H NT-Pro-B Natriuret Pep Rheumatoid Factor 10/28/18 10/28/18 10/28/18 05:06 05:06 05:06 RBC 5.33 H MCV 76 L MCH 24 L MCHC RDW 20.2 H Lymph % (Auto) [place] % (Auto) 7.4 H Lymph # Seg Neutrophils % 77.3 H PT 32.2 H INR 3.09 H APTT POC ABG pO2 Sodium 135 L Chloride 97.7 L Creatinine Glucose 146 H C-Reactive Protein NT-Pro-B Natriuret Pep Rheumatoid Factor 10/29/18 10/30/18 10/30/18 06:21 06:21 15:08 RBC MCV MCH MCHC RDW Lymph % (Auto) [place] % (Auto) Lymph # Seg Neutrophils % PT 24.0 H 19.7 H INR 2.10 H 1.62 H APTT POC ABG pO2 Sodium Chloride Creatinine Glucose C-Reactive Protein NT-Pro-B Natriuret Pep Rheumatoid Factor 254 H 10/31/18 05:42 RBC MCV MCH MCHC RDW Lymph % (Auto) [place] % (Auto) Lymph # Seg Neutrophils % PT 21.0 H INR 1.77 H APTT POC ABG pO2 Sodium Chloride Creatinine Glucose C-Reactive Protein NT-Pro-B Natriuret Pep Rheumatoid Factor Allied health notes reviewed: nursing
[2018-11-01] MEDS: TESSALON PERLES PO SCH ×3 (00:39→17:04)
[2018-11-01 05:19] LABS: INR 2.12 (0.87-1.13)
[2018-11-01] MEDS: LASIX PO SCH ×2 (06:51→17:05)
--- NOTE | 2018-11-01 09:12 | Progress Note ---
Assessment and Plan Acute on chronic hypoxemic respiratory failure. Pulmonary fibrosis with acute excerbation Possible occult pneumonia, community acquired. Elevated serum BNP. History of cardiomyopathy. History of diabetes. Hypertension. Hyperlipidemia. History of paroxysmal atrial fibrillation - continue systemic steroids, with taper to baseline of 10mg - continue supplemental oxygen and wean to keep O2 sats > 90% - continue empiric AB's -continue Esbriet - continue qhs BIPAP - continue GI prophylaxis - continue anticoagulation - PT/OT as tolerated Called his director of transportation and an appointment is scheduled for him for Monday at 945am He needs evaluation for continuous flow oxygen with ambulation and exercise. Discussed care plan with Dr. Ruano and the patient. OK for discharge planning from pulmonary standpoint. He appears to be back to his baseline Subjective Date of service: 11/01/18 Principal diagnosis: Ac on Ch Hypoxemic Resp failure; AE-COPD; Advanced pulmonary fibrosis; CAP Interval history: Patient is seen today for: Acute on chronic hypoxemic respiratory failure; Acute chronic obstructive pulmonary disease exacerbation; Advanced pulmonary fibrosis; Possible occult pneumonia (CAP); Elevated serum BNP. Seen and examined at bedside; 24hour events reviewed; nursing and respiratory care staff consulted; no adverse overnight events reported to me; feels much better; episodes of desaturation on exertion, slowly recovers Objective Vital Signs - 12hr 10/31/18 10/31/18 10/31/18 21:24 21:35 21:48 Temperature Pulse Rate 61 Pulse Rate [ 71 67 Anterior Bilateral Throughout] Respiratory Rate Respiratory 16 18 Rate [Anterior Bilateral Throughout] Blood Pressure 123/70 O2 Sat by Pulse 96 Oximetry 10/31/18 11/01/18 11/01/18 23:42 01:09 02:27 Temperature 97.8 F 97.6 F Pulse Rate 69 65 72 Pulse Rate [ Anterior Bilateral Throughout] Respiratory 18 20 Rate Respiratory Rate [Anterior Bilateral Throughout] Blood Pressure 144/84 130/90 O2 Sat by Pulse 94 94 Oximetry 11/01/18 11/01/18 07:54 08:00 Temperature 97.5 F L Pulse Rate 69 64 Pulse Rate [ Anterior Bilateral Throughout] Respiratory 18 Rate Respiratory Rate [Anterior Bilateral Throughout] Blood Pressure 150/89 O2 Sat by Pulse 91 Oximetry Constitutional: no acute distress, alert, other (elderly looking AAM withmildly increased resp effort at rest; normocephalic and atraumatic, cherry facies) Eyes: non-icteric ENT: oropharynx moist Neck: supple, no lymphadenopathy, no JVD Effort: mildly labored Ascultation: Bilateral: diminished breath sounds, rales (inspiratory) Percussion: Bilateral: not dull Cardiovascular: regular rate and rhythm, other (S1,S2, no murmurs, gallops or rubs) Gastrointestinal: normoactive bowel sounds, soft, non-tender, non-distended Integumentary: normal Extremities: no cyanosis, no edema, pulses normal, no ischemia or petechiae Neurologic: normal mental status, non-focal exam, pupils equal and round, motor strength normal and Psychiatric: mood appropriate, anxious CBC and BMP: 10/28/18 05:06 10/28/18 05:06 ABG, PT/INR, D-dimer: ABG POC ABG pH 7.413 (7.35-7.45) 10/25/18 11:00 POC ABG pCO2 36.7 (35-45) 10/25/18 11:00 POC ABG pO2 72 (80-105) L 10/25/18 11:00 POC ABG HCO3 23.4 10/25/18 11:00 POC ABG Total CO2 24 10/25/18 11:00 POC ABG O2 Sat 95 10/25/18 11:00 PT/INR, D-dimer PT 24.1 Sec. (12.2-14.9) H 11/01/18 04:41 INR 2.12 (0.87-1.13) H 11/01/18 04:41 Abnormal lab findings: Abnormal Labs 10/25/18 10/25/18 10/25/18 10:35 10:35 10:35 RBC 5.25 H MCV 76 L MCH 24 L MCHC 31 L RDW 19.9 H Lymph % (Auto) 9.3 L [place] % (Auto) Lymph # 0.8 L Seg Neutrophils % 82.6 H PT 32.5 H INR 3.13 H APTT 52.5 H POC ABG pO2 Sodium Chloride Creatinine Glucose 128 H C-Reactive Protein NT-Pro-B Natriuret Pep 4003 H Rheumatoid Factor 10/25/18 10/26/18 10/26/18 11:00 04:29 04:29 RBC 5.75 H MCV 76 L MCH 24 L MCHC 31 L RDW 20.3 H Lymph % (Auto) [place] % (Auto) Lymph # 1.0 L Seg Neutrophils % 79.2 H PT INR APTT POC ABG pO2 72 L Sodium Chloride Creatinine 0.7 L Glucose 187 H C-Reactive Protein NT-Pro-B Natriuret Pep Rheumatoid Factor 10/26/18 10/26/18 10/27/18 11:49 14:43 05:08 RBC MCV MCH MCHC RDW Lymph % (Auto) [place] % (Auto) Lymph # Seg Neutrophils % PT 35.0 H 35.3 H INR 3.45 H 3.49 H APTT POC ABG pO2 Sodium Chloride Creatinine Glucose C-Reactive Protein 3.40 H NT-Pro-B Natriuret Pep Rheumatoid Factor 10/28/18 10/28/18 10/28/18 05:06 05:06 05:06 RBC 5.33 H MCV 76 L MCH 24 L MCHC RDW 20.2 H Lymph % (Auto) [place] % (Auto) 7.4 H Lymph # Seg Neutrophils % 77.3 H PT 32.2 H INR 3.09 H APTT POC ABG pO2 Sodium 135 L Chloride 97.7 L Creatinine Glucose 146 H C-Reactive Protein NT-Pro-B Natriuret Pep Rheumatoid Factor 10/29/18 10/30/18 10/30/18 06:21 06:21 15:08 RBC MCV MCH MCHC RDW Lymph % (Auto) [place] % (Auto) Lymph # Seg Neutrophils % PT 24.0 H 19.7 H INR 2.10 H 1.62 H APTT POC ABG pO2 Sodium Chloride Creatinine Glucose C-Reactive Protein NT-Pro-B Natriuret Pep Rheumatoid Factor 254 H 10/31/18 11/01/18 05:42 04:41 RBC MCV MCH MCHC RDW Lymph % (Auto) [place] % (Auto) Lymph # Seg Neutrophils % PT 21.0 H 24.1 H INR 1.77 H 2.12 H APTT POC ABG pO2 Sodium Chloride Creatinine Glucose C-Reactive Protein NT-Pro-B Natriuret Pep Rheumatoid Factor Chest x-ray: image reviewed Allied health notes reviewed: nursing
[2018-11-01] MEDS: NORVASC PO SCH (09:20)
[2018-11-01] MEDS: PEPCID PO SCH (09:20)
[2018-11-01] MEDS: SOLU-Medrol IV SCH (09:20)
[2018-11-01] MEDS: COZAAR PO SCH (09:21)
[2018-11-01] MEDS: LOPRESSOR PO SCH (09:21)
[2018-11-01] MEDS: SODIUM CHLORIDE FLUSH SYRINGE 10 ML IV SCH (09:22)
[2018-11-01] MEDS: ESBRIET 267 MG PO SCH ×2 (09:25→15:18)
[2018-11-01] MEDS: PULMICORT IH SCH (10:30)
[2018-11-01] MEDS: BROVANA NEBU IH SCH (10:31)
[2018-11-01] MEDS: DUONEB *Not for PRN Use IH SCH ×2 (10:31→15:43)
--- NOTE | 2018-11-01 12:00 | Discharge Summary ---
Providers - Providers Date of Admission: 10/25/18 12:14 Date of discharge: 11/01/18 Attending physician: LEORA BENOIT 10/25/18 Consult to Cardiac Rehabilitation [CONS] Routine Reason For Exam: Phase I 10/25/18 15:30 Consult to Physician [CONS] Routine Comment: Consulting Provider: RAMONA VALENTINO Physician Instructions: Reason For Exam: chf 10/26/18 10:33 Consult to Physician [CONS] Routine Comment: Consulting Provider: LISBETH PAULINO Physician Instructions: Reason For Exam: SOB, h/o pulm fibrosis 10/27/18 12:50 Physical Therapy Evaluation and Treat [CONS] Routine Comment: Reason For Exam: gen debility Primary care physician: AKBAR SANZ Hospitalization Condition: Fair Hospital course: Patient is a 66-year-old man with a history of IPF with chronic hypoxic respiratory failure on 2 L oxygen during the day and 3 L oxygen at night, followed up by Dr. 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 His pcp is Dr. Kumar from [facility], Patient was admitted for worsening respiratory failure, --Acute on chronic hypoxic respiratory failure due to Advance pulmonary fibrosis; Oxygen titrate to O2 sats more than 90%, nebulizers, IV steroids, IV antibiotics --Pulmonary fibrosis flare; moderate to severe pulmonary evaluation noted and appreciated Continue current management --AE COPD with pneumonia on CXR; oxygen nebulizers and IV steroids and IV antibiotics inhalation steroids,Pulmonary consult. --No evidence of congestive heart failure, EF 50-55% BNP >4000, shortness of breath symptoms probably secondary to pulmonary fibrosis Continue management, cardiology following --Atrial fibrillation; rate controlled, continue current beta blockers Chronic anticoagulation with Coumadin, therapeutic INR[3.49] --Suspected Severe Malnutrition from end stage pulmonary fibrosis, poa, hospice recommended Patient has been told that the pulmonary fibrosis is not going to get any better and he would like HOME HOSPICE Disposition: DC-50 TO HOSPICE (HOME) Time spent for discharge: 37 minutes Core Measure Documentation - Palliative Care Palliative Care/ Comfort Measures: Not Applicable - Core Measures Any of the following diagnoses?: none - VTE Discharge Requirements Deep Vein Thrombosis/Pulmonary Embolism Present on Admission: No Has pt received <5 days of overlap therapy or INR<2.0: No Anticoagulant overlap therapy prescribed at discharge: No Contraindication No Overlap Therapy order at DC: Not Indicated Exam - Physical Exam Narrative exam: Gen: WDWN, NAD, Awake, Alert, Orientated HEENT: NCAT, EOMI, PERRL, OP Clear Neck: supple, no adenopathy, no thyromegaly, no JVD CVS/Heart: RRR, normal S1S2, pulses present bilaterally Chest/Lungs: diminished bs bilaterally, Symmetrical chest expansion, good air entry bilaterally GI/Abdomen: soft, NTND, good bowel sounds, no guarding or rebound /Bladder: no suprapubic tenderness, no CVA or paraspinal tenderness Extermity/Skin: no c/c/e, no obvious rash MSK: FROM x 4 Neuro: CN 2-12 grossly intact, no new focal deficits Psych: calm - Constitutional Vitals: Temp Pulse Resp BP Pulse Ox 97.5 F L 89 18 150/89 97 11/01/18 07:54 11/01/18 10:31 11/01/18 10:31 11/01/18 09:20 11/01/18 11:41 Plan Activity: other (no strenous activity) Diet: low salt Special Instructions: home oxygen via, home hospice Durable Medical Equipment Needed Upon Discharge: Oxygen Follow up with: AKBAR SANZ DO [Primary Care Provider] - 7 Days LISBETH PAULINO MD [Staff Physician] - 7 Days RAMONA VALENTINO MD [Staff Physician] - 7 Days Forms: Warfarin Discharge Instruction Prescriptions: RX: AtorvaSTATin [Lipitor] 20 mg PO QHS #30 tablet RX: Arformoterol Nebu [Brovana Nebu] 15 mcg IH Q12HRT 30 Days ml RX: Benzonatate [Tessalon Perles] 100 mg PO Q8H 7 Days #21 capsule RX: Budesonide [Pulmicort Respules] 0.5 mg IH Q12HRT 30 Days nebu RX: levoFLOXacin [Levaquin TAB] 500 mg PO Q24H 3 Days tablet RX: Metoprolol [Lopressor TAB] 37.5 mg PO BID 30 Days tablet RX: predniSONE [Deltasone] 1 dose PO QDAY 30 Days tablet RX: Warfarin [Coumadin] 4 mg PO DAILY@1700 #30 tablet
[2018-11-01 13:38] VITALS: BP 124/74
[2018-11-01] MEDS: LEVAQUIN PO SCH (15:17)
[2018-11-01] MEDS: COUMADIN PO SCH (16:58)
[2018-11-03 12:37] LABS: ANA Screen, IFA Negative (Negative)
[2018-11-05 19:48] LABS: Myeloperoxidase Antibody <1.0 AI (<1.0)
== END 2018-11-01 17:37 | disposition hospice, home (50) | DRG 196 ==
LOC: ED 09:44 → 4A 12:14 → 2B-ACE 10-31 23:47
PROVIDERS: ADMIT Internal Medicine; ATTEND Internal Medicine
PROC: 4A033R1 Measurement of Arterial Saturation, Peripheral, Percutaneous Approach (ICD-10-PCS; principal; 2018-10-25)
PROC: 5A09357 Assistance with Respiratory Ventilation, Less than 24 Consecutive Hours, Continuous Positive Airway Pressure (ICD-10-PCS; 2018-10-26)
PROC: 5A09357 Assistance with Respiratory Ventilation, Less than 24 Consecutive Hours, Continuous Positive Airway Pressure (ICD-10-PCS; 2018-10-27)
PROC: 5A09357 Assistance with Respiratory Ventilation, Less than 24 Consecutive Hours, Continuous Positive Airway Pressure (ICD-10-PCS; 2018-10-28)
PROC: 5A09357 Assistance with Respiratory Ventilation, Less than 24 Consecutive Hours, Continuous Positive Airway Pressure (ICD-10-PCS; 2018-10-29)
DX: J84.112 Idiopathic pulmonary fibrosis (principal); J18.9 Pneumonia, unspecified organism; J96.21 Acute and chronic respiratory failure with hypoxia; E43 Unspecified severe protein-calorie malnutrition; I50.33 Acute on chronic diastolic (congestive) heart failure; J44.1 Chronic obstructive pulmonary disease with (acute) exacerbation; I50.30 Unspecified diastolic (congestive) heart failure; J44.0 Chronic obstructive pulmonary disease with (acute) lower respiratory infection; I42.9 Cardiomyopathy, unspecified; Z68.1 Body mass index [BMI] 19.9 or less, adult; E11.9 Type 2 diabetes mellitus without complications; I11.0 Hypertensive heart disease with heart failure; T45.515A Adverse effect of anticoagulants, initial encounter; Y92.89 Other specified places as the place of occurrence of the external cause; I48.0 Paroxysmal atrial fibrillation; E78.5 Hyperlipidemia, unspecified; Z87.891 Personal history of nicotine dependence; Z99.81 Dependence on supplemental oxygen
CPT/HCPCS: 36415; 71045; 80048; 82164; 82803; 83880; 84484; 85025; 85610; 85730; 86021; 86038; 86140; 86618; 87070; 87116; 87205; 93005; 93010; 94640; 94660; 94760; G0378; A9270-GY; J2920

== ENCOUNTER 2018-11-27 11:27 | Inpatient (IN) | payer MEDICARE ==
[2018-11-27] MEDS ORDERED: PROVENTIL IH ONE (12:00)
[2018-11-27] MEDS ORDERED: ATROVENT IH ONE (12:00)
[2018-11-27] MEDS ORDERED: NACL 0.9% 500 ML 500 ML IV ONE (12:01)
[2018-11-27] MEDS: LEVAQUIN 750MG/150ML 750 MG/150 ML BAG IV SCH ×2 (12:17→13:01)
[2018-11-27 13:06] LABS: Basophils % (Auto) 0.5 % (0.0-1.8); Eosinophils % (Auto) 0.2 % (0.0-4.3); Hematocrit 39.9 % (35.5-45.6); Hemoglobin 12.6 gm/dl (11.8-15.2); Lymphocytes # (Auto) 0.8 K/mm3 (1.2-5.4); Lymphocytes % (Auto) 8.4 % (13.4-35.0); Mean Corpuscular HGB Conc 32 % (32-34); Mean Corpuscular Volume 77 fl (84-94); Monocytes # (Auto) 0.5 K/mm3 (0.0-0.8); Monocytes % (Auto) 5.3 % (0.0-7.3); Platelet Count 205 K/mm3 (140-440); Red Blood Count 5.18 M/mm3 (3.65-5.03); Red Cell Distribution Width 21.8 % (13.2-15.2)
--- NOTE | 2018-11-27 13:10 | XRay Report ---
AP CHEST: HISTORY: Short of breath The interstitium there is prominent suggesting underlying fibrosis. No consolidation, mass, pleural effusion or pneumothorax. Overlying heart size is stable. IMPRESSION: Pulmonary fibrosis. No significant change since 10/25/18.
[2018-11-27 13:27] LABS: Alanine Aminotransferase 13 units/L (7-56); Albumin 3.3 g/dL (3.9-5); BUN/Creatinine Ratio 18; Blood Urea Nitrogen 14 mg/dL (9-20); Hemolysis Index 5
--- NOTE | 2018-11-27 13:30 | Emergency Department Report ---
ED General Adult HPI - General Chief complaint: Dyspnea/Respdistress Stated complaint: DIFFICULTY BREATHING Time Seen by Provider: 11/27/18 11:53 Source: patient Mode of arrival: Ambulatory Limitations: No Limitations - History of Present Illness Initial comments: Patient presents to the emergency department to complaint of shortness of breath. Patient has a history of pulmonary fibrosis and normally wears 5 L oxygen at home but today his O2 sats dropped to 57% and only increased to 70% with a breathing treatment. EMS endorses the low O2 sats on their arrival. Patient has chest pain, no rhonchi, or headache. -: Sudden Severity scale (0 -10): 0 Consistency: constant Improves with: none Worsens with: none Associated Symptoms: denies other symptoms Treatments Prior to Arrival: none - Related Data Home Medications Medication Instructions Recorded Confirmed Last Taken Ergocalciferol [Vitamin D2] 50,000 units PO 1XW 05/15/18 11/27/18 Unknown FLUoxetine [PROzac] 40 mg PO QDAY 05/15/18 11/27/18 Unknown Omeprazole 40 mg PO DAILY 05/15/18 11/27/18 Unknown ALBUTEROL NEB's [Proventil 0.083% 2.5 mg IH Q6H PRN 10/25/18 11/27/18 Unknown NEBS] Albuterol Sulfate [Ventolin Hfa] 2 puff IH Q4-6H 10/25/18 11/27/18 Unknown Furosemide [Lasix] 20 mg PO BID 10/25/18 11/27/18 Unknown Ipratropium [Atrovent NEB] 0.5 mg IH Q6H 10/25/18 11/27/18 Unknown Pirfenidone [Esbriet] 801 mg PO TIDWM 10/25/18 11/27/18 Unknown Previous Rx's Medication Instructions Recorded Last Taken Type amLODIPine [Norvasc] 5 mg PO DAILY #30 day 06/30/17 Unknown Rx Acetaminophen [Acetaminophen TAB] 650 mg PO Q4H PRN #15 tablet 11/01/18 Unknown Rx Arformoterol Nebu [Brovana Nebu] 15 mcg IH Q12HRT 30 Days ml 11/01/18 Unknown Rx AtorvaSTATin [Lipitor] 20 mg PO QHS #30 tablet 11/01/18 Unknown Rx Budesonide [Pulmicort Respules] 0.5 mg IH Q12HRT 30 Days nebu 11/01/18 Unknown Rx Famotidine [Pepcid] 20 mg PO QDAY tablet 11/01/18 Unknown Rx Losartan [Cozaar] 25 mg PO DAILY #30 11/01/18 05/14/18 Rx Metoprolol [Lopressor TAB] 37.5 mg PO BID 30 Days tablet 11/01/18 Unknown Rx Warfarin [Coumadin] 4 mg PO DAILY@1700 #30 tablet 11/01/18 Unknown Rx predniSONE [Deltasone] 1 dose PO QDAY 30 Days tablet 11/01/18 Unknown Rx Allergies Allergy/AdvReac Type Severity Reaction Status Date / Time No Known Allergies Allergy Verified 06/24/17 11:13 ED Review of Systems ROS: Stated complaint: DIFFICULTY BREATHING Other details as noted in HPI Comment: All other systems reviewed and negative Constitutional: denies: chills, fever Eyes: denies: eye pain, eye discharge, vision change ENT: denies: ear pain, throat pain Respiratory: shortness of breath. denies: cough, wheezing Cardiovascular: denies: chest pain, palpitations Endocrine: no symptoms reported Gastrointestinal: denies: abdominal pain, nausea, diarrhea Genitourinary: denies: urgency, dysuria Musculoskeletal: denies: back pain, joint swelling, arthralgia Skin: denies: rash, lesions Neurological: denies: headache, weakness, paresthesias Psychiatric: denies: anxiety, depression Hematological/Lymphatic: denies: easy bleeding, easy bruising ED Past Medical Hx - Past Medical History Hx Hypertension: Yes Hx Congestive Heart Failure: Yes Hx Diabetes: Yes Hx COPD: Yes Hx HIV: No Additional medical history: Idiopathic pulmonary fibrosis, elevated cholesterol,afib - Surgical History Additional Surgical History: hand - Social History Smoking Status: Never Smoker Substance Use Type: None - Medications Home Medications: Home Medications Medication Instructions Recorded Confirmed Last Taken Type amLODIPine [Norvasc] 5 mg PO DAILY #30 day 06/30/17 11/27/18 Unknown Rx Ergocalciferol [Vitamin D2] 50,000 units PO 1XW 05/15/18 11/27/18 Unknown History FLUoxetine [PROzac] 40 mg PO QDAY 05/15/18 11/27/18 Unknown History Omeprazole 40 mg PO DAILY 05/15/18 11/27/18 Unknown History ALBUTEROL NEB's [Proventil 0.083% 2.5 mg IH Q6H PRN 10/25/18 11/27/18 Unknown History NEBS] Albuterol Sulfate [Ventolin Hfa] 2 puff IH Q4-6H 10/25/18 11/27/18 Unknown H istory Furosemide [Lasix] 20 mg PO BID 10/25/18 11/27/18 Unknown History Ipratropium [Atrovent NEB] 0.5 mg IH Q6H 10/25/18 11/27/18 Unknown History Pirfenidone [Esbriet] 801 mg PO TIDWM 10/25/18 11/27/18 Unknown History Acetaminophen [Acetaminophen TAB] 650 mg PO Q4H PRN #15 tablet 11/01/18 11/27/18 Unknown Rx Arformoterol Nebu [Brovana Nebu] 15 mcg IH Q12HRT 30 Days ml 11/01/18 11/27/18 Unknown Rx AtorvaSTATin [Lipitor] 20 mg PO QHS #30 tablet 11/01/18 11/27/18 Unknown Rx Budesonide [Pulmicort Respules] 0.5 mg IH Q12HRT 30 Days nebu 11/01/18 11/27/18 Unknown Rx Famotidine [Pepcid] 20 mg PO QDAY tablet 11/01/18 11/27/18 Unknown Rx Losartan [Cozaar] 25 mg PO DAILY #30 11/01/18 11/27/18 05/14/18 Rx Metoprolol [Lopressor TAB] 37.5 mg PO BID 30 Days tablet 11/01/18 11/27/18 Unknown Rx Warfarin [Coumadin] 4 mg PO DAILY@1700 #30 tablet 11/01/18 11/27/18 Unknown Rx predniSONE [Deltasone] 1 dose PO QDAY 30 Days tablet 11/01/18 11/27/18 Unknown Rx ED Physical Exam - General Limitations: No Limitations General appearance: alert, in no apparent distress - Head Head exam: Present: atraumatic, normocephalic - Eye Eye exam: Present: normal appearance, PERRL, EOMI - ENT ENT exam: Present: mucous membranes moist - Neck Neck exam: Present: normal inspection - Respiratory Respiratory exam: Present: normal lung sounds bilaterally, rales. Absent: respiratory distress, wheezes - Cardiovascular Cardiovascular Exam: Present: regular rate, normal rhythm. Absent: systolic murmur, diastolic murmur, rubs, gallop - GI/Abdominal GI/Abdominal exam: Present: soft, normal bowel sounds. Absent: distended, t enderness - Rectal Rectal exam: Present: deferred - Extremities Exam Extremities exam: Present: normal inspection - Back Exam Back exam: Present: normal inspection - Neurological Exam Neurological exam: Present: alert, oriented X3, CN II-XII intact. Absent: motor sensory deficit - Psychiatric Psychiatric exam: Present: normal affect, normal mood - Skin Skin exam: Present: warm, dry, intact, normal color. Absent: rash ED Course Vital Signs 11/27/18 11/27/18 11/27/18 11:55 12:31 14:15 Temperature 98 F Pulse Rate 74 Pulse Rate [ 71 78 Anterior Bilateral Throughout] Respiratory 20 Rate Respiratory 20 20 Rate [Anterior Bilateral Throughout] Blood Pressure 147/92 Blood Pressure [Left] O2 Sat by Pulse 99 Oximetry 11/27/18 14:20 Temperature Pulse Rate 79 Pulse Rate [ Anterior Bilateral Throughout] Respiratory 16 Rate Respiratory Rate [Anterior Bilateral Throughout] Blood Pressure Blood Pressure 170/106 [Left] O2 Sat by Pulse 92 Oximetry ED Medical Decision Making - Lab Data Result diagrams: 11/27/18 12:42 11/27/18 12:42 - EKG Data -: EKG Interpreted by Ar EKG shows normal: sinus rhythm Rate: normal - Radiology Data Radiology results: report reviewed - Medical Decision Making Continuous breathing treatment done Results discussed with patient and his Amirah concerned that the patient possibly had an abscess on his bottom I was chaperoned by nurse Luis Manuel Juarez and there is no abscess of the perineum, little cleft or buttocks Critical care time in (mins) excluding proc time.: 45 Critical care attestation.: If time is entered above; I have spent that time in minutes in the direct care of this critically ill patient, excluding procedure time. ED Disposition Clinical Impression: Dyspnea Disposition: DC-09 OP ADMIT IP TO THIS HOSP Is pt being admited?: Yes Does the pt Need Aspirin: No Condition: Fair Referrals: NADEEM CAMPOVERDE [Other] - 3-5 Days
[2018-11-27 13:36] LABS: Bilirubin,Urine NEG (Negative); Blood,Urine NEG (Negative); Color,Urine Colorless (Yellow); Protein,Urine <15 mg/dL mg/dL (Negative); Urobilinogen,Urine < 2.0 mg/dL (<2.0)
--- NOTE | 2018-11-27 15:44 | History and Physical Report ---
History of Present Illness Chief complaint: 68 YO Male with Atrial Fib, COPD, DM, HTN, HLD, Pulmonary Fibrosis, Chronic Respiratory Failure on 5L Home oxygen presents to ED for evaluation. Pt states that he has experienced shortness of breath over the past 2 days with worsening symptoms over the past 10 hours. Pt reports a pulse oximetry of 50% this morning. EMS notified, and upon arrival the patient was found to be in distress with a pulse oximetry in the 50's. Pt transported to [facility] for further care and evaluation. Pt seen and evaluated in ED and found to have Acute Respiratory Failure as well as CHF Decompensation. Cardiology consulted in ED. Pt denies fever, chills, CP, Palpitation, NVD, Trauma, BRBPR, unintentional weight loss, night sweats, or recent ill contacts. Past History Past Medical History: atrial fib, COPD, diabetes, hypertension Past Surgical History: No surgical history (reviewed) Social history: Family history: hypertension History of present illness: 68 YO Male with Atrial Fib, COPD, DM, HTN, HLD, Pulmonary Fibrosis, Chronic Respiratory Failure on 5L Home oxygen presents to ED for evaluation. Pt states that he has experienced shortness of breath over the past 2 days with worsening symptoms over the past 1 day. Pt acknowledges increased coughing with increased sputum production. Pt transported to [facility] by family for further care and evaluation and upon arrival the patient was found to be in distress with a pulse oximetry in the 50's. Pt seen and evaluated in ED and found to have Acute Respiratory Failure. Pt denies fever, chills, CP, Palpitation, NVD, Trauma, BRBPR, unintentional weight loss, night sweats, or recent ill contacts. Pt admitted to IMCU and initiated on COPD Protocol. Past History Past Medical History: atrial fib, COPD, hypertension, hyperlipidemia, other (Pulmonary Fibrosis, Chronic Respiratory FAilure.) Past Surgical History: No surgical history, Other (reviewed) Social history: , lives with family. denies: smoking, alcohol abuse, prescription drug abuse Family history: hypertension Medications and Allergies Allergies Allergy/AdvReac Type Severity Reaction Status Date / Time No Known Allergies Allergy Verified 06/24/17 11:13 Home Medications Medication Instructions Recorded Confirmed Last Taken Type amLODIPine [Norvasc] 5 mg PO DAILY #30 day 06/30/17 11/27/18 Unknown Rx Ergocalciferol [Vitamin D2] 50,000 units PO 1XW 05/15/18 11/27/18 Unknown History FLUoxetine [PROzac] 40 mg PO QDAY 05/15/18 11/27/18 Unknown History Omeprazole 40 mg PO DAILY 05/15/18 11/27/18 Unknown History ALBUTEROL NEB's [Proventil 0.083% 2.5 mg IH Q6H PRN 10/25/18 11/27/18 Unknown History NEBS] Albuterol Sulfate [Ventolin Hfa] 2 puff IH Q4-6H 10/25/18 11/27/18 Unknown History Furosemide [Lasix] 20 mg PO BID 10/25/18 11/27/18 Unknown History Ipratropium [Atrovent NEB] 0.5 mg IH Q6H 10/25/18 11/27/18 Unknown History Pirfenidone [Esbriet] 801 mg PO TIDWM 10/25/18 11/27/18 Unknown History Acetaminophen [Acetaminophen TAB] 650 mg PO Q4H PRN #15 tablet 11/01/18 11/27/18 Unknown Rx Arformoterol Nebu [Brovana Nebu] 15 mcg IH Q12HRT 30 Days ml 11/01/18 11/27/18 Unknown Rx AtorvaSTATin [Lipitor] 20 mg PO QHS #30 tablet 11/01/18 11/27/18 Unknown Rx Budesonide [Pulmicort Respules] 0.5 mg IH Q12HRT 30 Days nebu 11/01/18 11/27/18 Unknown Rx Famotidine [Pepcid] 20 mg PO QDAY tablet 11/01/18 11/27/18 Unknown Rx Losartan [Cozaar] 25 mg PO DAILY #30 11/01/18 11/27/18 05/14/18 Rx Metoprolol [Lopressor TAB] 37.5 mg PO BID 30 Days tablet 11/01/18 11/27/18 Unknown Rx Warfarin [Coumadin] 4 mg PO DAILY@1700 #30 tablet 11/01/18 11/27/18 Unknown Rx predniSONE [Deltasone] 1 dose PO QDAY 30 Days tablet 11/01/18 11/27/18 Unknown Rx Active Meds: Active Medications Levofloxacin/Dextrose (Levaquin 750mg/150ml) 750 mg in 150 mls @ 100 mls/hr IV Q24HR FABIOLA; Protocol Last Admin: 11/27/18 13:01 Dose: 100 mls/hr Documented by: Review of Systems Constitutional: no weight loss, no weight gain, no fever, no chills Ears, nose, mouth and throat: no ear pain, no ear discharge, no tinnitis, no decreased hearing, no nose pain Cardiovascular: no chest pain, no orthopnea, no palpitations, no rapid/irregular heart beat Respiratory: shortness of breath, home oxygen, no cough, no cough with sputum, no excessive sputum Gastrointestinal: no abdominal pain, no nausea, no vomiting, no diarrhea Genitourinary Male: no hematuria, no flank pain, no discharge, no urinary frequency, no urinary hesitancy Rectal: no pain, no incontinence, no bleeding Musculoskeletal: no neck stiffness, no neck pain, no shooting arm pain, no arm numbness/tingling Integumentary: no rash, no pruritis, no redness, no sores, no wounds Neurological: no head injury, no transient paralysis, no paralysis, no weakness, no parathesias, no numbness Psychiatric: no anxiety, no memory loss, no change in sleep habits, no sleep disturbances, no insomnia, no hypersomnia Endocrine: no cold intolerance, no heat intolerance, no polyphagia, no excessive thirst, no polydipsia, no polyuria Hematologic/Lymphatic: no easy bruising, no easy bleeding, no lymphadenopathy, no lymphedema Allergic/Immunologic: no urticaria, no allergic rhinitis, no wheezing Exam - Constitutional Vitals: Temp Pulse Resp BP Pulse Ox 98 F 79 16 170/106 92 11/27/18 11:55 11/27/18 14:20 11/27/18 14:20 11/27/18 14:20 11/27/18 14:20 General appearance: Present: mild distress - EENT Eyes: Present: PERRL ENT: hearing intact, clear oral mucosa - Neck Neck: Present: supple, normal ROM - Respiratory Respiratory effort: labored Respiratory: bilateral: diminished, wheezing - Cardiovascular Heart Sounds: Present: S1 & S2. Absent: rub, click - Extremities Extremities: pulses symmetrical, No edema Peripheral Pulses: within normal limits - Abdominal General gastrointestinal: Present: soft, non-tender, non-distended, normal bowel sounds Male genitourinary: Present: normal - Integumentary Integumentary: Present: clear, warm, dry - Musculoskeletal Musculoskeletal: gait normal, strength equal bilaterally - Psychiatric Psychiatric: appropriate mood/affect, intact judgment & insight - Neurologic Neurologic: CNII-XII intact, moves all extremities Results - Labs CBC & Chem 7: 11/27/18 12:42 11/27/18 12:42 Labs: Abnormal lab results 11/27/18 11/27/18 11/27/18 Range/Units 12:42 12:42 12:42 RBC 5.18 H (3.65-5.03) M/mm3 MCV 77 L (84-94) fl MCH 24 L (28-32) pg RDW 21.8 H (13.2-15.2) % Lymph % (Auto) 8.4 L (13.4-35.0) % Lymph # 0.8 L (1.2-5.4) K/mm3 Seg Neutrophils % 85.6 H (40.0-70.0) % Seg Neutrophils # 8.3 H (1.8-7.7) K/mm3 POC ABG pCO2 (35-45) POC ABG pO2 (80-105) Glucose 185 H (75-100) mg/dL Lactic Acid 2.20 H* (0.7-2.0) mmol/L Albumin 3.3 L (3.9-5) g/dL 11/27/18 11/27/18 Range/Units 12:44 13:58 RBC (3.65-5.03) M/mm3 MCV (84-94) fl MCH (28-32) pg RDW (13.2-15.2) % Lymph % (Auto) (13.4-35.0) % Lymph # (1.2-5.4) K/mm3 Seg Neutrophils % (40.0-70.0) % Seg Neutrophils # (1.8-7.7) K/mm3 POC ABG pCO2 46.0 H (35-45) POC ABG pO2 338 H (80-105) Glucose (75-100) mg/dL Lactic Acid 3.70 H* (0.7-2.0) mmol/L Albumin (3.9-5) g/dL Assessment and Plan - Patient Problems (1) Acute and chronic respiratory failure Current Visit: No Status: Acute Qualifiers: Respiratory failure complication: hypoxia Qualified Code(s): J96.21 - Acute and chronic respiratory failure with hypoxia Plan to address problem: Admit to IMCU, ABG, Pulse oximetry, supplemental oxygen, nebulizer therapy, d dimer, chest x ray, CTA chest, CBC, CMP, NIPPV as clinically indicated (2) Pulmonary fibrosis Current Visit: Yes Status: Acute Plan to address problem: Supplemental oxygen, nebulizer therapy, steroid therapy, (3) Acidosis Current Visit: Yes Status: Acute Plan to address problem: supportive care, repeat bmp, IVF resuscitation therapy as tolerated, (4) COPD exacerbation Current Visit: No Status: Acute Plan to address problem: Supplemental oxygen, nebulizer, empiric antibiotic therapy, IV steroid therapy, chest x ray, pulse oximetry, (5) DVT prophylaxis Current Visit: Yes Status: Acute Plan to address problem: SCD to BLE while in bed.
[2018-11-27] MEDS ORDERED: MORPHINE IV PRN (15:59)
[2018-11-27] MEDS ORDERED: SODIUM CHLORIDE FLUSH SYRINGE 10 ML IV PRN (15:59)
[2018-11-27] MEDS ORDERED: PERCOCET 5/325 PO PRN (15:59)
[2018-11-27] MEDS ORDERED: SOLU-Medrol IV ONE (16:51)
--- NOTE | 2018-11-27 18:00 | Cat Scan Report ---
FINAL REPORT EXAM: CT ANGIO CHEST HISTORY: Dyspnea TECHNIQUE: Enhanced CT of the chest at 1.25 mm axial intervals following a pulmonary embolism protoc ol. Coronal and sagittal imaging were also obtained. Coronal oblique MIP projections were obtained. Contrast: 100 ml of Omnipaque 350 given IV. PRIORS: CT chest 05/15/2018 FINDINGS: There is no evidence for pulmonary embolism in the main pulmonary artery, right and left pulmonary ar teries or their major distributions. However, CT does not exclude distal pulmonary emboli. The pulmon rosemary arteries are prominent. The main pulmonary trunk measures 3.1 cm. There is diffuse interstitial prominence throughout both lungs. Numerous bulla are again noted bilate rally. Findings are consistent with emphysematous changes and interstitial fibrosis, stable. No focal infiltrates or pleural effusions are noted. There are numerous borderline lymph nodes in the prevascular region and superior mediastinum, stable. There is no evidence for new mediastinal, hilar, or axillary adenopathy. The esophagus is distended throughout. The distal 2/3 is fluid-filled. Etiology is uncertain. No defi nite mass at the GE junction is seen. Cardiac size is normal and stable.. No evidence for ventricular chamber enlargement is seen. The aort a demonstrates a small saccular aneurysm off the descending aorta just beyond the aortic arch. Findin gs are stable. There also normal anatomic variant with the left vertebral artery doubt extending dire ctly off the arch of aorta prior to the left subclavian artery the left common carotid artery origina cristino from common trunk with the innominate artery. Images through the lung bases include the upper abdomen which show a stable low-density nodule of the left adrenal gland, likely benign. There is a stable 1.5 cm cyst in the lateral mid pole left kidney . Bony structures demonstrate no focal abnormalities. Osteophytic bridging anteriorly in the lower thor acic spine is noted. IMPRESSION: 1. no evidence for pulmonary embolism. 2. Pulmonary arteries are prominent in size which suggests underlying pulmonary arterial hypertension 3. Diffuse emphysema and interstitial fibrosis bilaterally 4. Stable mesentery lymph nodes 5. The esophagus is distended throughout the with the distal 2/3 being fluid-filled. Significance and etiology is uncertain. 6. 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 7. Stable left adrenal nodule and left renal cyst
[2018-11-27] MEDS ORDERED: SOLU-Medrol ONE (22:12)
[2018-11-27] MEDS: SOLU-Medrol IV SCH (22:14)
[2018-11-27] MEDS: SODIUM CHLORIDE FLUSH SYRINGE 10 ML IV SCH (22:14)
[2018-11-28] MEDS ORDERED: APRESOLINE IV ONE (02:45)
[2018-11-28] MEDS ORDERED: APRESOLINE ONE (02:48)
[2018-11-28 04:56] LABS: BUN/Creatinine Ratio 13; Blood Urea Nitrogen 10 mg/dL (9-20); Hemolysis Index 8
[2018-11-28] MEDS: LEVAQUIN 750MG/150ML 750 MG/150 ML BAG IV SCH (09:46)
[2018-11-28] MEDS ORDERED: SOLU-Medrol ONE (09:47)
[2018-11-28] MEDS ORDERED: LEVAQUIN 500MG/100ML 0 MG/0 ML BAG IV ONE (09:47)
[2018-11-28] MEDS: SODIUM CHLORIDE FLUSH SYRINGE 10 ML IV SCH ×2 (09:48→23:00)
[2018-11-28] MEDS: SOLU-Medrol IV SCH (09:48)
[2018-11-28] MEDS ORDERED: LEVAQUIN 750MG/150ML 750 MG/150 ML BAG IV ONE (09:50)
[2018-11-28] MEDS ORDERED: TYLENOL PO PRN (14:03)
[2018-11-28] MEDS ORDERED: PROVENTIL IH PRN (14:03)
[2018-11-28] MEDS ORDERED: PROAIR IH SCH (14:15)
[2018-11-28] MEDS ORDERED: ATROVENT IH ONE (14:50)
[2018-11-28] MEDS ORDERED: VITAMIN D2 PO SCH (15:00)
[2018-11-28] MEDS: ATROVENT IH SCH ×2 (15:41→20:55)
--- NOTE | 2018-11-28 18:10 | Progress Note ---
Assessment and Plan Assessment and plan: --Acute on chronic hypoxic respiratory failure; Requiring BiPAP, continue oxygen and titrate to O2 sats more than 90% Nebulizers, IV steroids, IV antibiotics, supportive care Pulmonary consult if needed --History of pulmonary fibrosis; continue current management --Acute exacerbation of COPD; bronchodilators, IV steroids, inhalation steroids Supportive care, patient already has home oxygen --Elevated d-dimer is; negative PE Check lower extremity venous Doppler to rule out DVT --Lactic acidosis; IV fluids, rule out sepsis Closely monitor --Hypertension; moderate control, continue current antihypertensives and when necessary medications --Dyslipidemia; on statin --DVT prophylaxis; Lovenox --Full CODE STATUS Closely monitor the patient and adjust the management as needed Plan of care reviewed with the patient, at the bedside and his nurse We will downgrade the patient from IMCU to [facility] unit with remote telemetry History Interval history: Patient seen and examined and enlarged awaiting bed assignment Patient admitted with acute on chronic respiratory failure Requiring BiPAP, the time of my evaluation patient is on [place] oxygen saturating 94-95% Patient denies any chest pain, mild shortness of breath Vital signs noted Hospitalist Physical - Constitutional Vitals: Temp Pulse Resp BP Pulse Ox 98 F 73 21 149/86 98 11/27/18 11:55 11/28/18 09:33 11/28/18 09:33 11/28/18 09:33 11/28/18 06:20 General appearance: Present: mild distress, well-nourished, disheveled - EENT Eyes: Present: PERRL, EOM intact - Neck Neck: Present: supple, normal ROM - Respiratory Respiratory effort: normal Respiratory: bilateral: diminished, rhonchi, negative: rales, wheezing - Cardiovascular Rhythm: regular Heart Sounds: Present: S1 & S2 - Extremities Extremities: no ischemia, No edema - Abdominal General gastrointestinal: soft, non-tender, non-distended, normal bowel sounds - Integumentary Integumentary: Present: clear, warm - Psychiatric Psychiatric: appropriate mood/affect, cooperative - Neurologic Neurologic: CNII-XII intact, moves all extremities Results - Labs CBC & Chem 7: 11/27/18 12:42 11/28/18 03:57 Labs: Laboratory Last Values WBC 9.7 K/mm3 (4.5-11.0) 11/27/18 12:42 RBC 5.18 M/mm3 (3.65-5.03) H 11/27/18 12:42 Hgb 12.6 gm/dl (11.8-15.2) 11/27/18 12:42 Hct 39.9 % (35.5-45.6) 11/27/18 12:42 MCV 77 fl (84-94) L 11/27/18 12:42 MCH 24 pg (28-32) L 11/27/18 12:42 MCHC 32 % (32-34) 11/27/18 12:42 RDW 21.8 % (13.2-15.2) H 11/27/18 12:42 Plt Count 205 K/mm3 (140-440) 11/27/18 12:42 Lymph % (Auto) 8.4 % (13.4-35.0) L 11/27/18 12:42 [place] % (Auto) 5.3 % (0.0-7.3) 11/27/18 12:42 Eos % (Auto) 0.2 % (0.0-4.3) 11/27/18 12:42 Baso % (Auto) 0.5 % (0.0-1.8) 11/27/18 12:42 Lymph # 0.8 K/mm3 (1.2-5.4) L 11/27/18 12:42 [place] # 0.5 K/mm3 (0.0-0.8) 11/27/18 12:42 Eos # 0.0 K/mm3 (0.0-0.4) 11/27/18 12:42 Baso # 0.0 K/mm3 (0.0-0.1) 11/27/18 12:42 Seg Neutrophils % 85.6 % (40.0-70.0) H 11/27/18 12:42 Seg Neutrophils # 8.3 K/mm3 (1.8-7.7) H 11/27/18 12:42 APTT 31.6 Sec. (24.2-36.6) 11/27/18 12:42 D-Dimer 3107.17 ng/mlDDU (0-234) H 11/27/18 16:04 POC ABG pH 7.404 (7.35-7.45) 11/27/18 12:44 POC ABG pCO2 46.0 (35-45) H 11/27/18 12:44 POC ABG pO2 338 (80-105) H 11/27/18 12:44 POC ABG HCO3 28.8 11/27/18 12:44 POC ABG Total CO2 30 11/27/18 12:44 POC ABG O2 Sat 100 11/27/18 12:44 POC ABG Base Excess 4 11/27/18 12:44 FiO2 100 % 11/27/18 12:44 Sodium 138 mmol/L (137-145) 11/28/18 03:57 Potassium 4.3 mmol/L (3.6-5.0) 11/28/18 03:57 Chloride 96.9 mmol/L (98-107) L 11/28/18 03:57 Carbon Dioxide 26 mmol/L (22-30) 11/28/18 03:57 Anion Gap 19 mmol/L 11/28/18 03:57 BUN 10 mg/dL (9-20) 11/28/18 03:57 Creatinine 0.8 mg/dL (0.8-1.5) 11/28/18 03:57 Estimated GFR > 60 ml/min 11/28/18 03:57 BUN/Creatinine Ratio 13 % 11/28/18 03:57 Glucose 232 mg/dL (75-100) H 11/28/18 03:57 Lactic Acid 2.70 mmol/L (0.7-2.0) H* 11/27/18 16:10 Calcium 9.0 mg/dL (8.4-10.2) 11/28/18 03:57 Total Bilirubin 0.20 mg/dL (0.1-1.2) 11/27/18 12:42 AST 14 units/L (5-40) 11/27/18 12:42 ALT 13 units/L (7-56) 11/27/18 12:42 Alkaline Phosphatase 72 units/L (35-129) 11/27/18 12:42 NT-Pro-B Natriuret Pep 4775 pg/mL (0-900) H 11/27/18 16:04 Total Protein 6.7 g/dL (6.3-8.2) 11/27/18 12:42 Albumin 3.3 g/dL (3.9-5) L 11/27/18 12:42 Albumin/Globulin Ratio 1.0 % 11/27/18 12:42 Urine Color Colorless (Yellow) 11/27/18 13:27 Urine Turbidity Clear (Clear) 11/27/18 13:27 Urine pH 6.0 (5.0-7.0) 11/27/18 13:27 Ur Specific [place] 1.005 (1.003-1.030) 11/27/18 13:27 Urine Protein <15 mg/dl mg/dL (Negative) 11/27/18 13:27 Urine Glucose (UA) Neg mg/dL (Negative) 11/27/18 13:27 Urine Ketones Neg mg/dL (Negative) 11/27/18 13:27 Urine Blood Neg (Negative) 11/27/18 13:27 Urine Nitrite Neg (Negative) 11/27/18 13:27 Urine Bilirubin Neg (Negative) 11/27/18 13:27 Urine Urobilinogen < 2.0 mg/dL (<2.0) 11/27/18 13:27 Ur Leukocyte Esterase Neg (Negative) 11/27/18 13:27 Urine WBC (Auto) Not Reportable 11/27/18 13:27 Urine RBC (Auto) 2.0 /HPF (0.0-6.0) 11/27/18 13:27 U Epithel Cells (Auto) < 1.0 /HPF (0-13.0) 11/27/18 13:27
[2018-11-28] MEDS: PULMICORT IH SCH (20:55)
[2018-11-28] MEDS: BROVANA NEBU IH SCH (20:55)
[2018-11-28 22:05] LABS: INR 1.39 (0.87-1.13)
[2018-11-28] MEDS: LASIX PO SCH (23:00)
[2018-11-29] MEDS: SOLU-Medrol IV SCH ×3 (00:27→22:19)
[2018-11-29] MEDS: PIRFENIDONE 801 MG PO SCH ×4 (00:28→17:09)
[2018-11-29] MEDS: ATROVENT IH SCH ×5 (02:18→21:41)
[2018-11-29] MEDS: LOPRESSOR PO SCH ×3 (04:19→22:18)
[2018-11-29 04:53] LABS: Basophils % (Auto) 0.1 % (0.0-1.8); Eosinophils % (Auto) 0.3 % (0.0-4.3); Hematocrit 40.5 % (35.5-45.6); Hemoglobin 13.1 gm/dl (11.8-15.2); Lymphocytes # (Auto) 0.8 K/mm3 (1.2-5.4); Lymphocytes % (Auto) 9.2 % (13.4-35.0); Mean Corpuscular HGB Conc 32 % (32-34); Mean Corpuscular Volume 76 fl (84-94); Monocytes # (Auto) 0.3 K/mm3 (0.0-0.8); Monocytes % (Auto) 3.9 % (0.0-7.3); Platelet Count 237 K/mm3 (140-440); Red Blood Count 5.31 M/mm3 (3.65-5.03)
[2018-11-29 04:58] LABS: Red Cell Distribution Width 21.8 % (13.2-15.2)
[2018-11-29 05:05] LABS: INR 1.45 (0.87-1.13)
[2018-11-29 05:06] LABS: Partial Thromboplastin Time 33.2 Sec. (24.2-36.6)
[2018-11-29 05:07] LABS: Alanine Aminotransferase 11 units/L (7-56); Albumin 3.2 g/dL (3.9-5); BUN/Creatinine Ratio 17; Blood Urea Nitrogen 17 mg/dL (9-20); Calcium 9.2 mg/dL (8.4-10.2); Hemolysis Index 15
[2018-11-29] MEDS: PROVENTIL IH PRN ×3 (08:18→18:21)
[2018-11-29] MEDS: PULMICORT IH SCH ×2 (08:19→21:41)
[2018-11-29] MEDS: BROVANA NEBU IH SCH ×3 (08:19→21:41)
[2018-11-29] MEDS: LEVAQUIN 750MG/150ML 750 MG/150 ML BAG IV SCH (10:01)
[2018-11-29] MEDS: SODIUM CHLORIDE FLUSH SYRINGE 10 ML IV SCH ×2 (10:02→22:20)
[2018-11-29] MEDS: PEPCID PO SCH (10:03)
[2018-11-29] MEDS: LASIX PO SCH ×2 (10:03→22:19)
[2018-11-29] MEDS: PROzac PO SCH (10:03)
[2018-11-29] MEDS: NORVASC PO SCH (10:04)
[2018-11-29] MEDS: COZAAR PO SCH (10:07)
--- NOTE | 2018-11-29 16:27 | Progress Note ---
Assessment and Plan Assessment and plan: --Acute on chronic diastolic CHF : cont anti failure medications --Acute on chronic hypoxic respiratory failure; Requiring BiPAP, continue oxygen and titrate O2 sats more than 90% Nebulizers, IV steroids, IV antibiotics, supportive care Pulmonary consult if needed --History of pulmonary fibrosis; continue current management --Acute exacerbation of COPD; bronchodilators, IV steroids, inhalation steroids Supportive care, patient already has home oxygen --Elevated d-dimer is; negative PE Check lower extremity venous Doppler to rule out DVT --Lactic acidosis; IV fluids, rule out sepsis Closely monitor --Hypertension; moderate control, continue current antihypertensives and when necessary medications --Dyslipidemia; on statin --DVT prophylaxis; Lovenox --Full CODE STATUS Closely monitor the patient and adjust the management as needed Plan of care reviewed with the patient, at the bedside and his nurse Possible discharge home tomorrow if stable Patient already has home oxygen This planning. Case management History Interval history: Patient seen and examined medical records revealed Admitted with CHRONIC HYPOXIC RESPIRATORY FAILURE SECONDARY TO COPD EXACERBATION As well as acute on chronic diastolic congestive heart failure Patient is sitting in chairs and having his lunch Since slightly better, not in acute distress Still has mild increase in cough Afebrile vital signs reviewed Hospitalist Physical - Constitutional Vitals: Temp Pulse Resp BP Pulse Ox 98.5 F 105 H 20 121/80 89 11/29/18 13:16 11/29/18 13:16 11/29/18 13:16 11/29/18 13:16 11/29/18 13:16 General appearance: Present: no acute distress, mild distress, well-nourished, disheveled - EENT Eyes: Present: PERRL, EOM intact - Neck Neck: Present: supple, normal ROM - Respiratory Respiratory effort: normal Respiratory: bilateral: diminished, wheezing, negative: rales, rhonchi - Cardiovascular Rhythm: regular Heart Sounds: Present: S1 & S2 - Extremities Extremities: no ischemia Extremity abnormal: edema - Abdominal General gastrointestinal: soft, non-tender, non-distended, normal bowel sounds - Integumentary Integumentary: Present: clear, warm - Psychiatric Psychiatric: appropriate mood/affect, cooperative - Neurologic Neurologic: CNII-XII intact, moves all extremities Results - Labs CBC & Chem 7: 11/29/18 04:26 11/29/18 04:26 Labs: Laboratory Last Values WBC 8.7 K/mm3 (4.5-11.0) 11/29/18 04:26 RBC 5.31 M/mm3 (3.65-5.03) H 11/29/18 04:26 Hgb 13.1 gm/dl (11.8-15.2) 11/29/18 04:26 Hct 40.5 % (35.5-45.6) 11/29/18 04:26 MCV 76 fl (84-94) L 11/29/18 04:26 MCH 25 pg (28-32) L 11/29/18 04:26 MCHC 32 % (32-34) 11/29/18 04:26 RDW 21.8 % (13.2-15.2) H 11/29/18 04:26 Plt Count 237 K/mm3 (140-440) 11/29/18 04:26 Lymph % (Auto) 9.2 % (13.4-35.0) L 11/29/18 04:26 [place] % (Auto) 3.9 % (0.0-7.3) 11/29/18 04:26 Eos % (Auto) 0.3 % (0.0-4.3) 11/29/18 04:26 Baso % (Auto) 0.1 % (0.0-1.8) 11/29/18 04:26 Lymph # 0.8 K/mm3 (1.2-5.4) L 11/29/18 04:26 [place] # 0.3 K/mm3 (0.0-0.8) 11/29/18 04:26 Eos # 0.0 K/mm3 (0.0-0.4) 11/29/18 04:26 Baso # 0.0 K/mm3 (0.0-0.1) 11/29/18 04:26 Seg Neutrophils % 86.5 % (40.0-70.0) H 11/29/18 04:26 Seg Neutrophils # 7.5 K/mm3 (1.8-7.7) 11/29/18 04:26 PT 18.6 Sec. (12.2-14.9) H 11/29/18 04:26 INR 1.45 (0.87-1.13) H 11/29/18 04:26 APTT 33.2 Sec. (24.2-36.6) 11/29/18 04:26 D-Dimer 3107.17 ng/mlDDU (0-234) H 11/27/18 16:04 POC ABG pH 7.404 (7.35-7.45) 11/27/18 12:44 POC ABG pCO2 46.0 (35-45) H 11/27/18 12:44 POC ABG pO2 338 (80-105) H 11/27/18 12:44 POC ABG HCO3 28.8 11/27/18 12:44 POC ABG Total CO2 30 11/27/18 12:44 POC ABG O2 Sat 100 11/27/18 12:44 POC ABG Base Excess 4 11/27/18 12:44 FiO2 100 % 11/27/18 12:44 Sodium 138 mmol/L (137-145) 11/29/18 04:26 Potassium 4.8 mmol/L (3.6-5.0) 11/29/18 04:26 Chloride 97.0 mmol/L (98-107) L 11/29/18 04:26 Carbon Dioxide 30 mmol/L (22-30) 11/29/18 04:26 Anion Gap 16 mmol/L 11/29/18 04:26 BUN 17 mg/dL (9-20) 11/29/18 04:26 Creatinine 1.0 mg/dL (0.8-1.5) 11/29/18 04:26 Estimated GFR > 60 ml/min 11/29/18 04:26 BUN/Creatinine Ratio 17 % 11/29/18 04:26 Glucose 207 mg/dL (75-100) H 11/29/18 04:26 POC Glucose 239 (70-105) H 11/29/18 11:24 Lactic Acid 2.70 mmol/L (0.7-2.0) H* 11/27/18 16:10 Calcium 9.2 mg/dL (8.4-10.2) 11/29/18 04:26 Total Bilirubin < 0.20 mg/dL (0.1-1.2) 11/29/18 04:26 AST 16 units/L (5-40) 11/29/18 04:26 ALT 11 units/L (7-56) 11/29/18 04:26 Alkaline Phosphatase 75 units/L (35-129) 11/29/18 04:26 NT-Pro-B Natriuret Pep 4775 pg/mL (0-900) H 11/27/18 16:04 Total Protein 6.5 g/dL (6.3-8.2) 11/29/18 04:26 Albumin 3.2 g/dL (3.9-5) L 11/29/18 04:26 Albumin/Globulin Ratio 1.0 % 11/29/18 04:26 Urine Color Colorless (Yellow) 11/27/18 13:27 Urine Turbidity Clear (Clear) 11/27/18 13:27 Urine pH 6.0 (5.0-7.0) 11/27/18 13:27 Ur Specific [place] 1.005 (1.003-1.030) 11/27/18 13:27 Urine Protein <15 mg/dl mg/dL (Negative) 11/27/18 13:27 Urine Glucose (UA) Neg mg/dL (Negative) 11/27/18 13:27 Urine Ketones Neg mg/dL (Negative) 11/27/18 13:27 Urine Blood Neg (Negative) 11/27/18 13:27 Urine Nitrite Neg (Negative) 11/27/18 13:27 Urine Bilirubin Neg (Negative) 11/27/18 13:27 Urine Urobilinogen < 2.0 mg/dL (<2.0) 11/27/18 13:27 Ur Leukocyte Esterase Neg (Negative) 11/27/18 13:27 Urine WBC (Auto) Not Reportable 11/27/18 13:27 Urine RBC (Auto) 2.0 /HPF (0.0-6.0) 11/27/18 13:27 U Epithel Cells (Auto) < 1.0 /HPF (0-13.0) 11/27/18 13:27
[2018-11-30] MEDS: ATROVENT IH SCH ×5 (02:58→19:25)
[2018-11-30] MEDS: APRESOLINE IV PRN (03:53)
[2018-11-30] MEDS: PULMICORT IH SCH ×2 (07:33→19:24)
[2018-11-30] MEDS: BROVANA NEBU IH SCH ×2 (07:33→19:25)
[2018-11-30] MEDS: PIRFENIDONE 801 MG PO SCH ×3 (07:52→16:50)
[2018-11-30] MEDS: SODIUM CHLORIDE FLUSH SYRINGE 10 ML IV SCH ×2 (09:08→22:31)
[2018-11-30] MEDS: SOLU-Medrol IV SCH ×2 (09:08→21:13)
[2018-11-30] MEDS: COZAAR PO SCH (09:09)
[2018-11-30] MEDS: NORVASC PO SCH (09:10)
[2018-11-30] MEDS: PROzac PO SCH (09:10)
[2018-11-30] MEDS: LASIX PO SCH ×2 (09:10→21:12)
[2018-11-30] MEDS: PEPCID PO SCH (09:11)
[2018-11-30] MEDS: LEVAQUIN PO SCH (09:13)
[2018-11-30] MEDS: LOPRESSOR PO SCH ×2 (09:13→21:14)
[2018-11-30] MEDS: PROVENTIL IH PRN (12:24)
--- NOTE | 2018-11-30 14:30 | Discharge Summary ---
Providers - Providers Date of Admission: 11/27/18 15:59 Date of discharge: 12/01/18 Attending physician: RONI [facility] Hospitalization Reason for admission: worsening shortness of breath/acute on chronic hypoxic respiratory failure Condition: Fair Pertinent studies: CT chest; no PE, pulmonary arterial hypertension Diffuse emphysema and interstitial fibrosis Mesenteric lymph nodes, Saccular aneurysm ascending aorta Esophagus distended with fluid[patient has no GI symptoms] Chest x-ray; pulmonary fibrosis Lower extremity venous Doppler; negative for DVT Hospital course: Very pleasant 68-year-old -[place] male patient with significant past medical history of pulmonary fibrosis on 5 L of nasal cannula oxygen, home O2 dependent COPD , chronic atrial fibrillation, chronic anticoagulation on Coumadin, was admitted through emergency room with worsening shortness of breath, initial evaluation is consistent with acute on chronic hypoxic respiratory failure, O2 sats upon arrival was 57% slightly increased to 70% with nebulizers.and BiPAP, Patient was admitted to the hospital managed with IV antibiotics and IV steroids inhalation steroids and nebulizers and supportive care, Patient symptoms significantly improved today's comfortable no new complaints Vital signs stable, physical examination prior to discharge no new changes Patient's INR is subtherapeutic, consult to comply with medications and follow- up visits The patient verbalized understanding, Advised to follow up with private steam and power supervisor per schedule Advised to check INR in 1-2 days at [facility] office that INR 2-3 patient is hemodynamically and clinically stable at discharge Discharge diagnoses: --Acute on chronic hypoxic respiratory failure; Requiring BiPAP, continue oxygen and titrate O2 sats more than 90% Nebulizers, IV steroids, IV antibiotics, supportive care Pulmonary consult if needed --History of pulmonary fibrosis; continue current management --Acute exacerbation of COPD; bronchodilators, IV steroids, inhalation steroids Supportive care, patient already has home oxygen --A. fib with rate controlled, continue beta blockers, chronic coagulation with Coumadin subtherapeutic INR target INR 2-3. --Moderate malnutrition; due to underlying disease process Nutrition supplements and support. --Closely monitor the patient and adjust management as needed Plan of care reviewed with the patient's nurse and patient's at the bedside --Acute on chronic diastolic CHF : cont anti failure medications --Elevated d-dimer is; negative PE Check lower extremity venous Doppler to rule out DVT --Lactic acidosis; IV fluids, rule out sepsis Closely monitor --Hypertension; moderate control, continue current antihypertensives and when necessary medications --Dyslipidemia; on statin The patient is stable at discharge Disposition: -01 TO HOME OR SELFCARE Time spent for discharge: 32 min Core Measure Documentation - Palliative Care Palliative Care/ Comfort Measures: Not Applicable - Core Measures Any of the following diagnoses?: none Exam - Constitutional Vitals: Temp Pulse Resp BP Pulse Ox 97.7 F 90 22 100/62 92 11/30/18 13:27 11/30/18 13:27 11/30/18 13:27 11/30/18 13:27 11/30/18 13:27 General appearance: Present: no acute distress, well-nourished - EENT Eyes: Present: PERRL, EOM intact - Neck Neck: Present: supple, normal ROM - Respiratory Respiratory effort: normal Respiratory: bilateral: diminished, rhonchi, negative: rales, wheezing - Cardiovascular Rhythm: regular Heart Sounds: Present: S1 & S2 - Extremities Extremities: no ischemia, No edema - Abdominal General gastrointestinal: Present: soft, non-tender, non-distended, normal bowel sounds - Integumentary Integumentary: Present: clear, warm - Musculoskeletal Musculoskeletal: strength equal bilaterally - Psychiatric Psychiatric: appropriate mood/affect, cooperative - Neurologic Neurologic: moves all extremities Plan Activity: advance as tolerated, fall precautions Diet: other (cardiac diet) Additional Instructions: Follow-up private steam and power supervisor per scheduled. Continue home o2 oxygen as before. Check INR in [facility] office in 1-2 days[target INR 2-3] Follow up with: NADEEM CAMPOVERDE [Other] - 3-5 Days Prescriptions: levoFLOXacin [Levaquin TAB] 750 mg PO DAILY #5 tablet Prednisone [predniSONE 10 mg (6-Day Pack, 21 Tabs)] 10 mg PO .TAPER #1 tab.ds.pk
--- NOTE | 2018-11-30 17:56 | Progress Note ---
Assessment and Plan Assessment and plan: --A. fib with rate controlled, continue beta blockers, chronic coagulation with Coumadin subtherapeutic INR target INR 2-3. --Acute on chronic diastolic CHF : cont anti failure medications --Acute on chronic hypoxic respiratory failure; Requiring BiPAP, continue oxygen and titrate O2 sats more than 90% Nebulizers, IV steroids, IV antibiotics, supportive care Pulmonary consult if needed --History of pulmonary fibrosis; continue current management --Acute exacerbation of COPD; bronchodilators, IV steroids, inhalation steroids Supportive care, patient already has home oxygen --Elevated d-dimer is; negative PE Check lower extremity venous Doppler to rule out DVT --Lactic acidosis; IV fluids, rule out sepsis Closely monitor --Hypertension; moderate control, continue current antihypertensives and when necessary medications --Dyslipidemia; on statin --Moderate malnutrition; due to underlying disease process Nutrition supplements and support. Closely monitor the patient and adjust management as needed Plan of care reviewed with the patient's nurse and patient's at the bedside --DVT prophylaxis; Lovenox --Full CODE STATUS Closely monitor the patient and adjust the management as needed Plan of care reviewed with the patient, at the bedside and his nurse Possible discharge home tomorrow if stable Patient already has home oxygen This planning. Case management History Interval history: Patient seen and examined medical records reviewed Initially patient was ready to be discharged home However in the last minute patient says that he doesn't feel comfortable going home As he is feeling dizzy and very weak Vital signs reviewed Patient is alert awake oriented 3 In mild distress/anxious Hospitalist Physical - Constitutional Vitals: Temp Pulse Resp BP Pulse Ox 97.7 F 90 22 100/62 92 11/30/18 13:27 11/30/18 13:27 11/30/18 13:27 11/30/18 13:27 11/30/18 13:27 General appearance: Present: no acute distress, well-nourished - EENT Eyes: Present: PERRL, EOM intact - Neck Neck: Present: supple, normal ROM - Respiratory Respiratory effort: normal Respiratory: bilateral: diminished, rhonchi, negative: rales, wheezing - Cardiovascular Rhythm: regular Heart Sounds: Present: S1 & S2 - Extremities Extremities: no ischemia, No edema - Abdominal General gastrointestinal: soft, non-tender, non-distended, normal bowel sounds - Integumentary Integumentary: Present: clear, warm - Psychiatric Psychiatric: appropriate mood/affect, cooperative - Neurologic Neurologic: CNII-XII intact, moves all extremities Results - Labs CBC & Chem 7: 11/29/18 04:26 11/29/18 04:26 Labs: Laboratory Last Values WBC 8.7 K/mm3 (4.5-11.0) 11/29/18 04:26 RBC 5.31 M/mm3 (3.65-5.03) H 11/29/18 04:26 Hgb 13.1 gm/dl (11.8-15.2) 11/29/18 04:26 Hct 40.5 % (35.5-45.6) 11/29/18 04:26 MCV 76 fl (84-94) L 11/29/18 04:26 MCH 25 pg (28-32) L 11/29/18 04:26 MCHC 32 % (32-34) 11/29/18 04:26 RDW 21.8 % (13.2-15.2) H 11/29/18 04:26 Plt Count 237 K/mm3 (140-440) 11/29/18 04:26 Lymph % (Auto) 9.2 % (13.4-35.0) L 11/29/18 04:26 [place] % (Auto) 3.9 % (0.0-7.3) 11/29/18 04:26 Eos % (Auto) 0.3 % (0.0-4.3) 11/29/18 04:26 Baso % (Auto) 0.1 % (0.0-1.8) 11/29/18 04:26 Lymph # 0.8 K/mm3 (1.2-5.4) L 11/29/18 04:26 [place] # 0.3 K/mm3 (0.0-0.8) 11/29/18 04:26 Eos # 0.0 K/mm3 (0.0-0.4) 11/29/18 04:26 Baso # 0.0 K/mm3 (0.0-0.1) 11/29/18 04:26 Seg Neutrophils % 86.5 % (40.0-70.0) H 11/29/18 04:26 Seg Neutrophils # 7.5 K/mm3 (1.8-7.7) 11/29/18 04:26 PT 18.6 Sec. (12.2-14.9) H 11/29/18 04:26 INR 1.45 (0.87-1.13) H 11/29/18 04:26 APTT 33.2 Sec. (24.2-36.6) 11/29/18 04:26 D-Dimer 3107.17 ng/mlDDU (0-234) H 11/27/18 16:04 POC ABG pH 7.404 (7.35-7.45) 11/27/18 12:44 POC ABG pCO2 46.0 (35-45) H 11/27/18 12:44 POC ABG pO2 338 (80-105) H 11/27/18 12:44 POC ABG HCO3 28.8 11/27/18 12:44 POC ABG Total CO2 30 11/27/18 12:44 POC ABG O2 Sat 100 11/27/18 12:44 POC ABG Base Excess 4 11/27/18 12:44 FiO2 100 % 11/27/18 12:44 Sodium 138 mmol/L (137-145) 11/29/18 04:26 Potassium 4.8 mmol/L (3.6-5.0) 11/29/18 04:26 Chloride 97.0 mmol/L (98-107) L 11/29/18 04:26 Carbon Dioxide 30 mmol/L (22-30) 11/29/18 04:26 Anion Gap 16 mmol/L 11/29/18 04:26 BUN 17 mg/dL (9-20) 11/29/18 04:26 Creatinine 1.0 mg/dL (0.8-1.5) 11/29/18 04:26 Estimated GFR > 60 ml/min 11/29/18 04:26 BUN/Creatinine Ratio 17 % 11/29/18 04:26 Glucose 207 mg/dL (75-100) H 11/29/18 04:26 POC Glucose 144 (70-105) H 11/30/18 16:38 Lactic Acid 2.70 mmol/L (0.7-2.0) H* 11/27/18 16:10 Calcium 9.2 mg/dL (8.4-10.2) 11/29/18 04:26 Total Bilirubin < 0.20 mg/dL (0.1-1.2) 11/29/18 04:26 AST 16 units/L (5-40) 11/29/18 04:26 ALT 11 units/L (7-56) 11/29/18 04:26 Alkaline Phosphatase 75 units/L (35-129) 11/29/18 04:26 NT-Pro-B Natriuret Pep 4775 pg/mL (0-900) H 11/27/18 16:04 Total Protein 6.5 g/dL (6.3-8.2) 11/29/18 04:26 Albumin 3.2 g/dL (3.9-5) L 11/29/18 04:26 Albumin/Globulin Ratio 1.0 % 11/29/18 04:26 Urine Color Colorless (Yellow) 11/27/18 13:27 Urine Turbidity Clear (Clear) 11/27/18 13:27 Urine pH 6.0 (5.0-7.0) 11/27/18 13:27 Ur Specific [place] 1.005 (1.003-1.030) 11/27/18 13:27 Urine Protein <15 mg/dl mg/dL (Negative) 11/27/18 13:27 Urine Glucose (UA) Neg mg/dL (Negative) 11/27/18 13:27 Urine Ketones Neg mg/dL (Negative) 11/27/18 13:27 Urine Blood Neg (Negative) 11/27/18 13:27 Urine Nitrite Neg (Negative) 11/27/18 13:27 Urine Bilirubin Neg (Negative) 11/27/18 13:27 Urine Urobilinogen < 2.0 mg/dL (<2.0) 11/27/18 13:27 Ur Leukocyte Esterase Neg (Negative) 11/27/18 13:27 Urine WBC (Auto) Not Reportable 11/27/18 13:27 Urine RBC (Auto) 2.0 /HPF (0.0-6.0) 11/27/18 13:27 U Epithel Cells (Auto) < 1.0 /HPF (0-13.0) 11/27/18 13:27
[2018-11-30] MEDS ORDERED: XANAX PO ONE (18:25)
[2018-11-30] MEDS ORDERED: XANAX PO PRN (18:25)
[2018-11-30] MEDS ORDERED: LOVENOX SUB-Q SCH (22:00)
[2018-12-01] MEDS: APRESOLINE IV PRN (02:51)
[2018-12-01 08:18] VITALS: BP 149/86
[2018-12-01] MEDS: PULMICORT IH SCH (08:22)
[2018-12-01] MEDS: ATROVENT IH SCH ×2 (08:22→09:25)
[2018-12-01] MEDS: BROVANA NEBU IH SCH (08:22)
[2018-12-01] MEDS: SODIUM CHLORIDE FLUSH SYRINGE 10 ML IV SCH (10:10)
[2018-12-01] MEDS: SOLU-Medrol IV SCH (10:10)
[2018-12-01] MEDS: LOPRESSOR PO SCH (10:11)
[2018-12-01] MEDS: PROzac PO SCH (10:12)
[2018-12-01] MEDS: PEPCID PO SCH (10:14)
[2018-12-01] MEDS: LEVAQUIN PO SCH (10:14)
[2018-12-01] MEDS: NORVASC PO SCH (10:14)
[2018-12-01] MEDS: LASIX PO SCH (10:14)
[2018-12-01] MEDS: COZAAR PO SCH (10:15)
[2018-12-01] MEDS: PIRFENIDONE 801 MG PO SCH ×2 (10:16→11:56)
--- NOTE | 2018-12-03 14:09 | Vascular Lab Report ---
PROCEDURE: VL VENOUS DUPLEX LE BILAT HISTORY: elevated d dimers/r/o DVT FINDINGS: Real-time ultrasound of the right leg and left leg was performed using grayscale and color Doppler images. These images demonstrate no evidence of deep venous thrombus in the right or left common femoral vein , superficial femoral vein, popliteal vein or posterior tibial vein. IMPRESSION: No DVT in either leg This document is electronically signed by Beto Matthew MD., November 30 2018 05:55:21 PM ET
== END 2018-12-01 14:05 | disposition home health service (06) | DRG 189 ==
LOC: ED 11:27 → IMCU 15:59 → 2B-ACE 11-28 17:57
PROVIDERS: ADMIT Internal Medicine; ATTEND Internal Medicine
PROC: 4A033R1 Measurement of Arterial Saturation, Peripheral, Percutaneous Approach (ICD-10-PCS; principal; 2018-11-27)
DX: J96.21 Acute and chronic respiratory failure with hypoxia (principal); E87.2 Acidosis; J44.1 Chronic obstructive pulmonary disease with (acute) exacerbation; E44.0 Moderate protein-calorie malnutrition; I50.32 Chronic diastolic (congestive) heart failure; J84.10 Pulmonary fibrosis, unspecified; I27.20 Pulmonary hypertension, unspecified; I48.2 Chronic atrial fibrillation; I11.0 Hypertensive heart disease with heart failure; E78.5 Hyperlipidemia, unspecified; E11.9 Type 2 diabetes mellitus without complications; Z68.27 Body mass index [BMI] 27.0-27.9, adult; Z99.81 Dependence on supplemental oxygen; Z79.01 Long term (current) use of anticoagulants; Z82.49 Family history of ischemic heart disease and other diseases of the circulatory system; Z79.899 Other long term (current) drug therapy
CPT/HCPCS: 36415; 71045; 71275; 80048; 80053; 81001; 82140; 82803; 82962; 83880; 85025; 85379; 85610; 85730; 87040; 93005; 93010; 93970; 94640; 94644; 94760; G0378; A9270-GY; J0360; J1650; J1956; J2920; J7040; Q9967